=== PATIENT | male | born 1945 | race Caucasian/White ===

== ENCOUNTER 2020-04-24 09:37 | Day surgery (SDC) | payer MEDICARE, SELFPAY ==
[2020-04-23 12:40] VITALS: BMI 24.5
--- NOTE | 2020-04-23 13:04 | HO.ANESPROP2 ---
Documented by User: Daysi Muhammad 04/23/20 13:12 HPI - Anesthesia Eval Consult details Narrative: 75yo M for Colonoscopy [facility] Past Medical History Medical History Benign tumor of pituitary gland Blind left eye Colon adenomas GERD (gastroesophageal reflux disease) History of cataract Hypertension Surgical History Surgical History History of brain surgery History of colonoscopy History of hernia repair History of knee surgery History of laminectomy History of prostatectomy History of surgery on wrist Social History Social History Alcohol intake: never Smoking Status: Former smoker Tobacco Type: Cigarette Second Hand Smoke Exposure: No Use of substances other than those prescribed or required for medical reasons: No Advance Directives: No Advance Directives Information Provided: Yes Advance Directives on File: No Meds Allergies Allergy/AdvReac Type Severity Reaction Status Date / Time No Known Allergies Allergy Unverified 03/12/20 16:19 [No Known Allergies*] Home Medications Medication Instructions Recorded Confirmed Type fvqegeduav-uscgbvccipjjs-klvl tab PO 04/24/20 History finasteride mg PO 04/24/20 04/24/20 History oxymetazoline [Afrin spray INTRANASAL 04/24/20 History (oxymetazoline)] Exam Exam Date and Time: April 23, 2020 1304 Height,Weight and Vital Signs: Height 5 ft 11.5 in Weight 80.739 kg Assessment and Plan Assessment Anesthesia Assessment: Chart Reviewed Documented by User: Saida France 04/24/20 11:29 [facility] Past Medical History Medical History Benign tumor of pituitary gland Blind left eye Colon adenomas GERD (gastroesophageal reflux disease) History of cataract Hypertension Surgical History Surgical History History of brain surgery History of colonoscopy History of hernia repair History of knee surgery History of laminectomy History of prostatectomy History of surgery on wrist Social History Social History Alcohol intake: never Smoking Status: Former smoker Tobacco Type: Cigarette Second Hand Smoke Exposure: No Use of substances other than those prescribed or required for medical reasons: No Advance Directives: No Advance Directives Information Provided: Yes Advance Directives on File: No Meds Allergies Allergy/AdvReac Type Severity Reaction Status Date / Time No Known Allergies Allergy Unverified 03/12/20 16:19 [No Known Allergies*] Home Medications Medication Instructions Recorded Confirmed Type jyrykhmoov-pezuysfhljsuq-nhhc tab PO 04/24/20 History finasteride mg PO 04/24/20 04/24/20 History oxymetazoline [Afrin spray INTRANASAL 04/24/20 History (oxymetazoline)] Exam Airway Mallampati Class: II TM Dist: >3cm Neck ROM: Full Loose/Missing/Broken Teeth: No Heart: RRR Lungs: CTA Assessment and Plan Assessment Anesthesia Assessment: Anesthesia Plan Discussed and Chart Reviewed Final Anesthetic Review NPO: Yes ASA Class: II Final Preanesthetic Review: Meds/Allgs Chart Reviewed, Consent Obtained/Reviewed and Anes Risks/Benef Reviewed Patient Risk: Intermediate Procedure Risk: Low Anesthetic Plan Anesthetic Plan: MAC: Disposition: Standard PACU
[2020-04-24 10:17] VITALS: BP 130/90; PULSE 81; RESP 16; TEMP 36.3; O2SAT 97
[2020-04-24] MEDS: Lactated Ringers 1,000 ML 100 ML IVCONT (10:18)
--- NOTE | 2020-04-24 11:06 | MHC.SHP ---
Pre-Procedural Eval Section A The patient is an INPATIENT: No Changes since office visit: No Cold of Flu in the past 2 weeks, No New Medical Problems, No Changes in Medication and No Patient answered all questions The History & Physical has been completed within 30 days and I have reviewed it.: Yes Section B Chief Complaint: Screening Allergies: Allergies Allergy/AdvReac Type Severity Reaction Status Date / Time No Known Allergies Allergy Unverified 03/12/20 16:19 [No Known Allergies*] Plan Patient has been examined and remains a candidate for the planned procedure
[2020-04-24 11:38] VITALS: BP 102/69; PULSE 63; RESP 16; TEMP 36; O2SAT 97
--- NOTE | 2020-04-24 11:41 | PM.OP ---
Brief Operative Note Date of procedure: 04/24/20 Pre-op diagnosis: screening Post-op diagnosis: same Procedure: colonoscopy Surgeon: Facundo Bonilla Anesthesia: MAC Estimated blood loss (mL): 0 Pathology: none sent Condition: stable Disposition: PACU
[2020-04-24 11:53] VITALS: BP 102/69; PULSE 63; RESP 16; O2SAT 97
--- NOTE | 2020-04-24 12:13 | HO.POSTANES ---
Post Anesthesia Evaluation Post Anesthesia Evaluation Vital Signs: Vital Signs Temp Pulse Resp BP Pulse Ox 04/24/20 11:53 96.8 F 63 16 102/69 97 04/24/20 11:38 96.8 F 63 16 102/69 97 04/24/20 10:17 97.3 F 81 16 130/90 H 97 Anesthesia: Monitored Mental Status: Awake Pain Control: Satisfactory Nausea/Vomiting: None Hydration: Adequate Anesthesia-Related Issues: No Anes. Related Issues
--- NOTE | 2020-04-24 13:37 | OP_ITS ---
SURGEON: Facundo Bonilla MD INDICATIONS: Colon cancer screening and prior history of adenomatous colon polyps. PREOPERATIVE DIAGNOSIS: POSTOPERATIVE DIAGNOSIS: PROCEDURE PERFORMED: Colonoscopy to the terminal ileum. ESTIMATED BLOOD LOSS: COMPLICATIONS: ANESTHESIA: ASSISTANTS: SPECIMENS: MEDICATIONS: Monitored anesthesia care. DESCRIPTION OF PROCEDURE: History and physical performed. The risks and benefits of the procedure were explained to the patient. Informed consent was obtained. The patient was placed in left lateral decubitus position. A digital rectal exam was performed and was found to be normal. The Olympus pediatric video colonoscope was introduced into the rectum and advanced to the cecum without difficulty. The cecum was identified by transillumination, palpation, and identification of ileocecal valve. Examination was performed and the scope was removed. He tolerated the procedure well and was taken to recovery area in stable condition. FINDINGS: The terminal ileum was normal. The visualized colonic mucosa was normal. The quality of the prep was good. There was mild sigmoid diverticulosis noted. Retroflexed examination showed internal hemorrhoids. IMPRESSION: Normal colonoscopy. RECOMMENDATIONS: 1. Follow up as needed. 2. Repeat colonoscopy is recommended in 5 years because of prior history of colon polyps, this is optional based on the patient's age. MD NEL Syed/ESPERANZA / [id number]
== END 2020-04-24 12:15 | disposition home or self-care (01) ==
PROVIDERS: PCP Internal Medicine; Visit Provider Internal Medicine Gastroenterology
PROC: 0DJD8ZZ Inspection of Lower Intestinal Tract, Via Natural or Artificial Opening Endoscopic (ICD-10-PCS; CPT 45378; principal; 2020-04-24 10:50)
DX: Z12.11 Encounter for screening for malignant neoplasm of colon (principal); Z86.010 Personal history of colon polyps; K57.30 Diverticulosis of large intestine without perforation or abscess without bleeding; K64.8 Other hemorrhoids; K21.9 Gastro-esophageal reflux disease without esophagitis; I10 Essential (primary) hypertension; D35.2 Benign neoplasm of pituitary gland; H54.62 Unqualified visual loss, left eye, normal vision right eye; Z85.46 Personal history of malignant neoplasm of prostate; Z87.891 Personal history of nicotine dependence; Z79.899 Other long term (current) drug therapy
CPT/HCPCS: G0105

== ENCOUNTER 2020-06-09 06:50 | Outpatient (REF) | payer MEDICARE, SELFPAY ==
[2020-06-09 08:02] LABS: MANUAL DIFF FLAG NO
[2020-06-09 08:09] LABS: Basophils Percent Auto 0.4 % (0-2); Eosinophils Absolute Auto 0.1 X10*3/uL (0.0-0.4); Eosinophils Percent Auto 2.1 % (0-4); Hemoglobin 13.9 g/dl (14.0-18.0); Lymphocytes Absolute Auto 1.6 X10*3/uL (1.2-4.9); Lymphocytes Percent Auto 30.5 % (20-40); Mean Corpuscular HGB Conc 33.1 g/dl (31.0-36.0); Mean Corpuscular Hemoglobin 31.7 pg (27.0-33.0); Mean Corpuscular Volume 95.9 fL (80-98); Monocytes Absolute Auto 0.4 X10*3/uL (0.1-1.2); Monocytes Percent Auto 6.8 % (2-11); Neutrophils Absolute Auto 3.1 X10*3/uL (2.0-8.3); Neutrophils Percent Auto 60.2 % (45-73); Platelet Count 159 X10*3/uL (160-400); Red Blood Count 4.38 X10*6/uL (4.60-5.80); White Blood Count 5.1 X10*3/uL (4.8-10.8)
[2020-06-09 08:26] LABS: Alanine Aminotransferase 10 U/L (0-40); Alkaline Phosphatase 58 U/L (39-117); Anion Gap 10 (12-20); Aspartate Amino Transferase 19 U/L (5-37); Bilirubin Total 0.6 mg/dL (0.0-1.0); Blood Urea Nitrogen 21 mg/dL (9-16); Calcium 8.6 mg/dL (8.4-10.2); Carbon Dioxide 29 mmol/L (22-29); Chloride 106 mmol/L (96-108); Estimated Glomerular Filt Rate > 60; Glucose Fasting 116 mg/dL (60-99); Lactate Dehydrogenase 163 U/L (118-273); Potassium 4.4 mmol/l (3.3-5.1); Sodium 141 mmol/L (135-145); Total Protein 6.4 g/dL (6.5-8.0)
[2020-06-09 08:47] LABS: PSA,Total (Free>4and<10) 1.01 ng/mL (0.00-4.00)
[2020-06-09 09:44] LABS: Erythrocyte Sedimentation Rate 6 MM/HR (0-15)
[2020-06-14 13:47] LABS: Testosterone, Total 19 ng/dL (250-1100)
== END 2020-06-09 06:51 | disposition home or self-care (01) ==
LOC: HO.LAB 06:50
PROVIDERS: PCP Internal Medicine; Referring Provider Urology; Visit Provider Internal Medicine Medical Oncology
DX: C61 Malignant neoplasm of prostate (principal); D69.6 Thrombocytopenia, unspecified; J44.9 Chronic obstructive pulmonary disease, unspecified
CPT/HCPCS: 36415; 80053; 83615; 84153; 84403; 85025; 85652

== ENCOUNTER → 2020-06-25 12:05 | Outpatient (BNVA) | payer MEDICARE, SELFPAY | PROVIDERS: PCP Internal Medicine; Referring Provider Internal Medicine; Visit Provider Urology | DX: C61 Malignant neoplasm of prostate (principal); C79.51 Secondary malignant neoplasm of bone; M85.80 Other specified disorders of bone density and structure, unspecified site | CPT/HCPCS: Q3014 ==

== ENCOUNTER → 2020-08-24 10:30 | Outpatient (REF) | payer MEDICARE, SELFPAY ==
--- NOTE | ~2020-08-24 | NM_ITS ---
EXAMINATION: NM BONE SCAN OF THE WHOLE BODY CLINICAL INFORMATION: Prostate cancer. COMPARISON: Whole-body bone scan 10/05/2018. TECHNIQUE: Multiple gamma scintillation camera images of the whole body were performed 3 hours following the intravenous administration of 28 mCi Tc-99m MDP. FINDINGS: In the head, no abnormal activity seen in the calvarium. There is mild increased activity seen in the nasal cavity likely related to nonspecific inflammatory changes. In the thoracic cage and upper extremities, no abnormal activity seen. In the spine, there is nonspecific mild focal activity seen in mid cervical spine likely related to facet joint disease. Similarly there is mild focal activity seen in the right L5-S1 facet joint. In the pelvis, mild activity seen right supra-acetabular region of iliac bone medially and a small focus of mildly increased activity in the left iliac bone adjacent to left SI joint. These are stable. In the lower extremities, mild focal activity in right proximal metatarsal-tarsal joint likely degenerative changes. No other definite bony abnormalities are noted. The urinary bladder and faint visualization of both kidneys are noted. NM/NM bone scan whole body IMPRESSION: Degenerative arthritic changes cervical, lumbar spine and right midfoot region. Similar findings were seen on previous study. These are likely osteoarthritis changes. Mild activity seen along the right supra-acetabular region of the iliac bone and left iliac bone adjacent to the SI joint likely resolving metastatic disease similar to previous There are no new areas of metastatic disease.
== END ==
LOC: HO.NUCMED 10:30
PROVIDERS: PCP Internal Medicine; Visit Provider Urology
DX: C61 Malignant neoplasm of prostate (principal); C79.51 Secondary malignant neoplasm of bone
CPT/HCPCS: 78306; A9503

== ENCOUNTER 2020-09-09 13:19 | Outpatient (REF) | payer MEDICARE, SELFPAY ==
[2020-09-09 15:13] LABS: Prostate Specific Antigen 8.14 ng/mL (<0.05-4.0)
[2020-09-16 00:42] LABS: Testosterone, Total 474 ng/dL (250-1100)
== END 2020-09-09 13:20 | disposition home or self-care (01) ==
LOC: HO.LAB 13:19
PROVIDERS: PCP Internal Medicine; Visit Provider Urology
DX: E29.1 Testicular hypofunction (principal); C61 Malignant neoplasm of prostate; C79.51 Secondary malignant neoplasm of bone; Z12.5 Encounter for screening for malignant neoplasm of prostate
CPT/HCPCS: 36415; 84153; 84403

== ENCOUNTER 2020-09-22 06:51 | Outpatient (REF) | payer MEDICARE, SELFPAY ==
[2020-09-22 07:53] LABS: Cholesterol 200 mg/dL; HDL Cholesterol 65 mg/dL; LDL Cholesterol Calculated 120 mg/dl; Triglycerides 79 mg/dL
== END 2020-09-22 06:52 | disposition home or self-care (01) ==
LOC: HO.LAB 06:51
PROVIDERS: PCP Internal Medicine; Visit Provider Internal Medicine
DX: E78.00 Pure hypercholesterolemia, unspecified (principal)
CPT/HCPCS: 36415; 80061

== ENCOUNTER → 2020-09-23 10:09 | Outpatient (BNVA) | payer MEDICARE, SELFPAY | PROVIDERS: Visit Provider Urology | DX: Z13.89 Encounter for screening for other disorder (principal) | CPT/HCPCS: Q3014 ==

== ENCOUNTER 2020-10-08 12:59 | Outpatient (REF) | payer MEDICARE, SELFPAY ==
[2020-10-08 13:48] LABS: MANUAL DIFF FLAG NO
[2020-10-08 13:54] LABS: Basophils Percent Auto 0.3 % (0-2); Eosinophils Absolute Auto 0.2 X10*3/uL (0.0-0.4); Eosinophils Percent Auto 2.2 % (0-4); Hematocrit 40.4 % (42-52); Hemoglobin 13.2 g/dl (14.0-18.0); Imm Gran Abs Auto 0.01 X10*3/uL (0.00-0.03); Imm Gran Pct Auto 0.1 % (0.0-0.4); Lymphocytes Absolute Auto 1.3 X10*3/uL (1.2-4.9); Lymphocytes Percent Auto 18.8 % (20-40); Mean Corpuscular HGB Conc 32.7 g/dl (31.0-36.0); Mean Corpuscular Hemoglobin 31.5 pg (27.0-33.0); Mean Corpuscular Volume 96.4 fL (80-98); Mean Platelet Volume 10.7 fL (9.4-12.4); Monocytes Absolute Auto 0.5 X10*3/uL (0.1-1.2); Neutrophils Absolute Auto 4.8 X10*3/uL (2.0-8.3); Neutrophils Percent Auto 71.6 % (45-73); Platelet Count 160 X10*3/uL (160-400); Red Blood Count 4.19 X10*6/uL (4.60-5.80); Red Cell Distribution Width 13.3 % (11.0-16.0); White Blood Count 6.7 X10*3/uL (4.8-10.8)
[2020-10-08 14:14] LABS: Alanine Aminotransferase 15 U/L (0-40); Albumin Level 3.9 g/dL (3.5-5.0); Alkaline Phosphatase 81 U/L (39-117); Anion Gap 11 (12-20); Aspartate Amino Transferase 20 U/L (5-37); Bilirubin Total 0.4 mg/dL (0.0-1.0); Blood Urea Nitrogen 21 mg/dL (9-16); Calcium 9.1 mg/dL (8.4-10.2); Carbon Dioxide 30 mmol/L (22-29); Chloride 108 mmol/L (96-108); Estimated Glomerular Filt Rate > 60; Glucose Random 99 mg/dL (60-115); Sodium 144 mmol/L (135-145); Total Protein 6.1 g/dL (6.5-8.0)
[2020-10-08 14:53] LABS: Prostate Specific Antigen 9.28 ng/mL (<0.05-4.0)
== END 2020-10-08 13:00 | disposition home or self-care (01) ==
LOC: HO.LAB 12:59
PROVIDERS: Absent Provider Internal Medicine Medical Oncology; PCP Internal Medicine; Visit Provider Internal Medicine
DX: E78.00 Pure hypercholesterolemia, unspecified (principal); C61 Malignant neoplasm of prostate; Z12.5 Encounter for screening for malignant neoplasm of prostate; Z86.73 Personal history of transient ischemic attack (TIA), and cerebral infarction without residual deficits
CPT/HCPCS: 36415; 80053; 84153; 85025

== ENCOUNTER 2020-12-08 14:45 | Outpatient (REF) | payer MEDICARE, SELFPAY ==
[2020-12-08 18:00] LABS: PSA,Total (Free>4and<10) 15.12 ng/mL (0.00-4.00)
[2020-12-13 16:36] LABS: Testosterone, Free 31.6 pg/mL (30.0-135.0); Testosterone, Total 355 ng/dL (250-1100)
== END 2020-12-08 14:46 | disposition home or self-care (01) ==
LOC: HO.LAB 14:45
PROVIDERS: Absent Provider Internal Medicine Medical Oncology; PCP Internal Medicine; Referring Provider Internal Medicine; Visit Provider Urology
DX: Z12.5 Encounter for screening for malignant neoplasm of prostate (principal); C61 Malignant neoplasm of prostate; C79.51 Secondary malignant neoplasm of bone
CPT/HCPCS: 36415; 84153; 84402; 84403

== ENCOUNTER 2020-12-23 14:00 | Outpatient (REF) | payer MEDICARE, SELFPAY ==
[2020-12-24 08:41] LABS: Lyme Abs Screen <0.90 index
== END 2020-12-23 14:01 | disposition home or self-care (01) ==
LOC: HO.LAB 14:00
PROVIDERS: PCP Internal Medicine; Visit Provider Internal Medicine
DX: T14.8XXA Other injury of unspecified body region, initial encounter (principal); W57.XXXA Bitten or stung by nonvenomous insect and other nonvenomous arthropods, initial encounter
CPT/HCPCS: 36415; 86617; 86618

== ENCOUNTER → 2020-12-24 11:26 | Outpatient (BNVA) | payer MEDICARE, SELFPAY | PROVIDERS: PCP Internal Medicine; Visit Provider Urology | DX: C61 Malignant neoplasm of prostate (principal); C79.51 Secondary malignant neoplasm of bone; N40.1 Benign prostatic hyperplasia with lower urinary tract symptoms; N13.8 Other obstructive and reflux uropathy; M85.80 Other specified disorders of bone density and structure, unspecified site | CPT/HCPCS: 96402; 99212; J9217 ==

== ENCOUNTER 2021-01-09 10:22 | Outpatient (REF) | payer MEDICARE, SELFPAY ==
[2021-01-09 10:44] LABS: MANUAL DIFF FLAG NO
[2021-01-09 10:49] LABS: Basophils Percent Auto 0.3 % (0-2); Eosinophils Absolute Auto 0.2 X10*3/uL (0.0-0.4); Eosinophils Percent Auto 3.1 % (0-4); Hematocrit 43.7 % (42-52); Hemoglobin 14.6 g/dl (14.0-18.0); Imm Gran Abs Auto 0.01 X10*3/uL (0.00-0.03); Imm Gran Pct Auto 0.2 % (0.0-0.4); Lymphocytes Absolute Auto 1.4 X10*3/uL (1.2-4.9); Lymphocytes Percent Auto 22.1 % (20-40); Mean Corpuscular HGB Conc 33.4 g/dl (31.0-36.0); Mean Corpuscular Hemoglobin 31.7 pg (27.0-33.0); Mean Platelet Volume 10.2 fL (9.4-12.4); Monocytes Absolute Auto 0.4 X10*3/uL (0.1-1.2); Monocytes Percent Auto 6.7 % (2-11); Neutrophils Absolute Auto 4.1 X10*3/uL (2.0-8.3); Neutrophils Percent Auto 67.6 % (45-73); Platelet Count 156 X10*3/uL (160-400); Red Cell Distribution Width 13.2 % (11.0-16.0); White Blood Count 6.1 X10*3/uL (4.8-10.8)
[2021-01-09 11:53] LABS: Alanine Aminotransferase 21 U/L (0-40); Alkaline Phosphatase 80 U/L (39-117); Anion Gap 12 (12-20); Aspartate Amino Transferase 34 U/L (5-37); Bilirubin Total 0.5 mg/dL (0.0-1.0); Blood Urea Nitrogen 18 mg/dL (9-16); Calcium 9.8 mg/dL (8.4-10.2); Carbon Dioxide 28 mmol/L (22-29); Chloride 108 mmol/L (96-108); Estimated Glomerular Filt Rate > 60; Glucose Random 105 mg/dL (60-115); Potassium 5.1 mmol/L (3.3-5.1); Sodium 143 mmol/L (135-145); Total Protein 6.2 g/dL (6.5-8.0)
[2021-01-09 13:00] LABS: PSA,Total (Free>4and<10) 13.07 ng/mL (0.00-4.00)
== END 2021-01-09 10:23 | disposition home or self-care (01) ==
LOC: HO.LAB 10:22
PROVIDERS: Urology; PCP Internal Medicine; Visit Provider Internal Medicine Medical Oncology
DX: C61 Malignant neoplasm of prostate (principal); C79.51 Secondary malignant neoplasm of bone; N40.1 Benign prostatic hyperplasia with lower urinary tract symptoms; N13.8 Other obstructive and reflux uropathy
CPT/HCPCS: 36415; 80053; 84153; 85025

== ENCOUNTER 2021-01-27 12:48 | Outpatient (REF) | payer MEDICARE, SELFPAY ==
--- NOTE | ~2021-01-27 | MR_ITS ---
EXAMINATION: MR BRAIN WITHOUT AND WITH CONTRAST CLINICAL INFORMATION: Pituitary gland status post resection. COMPARISON: Brain MRI 09/12/2018. TECHNIQUE: Multiplanar, multisequence imaging of the brain was performed before and after the intravenous administration of 4.5 mL of Gadavist. FINDINGS: There are postoperative findings related to pituitary macroadenoma resection. The previously seen lobulated adenoma involving the sella and suprasellar region has decreased in size. A lobulated lesion is seen within the sella which measures up to 0.8 cm with heterogeneous enhancement and is seen on series 11 image 12/24. The presumed residual pituitary gland is seen on series 10 image 11/24. The infundibulum appears mildly thickened/buckled but is unchanged compared with prior. The cavernous sinuses demonstrate normal enhancement. There is no definite mass effect on the optic apparatus although the optic pathways difficult to define. There is lobular mucosal thickening in the posterior aspect of the sphenoid. No abnormal parenchymal enhancement is seen. There is no acute infarction, hemorrhage, or intracranial mass. Moderate T2/FLAIR hyperintensity seen in the cerebral white matter presumably reflecting sequela of chronic microangiopathy. The major arterial flow voids appear preserved at the skull base. The orbital contents appear normal. MR/MR head/brain wo/w con IMPRESSION: Postoperative findings related to reported pituitary adenoma resection. A lobulated lesion is seen within the sella measuring up to 0.8 cm and demonstrates heterogeneous enhancement. This finding could represent residual or recurrent adenoma no acute intracranial abnormality is seen.
== END 2021-01-27 12:49 | disposition home or self-care (01) ==
LOC: HO.MRI 12:48
PROVIDERS: Visit Provider Internal Medicine Medical Oncology
DX: D49.7 Neoplasm of unspecified behavior of endocrine glands and other parts of nervous system (principal)
CPT/HCPCS: 70553; A9585

== ENCOUNTER → 2021-02-16 10:51 | Outpatient (REF) | payer MEDICARE, SELFPAY ==
--- NOTE | ~2021-02-16 | NM_ITS ---
EXAMINATION: NM BONE SCAN OF THE WHOLE BODY CLINICAL INFORMATION: Malignant neoplasm of prostate COMPARISON: Whole body bone scan 08/24/2020 TECHNIQUE: Multiple gamma scintillation camera images of the whole body were performed 3 hours following the intravenous administration of 28 mCi Tc-99m MDP. FINDINGS: In the head, no abnormal activity seen in the calvarium. Mild nonspecific increased activity seen in the nasal cavity likely related to nonspecific inflammatory changes. In the thoracic cage and upper extremities, no abnormal activity seen. In the spine, nonspecific metabolic activity seen in paramidline mid cervical spine, left T12 facet joint, right L5-S1 facet joint. In the pelvis, mild activity seen in the right greater trochanter, right posterior iliac bone and left inferior SI joint similar to previous study. In the lower extremities, punctate activity seen in the right metatarsal region. No other definite bony abnormalities are noted. The urinary bladder and faint visualization of both kidneys are noted. NM/NM bone scan whole body IMPRESSION: Degenerative arthritic changes seen in the lumbar and lower thoracic spine. Mild increased activity seen overlying the left SI joint and right posterior iliac bone adjacent to the SI joint similar to previous study. Previously this was reported resolving metastatic disease. Mild focal activity seen in bilateral medial wrist joints and right mid foot likely tarsal joint from arthritis. There are no abnormal or new additional areas of activity seen to suspect new metastatic disease.
== END ==
LOC: HO.NUCMED 10:51
PROVIDERS: Visit Provider Urology
DX: C61 Malignant neoplasm of prostate (principal); C79.51 Secondary malignant neoplasm of bone
CPT/HCPCS: 78306; A9503

== ENCOUNTER 2021-03-22 15:58 | Outpatient (REF) | payer MEDICARE, SELFPAY ==
[2021-03-22 17:42] LABS: Prostate Specific Antigen 2.29 ng/mL (<0.05-4.0)
[2021-03-26 14:41] LABS: Testosterone, Total 5 ng/dL (250-1100)
== END 2021-03-22 15:59 | disposition home or self-care (01) ==
LOC: HO.LAB 15:58
PROVIDERS: PCP Internal Medicine; Referring Provider Internal Medicine Medical Oncology; Visit Provider Urology
DX: Z12.5 Encounter for screening for malignant neoplasm of prostate (principal); C61 Malignant neoplasm of prostate; C79.51 Secondary malignant neoplasm of bone
CPT/HCPCS: 36415; 84153; 84403

== ENCOUNTER 2021-03-31 08:32 | Outpatient (REF) | payer MEDICARE, SELFPAY ==
--- NOTE | ~2021-03-31 | MM_ITS ---
EXAMINATION: BONE DENSITOMETRY CLINICAL INDICATION: Other specified disorders of bone density and structure. COMPARISON: Previous BD dated 11/20/2018 and baseline BD dated 10/01/2015. TECHNIQUE: Using a [employer] DXA System (software version: 13.1) manufactured by [employer], dual-energy x-ray absorptiometry was performed of the lumbar spine and left hip. The images are of good technical quality. Summary results are attached. FINDINGS: AP SPINE L1-L3 (excluding L4): The data of L1-L4 has been changed to exclude the L4 vertebral body, because degenerative changes at this level may cause overestimation of lumbar spine density. Current: BMD 1.336 g/cm2, Z-score 1.6, T-score 1.0, normal, 4.6% decrease from previous, 6.3% increase from baseline (<5% change is not significant). Prior: BMD 1.400 g/cm2. Baseline: BMD 1.257 g/cm2. LEFT FEMUR, NECK: Current: BMD 0.851 g/cm2, Z-score -0.4, T-score -1.7, osteopenia. Prior: BMD 0.892 g/cm2. Baseline: BMD 0.902 g/cm2. LEFT FEMUR, TOTAL: Current: BMD 1.001 g/cm2, Z-score 0.1, T-score -0.7, normal, 3.8% decrease from previous, 0.1% decrease from baseline (<5% change is not significant). Prior: BMD 1.040 g/cm2. Baseline: BMD 1.002 g/cm2. IDENTIFIED RISK FACTORS: Secondary osteoporosis. HISTORY OF FRACTURE: None listed. MEDICATIONS: Calcium supplements or multivitamin, vitamin D. MM/XR DEXA axial skeleton IMPRESSION: 1. DIAGNOSIS: Osteopenia based on the lowest T-score value of -1.7 in the femoral neck applying World Health Organization criteria. 2. 10-YEAR FRACTURE RISK PREDICTION, FRAX: Major osteoporotic fracture (clinical spine, forearm, hip or shoulder) 7.3%. Hip fracture 2.1%. 3. Treatment Recommendations: NOF guidelines recommend consideration for treatment in postmenopausal women and men age 50 and older presenting with the following: -A hip or vertebral (clinical or morphometric) fracture. -T-score less than or equal to -2.5 at the femoral neck or spine after appropriate evaluation to exclude secondary causes. -Low bone mass at the hip or spine and a 10-year fracture probability by FRAX of greater than or equal to 3% for hip fracture or greater than or equal to 20% for major osteoporotic fracture based on the [place] adapted WHO algorithm. 4. Other Recommendations: All treatment decisions require clinical judgment and consideration of individual patient factors, including patient preferences, comorbidities, previous drug use, risk factors not captured in the FRAX model (e.g. frailty, falls, vitamin D deficiency, increased bone turnover, interval significant decline in bone density) and possible under or overestimation of fracture risk by FRAX. Additional medical evaluation for secondary cause of low bone mineral density may be appropriate. FUTURE SCAN RECOMMENDATION: People with diagnosed cases of osteoporosis or at high risk for fracture should have regular bone mineral density tests. For patients eligible for Medicare, routine testing is allowed once every 2 years. The testing frequency can be increased to one year for patients who have rapidly progressing disease, those who are receiving or discontinuing medical therapy to restore bone mass, or have additional risk factors.
== END 2021-03-31 08:33 | disposition home or self-care (01) ==
LOC: HO.MAMMO 08:32
PROVIDERS: Visit Provider Urology
DX: Z13.820 Encounter for screening for osteoporosis (principal); M85.88 Other specified disorders of bone density and structure, other site; C61 Malignant neoplasm of prostate; C79.51 Secondary malignant neoplasm of bone
CPT/HCPCS: 77080

== ENCOUNTER 2021-04-02 07:23 | Outpatient (REF) | payer MEDICARE, SELFPAY ==
[2021-04-02 07:43] LABS: MANUAL DIFF FLAG NO
[2021-04-02 07:57] LABS: Basophils Percent Auto 0.4 % (0-2); Eosinophils Absolute Auto 0.1 X10*3/uL (0.0-0.4); Eosinophils Percent Auto 2.6 % (0-4); Hematocrit 41.9 % (42-52); Hemoglobin 14.1 g/dl (14.0-18.0); Imm Gran Abs Auto 0.01 X10*3/uL (0.00-0.03); Imm Gran Pct Auto 0.2 % (0.0-0.4); Lymphocytes Absolute Auto 1.3 X10*3/uL (1.2-4.9); Lymphocytes Percent Auto 23.9 % (20-40); Mean Corpuscular HGB Conc 33.7 g/dl (31.0-36.0); Mean Corpuscular Hemoglobin 32.3 pg (27.0-33.0); Mean Corpuscular Volume 96.1 fL (80-98); Mean Platelet Volume 10.6 fL (9.4-12.4); Monocytes Absolute Auto 0.4 X10*3/uL (0.1-1.2); Monocytes Percent Auto 7.9 % (2-11); Neutrophils Absolute Auto 3.5 X10*3/uL (2.0-8.3); Platelet Count 163 X10*3/uL (160-400); Red Blood Count 4.36 X10*6/uL (4.60-5.80); Red Cell Distribution Width 13.1 % (11.0-16.0); White Blood Count 5.3 X10*3/uL (4.8-10.8)
[2021-04-02 08:20] LABS: Alanine Aminotransferase 16 U/L (0-40); Alkaline Phosphatase 69 U/L (39-117); Anion Gap 11 (12-20); Aspartate Amino Transferase 21 U/L (5-37); Bilirubin Total 0.5 mg/dL (0.0-1.0); Blood Urea Nitrogen 20 mg/dL (9-16); Calcium 9.5 mg/dL (8.4-10.2); Carbon Dioxide 30 mmol/L (22-29); Chloride 108 mmol/L (96-108); Estimated Glomerular Filt Rate > 60; Glucose Random 112 mg/dL (60-115); Sodium 144 mmol/L (135-145); Total Protein 6.2 g/dL (6.5-8.0)
[2021-04-02 08:41] LABS: PSA,Total (Free>4and<10) 2.31 ng/mL (0.00-4.00)
[2021-04-07 10:26] LABS: Testosterone, Total 8 ng/dL (250-1100)
== END 2021-04-02 07:24 | disposition home or self-care (01) ==
LOC: HO.LAB 07:23
PROVIDERS: PCP Internal Medicine; Visit Provider Internal Medicine Medical Oncology
DX: C61 Malignant neoplasm of prostate (principal); D49.7 Neoplasm of unspecified behavior of endocrine glands and other parts of nervous system; C91.10 Chronic lymphocytic leukemia of B-cell type not having achieved remission; Z87.891 Personal history of nicotine dependence
CPT/HCPCS: 36415; 80053; 84153; 84403; 85025

== ENCOUNTER → 2021-04-06 11:05 | Outpatient (BNVA) | payer MEDICARE, SELFPAY | PROVIDERS: PCP Internal Medicine; Visit Provider Urology | DX: M85.80 Other specified disorders of bone density and structure, unspecified site (principal); C61 Malignant neoplasm of prostate; C79.51 Secondary malignant neoplasm of bone | CPT/HCPCS: 99212 ==

== ENCOUNTER 2021-06-28 13:05 | Outpatient (REF) | payer MEDICARE, SELFPAY ==
[2021-06-28 14:06] LABS: Prostate Specific Antigen 1.92 ng/mL (<0.05-4.0)
[2021-07-02 12:41] LABS: Testosterone, Total 6 ng/dL (250-1100)
== END 2021-06-28 13:06 | disposition home or self-care (01) ==
LOC: HO.LAB 13:05
PROVIDERS: PCP Internal Medicine; Visit Provider Urology
DX: Z12.5 Encounter for screening for malignant neoplasm of prostate (principal); C61 Malignant neoplasm of prostate; C79.51 Secondary malignant neoplasm of bone
CPT/HCPCS: 36415; 84153; 84403

== ENCOUNTER → 2021-07-14 13:02 | Outpatient (BNVA) | payer MEDICARE, SELFPAY | PROVIDERS: PCP Internal Medicine; Visit Provider Urology | DX: C61 Malignant neoplasm of prostate (principal); C79.51 Secondary malignant neoplasm of bone; M85.80 Other specified disorders of bone density and structure, unspecified site | CPT/HCPCS: 96372; 96402; 99212; J0897; J9217 ==

== ENCOUNTER 2021-07-22 13:27 | Outpatient (REF) | payer MEDICARE, SELFPAY ==
--- NOTE | ~2021-07-22 | XR_ITS ---
EXAMINATION: XR HIP, LEFT CLINICAL INFORMATION: Pain. COMPARISON: Prior study 11/24/2017. TECHNIQUE: Frontal and lateral views of the hip acquired. FINDINGS: There is no evidence of acute fracture or dislocation. There are mild degenerative arthritic changes of the hip evident by sclerotic changes of the acetabular roof and narrowing of the joint space. Mild degenerative changes of the symphysis pubis. Mild degenerative changes of the SI joints. Adjacent pubic rami are intact. Surrounding soft tissues are unremarkable. There are surgical clips mid pelvis unchanged. XR/XR hip LT min 2V IMPRESSION: [id number] degenerative osteoarthritis involving symphysis pubis, SI joint and left hip. No radiographic evidence of bone destructive lesion.
== END 2021-07-22 13:28 | disposition home or self-care (01) ==
LOC: HO.XRAY 13:27
PROVIDERS: Absent Provider Internal Medicine Medical Oncology; PCP Internal Medicine; Visit Provider Internal Medicine
DX: M25.552 Pain in left hip (principal)
CPT/HCPCS: 73502

== ENCOUNTER 2021-07-28 07:13 | Outpatient (REF) | payer MEDICARE, SELFPAY ==
[2021-07-28 07:36] LABS: MANUAL DIFF FLAG NO
[2021-07-28 08:05] LABS: Basophils Percent Auto 0.3 % (0-2); Eosinophils Absolute Auto 0.2 X10*3/uL (0.0-0.4); Eosinophils Percent Auto 2.6 % (0-4); Hematocrit 39.6 % (42.0-52.0); Hemoglobin 13.2 g/dl (14.0-18.0); Imm Gran Abs Auto 0.01 X10*3/uL (0.00-0.03); Imm Gran Pct Auto 0.2 % (0.0-0.4); Lymphocytes Absolute Auto 1.4 X10*3/uL (1.2-4.9); Lymphocytes Percent Auto 22.6 % (20-40); Mean Corpuscular HGB Conc 33.3 g/dl (31.0-36.0); Mean Corpuscular Hemoglobin 31.8 pg (27.0-33.0); Mean Corpuscular Volume 95.4 fL (80.0-98.0); Mean Platelet Volume 10.5 fL (9.4-12.4); Monocytes Absolute Auto 0.4 X10*3/uL (0.1-1.2); Monocytes Percent Auto 6.4 % (2-11); Neutrophils Absolute Auto 4.1 x10*3/uL (2.0-8.3); Neutrophils Percent Auto 67.9 % (45-73); Platelet Count 157 X10*3/uL (160-400); Red Blood Count 4.15 X10*6/uL (4.60-5.80); Red Cell Distribution Width 13.2 % (11.0-16.0); White Blood Count 6.1 X10*3/uL (4.8-10.8)
[2021-07-28 08:26] LABS: Cholesterol 195 mg/dL; HDL Cholesterol 67 mg/dL; LDL Cholesterol Calculated 114 mg/dl; Triglycerides 73 mg/dL
[2021-07-29 11:26] LABS: Free Prostate Spec Ag 0.2 ng/mL; Percent Free Prostate Spec Ag 11 % (calc) (>25); Prostate Specific Ag Total 1.8 ng/mL (< OR = 4.0)
== END 2021-07-28 07:14 | disposition home or self-care (01) ==
LOC: HO.LAB 07:13
PROVIDERS: PCP Internal Medicine; Visit Provider Internal Medicine Medical Oncology
DX: Z12.5 Encounter for screening for malignant neoplasm of prostate (principal); C61 Malignant neoplasm of prostate
CPT/HCPCS: 36415; 80061; 84154; 85025

== ENCOUNTER → 2021-09-20 09:50 | Outpatient (REF) | payer MEDICARE, SELFPAY ==
--- NOTE | ~2021-09-20 | NM_ITS ---
EXAMINATION: NM BONE SCAN OF THE WHOLE BODY CLINICAL INFORMATION: Malignant neoplasm of prostate. COMPARISON: The previous bone scan dated 02/16/2021 is available for comparison. Radiographs of the left hip dated 07/22/2021 are available for comparison. TECHNIQUE: Multiple gamma scintillation camera images of the whole body were performed 3 hours following the intravenous administration of 28 mCi Tc-99m MDP. FINDINGS: In the head, no significant abnormalities are present. In the thoracic cage and upper extremities, there is minimally increased activity in the right acromioclavicular joint and there is mildly increased activity in the radial side of both hands, probably at the first carpal metacarpal joints bilaterally. Some residual radiopharmaceutical at the injection site in the right antecubital fossa is noted. In the spine, there is mildly increased activity in the posterior elements bilaterally in the mid cervical spine, likely due to facet arthropathy. In addition, there is mildly increased activity anteriorly in the lower cervical spine. There is mildly increased activity in the right posterior elements at L5/S1. There has not been a significant change. There is a faint focus of increased activity in the left side at T12. In the pelvis, there is mildly increased activity in the inferior aspect of the left sacroiliac joint and there is a small focus of mildly increased activity in the supra-acetabular region of the right iliac bone. In the lower extremities, there is a small focus of mildly increased activity in the proximal right foot. There is minimally increased activity medially and laterally in the left ankle. There is also small focus of minimally increased activity in the left greater femoral trochanter an very faintly in the right greater femoral trochanter. No other definite bony abnormalities are noted. The urinary bladder and faint visualization of both kidneys are noted. Compared to the previous bone scan dated 02/16/2021, there has not been a significant change. There is some sclerosis in the left sacroiliac joint in the region of abnormal activity described above. This was better visualized on the CT scan of the abdomen and pelvis dated 04/10/2018 when a densely sclerotic focus at this site was visualized. Dense sclerotic focus in the posterior right iliac bone corresponding to bone scan abnormalities on the current and prior bone scan or also visible on that CT scan. There is also severe facet arthropathy at L5/S1 on that CT scan and a small rounded sclerotic lesion in the left side of the T12 vertebral body that corresponds to the bone scan abnormalities present on the current and prior study. NM/NM bone scan whole body IMPRESSION: Stable metastatic disease in the pelvis is noted as described above, most prominently in the posterior left iliac bone adjacent to the sacroiliac joint. A few additional abnormalities in the spine, hands, and right foot are nonspecific but likely arthritic in etiology. There is no evidence of new metastatic disease.
== END ==
LOC: HO.NUCMED 09:50
PROVIDERS: Visit Provider Urology
DX: C61 Malignant neoplasm of prostate (principal); C79.51 Secondary malignant neoplasm of bone
CPT/HCPCS: 78306; A9503

== ENCOUNTER 2021-10-04 13:11 | Outpatient (REF) | payer MEDICARE, SELFPAY ==
[2021-10-04 15:17] LABS: Prostate Specific Antigen 1.59 ng/mL (<0.05-4.0)
[2021-10-09 11:40] LABS: Testosterone, Total 7 ng/dL (250-1100)
== END 2021-10-04 13:12 | disposition home or self-care (01) ==
LOC: HO.LAB 13:11
PROVIDERS: Absent Provider Internal Medicine Medical Oncology; PCP Internal Medicine; Visit Provider Urology
DX: Z12.5 Encounter for screening for malignant neoplasm of prostate (principal); C61 Malignant neoplasm of prostate; C79.51 Secondary malignant neoplasm of bone
CPT/HCPCS: 36415; 84153; 84403

== ENCOUNTER 2021-10-18 12:56 | Outpatient (REF) | payer MEDICARE, SELFPAY ==
[2021-10-18 13:10] LABS: MANUAL DIFF FLAG NO
[2021-10-18 13:23] LABS: Basophils Percent Auto 0.4 % (0-2); Eosinophils Percent Auto 0.3 % (0-4); Hematocrit 40.1 % (42.0-52.0); Hemoglobin 13.2 g/dl (14.0-18.0); Imm Gran Abs Auto 0.02 X10*3/uL (0.00-0.03); Imm Gran Pct Auto 0.3 % (0.0-0.4); Lymphocytes Absolute Auto 1.2 X10*3/uL (1.2-4.9); Lymphocytes Percent Auto 15.3 % (20-40); Mean Corpuscular HGB Conc 32.9 g/dl (31.0-36.0); Mean Corpuscular Hemoglobin 31.4 pg (27.0-33.0); Mean Corpuscular Volume 95.2 fL (80.0-98.0); Mean Platelet Volume 9.9 fL (9.4-12.4); Monocytes Absolute Auto 0.6 X10*3/uL (0.1-1.2); Monocytes Percent Auto 7.1 % (2-11); Neutrophils Absolute Auto 5.9 x10*3/uL (2.0-8.3); Neutrophils Percent Auto 76.6 % (45-73); Platelet Count 173 X10*3/uL (160-400); Red Blood Count 4.21 X10*6/uL (4.60-5.80); Red Cell Distribution Width 13.2 % (11.0-16.0); White Blood Count 7.7 X10*3/uL (4.8-10.8)
[2021-10-18 13:52] LABS: Alanine Aminotransferase 13 U/L (0-40); Alkaline Phosphatase 58 U/L (39-117); Anion Gap 9 (12-20); Aspartate Amino Transferase 20 U/L (5-37); Bilirubin Total 0.4 mg/dL (0.0-1.0); Blood Urea Nitrogen 31 mg/dL (9-16); Calcium 10.1 mg/dL (8.4-10.2); Carbon Dioxide 30 mmol/L (22-29); Chloride 107 mmol/L (96-108); Estimated Glomerular Filt Rate > 60; Glucose Random 120 mg/dL (60-115); Potassium 5.2 mmol/L (3.3-5.1); Sodium 141 mmol/L (135-145); Total Protein 6.3 g/dL (6.5-8.0)
[2021-10-18 14:09] LABS: Prostate Specific Antigen 1.67 ng/mL (<0.05-4.0)
== END 2021-10-18 12:57 | disposition home or self-care (01) ==
LOC: HO.LAB 12:56
PROVIDERS: PCP Internal Medicine; Visit Provider Internal Medicine Medical Oncology
DX: Z12.5 Encounter for screening for malignant neoplasm of prostate (principal); C61 Malignant neoplasm of prostate
CPT/HCPCS: 36415; 80053; 84153; 85025

== ENCOUNTER → 2021-10-20 13:02 | Outpatient (BNVA) | payer MEDICARE, SELFPAY | PROVIDERS: PCP Internal Medicine; Visit Provider Urology | DX: Z13.89 Encounter for screening for other disorder (principal) | CPT/HCPCS: Q3014 ==

== ENCOUNTER 2022-01-14 06:58 | Outpatient (REF) | payer MEDICARE, SELFPAY ==
[2022-01-14 08:41] LABS: Prostate Specific Antigen 1.13 ng/mL (<0.05-4.0)
[2022-01-21 12:02] LABS: Testosterone, Total 10 ng/dL (250-1100)
== END 2022-01-14 06:59 | disposition home or self-care (01) ==
LOC: HO.LAB 06:58
PROVIDERS: PCP Internal Medicine; Visit Provider Urology
DX: Z12.5 Encounter for screening for malignant neoplasm of prostate (principal); C61 Malignant neoplasm of prostate; N13.8 Other obstructive and reflux uropathy; N40.1 Benign prostatic hyperplasia with lower urinary tract symptoms
CPT/HCPCS: 36415; 84153; 84403

== ENCOUNTER → 2022-01-27 13:18 | Outpatient (BNVA) | payer MEDICARE, SELFPAY | PROVIDERS: PCP Internal Medicine; Visit Provider Urology | DX: C61 Malignant neoplasm of prostate (principal); C79.51 Secondary malignant neoplasm of bone; M85.80 Other specified disorders of bone density and structure, unspecified site; Z90.79 Acquired absence of other genital organ(s) | CPT/HCPCS: 96372; 96402; 99212; J0897; J9217 ==

== ENCOUNTER 2022-02-25 13:57 | Outpatient (REF) | payer MEDICARE, SELFPAY ==
[2022-02-25 14:11] LABS: MANUAL DIFF FLAG NO
[2022-02-25 14:38] LABS: Basophils Percent Auto 0.3 % (0-2); Eosinophils Percent Auto 0.6 % (0-4); Hematocrit 40.4 % (42.0-52.0); Hemoglobin 13.4 g/dl (14.0-18.0); Imm Gran Abs Auto 0.02 X10*3/uL (0.00-0.03); Imm Gran Pct Auto 0.3 % (0.0-0.4); Lymphocytes Absolute Auto 1.1 X10*3/uL (1.2-4.9); Lymphocytes Percent Auto 15.5 % (20-40); Mean Corpuscular HGB Conc 33.2 g/dl (31.0-36.0); Mean Corpuscular Hemoglobin 31.4 pg (27.0-33.0); Mean Corpuscular Volume 94.6 fL (80.0-98.0); Mean Platelet Volume 10.6 fL (9.4-12.4); Monocytes Absolute Auto 0.5 X10*3/uL (0.1-1.2); Monocytes Percent Auto 7.5 % (2-11); Neutrophils Absolute Auto 5.4 x10*3/uL (2.0-8.3); Neutrophils Percent Auto 75.8 % (45-73); Platelet Count 166 X10*3/uL (160-400); Red Blood Count 4.27 X10*6/uL (4.60-5.80); Red Cell Distribution Width 13.3 % (11.0-16.0); White Blood Count 7.2 X10*3/uL (4.8-10.8)
[2022-02-25 15:03] LABS: Alanine Aminotransferase 15 U/L (0-40); Alkaline Phosphatase 59 U/L (39-117); Anion Gap 15 (12-20); Aspartate Amino Transferase 24 U/L (5-37); Bilirubin Total 0.5 mg/dL (0.0-1.0); Blood Urea Nitrogen 19 mg/dL (9-16); Carbon Dioxide 26 mmol/L (22-29); Chloride 107 mmol/L (96-108); Estimated Glomerular Filt Rate > 60; Glucose Random 108 mg/dL (60-115); Potassium 5.4 mmol/L (3.3-5.1); Sodium 143 mmol/L (135-145); Total Protein 6.4 g/dL (6.5-8.0)
== END 2022-02-25 13:58 | disposition home or self-care (01) ==
LOC: HO.LAB 13:57
PROVIDERS: PCP Internal Medicine; Visit Provider Internal Medicine Medical Oncology
DX: D49.7 Neoplasm of unspecified behavior of endocrine glands and other parts of nervous system (principal); C61 Malignant neoplasm of prostate; C91.10 Chronic lymphocytic leukemia of B-cell type not having achieved remission; Z12.5 Encounter for screening for malignant neoplasm of prostate
CPT/HCPCS: 36415; 80053; 84153; 85025

== ENCOUNTER 2022-04-18 12:52 | Outpatient (REF) | payer MEDICARE, SELFPAY ==
[2022-04-18 14:26] LABS: Prostate Specific Antigen 1.07 ng/mL (<0.05-4.0)
[2022-04-22 13:26] LABS: Testosterone, Total 7 ng/dL (250-1100)
== END 2022-04-18 12:53 | disposition home or self-care (01) ==
LOC: HO.LAB 12:52
PROVIDERS: PCP Internal Medicine; Visit Provider Urology
DX: Z12.5 Encounter for screening for malignant neoplasm of prostate (principal); C61 Malignant neoplasm of prostate; C79.51 Secondary malignant neoplasm of bone
CPT/HCPCS: 36415; 84153; 84403

== ENCOUNTER → 2022-05-03 09:30 | Outpatient (BNVA) | payer MEDICARE, SELFPAY | PROVIDERS: PCP Internal Medicine; Visit Provider Urology | DX: C61 Malignant neoplasm of prostate (principal); C79.51 Secondary malignant neoplasm of bone | CPT/HCPCS: Q3014 ==

== ENCOUNTER 2022-06-30 12:54 | Outpatient (REF) | payer MEDICARE, SELFPAY ==
[2022-06-30 13:06] LABS: MANUAL DIFF FLAG NO
[2022-06-30 13:30] LABS: Basophils Percent Auto 0.4 % (0-2); Eosinophils Absolute Auto 0.1 X10*3/uL (0.0-0.4); Eosinophils Percent Auto 1.4 % (0-4); Hematocrit 40.8 % (42.0-52.0); Hemoglobin 13.5 g/dl (14.0-18.0); Imm Gran Abs Auto 0.03 X10*3/uL (0.00-0.03); Imm Gran Pct Auto 0.4 % (0.0-0.4); Lymphocytes Absolute Auto 1.3 X10*3/uL (1.2-4.9); Lymphocytes Percent Auto 17.4 % (20-40); Mean Corpuscular HGB Conc 33.1 g/dl (31.0-36.0); Mean Corpuscular Hemoglobin 31.5 pg (27.0-33.0); Mean Corpuscular Volume 95.1 fL (80.0-98.0); Mean Platelet Volume 10.5 fL (9.4-12.4); Monocytes Absolute Auto 0.6 X10*3/uL (0.1-1.2); Monocytes Percent Auto 8.4 % (2-11); Neutrophils Absolute Auto 5.5 x10*3/uL (2.0-8.3); Platelet Count 189 X10*3/uL (160-400); Red Blood Count 4.29 X10*6/uL (4.60-5.80); Red Cell Distribution Width 13.1 % (11.0-16.0); White Blood Count 7.6 X10*3/uL (4.8-10.8)
[2022-06-30 14:31] LABS: Alanine Aminotransferase 13 U/L (0-40); Albumin Level 3.9 g/dL (3.5-5.0); Alkaline Phosphatase 66 U/L (39-117); Anion Gap 13 (12-20); Aspartate Amino Transferase 20 U/L (5-37); Bilirubin Total 0.4 mg/dL (0.0-1.0); Blood Urea Nitrogen 39 mg/dL (9-16); Calcium 9.9 mg/dL (8.4-10.2); Carbon Dioxide 28 mmol/L (22-29); Chloride 108 mmol/L (96-108); Cholesterol 194 mg/dL; Estimated Glomerular Filt Rate 56; Glucose Random 109 mg/dL (60-115); HDL Cholesterol 65 mg/dL; LDL Cholesterol Calculated 106 mg/dl; Potassium 4.9 mmol/L (3.3-5.1); Sodium 144 mmol/L (135-145); Total Protein 6.2 g/dL (6.5-8.0); Triglycerides 116 mg/dL
[2022-06-30 14:52] LABS: Prostate Specific Antigen 0.94 ng/mL (<0.05-4.0)
== END 2022-06-30 12:55 | disposition home or self-care (01) ==
LOC: HO.LAB 12:54
PROVIDERS: PCP Internal Medicine; Visit Provider Internal Medicine Medical Oncology
DX: Z12.5 Encounter for screening for malignant neoplasm of prostate (principal); D49.7 Neoplasm of unspecified behavior of endocrine glands and other parts of nervous system; C61 Malignant neoplasm of prostate; C91.10 Chronic lymphocytic leukemia of B-cell type not having achieved remission; R73.9 Hyperglycemia, unspecified
CPT/HCPCS: 36415; 80053; 80061; 84153; 85025

== ENCOUNTER 2022-08-22 12:58 | Outpatient (REF) | payer MEDICARE, SELFPAY ==
[2022-08-22 15:08] LABS: Prostate Specific Antigen 0.61 ng/mL (<0.05-4.0)
[2022-08-30 10:23] LABS: Testosterone, Total 4 ng/dL (250-1100)
== END 2022-08-22 12:59 | disposition home or self-care (01) ==
LOC: HO.LAB 12:58
PROVIDERS: PCP Internal Medicine; Visit Provider Urology
DX: Z12.5 Encounter for screening for malignant neoplasm of prostate (principal); C61 Malignant neoplasm of prostate; C79.51 Secondary malignant neoplasm of bone; N13.8 Other obstructive and reflux uropathy; N40.1 Benign prostatic hyperplasia with lower urinary tract symptoms
CPT/HCPCS: 36415; 84153; 84403

== ENCOUNTER → 2022-08-30 09:44 | Outpatient (BNVA) | payer MEDICARE, SELFPAY | PROVIDERS: PCP Internal Medicine; Visit Provider Urology | DX: C61 Malignant neoplasm of prostate (principal); C79.51 Secondary malignant neoplasm of bone | CPT/HCPCS: Q3014 ==

== ENCOUNTER 2022-10-25 13:00 | Outpatient (REF) | payer MEDICARE, SELFPAY ==
[2022-10-25 13:18] LABS: MANUAL DIFF FLAG NO
[2022-10-25 14:23] LABS: Basophils Percent Auto 0.3 % (0-2); Eosinophils Absolute Auto 0.1 X10*3/uL (0.0-0.4); Hematocrit 41.3 % (42.0-52.0); Hemoglobin 13.8 g/dl (14.0-18.0); Imm Gran Abs Auto 0.02 X10*3/uL (0.00-0.03); Imm Gran Pct Auto 0.2 % (0.0-0.4); Lymphocytes Absolute Auto 1.1 X10*3/uL (1.2-4.9); Lymphocytes Percent Auto 11.8 % (20-40); Mean Corpuscular HGB Conc 33.4 g/dl (31.0-36.0); Mean Corpuscular Hemoglobin 31.2 pg (27.0-33.0); Mean Corpuscular Volume 93.2 fL (80.0-98.0); Mean Platelet Volume 10.5 fL (9.4-12.4); Monocytes Absolute Auto 0.7 X10*3/uL (0.1-1.2); Monocytes Percent Auto 7.9 % (2-11); Neutrophils Absolute Auto 7.1 x10*3/uL (2.0-8.3); Neutrophils Percent Auto 78.8 % (45-73); Platelet Count 207 X10*3/uL (160-400); Red Blood Count 4.43 X10*6/uL (4.60-5.80); Red Cell Distribution Width 13.4 % (11.0-16.0)
[2022-10-25 14:57] LABS: Alanine Aminotransferase 14 U/L (0-40); Albumin Level 3.9 g/dL (3.5-5.0); Alkaline Phosphatase 65 U/L (39-117); Anion Gap 11 (12-20); Aspartate Amino Transferase 21 U/L (5-37); Bilirubin Total 0.4 mg/dL (0.0-1.0); Blood Urea Nitrogen 26 mg/dL (9-16); Carbon Dioxide 29 mmol/L (22-29); Chloride 106 mmol/L (96-108); Estimated Glomerular Filt Rate > 60; Glucose Random 96 mg/dL (60-115); Sodium 141 mmol/L (135-145); Total Protein 6.1 g/dL (6.5-8.0)
[2022-10-25 15:14] LABS: Prostate Specific Antigen 0.69 ng/mL (<0.05-4.0)
== END 2022-10-25 13:01 | disposition home or self-care (01) ==
LOC: HO.LAB 13:00
PROVIDERS: PCP Internal Medicine Medical Oncology; Visit Provider Internal Medicine Medical Oncology
DX: Z12.5 Encounter for screening for malignant neoplasm of prostate (principal); C61 Malignant neoplasm of prostate; C91.10 Chronic lymphocytic leukemia of B-cell type not having achieved remission
CPT/HCPCS: 36415; 80053; 84153; 85025

== ENCOUNTER 2022-11-30 13:23 | Outpatient (REF) | payer MEDICARE, SELFPAY ==
--- NOTE | ~2022-11-30 | MR_ITS ---
MRI OF THE BRAIN WITH AND WITHOUT IV CONTRAST INDICATION: Pituitary tumor. Surgery in 2017. Question recurrence. COMPARISON: Brain MRI 01/27/2021. TECHNIQUE: Multiplanar multisequence MR imaging of the brain was obtained without and following the administration of 4 mL of Gadavist without complication. FINDINGS: Redemonstrated postoperative changes following transsphenoidal resection of a pituitary adenoma. An enhancing septal flap covers the sellar surgical defect. There has been a mild increase in size of a lobulated focus of heterogeneously enhancing tissue within the central and right sella measuring up to 1.3 cm TV by 0.8 cm CC by 0.8 cm AP compared to 1.1 cm TV by 0.8 cm CC by 0.7 cm AP on 01/27/2021 MRI. The infundibulum remains obstructed towards the right and likely inserts a normal residual pituitary tissue. The cavernous sinuses are symmetric and normal. Left prechiasmatic optic nerve and optic chiasm contact the upper margin of this lesion. There is no hydrocephalus, extra-axial surface collection, or herniation. There is global cerebral volume loss and there is moderate chronic microangiopathy. The major flow voids at the skull base are preserved. There is no acute infarct on diffusion-weighted imaging. The cerebellar tonsils are normally positioned. The cerebellum and brainstem are normal. The craniocervical junction is normal. Osseous marrow signal intensity is homogenous. The visualized soft tissues are unremarkable. MR/MR head/brain wo/w con IMPRESSION: - Interval increase in size of the lobulated lesion within the right and central sella currently measuring up to 1.1 cm compared to 0.8 cm previously, most likely residual/recurrent tumor. Left prechiasmatic optic nerve and optic chiasm contact the upper margin of this lesion. - There is global cerebral volume loss and there is moderate chronic microangiopathy.
== END 2022-11-30 13:24 | disposition home or self-care (01) ==
LOC: HO.MRI 13:23
PROVIDERS: PCP Internal Medicine; Visit Provider Internal Medicine Medical Oncology
DX: D35.2 Benign neoplasm of pituitary gland (principal); D47.9 Neoplasm of uncertain behavior of lymphoid, hematopoietic and related tissue, unspecified
CPT/HCPCS: 70553; A9585

== ENCOUNTER → 2022-12-16 10:55 | Outpatient (REF) | payer MEDICARE, SELFPAY ==
--- NOTE | ~2022-12-16 | NM_ITS ---
EXAMINATION: [place] BONE SCAN OF THE WHOLE BODY CLINICAL INFORMATION: Secondary malignant neoplasm of bone. COMPARISON: The previous bone scan dated 09/20/2021 is available for comparison. No recent radiographs are available for comparison. TECHNIQUE: Multiple gamma scintillation camera images of the whole body were performed 2.25 hours following the intravenous administration of 28 mCi Tc-99m MDP. FINDINGS: In the head, no significant abnormalities are present. In the thoracic cage and upper extremities, there is mildly increased activity in the left acromioclavicular joint. There is mildly to moderately increased activity bilaterally in the first carpal metacarpal joint regions, probably arthritic in etiology. In the spine, foci of mildly increased activity are present bilaterally in the posterior elements of the mid cervical spine, nonspecific but probably due to facet arthropathy. There is also mildly increased activity in the right posterior elements at L5/S1, probably also due to facet arthropathy. In the pelvis, there is a mild focus of increased activity present in the posterior left iliac bone adjacent to the sacroiliac joint. Additional mild small focus of increased activity is present in the supra-acetabular region of the right iliac bone. In the lower extremities, there is minimally increased activity faintly visualized diffusely in both patellae. No other definite bony abnormalities are noted. The urinary bladder and faint visualization of both kidneys are noted. Compared to the previous bone scan dated 09/20/2021, there has not been a significant change. [place] bone scan whole body IMPRESSION: 1. Stable nonspecific abnormalities in the pelvis are consistent with metastatic disease. There is no evidence of progression. 2. A few additional mild nonspecific abnormalities are noted as described above and these are all likely arthritic or traumatic in etiology. None of these abnormalities is strongly suspicious for metastatic disease.
== END ==
LOC: HO.NUCMED 10:55
PROVIDERS: PCP Internal Medicine; Visit Provider Urology
DX: C61 Malignant neoplasm of prostate (principal); C79.51 Secondary malignant neoplasm of bone
CPT/HCPCS: 78306; A9503

== ENCOUNTER 2022-12-26 14:03 | Outpatient (REF) | payer MEDICARE, SELFPAY | END 2022-12-26 14:04 | disposition home or self-care (01) | LOC: HO.LAB 14:03 | PROVIDERS: PCP Internal Medicine; Visit Provider Urology | DX: C61 Malignant neoplasm of prostate (principal); C79.51 Secondary malignant neoplasm of bone; Z12.5 Encounter for screening for malignant neoplasm of prostate | CPT/HCPCS: 36415; 84153; 84403 ==

== ENCOUNTER 2023-01-05 11:25 | Outpatient (AMB) | payer MEDICARE, SELFPAY ==
--- NOTE | 2023-01-05 11:26 | MHC.OFFVIS ---
Intake Intake Visit Reasons: 4M LABS/Bone scan(pending) Intake Note: Patient is present for Follow Up Labs/Bone scan Urology Med: Finasteride Antibiotic Allergy: None Blood Thinner: None Allergies No Known Allergies [No Known Allergies*] Allergy (Verified 01/05/23 11:29) HPI HPI Comments History of Present Illness Details Naveen is a pleasant male. He is a patient of Dr. Barkley. He is seen for the following urologic conditions - prostate cancer metastatic PSA remains control Bone scan show stable metastatic disease 4 month follow-up Prostate cancer: high risk, last GnRH 04/16 6 months Initial diagnosis 2009. Radical prostatectomy External beam radiation 2010 Initiation intermittent hormone therapy starting 2013 - 18 months hormones 01/13 - 04/16 Prostate cancer was diagnosed 02/2010. Diagnosis was reached by needle biopsy, for elevated PSA, PSA at diagnosis 11.9. The [place] grade is 4+5. TNM Classification of Malignant Tumours (TNM) T2. The D'Abiodun (NCCN) risk category is High Risk (PSA > 20, Gl 8+, T3) Initial therapy included Primary treatment, March 2010 radical prostatectomy, Additional treatment, November 2010 external beam radiation, observation Additional treatment, March 2014 GnRH therapy and antiandrogen. Has used Trelstar, Lupron and bicalutamide. October 2015 , Hormonal Blockade - Intermittent Prolia (denosamab) osteopenia - December 201507/13 GnRH and Prolia, 01/02/18 GnRH and Prolia, 07/19/18 GnRH 3m, prolia, finasteride, 10/12 GnRH 6m, finasteride, 12/13 3m GnRH + finasteride Recent labs included a PSA (prostate-specific antigen) at diagnosis 11.9. From a high of 52 to May 2015 0.06, 11/08 < 0.5 a testosterone 11/08 , < 20 ng/dL Jan 2016 a PSA (prostate-specific antigen) , < 0.26 May 2016 , a PSA (prostate-specific antigen) 0.17 - slow increase - T 200 10/10 - 0.9, 01/09 - 2.1, 04/11 - 4.2 rpt 6.0 07/13 - 10, 10/11 - 2.0 T5 01/10 PSA 2.3, T < 8, 04/12 , a PSA (prostate-specific antigen) 0.9, T < 7 07/14 PSA 1.0 T 15, 10/12 PSA 0.48 T 10, 01/11 PSA .32 T 8, 04/13 PSA 0.4 T 8 07/15 PSA 0.45 T 57, 5 PSA 3 T 349, 03/15 PSA 0.3, T 10, 06/14 PSA 1.0 T 19 - 09/13 PSA 8.1, T 474, 6 PSA 15, T 355, 04/15 PSA 2.3, T 5, 10/15 PSA 1.7 T 7, 01/15 PSA 1.1 T 71 Recent imaging included December 2014 - Bone scan nonspecific abnormalities likely arthritic or traumatic in etiology February 2015 left femoral head and femoral neck increased uptake. Probably degenerative change however bony lesion should be considered. a CT (computed tomography) scan December 2014 sclerotic lesion on L1 vertebrae. Matches area on bone scan. 11/08 DEXA scan - Osteopenia 12/10 , a bone scan - ? small lesion on iliac 03/13 Bone Scan stable lytic lesion pelvis 04/[address] (computed tomography) scan, new sclerotic area on right pelvis 10/12 Bone Scan - mild increase activity spine and pelvis 10/12 , a DEXA scan, showing osteopenia/osteoporosis 04/13 Bone Scan - decreased rib activity 12/13 Persistent small iliac abnormality, 09/13 persistent iliac activity no new increase - 03/16 DEXA confirming osteoporosis 09/14 bone scan - stable metastatic disease 12/16 Stable nonspecific abnormalities in the pelvis are consistent with metastatic disease. 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 Chronic lymphocytic leukemia Colon adenomas GERD (gastroesophageal reflux disease) History of cataract Hypertension Hypogonadism in male Prostate cancer Surgical History History of brain surgery History of colonoscopy History of hernia repair History of knee surgery History of laminectomy History of prostatectomy History of surgery on wrist Family History Father Heart disease Mother Emphysema lung Social History Alcohol intake: never Second Hand Smoke Exposure: No Review of Systems Const Denies chills and Denies fever(s) Card Reports no additional complaints and Denies syncope Resp Denies cough GI Denies abdominal pain and Denies heartburn Reports as per HPI and Denies change in libido Neuro Denies syncope Psych Denies change in libido Endo Denies change in libido Physical Exam Const General: cooperative, healthy appearing, comfortable and no acute distress Orientation/consciousness: patient oriented x3 HEENT Face and sinus: Yes normal facial exam Mouth: moist mucous membranes Neck Neck: Yes normal visual inspection, Yes full ROM and Yes trachea midline Chest Chest palpation & inspection: normal inspection of the chest Resp Effort & Inspection: normal respiratory effort, able to speak in complete sentences and no respiratory distress GI Inspection: Yes normal to inspection Back/Spine/Pelvis Cervical Spine: normal cervical lordosis Thoracic/Lumbar Spine: thoracic and lumbar spine normal to inspection Skin General skin exam: no rashes or lesions noted Neuro General: patient oriented x3, gait normal, tone normal and moves all extremities Extrem General: Yes normal to inspection and Yes capillary refill normal Assessment & Plan Assessment & Plan (1) Prostate cancer metastatic to bone: Code(s): C61 - Malignant neoplasm of prostate; C79.51 - Secondary malignant neoplasm of bone (2) BPH w urinary obs/LUTS: Code(s): N40.1 - Benign prostatic hyperplasia with lower urinary tract symptoms; N13.8 - Other obstructive and reflux uropathy (3) Osteopenia: Code(s): M85.80 - Other specified disorders of bone density and structure, unspecified site Plan Four month follow-up Orders: Orders Prostate Specific Antigen 4 Months C61 - Malignant neoplasm of prostate, C79.51 - Secondary malignant neoplasm of bone Testosterone, Total 4 Months C61 - Malignant neoplasm of prostate, C79.51 - Secondary malignant neoplasm of bone Patient Instructions: Imaging studies, laboratory and physical exam results were discussed and reviewed in detail. No major barriers to patient understanding were identified. An opportunity to ask questions regarding the treatment plan was provided. All questions were answered. The patient expressed understanding and agreement with the above treatment plan. The patient is aware they should contact our office by phone for worsening of their current condition or the appearance of new urologic symptoms. Compliance is encouraged with any medications and followup testing that is ordered. It is a privilege to participate in the urologic care of your patient. If you have any questions or concerns regarding treatment for the above conditions, or other urologic issues, please do not hesitate to contact me. The office telephone contact is [phone]. This note is constructed using voice recognition software. While every effort has been made to ensure accuracy threshing department supervisor errors may have been included. Yours sincerely, Dr Bashir Sepulveda MD, [facility] - Urology Providers of Expert, Compassionate Care for the Genitourinary System Coding Level of Care Code Est Pt Level 3 (12392) Diagnoses Prostate cancer metastatic to bone C61; C79.51 BPH w urinary obs/LUTS N40.1; N13.8 Osteopenia M85.80
== END 2023-01-05 12:04 | disposition home or self-care (01) ==
PROVIDERS: Visit Provider Urology
DX: C61 Malignant neoplasm of prostate (principal); C79.51 Secondary malignant neoplasm of bone; N40.1 Benign prostatic hyperplasia with lower urinary tract symptoms; N13.8 Other obstructive and reflux uropathy; M85.80 Other specified disorders of bone density and structure, unspecified site
CPT/HCPCS: 99213

== ENCOUNTER → 2023-01-05 11:25 | Outpatient (BNVA) | payer MEDICARE, SELFPAY | PROVIDERS: Visit Provider Urology | DX: C61 Malignant neoplasm of prostate (principal); C79.51 Secondary malignant neoplasm of bone; N40.1 Benign prostatic hyperplasia with lower urinary tract symptoms; N13.8 Other obstructive and reflux uropathy; M85.80 Other specified disorders of bone density and structure, unspecified site | CPT/HCPCS: 99212 ==

== ENCOUNTER 2023-04-10 07:16 | Outpatient (REF) | payer MEDICARE, SELFPAY ==
[2023-04-10 07:33] LABS: MANUAL DIFF FLAG NO
[2023-04-10 08:32] LABS: Basophils Percent Auto 0.4 % (0-2); Eosinophils Absolute Auto 0.1 X10*3/uL (0.0-0.4); Eosinophils Percent Auto 1.7 % (0-4); Hematocrit 42.7 % (42.0-52.0); Hemoglobin 14.2 g/dl (14.0-18.0); Imm Gran Abs Auto 0.03 X10*3/uL (0.00-0.03); Imm Gran Pct Auto 0.4 % (0.0-0.4); Lymphocytes Absolute Auto 1.4 X10*3/uL (1.2-4.9); Lymphocytes Percent Auto 17.7 % (20-40); Mean Corpuscular HGB Conc 33.3 g/dl (31.0-36.0); Mean Corpuscular Hemoglobin 31.9 pg (27.0-33.0); Mean Platelet Volume 10.4 fL (9.4-12.4); Monocytes Absolute Auto 0.6 X10*3/uL (0.1-1.2); Monocytes Percent Auto 7.6 % (2-11); Neutrophils Absolute Auto 5.6 x10*3/uL (2.0-8.3); Neutrophils Percent Auto 72.2 % (45-73); Platelet Count 204 X10*3/uL (160-400); Red Blood Count 4.45 X10*6/uL (4.60-5.80); Red Cell Distribution Width 13.5 % (11.0-16.0); White Blood Count 7.8 X10*3/uL (4.8-10.8)
[2023-04-10 09:14] LABS: Alanine Aminotransferase 15 U/L (0-40); Albumin Level 4.2 g/dL (3.5-5.0); Alkaline Phosphatase 71 U/L (39-117); Anion Gap 16 (12-20); Aspartate Amino Transferase 21 U/L (5-37); Bilirubin Total 0.6 mg/dL (0.0-1.0); Blood Urea Nitrogen 24 mg/dL (9-16); Calcium 9.6 mg/dL (8.4-10.2); Carbon Dioxide 26 mmol/L (22-29); Chloride 107 mmol/L (96-108); Cholesterol 201 mg/dL (<200); Estimated Glomerular Filt Rate > 60; Glucose Random 115 mg/dL (60-115); HDL Cholesterol 73 mg/dL (>40); LDL Cholesterol Calculated 120 mg/dL (<100); Potassium 4.2 mmol/L (3.3-5.1); Sodium 145 mmol/L (135-145); Total Protein 6.8 g/dL (6.5-8.0); Triglycerides 40 mg/dL (<150)
[2023-04-10 09:20] LABS: Prostate Specific Antigen 6.06 ng/mL (<0.05-4.0)
[2023-04-14 01:53] LABS: Testosterone, Total 305 ng/dL (250-1100)
== END 2023-04-10 07:17 | disposition home or self-care (01) ==
LOC: HO.LAB 07:16
PROVIDERS: Absent Provider Internal Medicine Medical Oncology; PCP Internal Medicine; Visit Provider Urology
DX: Z12.5 Encounter for screening for malignant neoplasm of prostate (principal); D49.7 Neoplasm of unspecified behavior of endocrine glands and other parts of nervous system; E66.3 Overweight; C61 Malignant neoplasm of prostate; C91.10 Chronic lymphocytic leukemia of B-cell type not having achieved remission
CPT/HCPCS: 36415; 80053; 80061; 84153; 84403; 85025

== ENCOUNTER 2023-04-26 14:18 | Outpatient (AMB) | payer MEDICARE, SELFPAY ==
--- NOTE | 2023-04-26 14:19 | MHC.OFFVIS ---
Intake Intake Visit Reasons: 4M PSA/Testosterone(set) Intake Note: Patient is Present for Telephone Follow Up Urology Med: Finasteride Antibiotic Allergy: None Blood Thinner: None Pharamcy: [employer] Allergies No Known Allergies [No Known Allergies*] Allergy (Verified 04/26/23 14:20) Medication List - Last Reconciled 04/26/23 by Bashir Sepulveda MD amlodipine mg PO [id number] 50-325-40 mg tabs PO finasteride 5 mg PO DAILY 90 days oxymetazoline 0.05% (Afrin (oxymetazoline)) sprays intranasal HPI HPI Comments History of Present Illness Details Naveen is a pleasant male. He is a patient of Dr. Barkley. He is seen for the following urologic conditions - prostate cancer metastatic - current therapy intermittent hormone blockade Telemedicine Evaluation 15 min Consultation Gamerius Berkley Video attempted 04/17 PSA 6 Significant jump in 3 months Restart GnRH injection Prolia since known osteopenia 4 month follow-up PSA, T, DEXA, bone scan Prostate cancer: high risk, last GnRH 04/16 6 months Initial diagnosis 2009. Radical prostatectomy External beam radiation 2010 Initiation intermittent hormone therapy starting 2013 - months hormones 01/13 - 04/16 Prostate cancer was diagnosed 02/2010. Diagnosis was reached by needle biopsy, for elevated PSA, PSA at diagnosis 11.9. The [place] grade is 4+5. TNM Classification of Malignant Tumours (TNM) T2. The D'Abiodun (NCCN) risk category is High Risk (PSA > 20, Gl 8+, T3) Initial therapy included Primary treatment, March 2010 radical prostatectomy, Additional treatment, November 2010 external beam radiation, observation Additional treatment, March 2014 GnRH therapy and antiandrogen. Has used Trelstar, Lupron and bicalutamide. October 2015 , Hormonal Blockade - Intermittent Prolia (denosamab) osteopenia - December 201507/13 GnRH and Prolia, 01/02/18 GnRH and Prolia, 07/19/18 GnRH 3m, prolia, finasteride, 10/12 GnRH 6m, finasteride, 12/13 3m GnRH + finasteride Recent labs included a PSA (prostate-specific antigen) at diagnosis 11.9. From a high of 52 to May 2015 0.06, 11/08 < 0.5, a testosterone 11/08 , < 20 ng/dL Jan 2016 a PSA (prostate-specific antigen) , < 0.26 May 2016 , a PSA (prostate-specific antigen) 0.17 - slow increase - T 200 10/10 - 0.9, 01/09 - 2.1, 04/11 - 4.2 rpt 6.0 07/13 - 10, 10/11 - 2.0 T5 01/10 PSA 2.3, T < 8, 04/12 , a PSA (prostate-specific antigen) 0.9, T < 7 07/14 PSA 1.0 T 15, 10/12 PSA 0.48 T 10, 01/11 PSA .32 T 8, 04/13 PSA 0.4 T 8 07/15 PSA 0.45 T 57, 11/12 PSA 3 T 349, 03/15 PSA 0.3, T 10, 06/14 PSA 1.0 T 19 - 09/13 PSA 8.1, T 474, 12/14 PSA 15, T 355, 04/15 PSA 2.3, T 5, 10/15 PSA 1.7 T 7, 01/15 PSA 1.1 T 71, 04/17 6 T 300 Recent imaging included December 2014 - Bone scan nonspecific abnormalities likely arthritic or traumatic in etiology February 2015 left femoral head and femoral neck increased uptake. Probably degenerative change however bony lesion should be considered. a CT (computed tomography) scan December 2014 sclerotic lesion on L1 vertebrae. Matches area on bone scan. 11/08 DEXA scan - Osteopenia 12/10 , a bone scan - ? small lesion on iliac 03/13 Bone Scan stable lytic lesion pelvis 04/[address] (computed tomography) scan, new sclerotic area on right pelvis 10/12 Bone Scan - mild increase activity spine and pelvis 10/12 , a DEXA scan, showing osteopenia/osteoporosis 04/13 Bone Scan - decreased rib activity 12/13 Persistent small iliac abnormality, 09/13 persistent iliac activity no new increase 03/16 DEXA confirming osteoporosis 09/14 bone scan - stable metastatic disease 12/16 Stable nonspecific abnormalities in the pelvis are consistent with metastatic disease. There is no evidence of progression. 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 Hypertension GERD (gastroesophageal reflux disease) Colon adenomas Surgical History History of laminectomy History of prostatectomy History of hernia repair History of knee surgery History of surgery on wrist History of colonoscopy History of brain surgery Family History Father Heart disease Mother Emphysema lung Social History Alcohol intake: never Second Hand Smoke Exposure: No Review of Systems Const All systems reviewed & are unremarkable except as noted in HPI and below Reports no additional complaints Resp Reports no additional complaints GI Reports no additional complaints Reports as per HPI Musc Reports no additional complaints Physical Exam Telemedicine evaluation Appropriate responses Regular breathing rate and rhythm HEENT Head: Yes normal to inspection Ears: hearing grossly normal bilaterally Eyes General: appearance normal, both eyes and all related structures Neck Neck: Yes normal visual inspection Chest Chest palpation & inspection: normal inspection of the chest Resp Effort & Inspection: normal respiratory effort and able to speak in complete sentences Assessment & Plan Assessment & Plan (1) Prostate cancer metastatic to bone: Code(s): C61 - Malignant neoplasm of prostate; C79.51 - Secondary malignant neoplasm of bone (2) Osteopenia: Code(s): M85.80 - Other specified disorders of bone density and structure, unspecified site Qualifiers: Osteopenia location: spine Qualified Code(s): M85.88 - Other specified disorders of bone density and structure, other site Plan GnRH + Prolia 4 month follow-up imaging Orders: Orders Prostate Specific Antigen 4 Months C61 - Malignant neoplasm of prostate, C79.51 - Secondary malignant neoplasm of bone Testosterone, Total 4 Months C61 - Malignant neoplasm of prostate, C79.51 - Secondary malignant neoplasm of bone NM bone scan whole body 4 Months C61 - Malignant neoplasm of prostate, C79.51 - Secondary malignant neoplasm of bone XR DEXA axial skeleton 4 Months M85.80 - Other specified disorders of bone density and structure, unspecified site Patient Instructions: Imaging studies, laboratory and physical exam results were discussed and reviewed in detail. No major barriers to patient understanding were identified. An opportunity to ask questions regarding the treatment plan was provided. All questions were answered. The patient expressed understanding and agreement with the above treatment plan. The patient is aware they should contact our office by phone for worsening of their current condition or the appearance of new urologic symptoms. Compliance is encouraged with any medications and followup testing that is ordered. It is a privilege to participate in the urologic care of your patient. If you have any questions or concerns regarding treatment for the above conditions, or other urologic issues, please do not hesitate to contact me. The office telephone contact is [phone]. This note is constructed using voice recognition software. While every effort has been made to ensure accuracy electrical linesworker errors may have been included. Yours sincerely, Dr Bashir Sepulveda MD, [facility] - Urology Providers of Expert, Compassionate Care for the Genitourinary System Telehealth Telehealth Location of provider rendering services: practice address Location of patient: address on file Patient Identification confirmed using: Name, : Yes Telehealth method: video Patient verbally consented to treatment: Yes Patient verbally consented to billing insurance company: Yes Patient informed of any privacy concerns related to visit: Yes Coding Level of Care Code Tele Est Pt Level 4 (84112) Diagnoses Prostate cancer metastatic to bone C61; C79.51 Osteopenia of spine M85.88 Osteopenia location: spine
== END 2023-04-26 15:13 | disposition home or self-care (01) ==
LOC: HO.HUSH 14:19
PROVIDERS: PCP Internal Medicine; Visit Provider Urology
DX: C61 Malignant neoplasm of prostate (principal); C79.51 Secondary malignant neoplasm of bone; M85.88 Other specified disorders of bone density and structure, other site
CPT/HCPCS: 99214

== ENCOUNTER → 2023-04-26 14:18 | Outpatient (BNVA) | payer MEDICARE, SELFPAY | PROVIDERS: PCP Internal Medicine; Visit Provider Urology ==

== ENCOUNTER 2023-05-09 13:19 | Outpatient (AMB) | payer MEDICARE, SELFPAY ==
--- NOTE | 2023-05-09 13:49 | AM.OFFVISNUR ---
Intake Intake Visit Reasons: GnRH/Prolia Allergies No Known Allergies [No Known Allergies*] Allergy (Verified 04/26/23 14:20) Office Meds Prolia 60 mg/mL subcutaneous syringe Performing Provider: Bashir Sepulveda MD Performing Location: [facility] Administered by: Bárbara Estevez RN on 05/09/23 13:49 Dose Route Admin Location Dispensed Lot Number Expiration Date [facility] [employer] 60 mg subcut left arm 1 mL [id number] 08/23/25 10473-257-16 [employer] Eligard (6 month) 45 mg (6 month) subcutaneous syringe Performing Provider: Bashir Sepulveda MD Performing Location: [facility] Administered by: Bárbara Estevez RN on 05/09/23 13:49 Dose Route Admin Location Dispensed Lot Number Expiration Date [facility] [employer] 45 mg subcut right arm 45 mg [id number] 06/26/24 74288-294-16 [employer] Coding Assessment & Plan Assessment & Plan Orders: Orders AMB Denosumab Injection Practice Supplied Today M85.80 - Other specified disorders of bone density and structure, unspecified site AMB Leuprolide Injection - Practice Supplied Today C61 - Malignant neoplasm of prostate
== END 2023-05-09 16:20 | disposition home or self-care (01) ==
PROVIDERS: PCP Internal Medicine; Visit Provider Urology
DX: M85.80 Other specified disorders of bone density and structure, unspecified site (principal); C61 Malignant neoplasm of prostate

== ENCOUNTER → 2023-05-09 13:19 | Outpatient (BNVA) | payer MEDICARE, SELFPAY | PROVIDERS: PCP Internal Medicine; Visit Provider Urology | DX: M85.80 Other specified disorders of bone density and structure, unspecified site (principal); C61 Malignant neoplasm of prostate | CPT/HCPCS: 96372; 96402; J0897; J9217 ==

== ENCOUNTER 2023-08-11 12:44 | Outpatient (REF) | payer MEDICARE, SELFPAY ==
--- NOTE | ~2023-08-11 | MM_ITS ---
EXAMINATION: BONE DENSITOMETRY CLINICAL INDICATION: Other specified disorders of bone density and structure, unspecified site. COMPARISON: Previous BD dated 03/31/2021 and baseline BD dated 10/01/2015. TECHNIQUE: Using a [employer] DXA System (software version: 13.1) manufactured by [employer], dual-energy x-ray absorptiometry was performed of the lumbar spine and left hip. The images are of good technical quality. Summary results are attached. FINDINGS: AP SPINE L1-L2 (excluding L3 and L4): The data of L1-L4 has been changed to exclude the L3 and L4 vertebral bodies, because degenerative sclerosis at these levels may cause overestimation of lumbar spine density. Current: BMD 1.332 g/cm2, Z-score 1.7, T-score 1.1, normal, 4.5% increase from previous, 7.9% increase from baseline (<5% change is not significant). Prior: BMD 1.275 g/cm2. Baseline: BMD 1.235 g/cm2. LEFT FEMUR, NECK: Current: BMD 0.838 g/cm2, Z-score -0.4, T-score -1.8, osteopenia. Prior: BMD 0.851 g/cm2. Baseline: BMD 0.902 g/cm2. LEFT FEMUR, TOTAL: Current: BMD 0.955 g/cm2, Z-score -0.1, T-score -1.0, normal, 4.6% decrease from previous, 4.7% decrease from baseline (<5% change is not significant). Prior: BMD 1.001 g/cm2. Baseline: BMD 1.002 g/cm2. IDENTIFIED RISK FACTORS: Height loss. Secondary osteoporosis (hypogonadism). HISTORY OF FRACTURE: None listed. MEDICATIONS: Calcium supplement and/or multivitamin. Vitamin D. Prolia. ERT/SERMS. MM/XR DEXA axial skeleton IMPRESSION: 1. DIAGNOSIS: Osteopenia based on the lowest T-score value of -1.8 in the femoral neck applying World Health Organization criteria. 2. 10-YEAR FRACTURE RISK PREDICTION, FRAX: Not performed in this patient on estrogen or bone building treatments. 3. Treatment Recommendations: NOF guidelines recommend consideration for treatment in postmenopausal women and men age 50 and older presenting with the following: -A hip or vertebral (clinical or morphometric) fracture. -T-score less than or equal to -2.5 at the femoral neck or spine after appropriate evaluation to exclude secondary causes. -Low bone mass at the hip or spine and a 10-year fracture probability by FRAX of greater than or equal to 3% for hip fracture or greater than or equal to 20% for major osteoporotic fracture based on the [place] adapted WHO algorithm. 4. Other Recommendations: All treatment decisions require clinical judgment and consideration of individual patient factors, including patient preferences, comorbidities, previous drug use, risk factors not captured in the FRAX model (e.g. frailty, falls, vitamin D deficiency, increased bone turnover, interval significant decline in bone density) and possible under or overestimation of fracture risk by FRAX. Additional medical evaluation for secondary cause of low bone mineral density may be appropriate. FUTURE SCAN RECOMMENDATION: People with diagnosed cases of osteoporosis or at high risk for fracture should have regular bone mineral density tests. For patients eligible for Medicare, routine testing is allowed once every 2 years. The testing frequency can be increased to one year for patients who have rapidly progressing disease, those who are receiving or discontinuing medical therapy to restore bone mass, or have additional risk factors.
== END 2023-08-11 12:45 | disposition home or self-care (01) ==
LOC: HO.MAMMO 12:44
PROVIDERS: PCP Internal Medicine; Visit Provider Urology
DX: Z13.820 Encounter for screening for osteoporosis (principal); M85.89 Other specified disorders of bone density and structure, multiple sites
CPT/HCPCS: 77080

== ENCOUNTER → 2023-08-15 09:58 | Outpatient (REF) | payer MEDICARE, SELFPAY ==
--- NOTE | ~2023-08-15 | NM_ITS ---
EXAMINATION: NM BONE SCAN OF THE WHOLE BODY CLINICAL INFORMATION: Secondary malignant neoplasm of bone. COMPARISON: Bone scan done on 12/16/2022. TECHNIQUE: Multiple gamma scintillation camera images of the whole body were performed 3.25 hours following the intravenous administration of 28 mCi Tc-99m MDP. The radiotracer was injected through right antecubital superficial vein without complications. FINDINGS: In the head, no suspicious focal abnormality. In the thoracic cage and upper extremities, no suspicious focal abnormality. In the spine, no suspicious focal abnormality. In the pelvis, focal asymmetric increased tracer avidity within the left posterior iliac bone adjacent to the site joint, appear slightly more pronounced on the current study since the prior study dated 12/16/2022. In the lower extremities, no suspicious focal abnormality. No other definite bony abnormalities are noted. The urinary bladder and faint visualization of both kidneys are noted. NM/NM bone scan whole body IMPRESSION: Interval increase in tracer avidity involving the previously documented index osseous disease at left posterior superior iliac bone adjacent to the SI joint since the most recent prior study dated 12/16/2022. No other significant change.
== END ==
LOC: HO.NUCMED 09:58
PROVIDERS: Visit Provider Urology
DX: C61 Malignant neoplasm of prostate (principal); C79.51 Secondary malignant neoplasm of bone
CPT/HCPCS: 78306; A9503

== ENCOUNTER 2023-08-28 07:14 | Outpatient (REF) | payer MEDICARE, SELFPAY ==
[2023-08-28 07:37] LABS: MANUAL DIFF FLAG NO
[2023-08-28 08:09] LABS: Basophils Percent Auto 0.2 % (0-2); Eosinophils Absolute Auto 0.1 X10*3/uL (0.0-0.4); Eosinophils Percent Auto 2.2 % (0-4); Hematocrit 42.7 % (42.0-52.0); Hemoglobin 14.3 g/dl (14.0-18.0); Imm Gran Abs Auto 0.02 X10*3/uL (0.00-0.03); Imm Gran Pct Auto 0.3 % (0.0-0.4); Lymphocytes Absolute Auto 1.3 X10*3/uL (1.2-4.9); Mean Corpuscular HGB Conc 33.5 g/dl (31.0-36.0); Mean Corpuscular Hemoglobin 31.3 pg (27.0-33.0); Mean Corpuscular Volume 93.4 fL (80.0-98.0); Monocytes Absolute Auto 0.5 X10*3/uL (0.1-1.2); Monocytes Percent Auto 8.7 % (2-11); Neutrophils Absolute Auto 3.9 x10*3/uL (2.0-8.3); Neutrophils Percent Auto 66.6 % (45-73); Platelet Count 197 X10*3/uL (160-400); Red Blood Count 4.57 X10*6/uL (4.60-5.80); Red Cell Distribution Width 13.4 % (11.0-16.0); White Blood Count 5.9 X10*3/uL (4.8-10.8)
[2023-08-28 08:42] LABS: Alanine Aminotransferase 14 U/L (0-40); Albumin Level 3.9 g/dL (3.5-5.0); Alkaline Phosphatase 58 U/L (39-117); Anion Gap 11 (12-20); Aspartate Amino Transferase 18 U/L (5-37); Bilirubin Total 0.5 mg/dL (0.0-1.0); Blood Urea Nitrogen 14 mg/dL (9-16); Calcium 9.9 mg/dL (8.4-10.2); Carbon Dioxide 29 mmol/L (22-29); Chloride 107 mmol/L (96-108); Cholesterol 216 mg/dL (<200); Estimated Glomerular Filt Rate > 60; Glucose Fasting 125 mg/dL (60-99); HDL Cholesterol 69 mg/dL (>40); LDL Cholesterol Calculated 135 mg/dL (<100); Potassium 4.8 mmol/L (3.3-5.1); Sodium 142 mmol/L (135-145); Total Protein 6.5 g/dL (6.5-8.0); Triglycerides 62 mg/dL (<150)
[2023-08-28 09:04] LABS: Prostate Specific Antigen 0.69 ng/mL (<0.05-4.0)
[2023-09-02 11:19] LABS: Testosterone, Total 11 ng/dL (250-1100)
== END 2023-08-28 07:15 | disposition home or self-care (01) ==
LOC: HO.LAB 07:14
PROVIDERS: Absent Provider Internal Medicine Medical Oncology; PCP Internal Medicine; Visit Provider Urology
DX: Z12.5 Encounter for screening for malignant neoplasm of prostate (principal); D49.7 Neoplasm of unspecified behavior of endocrine glands and other parts of nervous system; E66.3 Overweight; C61 Malignant neoplasm of prostate; C79.51 Secondary malignant neoplasm of bone
CPT/HCPCS: 36415; 80053; 80061; 84153; 84403; 85025

== ENCOUNTER 2023-09-06 13:59 | Outpatient (AMB) | payer MEDICARE, SELFPAY ==
--- NOTE | 2023-09-06 14:12 | A.OFFVIS_ITS ---
Intake Intake Visit Reasons: 4 mth. 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 He is a patient of Dr. Barkley. He is seen for the following urologic conditions - prostate cancer metastatic - current therapy intermittent hormone b lockade 09/16 PSA 0.7, testosterone 11 DEXA scan osteopenia Bone Scan sclerotic lesion pelvis stable 04/17 PSA 6 Significant jump in 3 months Restart GnRH injection Prolia since known osteopenia 4 month follow-up PSA, T, DEXA, bone sca n Prostate cancer: high risk, last GnRH 04/16 6 months Initial diagnosis 2009. Radical prostatectomy External beam radiation 2010 Initiation intermittent hormone therapy starting 2013 - 18 months hormones 01/13 - 04/16 Prostate cancer was diagnosed 02/2010. Diagnosis was reached by needle biopsy, for elevated PSA, PSA at diagnosis 11.9. The Madyson grade is 4+5. TNM Classification of Malignant Tumours (TNM) T2. The D'Abiodun (NCCN) risk category is High Risk (PSA > 20, Gl 8+, T3) Initial therapy included Primary treatment, March 2010 radical prostatectomy, Additional treatment, November 2010 external beam radiation, observation Additional treatment, March 2014 GnRH therapy and antiandrogen. Has used Trelstar, Lupron and bicalutamide. October 2015 , Hormonal Blockade - Intermittent Prolia (denosamab) osteopenia - December 201507/13 GnRH and Prolia, 01/02/18 GnRH and Prolia, 07/19/18 GnRH 3m, prolia, finasteride, 10/12 GnRH 6m, finasteride, 12/13 3m GnRH + finasteride Recent labs included a PSA (prostate-specific antigen) at diagnosis 11.9. From a high of 52 to May 2015 0.06, 11/08 < 0.5, a testosterone 11/08 , < 20 ng/dL Jan 2016 a PSA (prostate-specific antigen) , < 0.26 May 2016 , a PSA (prostate-specific antigen) 0.17 - slow increase - T 200 10/10 - 0.9, 01/09 - 2.1, 04/11 - 4.2 rpt 6.0 07/13 - 10, 10/11 - 2.0 T5 01/10 PSA 2.3, T < 8, 04/12 , a PSA (prostate-specific antigen) 0.9, T < 7 07/14 PSA 1.0 T 15, 10/12 PSA 0.48 T 10, 01/11 PSA .32 T 8, 04/13 PSA 0.4 T 8 07/15 PSA 0.45 T 57, 11/12 PSA 3 T 349, 03/15 PSA 0.3, T 10, 06/14 PSA 1.0 T 19 - 09/13 PSA 8.1, T 474, 12/14 PSA 15, T 355, 04/15 PSA 2.3, T 5, 10/15 PSA 1.7 T 7, 01/15 PSA 1.1 T 71, 04/17 6 T 300 Recent imaging included December 2014 - Bone scan nonspecific abnormalities likely arthritic or traumatic in etiology February 2015 left femoral head and femoral neck increased uptake. Probably degenerative change however bony lesion should be considered. a CT (computed tomography) scan December 2014 sclerotic lesion on L1 vertebrae. Matches area on bone scan. 11/08 DEXA scan - Osteopenia 12/10 , a bone scan - ? small lesion on iliac 03/13 Bone Scan stable lytic lesion pelvis 04/[address] (computed tomography) scan, new sclerotic area on right pelvis 10/12 Bone Scan - mild increase activity spine and pelvis 10/12 , a DEXA scan, showing osteopenia/osteoporosis 04/13 Bone Scan - decreased rib activity 12/13 Persistent small iliac abnormality, 09/13 persistent iliac activity no new increase 03/16 DEXA confirming osteoporosis 09/14 bone scan - stable metastatic disease 12/16 Stable nonspecific abnormalities in the pelvis are consistent with metastatic disease. There is no evidence of progression. Therapeutic plan: 4 month lab work with bone scan [facility] Medical History Chronic lymphocytic leukemia Hypogonadism in male Prostate cancer History of cataract 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 Hypertension GERD (gastroesophageal reflux disease) Colon adenomas Surgical History History of laminectomy History of prostatectomy History of hernia repair History of knee surgery History of surgery on wrist History of colonoscopy History of brain surgery Family History Father Heart disease Mother Emphysema lung Social History Alcohol intake: never Second Hand Smoke Exposure: No Review of Systems Const Denies chills and Denies fever(s) Card Reports no additional complaints and Denies syncope Resp Denies cough GI Denies abdominal pain and Denies heartburn Reports as per HPI and Denies change in libido Neuro Denies syncope Psych Denies change in libido Endo Denies change in libido Physical Exam Const General: cooperative, healthy appearing, comfortable and no acute distress Orientation/consciousness: patient oriented x3 HEENT Face and sinus: Yes normal facial exam Mouth: moist mucous membranes Neck Neck: Yes normal visual inspection, Yes full ROM and Yes trachea midline Chest Chest palpation & inspection: normal inspection of the chest Resp Effort & Inspection: normal respiratory effort, able to speak in complete sentences and no respiratory distress GI Inspection: Yes normal to inspection Back/Spine/Pelvis Cervical Spine: normal cervical lordosis Thoracic/Lumbar Spine: thoracic and lumbar spine normal to inspection Skin General skin exam: no rashes or lesions noted Neuro General: patient oriented x3, gait normal, tone normal and moves all extremities Extrem General: Yes normal to inspection and Yes capillary refill normal Office Procedures Post Void Residual Post Residual Void Post Void Residual (PVR): 0 [id number] Void Residual by ultrasound Assessment & Plan Assessment & Plan (1) Prostate cancer metastatic to bone: Code(s): C61 - Malignant neoplasm of prostate; C79.51 - Secondary malignant neoplasm of bone (2) Osteopenia: Code(s): M85.80 - Other specified disorders of bone density and structure, unspecified site Qualifiers: Osteopenia location: spine Qualified Code(s): M85.88 - Other specified disorders of bone density and structure, other site (3) BPH w urinary obs/LUTS: Code(s): N40.1 - Benign prostatic hyperplasia with lower urinary tract symptoms; N13.8 - Other obstructive and reflux uropathy Plan Three-month follow-up lab work with imaging Orders: Orders AMB Post Void Residual by ultrasound 09/06/23 R33.9 - Retention of urine, unspecified Prostate Specific Antigen 3 Months C61 - Malignant neoplasm of prostate, C79.51 - Secondary malignant neoplasm of bone Creatinine 3 Months C61 - Malignant neoplasm of prostate, C79.51 - Secondary malignant neoplasm of bone Blood Urea Nitrogen 3 Months C61 - Malignant neoplasm of prostate, C79.51 - Secondary malignant neoplasm of bone Testosterone, Total 3 Months C61 - Malignant neoplasm of prostate, C79.51 - Secondary malignant neoplasm of bone PET CT fusion skull to thigh 3 Months C61 - Malignant neoplasm of prostate, C79.51 - Secondary malignant neoplasm of bone Patient Instructions: Imaging studies, laboratory and physical exam results were discussed and reviewed in detail. No major barriers to patient understanding were identified. An opportunity to ask questions regarding the treatment plan was provided. All questions were answered. The patient expressed understanding and agreement with the above treatment plan. The patient is aware they should contact our office by phone for worsening of their current condition or the appearance of new urologic symptoms. Compliance is encouraged with any medications and followup testing that is ordered. It is a privilege to participate in the urologic care of your patient. If you have any questions or concerns regarding treatment for the above conditions, or other urologic issues, please do not hesitate to contact me. The office telephone contact is [phone]. This note is constructed using voice recognition software. While every effort has been made to ensure accuracy sr. payroll processor errors may have been included. Yours sincerely, Dr Bashir Sepulveda MD, ДМИТРИЙ [facility]rology Providers of Expert, Compassionate Care for the Genitourinary System Coding Level of Care Code Est Pt Level 3 (78576) Diagnoses Prostate cancer metastatic to bone C61; C79.51 Osteopenia of spine M85.88 Osteopenia location: spine BPH w urinary obs/LUTS N40.1; N13.8 CPT Codes Post Residual Void - PVR CPT Code: 60633-Owpb Void Residual by ultrasound ([id number])
== END 2023-09-06 14:52 | disposition home or self-care (01) ==
PROVIDERS: PCP Internal Medicine; Visit Provider Urology
DX: C61 Malignant neoplasm of prostate (principal); C79.51 Secondary malignant neoplasm of bone; M85.88 Other specified disorders of bone density and structure, other site; N40.1 Benign prostatic hyperplasia with lower urinary tract symptoms; N13.8 Other obstructive and reflux uropathy
CPT/HCPCS: 99213

== ENCOUNTER → 2023-09-06 13:59 | Outpatient (BNVA) | payer MEDICARE, SELFPAY | PROVIDERS: PCP Internal Medicine; Visit Provider Urology | DX: C61 Malignant neoplasm of prostate (principal); C79.51 Secondary malignant neoplasm of bone; M85.88 Other specified disorders of bone density and structure, other site; N40.1 Benign prostatic hyperplasia with lower urinary tract symptoms; N13.8 Other obstructive and reflux uropathy; R33.8 Other retention of urine | CPT/HCPCS: 51798; 99212 ==

== ENCOUNTER 2023-10-31 13:02 | Outpatient (AMB) | payer MEDICARE, SELFPAY ==
--- NOTE | 2023-10-31 13:08 | MHC.OFFVIS ---
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 No symptoms or pain. 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 This was originally Airam discovered on a PET-CT. Has a history of metastatic prostate cancer diagnosed back in 2009 and he is status post radical prostatectomy. He has had external beam radiation therapy in 2010. He has been doing well since that time. When looking back at his imaging he actually had a CT scan back in 2018 which demonstrated a 4.3 cm aneurysm. Incidentally had a finding of now a 6.7 cm infrarenal aneurysm. Of note he quit drinking 25 years ago and he quit smoking 15 years ago. Remains quite active. He is an avid hiker and has mandible difficulty climbing a flight of stairs. He reports it is more of his hips that has an issue than anything else. He now presents to us for vascular evaluation. [facility] Medical History Chronic lymphocytic leukemia Hypogonadism in male Prostate cancer History of cataract 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 Hypertension GERD (gastroesophageal reflux disease) Colon adenomas Surgical History History of laminectomy History of prostatectomy History of hernia repair History of knee surgery History of surgery on wrist History of colonoscopy History of brain surgery Family History Father Heart disease Mother Emphysema lung Social History Alcohol intake: never Second Hand Smoke Exposure: No Review of Systems Const All systems reviewed & are unremarkable except as noted in HPI and below Reports no additional complaints ENT Reports Normal hearing present Card Denies chest pain, Denies chest pain at rest, Denies chest pain with activity and Denies pedal edema Resp Denies cough GI Denies abdominal pain Musc Denies abnormal gait, Denies muscle cramps and Denies radiating pain into limb Skin/Breast Denies skin ulcer and Denies wounds Neuro Reports Normal hearing present and Denies abnormal gait Psych Reports no additional complaints Physical Exam Const General: cooperative, healthy appearing and comfortable Orientation/consciousness: oriented to person, oriented to place and oriented to time HEENT Head: Yes normal to inspection Neck Neck: Yes normal visual inspection Carotids: no bruits Chest Chest palpation & inspection: normal inspection of the chest Resp Effort & Inspection: normal respiratory effort and able to speak in complete sentences Auscultation: clear to auscultation bilaterally, no crackles, no rales, no rhonchi and no wheezes Cardio Other: Obvious pulsatile abdominal mass Palpable femoral pulses bilaterally Rate: regular rate Rhythm: regular rhythm Heart sounds: S1 normal heart sound present and S2 normal heart sound present Bruits: no carotid bruits GI Inspection: Yes normal to inspection Skin Wounds: no wounds Hair: normal Neuro General: oriented to person, oriented to place and oriented to time Cranial nerves: Yes CN's II-XII intact bilaterally and Yes Normal hearing present Cognition (Neuro): normal cognition Motor exam (neuro): 5/5 motor strength present throughout Extrem Other: venous exam: No significant superficial varicosities or spider telangiectasias, minimal edema General: No clubbing, No cyanosis and No edema Psych Appearance: grossly normal Mental Status: mental status grossly normal Speech and movement: Normal speech and movement present Results Reviewed Results Reviewed: PET-CT dated 10/26/2023 demonstrates a 6.7 x 6.5 cm abdominal aortic aneurysm Assessment & Plan Assessment & Plan (1) AAA (abdominal aortic aneurysm) without rupture: Code(s): I71.40 - Abdominal aortic aneurysm, without rupture, unspecified Category: Medical Qualifiers: Abdominal aorta location: infrarenal aorta Qualified Code(s): I71.43 - Infrarenal abdominal aortic aneurysm, without rupture Plan: In short patient has an abdominal aortic aneurysm. Due to its large size he will require urgent endovascular possible open abdominal aortic aneurysm repair. Risks benefits complications including but not limited to bleeding infection rupture and were discussed with the patient. Agreed and would like to move forward. I did provide literature regarding this to him. He will require cardiac risk stratification. He has seen a technical developer in the past who had only done an EKG. He would prefer to move his cardiac services to [place]. In addition we will get a dedicated CT angiogram of the aorta to get exact sizing measurements for his aortic endograft. Thank you for allowing us to assist in his care. If there are any questions or concerns please do not hesitate to contact us. Coding Level of Care Code New Pt Level 4 (24112) Diagnoses Infrarenal abdominal aortic aneurysm (AAA) without rupture I71.43 Abdominal aorta location: infrarenal aorta
== END 2023-10-31 13:40 | disposition home or self-care (01) ==
PROVIDERS: PCP Internal Medicine; Visit Provider Surgery Vascular Surgery
DX: I71.43 Infrarenal abdominal aortic aneurysm, without rupture (principal)
CPT/HCPCS: 99204

== ENCOUNTER → 2023-10-31 13:02 | Outpatient (BNVA) | payer MEDICARE, SELFPAY | PROVIDERS: PCP Internal Medicine; Visit Provider Surgery Vascular Surgery | DX: I71.43 Infrarenal abdominal aortic aneurysm, without rupture (principal) | CPT/HCPCS: 99202 ==

== ENCOUNTER 2023-11-01 11:49 | Outpatient (REF) | payer MEDICARE, SELFPAY ==
--- NOTE | ~2023-11-01 | CT_ITS ---
EXAMINATION: CT ANGIOGRAPHY ABDOMEN AND PELVIS WITHOUT AND WITH CONTRAST CLINICAL INFORMATION: Abdominal aortic aneurysm COMPARISON: CT abdomen/pelvis 04/10/2018 TECHNIQUE: Initial noncontrast localizing plateman images were obtained. A timing bolus at the level of the celiac artery was calculated. Subsequently, arterial phase multidetector volumetric imaging was performed through the abdomen and pelvis following the administration of 80 mL Omnipaque 350 intravenous contrast. No contrast reaction reported. Sagittal and coronal reformatted images were obtained on the technologist workstation. After extensive post-processing on a dedicated 3-D workstation, 3-D reformatted images were uploaded to PACS and reviewed as well. This CT examination was performed using dose optimization techniques as appropriate, variously including the following: *Automated exposure control *Adjustment of mA and/or kV according to patient size (this includes techniques or standardized protocols for targeted exams where dose is matched to indication/reason for exam; i.e. extremities or head) *Use of iterative reconstruction technique DLP: 385 mGy-cm FINDINGS: VASCULAR FINDINGS: Aorta: Interval increase in size of infrarenal fusiform abdominal aortic aneurysm with concentric intraluminal thrombus containing punctate calcifications. No aortic dissection. No penetrating atheromatous ulcer. Distal Thoracic Aorta: 3.0 cm Supraceliac Abdominal Aorta: 2.8 cm Infrarenal Abdominal Aorta: 6.9 x 6.6 x 8.6 cm (AP x TV x CC) Mesenteric Arteries: Celiac artery is patent. Superior mesenteric artery patent. 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 Renal arteries: Single renal arteries bilaterally. Renal arteries are patent and without stenosis or other vascular anomaly. Iliac arteries: The common, external and internal iliac arteries are patent. Proximal femoral vessels are patent. NONVASCULAR: Lung Bases: The visualized lung bases are clear. Liver: Homogeneous in attenuation. Normal in size. Gallbladder: Noninflamed. Biliary System: No intrahepatic or extrahepatic biliary dilation. Pancreas: Homogeneous in attenuation. Spleen: Normal in size. Genitourinary: Bilateral kidneys demonstrate symmetric enhancement. Right lower pole exophytic simple renal cyst measuring 8.7 cm; no follow-up needed. No perinephric fluid collection. No renal calculi. No hydroureteronephrosis. Adrenal Glands: Unremarkable. Reproductive: Prostate present. Gastrointestinal: Moderate sized hiatal hernia. Upper dense material noted within the lumen of the ileum, likely from oral ingestion as opposed to extravasated contrast. No bowel obstruction. Severe descending and sigmoid diverticular disease without diverticulitis. Appendix: The appendix is seen in its entirety and is unremarkable. Peritoneum: No pneumoperitoneum. No intra-abdominal fluid collection. Lymph Nodes: No pathologically enlarged abdominal or pelvic lymph nodes. Soft Tissues/Musculoskeletal: Stable well marginated sclerotic lesion within the iliac side of the left sacroiliac joint and right iliac bone, likely a bone island. Multilevel degenerative changes of the lumbar spine, worst at L5-S1 where there is severe right facet arthropathy resulting in moderate neural foraminal stenosis. CT/CT angio abdomen pelvis IMPRESSION: VASCULAR FINDINGS: 1. Interval increase in size of infrarenal abdominal aortic aneurysm, now measuring 6.9 x 6.6 x 8.6 cm (AP x TV x CC), (previously 4.4 x 4.7 cm AP x TV), with circumferential mural thrombus. Iliofemoral vessels are widely patent without stenosis or thromboembolic disease. 2. Severe descending and sigmoid diverticular disease without diverticulitis. NONVASCULAR FINDINGS: No acute pathology of the abdomen or pelvis. Fleischner guidelines were followed.
[2023-11-01] MEDS: iohexoL 350 MG/ML 100 ML INFUS..BTL IV (12:21)
[2023-11-01 16:26] LABS: Creatinine POC 0.7 mg/dL (0.5-1.4); GFR POC > 60
== END 2023-11-01 11:50 | disposition home or self-care (01) ==
LOC: HO.CT 11:49
PROVIDERS: PCP Internal Medicine; Visit Provider Surgery Vascular Surgery
DX: Z01.810 Encounter for preprocedural cardiovascular examination (principal); I71.40 Abdominal aortic aneurysm, without rupture, unspecified
CPT/HCPCS: 74174; 82565; 93005; 99202; Q9967

== ENCOUNTER 2023-11-01 14:17 | Outpatient (AMB) | payer MEDICARE, SELFPAY ==
[2023-11-01 14:30] VITALS: BP 120/78; PULSE 73; BMI 24.6
--- NOTE | 2023-11-01 14:30 | MHC.OFFVIS ---
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 Patient 78-year-old male with prior history of hypertension which is not well controlled on amlodipine therapy. He also has mild hyperlipidemia as well as prostate cancer metastatic to the spine. During the workup for possible radiation therapy was noted to have abdominal aortic aneurysm. He was referred here for further evaluation as he is planning to undergo the surgery in near future. He said he was quite shocked to find out about the report. He denies any significant symptoms related to it. Denies any symptoms exertional shortness of breath or chest pain. No family history of abdominal aortic aneurysm. He does have prior history of smoking. No prior history of cardiac issues. [facility] Medical History Chronic lymphocytic leukemia Hypogonadism in male Prostate cancer History of cataract 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 Hypertension GERD (gastroesophageal reflux disease) Colon adenomas Surgical History History of laminectomy History of prostatectomy History of hernia repair History of knee surgery History of surgery on wrist History of colonoscopy History of brain surgery Family History Father Heart disease Mother Emphysema lung Social History Alcohol intake: never Second Hand Smoke Exposure: No Physical Exam Vital Signs: Last Vital Signs Pulse 73 11/01/23 14:30 BP 120/78 11/01/23 14:30 BMI result Body Mass Index 24.6 Const General: cooperative, comfortable, no acute distress, alert, awake and Physically active Nutritional Appearance: average body habitus Orientation/consciousness: patient oriented x3 Limitations: no limitations HEENT Head: Yes normocephalic and Yes atraumatic Neck Neck: Yes trachea midline, Yes supple and Yes no JVD Resp Effort & Inspection: normal respiratory effort Auscultation: clear to auscultation bilaterally Cardio Jugular venous distension: no JVD Palpation: normal PMI Rate: regular rate Rhythm: regular rhythm Heart sounds: S1 normal heart sound present, S2 normal heart sound present, no click, no gallops, no murmurs and no rubs GI Auscultation: normal bowel sounds Skin General skin exam: no rashes or lesions noted Neuro General: patient oriented x3 and no focal motor deficits Extrem General: Yes no clubbing, cyanosis or edema Office Procedures EKG Details: EKG shows normal sinus rhythm nonspecific ST T wave changes [id number], Complete Assessment & Plan Assessment & Plan (1) Preoperative cardiovascular examination: Code(s): Z01.810 - Encounter for preprocedural cardiovascular examination Category: Medical Plan: Preoperative cardiovascular risk stratification prior to intermediate risk surgery with significant vascular findings of severe abdominal aortic aneurysm. Patient risk factors of advanced age, hypertension as well as hyperlipidemia. Would suggest him to undergo vasodilating myocardial perfusion imaging to evaluate for myocardial ischemia as well as an echocardiogram to evaluate LV systolic and diastolic function. If these tests are within acceptable limits, he is low risk for perioperative cardiovascular morbidity mortality. These tests will be scheduled in very near future. Continue amlodipine therapy for aggressive blood pressure control. I did suggest him to be started on statin therapy although he wants to hold on that therapy till after the surgery. Risks and benefits discussed. Also suggest aspirin therapy although he wanted to hold off on that as well. Will follow up if need be in the clinic. Thank you for allowing me to partake in his care Orders: Orders CA lexiscan stress w anish Today Z01.810 - Encounter for preprocedural cardiovascular examination CA echo transthoracic complete Today Z01.810 - Encounter for preprocedural cardiovascular examination Coding Level of Care Code New Pt Level 4 (33511) Diagnoses Preoperative cardiovascular examination Z01.810 CPT Codes EKG - CPT: 79026-[id number], Complete ([id number])
== END 2023-11-01 15:20 | disposition home or self-care (01) ==
PROVIDERS: PCP Internal Medicine; Visit Provider Internal Medicine Cardiovascular Disease
DX: I71.40 Abdominal aortic aneurysm, without rupture, unspecified (principal); Z01.810 Encounter for preprocedural cardiovascular examination
CPT/HCPCS: 93010; 99204

== ENCOUNTER → 2023-11-02 08:39 | Outpatient (REF) | payer MEDICARE, SELFPAY ==
--- NOTE | ~2023-11-02 | NM_ITS ---
Myocardial perfusion study Indication: Preoperative cardiovascular risk stratification Technique: The patient was brought in for a Lexiscan perfusion study on 11/02/2023. Patient performed low-level exercise and was injected 0.4 mg of Lexiscan intravenously. Within a minute of injection, 25 mCi of sestamibi was given intravenously. Images were obtained using the SPECT gamma camera interlaced with the gating device. Images were obtained in supine position. Resting perfusion study was performed on 11/03/2023. Patient was administered 25 mCi of sestamibi intravenously at rest. Images were then obtained in supine position. Images obtained with and without CT attenuation. Total DLP 151 mGy-cm. Images were processed with the software and compared side to side in short axis, horizontal long axis and vertical long axis views. Findings: The stress perfusion study showed non attenuated images show mildly reduced uptake in the distal septum and inferoapical wall of the LV myocardium. Remainder of the LV myocardium is normally perfused. Attenuation corrected images show mildly reduced uptake in the apex of the LV myocardium. The gated study shows mildly reduced LV systolic function with calculated LVEF of 47%. LV cavity is normal in size. The gated study shows normal systolic wall thickening and contraction of segments. Resting study shows no change in perfusion pattern compared to stress perfusion study. Gating at rest reveals normal systolic wall motion with ejection fraction at 46%. The findings are consistent with no clear reversible defect suggestive of ischemia. Likely normal myocardial perfusion. NM/NM anish perf SPECT rest & str Impression: 1. Myocardial perfusion imaging study shows likely normal myocardial perfusion 2. Gated LVEF is 47% 3. Transient ischemic dilatation not present EKG is nondiagnostic for ischemia
--- NOTE | 2023-11-02 08:42 | CA_ITS ---
Acquisition Time: 2023-11-02 10:26:18 Total Exercise Time: 00:02:00 Test Indications: PREOP Medications: Protocol: LEXISCAN Max HR: 101 BPM 70% of Pred: 144 BPM Max BP: 124/084 mmHG Max Work Load: 1.0 METS Pharmacological stress test with Lexiscan injection while sitting and kicking his legs, without anginal symptoms, with isolated PACs, PVCs, one ventricular cuplet, with normotenisve response to injection, with nondiagnosiitic EKGs. Nuclear images pending. Test reviewed with Dr. Cabrera. Referred By: Rahat Morales Overread By: Nikki Wharton
--- NOTE | 2023-11-02 08:42 | CA_ITS ---
Transthoracic Echocardiogram Patient (Last, First, Middle): Naveen Farias J Gender: Male Date of : 1945 Age: 78 Procedure Date: 11/02/2023 Procedure Type: Transthoracic Echocardiogram Location: OP Height: 180.34 cm Weight: 79.83 kg BSA: 2.00 m2 Heart Rate: bpm BP: 120 / 78 mmHg Strategy Analyst: ANA Referring MD: Rahat Morales MD Salesperson Driver: Rahat Morales MD Symptoms: Z01.810 - Encounter for preprocedural cardiovascular examination Study Quality: Fair ECG Rhythm: Sinus Conclusions: - 1. Low normal LV ejection fraction 50-55% with impaired relaxation filling pattern 2. Normal cardiac valvular Doppler 3. Mildly dilated ascending aorta at 3.9 cm 4. No gross pericardial effusion 5. Normal RV systolic pressure Findings Left Ventricle Normal left ventricular cavity size. There is normal left ventricular wall thickness. The left ventricular systolic function is low normal. The visually estimated ejection fraction is between 50-55%. Spectral Doppler is indicative of an impaired relaxation filling pattern. E/E prime ratio is between 8 and 15 consistent with indeterminate filling pressures. Right Ventricle The right ventricle was not well visualized. Atria The left atrium is normal in size. There is lipomatous hypertrophy of the interatrial septum. There is no evidence of interatrial shunt. The right atrium was not well visualized. Aortic Valve The aortic valve was not well visualized. There is mild calcification of the aortic valve. There is no aortic valve stenosis. The mean gradient is 5 mmHg. There is no aortic valve regurgitation. Mitral Valve Likely normal mitral valve structure and function. There is trace mitral valve regurgitation. There is no mitral valve stenosis. Pulmonic Valve The pulmonic valve was not well visualized. Tricuspid Valve Likely normal tricuspid valve structure and function. There is mild tricuspid valve regurgitation. The right ventricular systolic pressure is normal. The right ventricular systolic pressure is 23 mmHg. Normal right atrial pressure. There is no evidence of pulmonary hypertension. Great Vessels The pulmonary artery was not well visualized. There is mild dilatation of the ascending aorta measuring 3.90 cm. Venous The inferior vena cava is normal in size and collapses greater than 50% with inspiration. Pericardium/Pleural There is no evidence of pericardial effusion. Prior Study Comparison No prior study available for comparison. Measurements 2D Linear Measurements IVSd: 0.99 0.6-0.9/0.6-1.0 cm LVIDd: 4.28 3.9-5.3/4.2-5.9 cm LVIDd Index: 2.14 2.4-3.2/2.2-3.1 cm/m2 LVIDs: 3.25 2.0-3.6 cm LVPWd: 0.98 0.7-1.1 cm Ao Root: 3.90 2.1-3.5 cm LA Diam: 3.20 2.7-3.8/3.0-4.0 cm LAIDs Index: 1.60 1.5-2.3 cm/m2 LV Mass: 172.00 67-162/88-224 g LV Mass Index: 86.00 43-95/49-115 g/m2 LVOT Diam: 2.10 3.0+(-)1.3 cm 2D Systolic Function EF 4C: 48.50 >55% EF 2C: 52.70 >55% EF BiP: 50.00 >55% Mitral Valve MV Pk E: 0.53 MV PK A: 0.71 MV Decel Time: 374.00 E/A: 0.70 E'Lateral: 8.05 E'Medial: 6.42 E/E' Med: 8.20 E/E' Lat: 6.50 PHT: 110.00 MVA PHT: 2.00 Decel Porter: 1.41 Aortic Valve AoV Pk Jorge: 1.59 AoV Mn Jorge: 1.07 AoV VTI: 0.29 AoV Pk Grad: 10.00 Aov Mn Grad: 5.00 KAVON Cont.VTI: 2.06 LVOT LVOT Pk Jorge: 0.95 LVOT Mn Jorge: 0.63 LVOT VTI: 0.17 LVOT Pk Grad: 4.00 LVOT Mn Grad: 2.00 LVOT Diam: 2.10 LVOT Area: 3.46 Diastolic Function MV Pk E: 0.53 MV Pk A: 0.71 E/A: 0.70 E'Medial: 6.42 E/E' Med: 8.20 E' Laterial: 8.05 E/E' Lat: 6.50 Right Ventricle TAPSE (mm): 24.00 TVS' Jorge: 15.70 Tricuspid Valve TR Pk Jorge: 2.23 TR Pk Grad: 20.00 RA Press: 3.00 RVSP: 23.00 Great Vessels Aorta Ao Root-2D: 3.90 2.0-3.7 cm Ao Asc: 3.90 2.1-3.4 cm Updated in Other Vendor System with Status of Final Rahat Morales MD electronically signed on 11/03/2023 1:42:07 PM with status of Final
== END ==
LOC: HO.CARD 08:39
PROVIDERS: PCP Internal Medicine; Visit Provider Internal Medicine Cardiovascular Disease
DX: Z01.810 Encounter for preprocedural cardiovascular examination (principal)
CPT/HCPCS: 78452; 93017; 93306; A9500; J0280; J2785

== ENCOUNTER → 2023-11-02 08:42 | Outpatient (BNV) | payer MEDICARE, SELFPAY | PROVIDERS: PCP Internal Medicine; Visit Provider Nurse Practitioner | DX: Z01.810 Encounter for preprocedural cardiovascular examination (principal); I35.8 Other nonrheumatic aortic valve disorders; I36.1 Nonrheumatic tricuspid (valve) insufficiency | CPT/HCPCS: 78452; 93016; 93018; 93320; 93325; 93350 ==

== ENCOUNTER 2023-11-13 05:56 | Inpatient (IN) | payer MEDICARE, SELFPAY ==
[2023-11-06 13:22] VITALS: BP 131/86; PULSE 78; RESP 16; O2SAT 95; BMI 24.6
--- NOTE | 2023-11-06 13:39 | HO.ANESPROP2 ---
Documented by User: Daysi Muhammad NP 11/09/23 15:44 HPI - Anesthesia Eval Consult details Narrative: 78yo M for Aortic Endovascular Repair, 11/13/23 Cardiac cleared No recent illness No CP/SOB with walking on treadmill GERD: rare, tums prn CLL: ~2009, observation only CXR ordered at PAT. Adventitious sounds throughout. Greatest RUL. PMFSH Active Problems Active Problems: All Active Problems Preoperative cardiovascular examination (Acute) AAA (abdominal aortic aneurysm) without rupture (Acute) Osteopenia (Acute) Prostate cancer metastatic to bone (Acute) Prostate cancer (Acute) BPH w urinary obs/LUTS (Acute) Past Medical History Medical History Urinary incontinence Arthritis AAA (abdominal aortic aneurysm) without rupture Headache Blind left eye Hx of radiation therapy CLL (chronic lymphocytic leukemia) Bone cancer History of skin cancer Chronic lymphocytic leukemia Hypogonadism in male Prostate cancer History of cataract 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 Hypertension GERD (gastroesophageal reflux disease) Colon adenomas Family History Family History Father Heart disease Mother Emphysema lung Family history of problems with anesthesia: No Surgical History Surgical History Hx of eye surgery Hx of umbilical hernia repair Hx of inguinal hernia repair Hx of melanoma excision (~2016) History of prostatectomy (~2009) History of hernia repair History of knee surgery History of surgery on wrist History of colonoscopy History of brain surgery History of Problems with Anesthesia: No Social History Social History Household Members: None Housing: Apartment Are you a primary patient care associate to a significant other at home: No Do you presently have visiting nurse or other home services: No Alcohol intake: never Patient Tobacco Use Status: Former Tobacco user Quit Date: 2009 Tobacco use type: Cigarette Years Smoked: 50 Second Hand Smoke Exposure: No Use of substances other than those prescribed or required for medical reasons: No Have you been hit, kicked, punched, or otherwise hurt by someone within the past year? If so, by whom?: No Are you DNR?: No Advance Directives: No Advance Directives Information Provided: Yes Advance Directives on File: No Recently lost weight without trying: Yes How much weight loss: 2-13 pounds Eating poorly because of decreased appetite: No Nutrition screen score: 3 Nutrition Risks: Surgical patient >75years Poor oral hygiene: No Meds Allergies Allergy/AdvReac Type Severity Reaction Status Date / Time No Known Allergies Allergy Verified 11/06/23 13:12 [No Known Allergies*] Home Medications ?Medication ?Instructions ?Recorded ?Confirmed ?Last Taken ?Type amlodipine 5 mg tablet 5 mg PO BID 11/01/23 11/06/23 11/13/23 History Tums PRN Gastric Reflux 11/06/23 11/06/23 History ascorbic acid (vitamin C) 500 mg 500 mg PO DAILY 11/06/23 11/06/23 11/06/23 History tablet (Vitamin C) calcium carbonate 600 mg-vitamin 1 tab PO DAILY 11/06/23 11/06/23 Unknown History D3 5 mcg (200 unit) tablet finasteride 5 mg tablet 5 mg PO .DAILY @ 199911/06/23 11/06/23 11/06/23 History magnesium 250 mg tablet 250 mg PO DAILY 11/06/23 11/06/23 11/06/23 History multivitamin 1 tab PO DAILY 11/06/23 11/06/23 11/06/23 History vitamin B complex 1 tab PO DAILY 11/06/23 11/06/23 11/06/23 History Exam Height,Weight and Vital Signs: Height 5 ft 11 in Weight 80 kg Last Vital Signs Pulse 78 11/06/23 13:22 Resp 16 11/06/23 13:22 BP 131/86 11/06/23 13:22 Pulse Ox 95 11/06/23 13:22 O2 Del Method Room Air 11/06/23 13:22 Pertinent Lab Results Pertinent Lab Results: Lab Results 11/06/23 11/06/23 Range/Units 14:36 14:39 PT 12.0 (11.1-13.3) SEC INR 1.0 (0.9-1.1) APTT 31.3 (26.0-36.8) SEC Sodium 141 (135-145) mmol/L Potassium 4.1 (3.3-5.1) mmol/L Chloride 107 (96-108) mmol/L Carbon Dioxide 25 (22-29) mmol/L Anion Gap 13 (12-20) BUN 20 H (9-16) mg/dL Creatinine 0.79 (0.5-1.4) mg/dL Estim Creat Clear Calc 84.7 Estimated GFR > 60 Random Glucose 101 (60-115) mg/dL Calcium 9.5 (8.4-10.2) mg/dL Blood Type AB Positive Antibody Screen NEGATIVE Laboratory Tests 08/28/23 07:35 WBC 5.9 Hgb 14.3 Hct 42.7 Plt Count 197 Narrative Narrative: EKG 10/2023 normal sinus rhythm nonspecific ST T wave changes ECHO 10/2023 Conclusions: - 1. Low normal LV ejection fraction 50-55% with impaired relaxation filling pattern 2. Normal cardiac valvular Doppler 3. Mildly dilated ascending aorta at 3.9 cm 4. No gross pericardial effusion 5. Normal RV systolic pressure NM anish perf SPECT rest & str 10/2023 Impression: 1. Myocardial perfusion imaging study shows likely normal myocardial perfusion 2. Gated LVEF is 47% 3. Transient ischemic dilatation not present EKG is nondiagnostic for ischemia XR chest 2V 10/2023 IMPRESSION: No acute abnormality Airway Mallampati Class: II TM Dist: >3cm Neck ROM: Full Loose/Missing/Broken Teeth: Yes (#8&9 capped, Right upper molar and right lower molar broken) Heart: RRR Lungs: Wheeze throughout, RUL greatest Assessment and Plan Assessment Anesthesia Assessment: Anesthesia Plan Discussed and PAT Visit Final Anesthetic Review Family History of Problems with Anesthesia: No History of Problems with Anesthesia: No Documented by User: Flaquita Thompson MD 11/13/23 07:21 [facility] Past Medical History Medical History Urinary incontinence Arthritis AAA (abdominal aortic aneurysm) without rupture Headache Blind left eye Hx of radiation therapy CLL (chronic lymphocytic leukemia) Bone cancer History of skin cancer Chronic lymphocytic leukemia Hypogonadism in male Prostate cancer History of cataract 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 Hypertension GERD (gastroesophageal reflux disease) Colon adenomas Family History Family History Father Heart disease Mother Emphysema lung Family history of problems with anesthesia: No Surgical History Surgical History Hx of eye surgery Hx of umbilical hernia repair Hx of inguinal hernia repair Hx of melanoma excision (~2016) History of prostatectomy (~2009) History of hernia repair History of knee surgery History of surgery on wrist History of colonoscopy History of brain surgery History of Problems with Anesthesia: No Social History Social History Household Members: None Housing: Apartment Are you a primary patient care associate to a significant other at home: No Do you presently have visiting nurse or other home services: No Alcohol intake: never Patient Tobacco Use Status: Former Tobacco user Quit Date: 2009 Tobacco use type: Cigarette Years Smoked: 50 Second Hand Smoke Exposure: No Use of substances other than those prescribed or required for medical reasons: No Have you been hit, kicked, punched, or otherwise hurt by someone within the past year? If so, by whom?: No Are you DNR?: No Advance Directives: No Advance Directives Information Provided: Yes Advance Directives on File: No Recently lost weight without trying: Yes How much weight loss: 2-13 pounds Eating poorly because of decreased appetite: No Nutrition screen score: 3 Nutrition Risks: Surgical patient >75years Poor oral hygiene: No Meds Allergies Allergy/AdvReac Type Severity Reaction Status Date / Time No Known Allergies Allergy Verified 11/06/23 13:12 [No Known Allergies*] Home Medications ?Medication ?Instructions ?Recorded ?Confirmed ?Last Taken ?Type amlodipine 5 mg tablet 5 mg PO BID 11/01/23 11/06/23 11/13/23 History Tums PRN Gastric Reflux 11/06/23 11/06/23 History ascorbic acid (vitamin C) 500 mg 500 mg PO DAILY 11/06/23 11/06/23 11/06/23 History tablet (Vitamin C) calcium carbonate 600 mg-vitamin 1 tab PO DAILY 11/06/23 11/06/23 Unknown History D3 5 mcg (200 unit) tablet finasteride 5 mg tablet 5 mg PO .DAILY @ 199911/06/23 11/06/23 11/06/23 History magnesium 250 mg tablet 250 mg PO DAILY 11/06/23 11/06/23 11/06/23 History multivitamin 1 tab PO DAILY 11/06/23 11/06/23 11/06/23 History vitamin B complex 1 tab PO DAILY 11/06/23 11/06/23 11/06/23 History Exam Height,Weight and Vital Signs: Height 5 ft 11 in Weight 80 kg Last Vital Signs Pulse 78 11/06/23 13:22 Resp 16 11/06/23 13:22 BP 131/86 11/06/23 13:22 Pulse Ox 95 11/06/23 13:22 O2 Del Method Room Air 11/06/23 13:22 Vital Signs Temp Pulse Resp BP Pulse Ox O2 Del Method 11/13/23 07:16 96.9 F 97 18 131/77 97 Room Air Pertinent Lab Results Pertinent Lab Results: Lab Results 11/06/23 11/06/23 Range/Units 14:36 14:39 PT 12.0 (11.1-13.3) SEC INR 1.0 (0.9-1.1) APTT 31.3 (26.0-36.8) SEC Sodium 141 (135-145) mmol/L Potassium 4.1 (3.3-5.1) mmol/L Chloride 107 (96-108) mmol/L Carbon Dioxide 25 (22-29) mmol/L Anion Gap 13 (12-20) BUN 20 H (9-16) mg/dL Creatinine 0.79 (0.5-1.4) mg/dL Estim Creat Clear Calc 84.7 Estimated GFR > 60 Random Glucose 101 (60-115) mg/dL Calcium 9.5 (8.4-10.2) mg/dL Blood Type AB Positive Antibody Screen NEGATIVE Laboratory Tests 08/28/23 07:35 WBC 5.9 Hgb 14.3 Hct 42.7 Plt Count 197 Lab Results 11/06/23 11/06/23 11/13/23 Range/Units 14:36 14:39 06:28 WBC 6.9 (4.8-10.8) X10*3/uL RBC 4.51 L (4.60-5.80) X10*6/uL Hgb 14.2 (14.0-18.0) g/dl Hct 41.0 L (42.0-52.0) % MCV 90.9 (80.0-98.0) fL MCH 31.5 (27.0-33.0) pg MCHC 34.6 (31.0-36.0) g/dl RDW 12.8 (11.0-16.0) % Plt Count 162 (160-400) X10*3/uL MPV 9.8 (9.4-12.4) fL Absolute Nucleated RBC 0.000 (0.0-0.012) X10*3/uL Nucleated RBC % (auto) 0.0 (0.0-0.2) /100WBC PT 12.0 (11.1-13.3) SEC INR 1.0 (0.9-1.1) APTT 31.3 (26.0-36.8) SEC Sodium 141 (135-145) mmol/L Potassium 4.1 (3.3-5.1) mmol/L Chloride 107 (96-108) mmol/L Carbon Dioxide 25 (22-29) mmol/L Anion Gap 13 (12-20) BUN 20 H (9-16) mg/dL Creatinine 0.79 (0.5-1.4) mg/dL Estim Creat Clear Calc 84.7 Estimated GFR > 60 Random Glucose 101 (60-115) mg/dL Calcium 9.5 (8.4-10.2) mg/dL Blood Type AB Positive Antibody Screen NEGATIVE Narrative Narrative: EKG 10/2023 normal sinus rhythm [address] T wave changes. Marked sinus arrhythmia ECHO 10/2023 Conclusions: - 1. Low normal LV ejection fraction 50-55% with impaired relaxation filling pattern 2. Normal cardiac valvular Doppler 3. Mildly dilated ascending aorta at 3.9 cm 4. No gross pericardial effusion 5. Normal RV systolic pressure NM anish perf SPECT rest & str 10/2023 Impression: 1. Myocardial perfusion imaging study shows likely normal myocardial perfusion 2. Gated LVEF is 47% 3. Transient ischemic dilatation not present EKG is nondiagnostic for ischemia XR chest 2V 10/2023 IMPRESSION: No acute abnormality Airway Mallampati Class: II TM Dist: >3cm Neck ROM: Full Lungs: Lungs CTAB. Diminished Assessment and Plan Assessment Anesthesia Assessment: Anesthesia Plan Discussed, PAT Visit and Chart Reviewed Final Anesthetic Review Family History of Problems with Anesthesia: No History of Problems with Anesthesia: No NPO: Yes ASA Class: III Final Preanesthetic Review: No Changes in Pt Med Stat, Meds/Allgs Chart Reviewed, Consent Obtained/Reviewed and Anes Risks/Benef Reviewed Patient Risk: Intermediate Procedure Risk: High Assessment/Block/Sedation in SS: Assess/Block/Sedation-SS Anesthetic Plan Anesthetic Plan: GA and Other (Arterial line.+/- central line) Disposition: Standard PACU and Inp. Admit - ICU
[2023-11-06 16:01] LABS: Partial Thromboplastin Time 31.3 SEC (26.0-36.8)
[2023-11-06 16:12] LABS: Anion Gap 13 (12-20); Blood Urea Nitrogen 20 mg/dL (9-16); Calcium 9.5 mg/dL (8.4-10.2); Carbon Dioxide 25 mmol/L (22-29); Chloride 107 mmol/L (96-108); Creatinine Clr Calc Pharmacy 84.7; Estimated Glomerular Filt Rate > 60; Glucose Random 101 mg/dL (60-115); Potassium 4.1 mmol/L (3.3-5.1); Sodium 141 mmol/L (135-145)
[2023-11-13] VITALS (24 sets, daily range): BP systolic 122–162; BP diastolic 64–85; PULSE 64–97; RESP 12–21; TEMP 36.1–37.1; O2SAT 95–100; BMI 24.3; BMI 25.5
--- NOTE | ~2023-11-13 | FL_ITS ---
EXAMINATION: XR FLUOROSCOPY WITH IMAGES CLINICAL INFORMATION: Fluoroscopic guidance provided for procedure Endo AAA. COMPARISON: None available. TECHNIQUE: Fluoroscopy Supervised By: Dr. Wills. Fluoroscopy Time: 26 minutes, 50.9 seconds. Cumulative Dose: 404.10 mGy. DAP: 118.24 Gycm2. Images: 14. FINDINGS: Fluoroscopic imaging provided for procedure. Images demonstrate multiple wires and lines and devices employed for aortoiliac stent placement. Please refer to operative report for more detailed evaluation. FL/FL guidance in OR IMPRESSION: Fluoroscopic imaging provided for procedure. Please refer to operative report for more detailed evaluation.
--- NOTE | ~2023-11-13 | XR_ITS ---
EXAMINATION: XR CHEST CLINICAL INFORMATION: Wheezes, preop COMPARISON: Chest 12/28/2017 TECHNIQUE: 2 views of the chest were obtained. FINDINGS: The lungs are hyperinflated. No focal consolidation, interstitial pulmonary edema or pneumothorax. Left pericardial fat pad is again noted. Heart size is normal. No pleural effusion. No acute bony abnormality. XR/XR chest 2V IMPRESSION: No acute abnormality.
--- OUTSIDE RECORDS SUMMARY | 2023-11-13 06:01 | XMS_ITS | Continuity of Care Document ---
Author Organization [facility] Address [address] [place] [address]- Care Team Providers Care Dry Wall Plasterer Name Role Phone Christian Barkley MD Primary Care Physician [place] [facility] [place]): 11/29/22 - 12/29/22 [facility] [address] [place] [id number]- Attending Physician: Dread Jama Admitting Physician: Dread Jama Referring Physician: Dread Jama Allergies, Adverse Reactions, Alerts No Known Medication Allergies Medications amLODIPine 5 mg oral tablet 1 tablet = 5 mg, By Mouth, 2 times a day, 0 Refills, Maintenance, 11/29/22 13:06:00 EDT, Partial fill upon patient request if the prescription is for a schedule II opioid drug. Start Date: 11/29/22 Status: Ordered Social History Social History Type Response Smoking Status Former smoker, quit more than 30 days ago entered on: 11/29/22 Sex Cardiology * Event Display: EKG Non BH Authored Date: Patient Care team information Care Team Personnel Name: Christian Barkley MD Position: [facility] Outreach Member Role: PCP Address: Address: [address] [place] [address]- Care Team Related Persons Name: YULI WEISS Address: [place] [address]
--- OUTSIDE RECORDS SUMMARY | 2023-11-13 06:02 | XMS_ITS | Continuity of Care Document ---
Author Organization [facility] Address [address] [place] [id number]- Care Team Providers Care Plant Custodian Name Role Phone Not on Staff, PCP Primary Care Physician Unavail able Encounter [facility] [place] Date(s): 09/29/22 - 10/29/22 [facility] [address] [place] [address]- Note * Event Display: Phone Msg Authored Date: [id number] From: Kim Gutierrez To: Cardiology - Admin; Sent: 09/29/2022 15:16:24 EDT Subject: NPV/SHENA/Appointment Caller Name: SWANSON KAMERON; Caller Number: H Caller Name: Dr.Croke Lola's office Call Back Number:_ Call Back Requested:_ Is it OK to leave a detailed message:_ Pharmacy:_ 1.) Referring, Dr.Francis Barkley 2.) Contact, Lola, 3.) 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, No past body bumper 4.) Testing, EKG 09/29/22 at 's office 5.) Date and Time, 11/29/22 at 12:45 6.) Reason, Abnormal EKG 7.) Labs, None recent 8.) Hospitalization, None recent 9.) Records, Notes/Records to be fax'd * Elen Johnston: PERFORM Event Display: Phone Msg Authored Date: [id number] From: Elen Johnston (Cardiology - Admin) To: Shena CARROLL, Kee Guzman; Sent: 09/29/2022 15:17:56 EDT Subject: FW: NPV/SHENA/Appointment Caller Name: KAMERON SWANSON; Caller Number: H Cardiology Outpatient Note * Karon Le [place]: PERFORM Event Display: Cardiology Note Office Authored Date: Records from Christian Barkley M.D. received Patient Care team information Care Team Personnel Name: Not on Staff, PCP Position: S Physician (General Medicine) Member Role: PCP Care Team Related Persons Name: YULI WEISS Address: [place] [address]
--- OUTSIDE RECORDS SUMMARY | 2023-11-13 06:02 | XMS_ITS | Continuity of Care Document ---
Author Organization [facility] Address [address] [place] [address], [address] [place] [address]- Care Team Providers Care Perfumer Name Role Phone Not on Staff, PCP Primary Care Physician Unavail able [place] [facility] [place](s): 12/05/19 - 01/04/20 [facility] [address] [place] [address] Drive, [address] [place] [address]- [facility] Attending Physician: Dread Jama Admitting Physician: Dread Jama Referring Physician: Dread Jama
--- OUTSIDE RECORDS SUMMARY | 2023-11-13 06:02 | XMS_ITS | Patient Health Record ---
Author Organization [facility] Address [address] [place] [address] Care Team Providers Care Real Estate Attorney Name Role Phone Christian Barkley MD Primary Care Provider Unavaila Facundo Peralta Jr Unavailable REASON FOR REFERRAL No Information MEDICATIONS Medication SIG (Take, Route, Frequency, Duration) Notes Start Date End Date Status Tylenol PRN Active Calcium Active Vitamin D Active B Complex Active Multivitamin Active Prolia 60 MG/ML Subcutaneous A ctive MiraLax (colon prep) 8.3 ounce ((238) grams mixed with Gatorade or Crystal Light orally begin at 5:00 p.m. the day before the procedure for 1 day 04/13/2020 Active Finasteride 5 MG Orally Act sheri IMMUNIZATIONS Vaccine Route Administration Date Status Comme nts Influenza Unknown 03/18/2020 Administered SOCIAL HISTORY Sex Assigned At : Social History Observation Description Sex Assigned At Unknown PROBLEMS Problem Type ICD Code Onset Dates Problem Status W/U Status Risk SNOMED Code Notes Problem Colon cancer screening (Z12.11) Active confirmed [id number] PLAN OF TREATMENT Future Test Test Name Order Date COLONOSCOPY 11/20/2013 COLONOSCOPY 04/13/2020 Insurance Providers Payer Name Payer Address Payer Phone Subscriber Number Group Number Insured Name Patient Relationship to Insured Coverage Start Date Coverage End Date MEDICARE OF [place] [address] [place] [address] [id number] KAMERON SWANSON Self - patient is the insured [employer] ATT[employer] CLAIMS [address] [place] [address] [id number] KAMERON SWANSON Self - patient is the insured MEDICAL (GENERAL) HISTORY Medical History History ICD Code Colonoscopy, 03/09 negative f or polyps, five-year followup recommended, history of previous adenomas Gastroesophageal reflux disease Hypertension Pituitary Gland tumor Left eye blindness Denies [place],DM,CVA,Lung disease,renal dise ase prostate cancer brain tumor CLL Surgical History Surgery Date(Month/Year) brain surgery wrist surgery eye surgery cataract removal knee surgery hernia repair prostatectomy laminectomy
--- OUTSIDE RECORDS SUMMARY | 2023-11-13 06:02 | XMS_ITS | Patient Health Record ---
Author Organization Frankie Keyes III, MD Address [address] [place] [address] Care Team Providers Care Sharepoint Trainer Name Role Phone Christian Barkley MD Primary Care Provider Frankie Bender Unavailable [phone] ALLERGIES Allergen (clinical drug ingredient) Drug/Non Drug Allergy documented on EMR Reaction Allergy Type Onset Date Status No Known Drug Allergy Unknown Drug Allergy Active RESULTS Component Value Reference Range Notes MR head/brain wo/w con Reviewed date:12/10/2022 08:27:35 AM Interpretation: Performing Lab: Notes/Report: [facility] [address] [place] [address] Magnetic Resonance Report Signed Patient: Naveen Farias MR#: [id number] : 1945 Acct:[id number] Age/Sex: 77 / M ADM Date: 11/30/22 Loc: HO.MRI Attending Dr: Frankie Keyes MD Ordering Physician: Frankie Keyes MD Date of Service: 11/30/22 Procedure(s): MR head/brain wo/w con Accession Number(s): [id number] cc: Frankie Keyes MD MRI OF THE BRAIN WITH AND WITHOUT IV CONTRAST INDICATION: Pituitary tumor. Surgery in 2017. Question recurrence. COMPARISON: Brain MRI 01/27/2021. TECHNIQUE: Multiplanar multisequence MR imaging of the brain was obtained without and following the administration of 4 mL of Gadavist without complication. FINDINGS: Redemonstrated postoperative changes following transsphenoidal resection of a pituitary adenoma. An enhancing septal flap covers the sellar surgical defect. There has been a mild increase in size of a lobulated focus of heterogeneously enhancing tissue within the central and right sella measuring up to 1.3 cm TV by 0.8 cm CC by 0.8 cm AP compared to 1.1 cm TV by 0.8 cm CC by 0.7 cm AP on 01/27/2021 MRI. The infundibulum remains obstructed towards the right and likely inserts a normal residual pituitary tissue. The cavernous sinuses are symmetric and normal. Left prechiasmatic optic nerve and optic chiasm contact the upper margin of this lesion. There is no hydrocephalus, extra-axial surface collection, or herniation. There is global cerebral volume loss and there is moderate chronic microangiopathy. The major flow voids at the skull base are preserved. There is no acute infarct on diffusion-weighted imaging. The cerebellar tonsils are normally positioned. The cerebellum and brainstem are normal. The craniocervical junction is normal. Osseous marrow signal intensity is homogenous. The visualized soft tissues are unremarkable. MR/MR head/brain wo/w con IMPRESSION: - Interval increase in size of the lobulated lesion within the right and central sella currently measuring up to 1.1 cm compared to 0.8 cm previously, most likely residual/recurrent tumor. Left prechiasmatic optic nerve and optic chiasm contact the upper margin of this lesion. - There is global cerebral volume loss and there is moderate chronic microangiopathy. Dictated By: Edward Sampson MD Signed By: <Electronically signed by Edward Sampson MD in OV> 11/30/22 1527 DD/ 1414 TD/TT: Weld Lay Out Worker: RAMYA Lipid Panel Reviewed date:05/20/2023 09:19:44 AM Interpretation: Performing Lab:[facility], [address] [place] [phone] Notes/Report: Triglycerides 40 <150 mg/dL Desirable Triglyceride: less than 150 mg/dL Borderline High Triglyceride 150-199 mg/dL High Triglyceride: 200-499 mg/dL Very High Triglyceride: greater than or equal to 5OO mg/dL Cholesterol 201 <200 mg/dL Desirable Cholesterol: less than 200 mg/dL Borderline High Cholesterol: 200-239 mg/dL High Cholesterol: greater than 239 mg/dL LDL Cholesterol Calculated 120 <100 mg/dL Desirable LDL: less than 100 mg/dL Near Optimal/Above Optimal LDL: 110-129 mg/dL Borderline High LDL: 130-159 mg/dL High LDL: 160-189 mg/dL Very High LDL: greater than or equal to 190 mg/dL HDL Cholesterol 73 >40 mg/dL Desirable HDL: greater than 40 mg/dL Note: This HDL assay may give artificially low results in patients with liver disease. Testosterone, Total Reviewed date:05/20/2023 09:19:44 AM Interpretation: Performing Lab:[facility], [address] [place] [phone] Notes/Report: Testosterone, Total 414 283-8371 ng/dL Men with clinically significant hypogonadal symptoms and testosterone values repeatedly in the range of the 200-300 ng/dL or less, may benefit from testosterone treatment after adequate risk and benefits counseling. For additional information, please refer to http://education.[employer].com/faq/ [email or web address] 5 (This link is being provided for informational/ educational purposes only.) This test was developed and its analytical performance characteristics have been determined by [employer] [place], [place]. It has not been cleared or approved by the U.S. Food and Drug Administration. This assay has been validated pursuant to the CLIA regulations and is used for clinical purposes. THIS TEST WAS PERFORMED AT: [email or web address]/[address] OSCAR LAZAR MD,PHD Complete Blood Count Auto Di ff Reviewed date:05/20/2023 09:19:44 AM Interpretation: Performing Lab:[facility], [address] [place] [phone] Notes/Report: White Blood Count 7.8 4.8-10.8 X10*3/uL Red Blood Count 4.45 4.60-5.80 X10*6/uL Hemoglobin 14.2 14.0-18.0 g/dl Hematocrit 42.7 42.0-52.0 % Mean Corpuscular Volume 96.0 80.0-98.0 fL Mean Corpuscular Hemoglobin 31.9 27.0-33.0 pg Mean Corpuscular HGB Conc 33.3 31.0-36.0 g/dl Red Cell Distribution Width 13.5 11.0-16.0 % Platelet Count 204 160-400 X10*3/uL Mean Platelet Volume 10.4 9.4-12.4 fL Neutrophils Percent Auto 72.2 45-73 % Imm Gran Pct Auto 0.4 0.0-0.4 % Lymphocytes Percent Auto 17.7 20-40 % Monocytes Percent Auto 7.6 2-11 % Eosinophils Percent Auto 1.7 0-4 % Basophils Percent Auto 0.4 0-2 % NRBC Pct Auto 0.0 0.0-0.2 /100WBC Neutrophils Absolute Auto 5.6 2.0-8.3 x10*3/u L Imm Gran Abs Auto 0.03 0.00-0.03 X10*3/uL Lymphocytes Absolute Auto 1.4 1.2-4.9 X10*3/u L Monocytes Absolute Auto 0.6 0.1-1.2 X10*3/uL Eosinophils Absolute Auto 0.1 0.0-0.4 X10*3/u L Basophils Absolute Auto 0.0 0.0-0.2 X10*3/uL NRBC Abs Auto 0.000 0.0-0.012 X10*3/uL Comprehensive Met. Panel Reviewed date:05/20/2023 09:19:44 AM Interpretation: Performing Lab:[facility], [address] [place] [phone] Notes/Report: Sodium 145 135-145 mmol/L Potassium 4.2 3.3-5.1 mmol/L Chloride 107 96-108 mmol/L Carbon Dioxide 26 22-29 mmol/L Anion Gap 16 12-20 Blood Urea Nitrogen 24 9-16 mg/dL Creatinine 0.85 0.5-1.4 mg/dL Estimated Glomerular Filt Rate > 60 NOTE: For -Malian individuals, multiply the result by 1.210. Chronic Kidney Disease: Estimated GFR < 60 mL/min/1.73m2 Severe Kidney Disease: Estimated GFR < 15 mL/min/1.73m2 Glucose Random 115 60-115 mg/dL Calcium 9.6 8.4-10.2 mg/dL Bilirubin Total 0.6 0.0-1.0 mg/dL Aspartate Amino Transferase 21 5-37 U/L Alanine Aminotransferase 15 0-40 U/L Total Protein 6.8 6.5-8.0 g/dL Albumin Level 4.2 3.5-5.0 g/dL Alkaline Phosphatase 71 39-117 U/L Prostate Specific Antigen Reviewed date:05/20/2023 09:19:44 AM Interpretation: Performing Lab:[facility], [address] [place] [phone] Notes/Report: Prostate Specific Antigen 6.06 <0.05-4.0 ng/mL PSA methodology: Sitrion Alinity i Chemiluminescent Microparticle Immunoassay (CMIA) Complete Blood Count Auto Di ff Reviewed date:08/31/2023 10:58:29 AM Interpretation: Performing Lab:[facility], [address] [place] [phone] Notes/Report: White Blood Count 5.9 4.8-10.8 X10*3/uL Red Blood Count 4.57 4.60-5.80 X10*6/uL Hemoglobin 14.3 14.0-18.0 g/dl Hematocrit 42.7 42.0-52.0 % Mean Corpuscular Volume 93.4 80.0-98.0 fL Mean Corpuscular Hemoglobin 31.3 27.0-33.0 pg Mean Corpuscular HGB Conc 33.5 31.0-36.0 g/dl Red Cell Distribution Width 13.4 11.0-16.0 % Platelet Count 197 160-400 X10*3/uL Mean Platelet Volume 10.0 9.4-12.4 fL Neutrophils Percent Auto 66.6 45-73 % Imm Gran Pct Auto 0.3 0.0-0.4 % Lymphocytes Percent Auto 22.0 20-40 % Monocytes Percent Auto 8.7 2-11 % Eosinophils Percent Auto 2.2 0-4 % Basophils Percent Auto 0.2 0-2 % NRBC Pct Auto 0.0 0.0-0.2 /100WBC Neutrophils Absolute Auto 3.9 2.0-8.3 x10*3/u L Imm Gran Abs Auto 0.02 0.00-0.03 X10*3/uL Lymphocytes Absolute Auto 1.3 1.2-4.9 X10*3/u L Monocytes Absolute Auto 0.5 0.1-1.2 X10*3/uL Eosinophils Absolute Auto 0.1 0.0-0.4 X10*3/u L Basophils Absolute Auto 0.0 0.0-0.2 X10*3/uL NRBC Abs Auto 0.000 0.0-0.012 X10*3/uL Comprehensive [place]. Panel Fa Reviewed date:08/31/2023 10:58:29 AM Interpretation: Performing Lab:[facility], [address] [place] [phone] Notes/Report: Sodium 142 135-145 mmol/L Potassium 4.8 3.3-5.1 mmol/L Chloride 107 96-108 mmol/L Carbon Dioxide 29 22-29 mmol/L Anion Gap 11 12-20 Blood Urea Nitrogen 14 9-16 mg/dL Creatinine 0.79 0.5-1.4 mg/dL Estimated Glomerular Filt Rate > 60 NOTE: For -Malian individuals, multiply the result by 1.210. Chronic Kidney Disease: Estimated GFR < 60 mL/min/1.73m2 Severe Kidney Disease: Estimated GFR < 15 mL/min/1.73m2 Glucose Fasting 125 60-99 mg/dL A fasting glucose from 100-125 mg/dl is considered impaired (pre-diabetes). Calcium 9.9 8.4-10.2 mg/dL Bilirubin Total 0.5 0.0-1.0 mg/dL Aspartate Amino Transferase 18 5-37 U/L Alanine Aminotransferase 14 0-40 U/L Total Protein 6.5 6.5-8.0 g/dL Albumin Level 3.9 3.5-5.0 g/dL Alkaline Phosphatase 58 39-117 U/L Lipid Panel Reviewed date:08/31/2023 10:58:29 AM Interpretation: Performing Lab:[facility], [address] [place] [phone] Notes/Report: Triglycerides 62 <150 mg/dL Desirable Triglyceride: less than 150 mg/dL Borderline High Triglyceride 150-199 mg/dL High Triglyceride: 200-499 mg/dL Very High Triglyceride: greater than or equal to 5OO mg/dL Cholesterol 216 <200 mg/dL Desirable Cholesterol: less than 200 mg/dL Borderline High Cholesterol: 200-239 mg/dL High Cholesterol: greater than 239 mg/dL LDL Cholesterol Calculated 135 <100 mg/dL Desirable LDL: less than 100 mg/dL Near Optimal/Above Optimal LDL: 110-129 mg/dL Borderline High LDL: 130-159 mg/dL High LDL: 160-189 mg/dL Very High LDL: greater than or equal to 190 mg/dL HDL Cholesterol 69 >40 mg/dL Desirable HDL: greater than 40 mg/dL Note: This HDL assay may give artificially low results in patients with liver disease. REASON FOR REFERRAL Reason Consult and Treat Le cullen on Left Side of Face Diagnosis 1 History of melanoma (Z85.820) Diagnosis 2 Lesion of face (L98. 9) Referral Organization Frankie Keyes III, MD Referring Provider First Name Frankie Referring Provider Last Name Stephy Referring Provider Speciality Internal M edicine Referred Provider PASCUAL DELCID Referred Provider Specialty Dermatology General Notes YosvanyLetty 2022 04:16:11 PM EST > faxed referral Referral Priority Routine Referral Appointment Date 06/15/2023 MEDICATIONS Medication SIG (Take, Route, Frequency, Duration) Notes Start Date End Date Status amLODIPine Besylate 5 MG TAKE 1 TABLET B Y MOUTH TWICE DAILY Oral Active IMMUNIZATIONS Vaccine Route Administration Date Status Comme nts Influenza Unknown 03/01/2014 Administered COVID- 19 Vaccine Unknown 10/25/2021 Administered COVID- 19 Vaccine Unknown 04/30/2021 Administered SOCIAL HISTORY Tobacco Use: Social History Observation Description Date Details (start date - stop date) Former Smoker NA - NA Sex Assigned At : Social History Observation Description Sex Assigned At Unknown Tobacco Use/Smoking Question Answer Notes Patient is a former smoker How long has it been since you last smoked? > 10 years Additional Findings: Tobacco Non-User Ex-cigaret te smoker Alcohol Screen Question Answer Notes Did you have a drink containing alcohol in the p ast year? No Points 0 Interpretation Negative PROBLEMS Problem Type ICD Code Onset Dates Problem Status W/U Status Risk SNOMED Code Notes Problem Former smoker (Z87.891) Active confirmed 6799705 He is highly motivated not to smoke. He has a plan to prevent relapse in times of stress and illness. Problem Hyperglycemia (R73.9) Active confirmed 50248572 The last sever al blood glucose determinations have been normal. This problem has resolved. Problem Malignant neoplasm of prostate (C61) Active confirmed [id number] He remains under the care of urology. His recent blood work has been requested. 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 He will have periodic MRIs of the brain. The next study has been scheduled at [facility]. He recently went to [facility] to see neurosurgery, Dr. Garcia, we'll told him that the tumor was not growing back. Problem History of melanoma (Z85.820) Active confirmed History of malignant melanoma of the skin (2443852721 08) Problem Osteopenia (M85.80) Active confirmed [id number] There was continued on current therapy today without change. Problem CLL (chronic lymphocytic leukemia) (C91.10) Active confirmed 45082684 There was no adenopathy or splenomegaly. His white blood cell count and differential are unremarkable. Problem Obstructive uropathy (N13.9) Active confirmed 9258276 He will remain under the care of urologist in this problem will be addressed. 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 He is able to conduct all of the activities of daily life. The left eye has normal vision. This is a result of treatment of the pituitary tumor in the past. VITAL SIGNS Heart Rate 78 /min 09/11/2023 Temperature 97.2 degrees Fahrenheit 06/13/2023 Blood pressure diastolic 88 mm Hg 09/11/2023 Height 71 in 09/11/2023 Blood pressure systolic 133 mm Hg 09/11/2023 Weight 179 lbs 09/11/2023 BMI 24.96 kg/m2 09/11/2023 Encounters Encounter Location Date Provider Diagnosis Frankie Keyes III, MD [address] [place] [address] [place] [phone] 11/15/2022 Frankie Keyes Pituitary tumor D49. 7 ; Malignant neoplasm of prostate C61 ; CLL (chronic lymphocytic leukemia) C91.10 ; Overweight E66.3 ; Former smoker Z87.891 ; Osteopenia M85.80 ; Obstructive uropathy N13.9 ; Hyperglycemia R73.9 and Vision loss of left eye H54.62 Frankie Keyes III, MD [address] [place] [address] [place] [address] 03/14/2023 Frankie Keyes III, MD [address] [place] [phone] 04/05/2023 Frankie Keyes Pituitary tumor D49. 7 ; Overweight E66.3 ; Malignant neoplasm of prostate C61 and CLL (chronic lymphocytic leukemia) C91.10 Frankie Keyes III, MD [address] [place] [address] [place] [phone] 06/13/2023 Frankie Keyes Pituitary tumor D49. 7 ; Malignant neoplasm of prostate C61 ; CLL (chronic lymphocytic leukemia) C91.10 and Former smoker Z87.891 Frankie Keyes III, MD [address] [place] [address] [place] [address] 09/11/2023 Frankie Keyes Pituitary tumor D49. 7 ; Overweight E66.3 ; Malignant neoplasm of prostate C61 ; CLL (chronic lymphocytic leukemia) C91.10 ; Osteopenia M85.80 and Hyperglycemia R73.9 Frankie Keyes III, MD [address] [place] [address] [place] [address] 01/16/2023 Frankie Keyes III, MD [address] [place] [address] [place] [phone] 09/11/2023 Frankie Keyes III, MD [address] [place] [address] [place] [address] 12/07/2022 Frankie Keyes Pituitary tumor D49. 7 ; Malignant neoplasm of prostate C61 ; CLL (chronic lymphocytic leukemia) C91.10 ; Former smoker Z87.891 ; Osteopenia M85.80 ; Obstructive uropathy N13.9 ; Overweight E66.3 and Vision loss of left eye H54.62 ASSESSMENTS Encounter Date Diagnosis Assessment Notes Treatment Notes Treatment Clinical Notes 11/15/2022 Malignant neoplasm of prostate (ICD-10 - C61) His PSA is dropping. It is now 0.69 and was 94.. There was no sign of progressive disease on his examination. He seems to be doing well. No change in his regimen as needed. 11/15/2022 Pituitary tumor (ICD-10 - D49.7) He has had no symptoms of the pituitary recurrence. He denies any headaches. Is feeling generally well. 04/05/2023 Overweight (ICD-10 - E66.3) He has gained 6 pounds. His body mass index is slightly over 25. We discussed a plan to stabilize his weight and then returned to the normal range. 04/05/2023 Pituitary tumor (ICD-10 - D49.7) He will continue to be observed at the [facility] neurosurgery department. He will have periodic MRIs of the brain. 06/13/2023 Malignant neoplasm of prostate (ICD-10 - C61) He has resumed his leuprolide injections and I expect the testosterone level to fall in the PSA to return to 0. 06/13/2023 Pituitary tumor (ICD-10 - D49.7) He will continue to be observed at the [facility] neurosurgery department. He will have periodic MRIs of the brain. The next study has been scheduled at [facility]. He recently went to [facility] to see neurosurgery, Dr. Garcia, we'll told him that the tumor was not growing back. 09/11/2023 Overweight (ICD-10 - E66.3) His body mass index is 24. This problem has resolved and was removed from his problem list. 09/11/2023 Pituitary tumor (ICD-10 - D49.7) He will continue to be observed at the [facility] neurosurgery department. He will have periodic MRIs of the brain. The next study has been scheduled at [facility]. He recently went to [facility] to see neurosurgery, Dr. Garcia, we'll told him that the tumor was not growing back. Patient is due for his 1 year MRI of brain on 11/[address] Garcia's office has already sent the order via the computer to [facility] where they want follow up MRI done. pt was told by Dr garcia office for patient to call [facility] to set up this appt . Pt stated he would do this within the next month . 12/07/2022 Malignant neoplasm of prostate (ICD-10 - C61) His PSA is dropping. It is now 0.69 and was 94.. There was no sign of progressive disease on his examination. He seems to be doing well. No change in his regimen as needed. 12/07/2022 Pituitary tumor (ICD-10 - D49.7) He is free of symptoms. He will need a visual field and a neurosurgical consultation. 11/15/2022 CLL (chronic lymphocytic leukemia) (ICD-10 - C91.10) The white blood cell count is normal and there is no adenopathy or splenomegaly. His platelets and hematocrit are unremarkable. 04/05/2023 Malignant neoplasm of prostate (ICD-10 - C61) Comprehensive blood work with a PSA has been ordered. He is asymptomatic at this time. 06/13/2023 CLL (chronic lymphocytic leukemia) (ICD-10 - C91.10) Comprehensive blood work with a CBC has been ordered. There was no splenomegaly or adenopathy today. He is asymptomatic. 09/11/2023 Malignant neoplasm of prostate (ICD-10 - C61) He remains under the care of urology. His recent blood work has been requested. 12/07/2022 CLL (chronic lymphocytic leukemia) (ICD-10 - C91.10) The white blood cell count is normal and there is no adenopathy or splenomegaly. His platelets and hematocrit are unremarkable. 11/15/2022 Overweight (ICD-10 - E66.3) His weight is currently normal and this problem has resolved. 04/05/2023 CLL (chronic lymphocytic leukemia) (ICD-10 - C91.10) Comprehensive blood work with a CBC has been ordered. There was no splenomegaly or adenopathy today. He is asymptomatic. 06/13/2023 Former smoker (ICD-10 - Z87.891) He is highly motivated not to smoke. He has a plan to prevent relapse in times of stress and illness. 09/11/2023 CLL (chronic lymphocytic leukemia) (ICD-10 - C91.10) There was no adenopathy or splenomegaly. His white blood cell count and differential are unremarkable. 12/07/2022 Former smoker (ICD-10 - Z87.891) He is highly motivated not to smoke. He has a plan to prevent relapse in times of stress and illness. 11/15/2022 Former smoker (ICD-10 - Z87.891) He is highly motivated not to smoke. He has a plan to prevent relapse in times of stress and illness. 09/11/2023 Osteopenia (ICD-10 - M85.80) There was continued on current therapy today without change. 12/07/2022 Osteopenia (ICD-10 - M85.80) This will be followed. I have recommended vitamin D and 500 mg of calcium twice a day. 11/15/2022 Osteopenia (ICD-10 - M85.80) This will be followed. I have recommended vitamin D and 500 mg of calcium twice a day. 09/11/2023 Hyperglycemia (ICD-10 - R73.9) 12/07/2022 Obstructive uropathy (ICD-10 - N13.9) He will remain under the care of urologist in this problem will be addressed. 11/15/2022 Obstructive uropathy (ICD-10 - N13.9) He will remain under the care of urologist in this problem will be addressed. 12/07/2022 Overweight (ICD-10 - E66.3) His weight is currently normal and this problem has resolved. 11/15/2022 Hyperglycemia (ICD-10 - R73.9) The last several blood glucose determinations have been normal. This problem has resolved. 12/07/2022 Vision loss of left eye (ICD-10 - H54.62) Vision loss is unchanged. He is able to conduct all of the activities of daily life. The left eye has normal vision. This is a result of treatment of the pituitary tumor in the past. 11/15/2022 Vision loss of left eye (ICD-10 - H54.62) Vision loss is unchanged. He is able to conduct all of the activities of daily life. The left eye has normal vision. This is a result of treatment of the pituitary tumor in the past. PLAN OF TREATMENT Pending Test Test Name Order Date PROFILE, FASTING (COMPREHENSIVE METABOLI C) 06/13/2023 PROFILE, FASTING (COMPREHENSIVE METABOLI C) 04/16/2021 PROFILE, RANDOM (COMPREHENSIVE METABOLIC ) 07/03/2020 PROFILE, RANDOM (COMPREHENSIVE METABOLIC ) 04/05/2023 PROFILE, RANDOM (COMPREHENSIVE METABOLIC ) 01/15/2021 PROFILE, RANDOM (COMPREHENSIVE METABOLIC ) 07/10/2017 PROFILE, RANDOM (COMPREHENSIVE METABOLIC ) 11/01/2021 PROFILE, RANDOM (COMPREHENSIVE METABOLIC ) 11/06/2017 PROFILE, RANDOM (COMPREHENSIVE METABOLIC ) 09/18/2018 PROFILE, RANDOM (COMPREHENSIVE METABOLIC ) 09/11/2023 PROFILE, RANDOM (COMPREHENSIVE METABOLIC ) 07/11/2022 PROFILE, RANDOM (COMPREHENSIVE METABOLIC ) 10/16/2020 PROFILE, RANDOM (COMPREHENSIVE METABOLIC ) 08/04/2021 PROFILE, RANDOM (COMPREHENSIVE METABOLIC ) 08/30/2017 PROFILE, RANDOM (COMPREHENSIVE METABOLIC ) 03/07/2022 PROFILE, RANDOM (COMPREHENSIVE METABOLIC ) 05/30/2018 PROFILE, RANDOM (COMPREHENSIVE METABOLIC ) 12/29/2017 PROFILE, RANDOM (COMPREHENSIVE METABOLIC ) 04/01/2020 BUN 03/05/2018 CREATININE 03/05/2018 LIPID PANEL 04/16/2021 LIPID PANEL 03/07/2022 LDH 04/01/2020 TSH (THYROID STIMULATING HORMONE) 2023 PSA, TOTAL 12/29/2017 PSA, TOTAL 03/07/2022 PSA, TOTAL 04/05/2023 PSA, TOTAL 04/01/2020 PSA, TOTAL 01/15/2021 PSA, TOTAL 07/10/2017 PSA, TOTAL 11/01/2021 PSA, TOTAL 11/06/2017 PSA, TOTAL 09/18/2018 PSA, TOTAL 07/11/2022 PSA, TOTAL 09/11/2023 PSA, TOTAL 10/16/2020 PSA, TOTAL 08/04/2021 PSA, TOTAL 06/13/2023 PSA, TOTAL 08/30/2017 PSA, TOTAL 05/30/2018 PSA, TOTAL+FREE 04/16/2021 PSA, TOTAL SCREEN 07/03/2020 CBC w DIFF 08/04/2021 CBC w DIFF 08/30/2017 CBC w DIFF 05/30/2018 CBC w DIFF 12/29/2017 CBC w DIFF 03/07/2022 CBC w DIFF 07/03/2020 CBC w DIFF 04/16/2021 CBC w DIFF 04/05/2023 CBC w DIFF 04/01/2020 CBC w DIFF 01/15/2021 CBC w DIFF 07/10/2017 CBC w DIFF 11/01/2021 CBC w DIFF 11/06/2017 CBC w DIFF 09/18/2018 CBC w DIFF 07/11/2022 CBC w DIFF 09/11/2023 CBC w DIFF 10/16/2020 SED RATE (ESR) 04/01/2020 TESTOSTERONE, TOTAL 01/15/2021 TESTOSTERONE, TOTAL 04/01/2020 CBC WITH AUTO DIFF 06/13/2023 Lipid Panel 06/13/2023 Hemoglobin A1c 09/11/2023 Next Appt Details Provider Name:Frankie Keyes, 01/15/2024 02:30:00 PM, [address] [place] [address] , SUSIE Carrie, [place], [address], Insurance Providers Payer Name Payer Address Payer Phone Subscriber Number Group Number Insured Name Patient Relationship to Insured Coverage Start Date Coverage End Date MEDICARE NGS [address] [place] [id number] [phone] [id number] Naveen Farias Self - patient is the insured [facility] [address] [place], [place] [id number] Naveen Farias Self - patient is the insured MEDICAL (GENERAL) HISTORY Medical History History ICD Code degenerative arthitis knees childhod eye surgery pituitary tumor, [facility], surge ry, blind OS 2000, 2019 lymphoma prostate cancer cellulitis of toe Surgical History Surgery Date(Month/Year) Brain Surgery tumor removal 11/2019 pituitary tumor removal in Distant 0 melanoma removal on back 04/2018 Basal cell cancer removed on right cheek 2013 Right knee surgery 52yrs old Right hand surgery 1975 Brain tumor removed 2000 Radical Prostatectomy Eye Surgery 1954 Hernia repair 2011,2015
[2023-11-13 06:38] LABS: Hemoglobin 14.2 g/dl (14.0-18.0); Mean Corpuscular HGB Conc 34.6 g/dl (31.0-36.0); Mean Corpuscular Hemoglobin 31.5 pg (27.0-33.0); Mean Corpuscular Volume 90.9 fL (80.0-98.0); Mean Platelet Volume 9.8 fL (9.4-12.4); Platelet Count 162 X10*3/uL (160-400); Red Blood Count 4.51 X10*6/uL (4.60-5.80); Red Cell Distribution Width 12.8 % (11.0-16.0); White Blood Count 6.9 X10*3/uL (4.8-10.8)
[2023-11-13] MEDS: Lactated Ringers 1,000 ML 100 ML IVCONT (06:41)
--- NOTE | 2023-11-13 07:39 | MHC.SHP ---
Pre-Procedural Eval Section A - 24 Hr Update-Section A only Date of Service: 11/13/23 The patient is an INPATIENT: No Changes since office visit: Yes Patient answered all questions The patient has been examined within 24 hours of the surgical procedure. The History & Physical has been completed within 30 days and I have reviewed it.: Yes Section B - Complete if H&P > 30 days Chief Complaint: post op Allergies: Allergies Allergy/AdvReac Type Severity Reaction Status Date / Time No Known Allergies Allergy Verified 11/06/23 13:12 [No Known Allergies*] Plan I have reviewed the history and physical and performed a pertinent physical examination on my patient. No changes have occurred unless specified. Time Spent With Patient Time: Total time managing care of this patient today ____ minutes.
--- NOTE | 2023-11-13 10:24 | W.PM.OPN ---
Operative Note Operative Note Date of Service: 11/13/23 Narrative: Operative note by [facility] Preoperative diagnosis: Abdominal aortic aneurysm Postoperative diagnosis: Same Procedure: 1. Right femoral artery cutdown 2. Percutaneous left common femoral artery access 3. Endovascular aortic aneurysm repair (Endologix AFX 2 device) 4. Radiologic supervision and interpretation Surgeon:Gautam Wills M.D. Food Service Order Clerk: Dr. Fernandez Anesthesia: General endotracheal Specimens: None Drains: None Estimated blood loss: 100 mL Indications: Very pleasant 78-year-old gentleman who had an initial finding on a PET-CT for prostate cancer of this aortic aneurysm. The patient had he is aortic aneurysm confirmed on CT angiogram. Based on the anatomy and topography he is now for endovascular aneurysm repair possible open repair. The patient has signed the informed consent after reviewing risks, complications, benefits, and alternatives previously discussed with the patient. The patient was given the opportunity to ask any additional questions or voice any concerns. All questions were answered to the patient's satisfaction. Procedure in detail: Patient was brought to the operating room prior to which a time-out was called for patient identification and site verification abdomen and bilateral groins were prepped and draped in a standard surgical fashion. Cutdown was performed on the right common femoral artery using standard technique. This was a transverse incision. We then dissected down to the common femoral artery. This was encircled with silastic loops. Left common femoral was accessed under ultrasound guidance with a percutaneous 5 Trinidadian sheath. The ipsilateral side which was the right side a 5 Trinidadian sheath was then placed as well. Angiogram was performed to measure the vessel length and characterize the anatomy and its topography. We then exchanged for a 7 Trinid[place] sheath, and then placed a marker pigtail catheter up the left side into the level of the aorta at the level of the renals. On the right side which was the HC side we exchanged out the Bentson wire for a Lunderquist wire. This was done through a angled glide cath. We parked the tip the Lunderquist at the aortic arch. At this time 5000 units of heparin was administered. After 5 minutes of circulation time we loaded the 25-70/L 16-30 AFX2 bifurcated device onto the Lunderquist wire and advanced the contralateral wire up through the 19 Trinid[place] OD FX introducer sheath using the wire guide. Contralateral wire was snared and pulled out the contra side. FX 2 bifurcated device was then transferred into the a FX introducer sheath and advanced under fluoroscopic guidance until the distal limbs were above the aortic bifurcation releasing the limbs of the graft. We pulled the entire system down on to the aortic bifurcation. We deployed the main body of the graft by pulling on the control cord handle. We then deployed the contra limb by pulling the yellow limb cover, then we advanced a pigtail catheter over the contra wire until the tip was in contact with the wire lock. We held the pigtail catheter in place and pulled the contra wire to release it from the wire lock. We deployed the ipsi limb by pinning the inner core and retracting the a FX introducer sheath. We then deployed a 02/13/2028/C 95-0 20 suprarenal endograft and performed angiogram to visualize the renal arteries. We placed a bridging stent graft in order to reinforce the bend which was a 02/13/2028/C 95. We removed the extension delivery device from the a FX introducer sheath and advanced a Merit Q50X balloon to the proximal end of the endograft main body. We ballooned the endograft system through the main body and ipsilateral limb. We then inserted the balloon through the contralateral side and ballooned the contralateral limb as well. We performed a final angiogram, removed catheters and sheaths. The left groin was closed with a StarClose closure device. The right groin was closed with a 6 0 Prolene in a running fashion. We then reapproximated the deep layer with 2-0 Polysorb. The superficial layer was then reapproximated with a 3-0 Polysorb. Finally skin was closed with a running subcuticular 4 O Monocryl. Steri-Strips and a sterile dressing were applied. At the end the case sponge needle instrument counts were correct. Patient tolerated the procedure well, and returned to recovery with stable vitals Interpretation of films: 1. Ultrasound guidance demonstrated appropriate puncture 2. Initial aortogram confirmed anatomy and topography the infrarenal aortic aneurysm. 3. Completion angiogram demonstrated appropriate deployment of graft with no evidence of endoleak. Conclusion: Successful deployment Endologix AFX2 aortic endograft. This note is constructed using voice recognition software. While every effort has been made to ensure accuracy, senior c software engineer errors may have been included. Thank you for allowing me to participate in the care of your patient. Yours sincerely, Gautam Wills MD, FACS, R.P.V.I.
--- NOTE | 2023-11-13 13:01 | P.HPCC_ITS ---
History of Present Illness Date of Service: 11/13/23 Chief Complaint: Status post elective endovascular AAA repair 78-year-old gentleman with underlying AAA, CLL, prior pituitary tumor resection, prostate cancer, BPH status post prostatectomy, hypertension now postoperative day 0 after an elective endovascular AAA repair being monitored in the intensive care unit. Review of Systems 2 Constitutional: Constitutional: Denies daytime sleepiness, Denies excessive sweating, Denies fatigue, Denies fever(s), Denies lethargy, Denies malaise, Denies night sweats, Denies snoring and Denies weight loss Eyes: Eyes: Denies blurry vision and Denies itchy eyes ENT: Denies nasal congestion, Denies post nasal drip, Denies sinus pain, Denies sinus pressure and Denies other ( Thrush) Cardiovascular: Cardiovascular: Denies chest pain, Denies pedal edema, Denies dyspnea, Denies orthopnea and Denies paroxysmal nocturnal dyspnea Respiratory: Respiratory: Denies cough, Denies hemoptysis, Denies excessive phlegm production, Denies dyspnea, Denies snoring and Denies wheezing Gastrointestinal: Gastrointestinal: Denies abdominal pain and Denies heartburn Musculoskeletal: Musculoskeletal: Denies myalgias, Denies arthralgias and Denies joint swelling Integumentary/Breasts: Skin/Breast: Denies rash Neurologic: Denies memory loss and Denies seizure-like activity Psychiatric: Psychiatric: Denies abnormal sleep pattern, Denies anxiety and Denies memory loss Endocrine: Endocrine: Denies excessive sweating, Denies fatigue and Denies heat intolerance Hematologic/Lymphatic: Hematologic/Lymphatic: Denies easy bruising Allergic/Immunologic: Allergic/Immunologic: Denies itchy eyes, Denies seasonal rhinorrhea and Denies wheezing PMFSH Past Medical History Medical History (Updated 11/13/23 @ 13:03 by Rios Campbell MD) Urinary incontinence Arthritis AAA (abdominal aortic aneurysm) without rupture Headache Blind left eye Hx of radiation therapy CLL (chronic lymphocytic leukemia) Bone cancer History of skin cancer Chronic lymphocytic leukemia Hypogonadism in male Prostate cancer History of cataract 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 Hypertension GERD (gastroesophageal reflux disease) Colon adenomas Family History Family History Father Heart disease Mother Emphysema lung Surgical History Surgical History (Updated 11/13/23 @ 13:03 by Rios Campbell MD) Hx of eye surgery Hx of umbilical hernia repair Hx of inguinal hernia repair Hx of melanoma excision (~2016) History of prostatectomy (~2009) History of hernia repair History of knee surgery History of surgery on wrist History of colonoscopy History of brain surgery Social History Social History Household Members: None Housing: Apartment Are you a primary life care planner to a significant other at home: No Do you presently have visiting nurse or other home services: No Alcohol intake: never Patient Tobacco Use Status: Former Tobacco user Quit Date: 2009 Tobacco use type: Cigarette Years Smoked: 50 Second Hand Smoke Exposure: No Use of substances other than those prescribed or required for medical reasons: No Have you been hit, kicked, punched, or otherwise hurt by someone within the past year? If so, by whom?: No Are you DNR?: No Advance Directives: No Advance Directives Information Provided: Yes Advance Directives on File: No Recently lost weight without trying: Yes How much weight loss: 2-13 pounds Eating poorly because of decreased appetite: No Nutrition screen score: 3 Nutrition Risks: Surgical patient >75years Poor oral hygiene: No Meds Allergies Allergy/AdvReac Type Severity Reaction Status Date / Time No Known Allergies Allergy Verified 11/06/23 13:12 [No Known Allergies*] Active Medications: Current Medications Acetaminophen (Acetaminophen 325 Mg Tablet) 650 mg PO Q6H PRN PRN Reason: Pain, Mild (Pain Scale 1-3) Amlodipine Besylate (Amlodipine Besylate 5 Mg Tablet) 5 mg PO BID DARA; Protocol Ascorbic Acid (Ascorbic Acid 500 Mg Tablet) 500 mg PO DAILY DARA Finasteride (Finasteride 5 Mg Tablet) 5 mg PO DAILY@2000 [facility] Hydromorphone HCl (Hydromorphone Hcl 0.5 Mg/0.5 Ml Syringe) 0.25 mg IVPUSH Q5M PRN; Protocol PRN Reason: Pain, Severe (Pain Scale 7-10) Stop: 11/13/23 15:02 Lactated Ringer's (Lr) 1,000 mls @ 100 mls/hr IVCONT .Q10H DARA Last Admin: 11/13/23 06:41 Dose: 100 mls/hr Cefazolin Sodium/Dextrose (Ancef) 2 gm in 50 mls @ 100 mls/hr IV POSTOP ONE Stop: 11/13/23 14:29 Morphine Sulfate (Morphine Sulfate 2 Mg/Ml Cartridge) 2 mg IVPUSH Q4H PRN; Protocol PRN Reason: Pain, Severe (Pain Scale 7-10) Multivitamins/Vitamin C (Multivitamin Tablet) 1 tab PO DAILY [facility] Ondansetron HCl (Ondansetron Hcl 4 Mg/2 Ml Vial) 4 mg IVPUSH ONCE PRN PRN Reason: Nausea and Vomiting Stop: 11/13/23 15:02 Oxycodone HCl (Oxycodone Hcl Immed Release 5 Mg Tablet) 5 mg PO ONCE PRN PRN Reason: Pain, Severe (Pain Scale 7-10) Stop: 11/13/23 15:02 Oxycodone HCl (Oxycodone Hcl Immed Release 5 Mg Tablet) 5 mg PO Q4H PRN PRN Reason: Pain, Moderate(Pain Scale 4-6) Sodium Chloride (0.9 % Sodium Chloride Flush 3 Ml Syringe) 3 ml IVFLUSH QSHIFT [facility] Home Medications ?Medication ?Instructions ?Recorded ?Confirmed ?Last Taken ?Type amlodipine 5 mg tablet 5 mg PO BID 11/01/23 11/06/23 11/13/23 History Tums PRN Gastric Reflux 11/06/23 11/06/23 History ascorbic acid (vitamin C) 500 mg 500 mg PO DAILY 11/06/23 11/06/23 11/06/23 History tablet (Vitamin C) calcium carbonate 600 mg-vitamin 1 tab PO DAILY 11/06/23 11/06/23 Unknown History D3 5 mcg (200 unit) tablet finasteride 5 mg tablet 5 mg PO .DAILY @ 199911/06/23 11/06/23 11/06/23 History magnesium 250 mg tablet 250 mg PO DAILY 11/06/23 11/06/23 11/06/23 History multivitamin 1 tab PO DAILY 11/06/23 11/06/23 11/06/23 History vitamin B complex 1 tab PO DAILY 11/06/23 11/06/23 11/06/23 History Physical Exam 2 Vital Signs: Vital Signs: Last Vital Signs Temp 97.6 F 11/13/23 11:13 Pulse 73 11/13/23 11:13 Resp 18 11/13/23 11:13 BP 145/68 H 11/13/23 11:13 Pulse Ox 99 11/13/23 11:13 O2 Del Method Nasal Cannula wit h Capnography 11/13/23 11:13 O2 Flow Rate 2 11/13/23 11:13 BMI result Body Mass Index 24.3 Const: General: no acute distress and alert Nutritional Appearance: not obese Orientation/consciousness: Other orientation findings ( oriented) HEENT: Head: Yes atraumatic Eyes: General: appearance normal, both eyes and all related structures S clerae: sclerae normal EOM: EOMs intact bilaterally Neck: Neck: Yes supple Lymphatic: no lymphadenopathy noted Resp: Effort & Inspection: normal respiratory effort and no use of accessory muscles Auscultation: clear to auscultation bilaterally Cardio: Rate: regular rate Rhythm: regular rhythm Heart sounds: no gallops, no murmurs and no rubs Skin: General skin exam: other ( warm) Extrem: General: No clubbing, No cyanosis, No edema and Yes other (Bilateral femoral access sites without hematoma) Results Labs 11/13/23 06:28 11/06/23 14:39 Labs: Laboratory Results - last 24 hr 11/13/23 06:28 MCV 90.9 MCH 31.5 MCHC 34.6 RDW 12.8 Plt Count 162 MPV 9.8 Absolute Nucleated RBC 0.000 Nucleated RBC % (auto) 0.0 Assessment and Plan (1) Status post AAA (abdominal aortic aneurysm) repair: Status: Acute (2) CLL (chronic lymphocytic leukemia): Status: Acute (3) Blind left eye: Status: Acute Plan Assessment: 78-year-old gentleman postoperative day 0 status post an elective endovascular AAA repair, no monitored in the intensive care unit Plan: Neuro: No acute issues. Cardiac: Postoperative day 0 status post endovascular AAA repair. Vascular surgery service care appreciated. Maintain systolic blood pressure under 160. Pulmonary: No acute issues. Renal: No acute issues. Endo: No acute issues. GI: No acute issues. ID: No acute issues Heme/Onc: No acute issues. Psych: No acute issues. Miscellaneous: No acute issues. Prophylaxis: Per vascular surgery Diet: Per vascular surgery
[2023-11-13] MEDS: 0.9 % Sodium Chloride Flush 3 ML SYRINGE IVFLUSH ×2 (13:20→17:39)
[2023-11-13] MEDS: ceFAZolin Sodium/Dextrose,Iso 2 GM/50 ML PIGGYBACK IV (14:49)
--- NOTE | 2023-11-13 14:57 | PC.NURSE ---
Addendum entered by Tye Lepe RN 11/13/23 15:19: Triple A stent information card given to patient - put in patient belongings bag. Original Note: Received patient from PACU at approx 1130 to ICU, room 260 - post op Endovacular abdominal repair with Dr Wills. Oriented to unit & high fall risk precautions. Order to lay flat for 1 hour post op - related to incision in bilat groin. Out of OR @ 1028 - at time of admission able to elevate HOB to 30 degrees. Patient reports pain tolerable at a level of 4/10. No staining or bleeding noted on bilat incisions. Left groin has steri-strips & right groin is dressed with a foam dressing (no staining). CMS assessed of bilat feet with doppler per Dr Wills order - See assessment in EMAR. A-line right wrist - zeroed & positioned upon admission- appropriate waveform - correlating with manual BPs. Weaned off oxygen per O2 protocol. Patient alert and oriented, very pleasant. Sister at bedside at this time.
[2023-11-13] MEDS: Magnesium Hydrox/Alum Hydrox 30 ML ORAL.SUSP PO ×2 (16:56→20:07)
--- NOTE | 2023-11-13 18:14 | PC.NURSE ---
Assumed care of pt at 1500. Pt A&O X3. Denies pain. CMS to bilat lower extremities done q4hr. Pulses palpable and audible with doppler. Left pedal pulse faint with doppler compared to right which is loud. No numbness or tingling. Feet warm to touch. right groin foam dsg is D&I. Left rroin steri strips intact. slight swelling to left groin. Ice josé antonio intact and changes X2. VS stable. [place] intact right radial artery with good waveform and correlated to manual. U/O >50ml/hr. Monitor: NSR, 70's, no ectopy. Pt ate 100% of supper. Taking fluids well. C/O heartburn relieved by maalox.
[2023-11-13] MEDS: Finasteride 5 MG TABLET PO (20:04)
[2023-11-13] MEDS: amLODIPine Besylate 5 MG TABLET PO (20:04)
[2023-11-14] VITALS (14 sets, daily range): BP systolic 102–151; BP diastolic 69–93; PULSE 78–90; RESP 17–21; TEMP 36.8–37.1; O2SAT 91–96; BMI 25.4
[2023-11-14] MEDS: Magnesium Hydrox/Alum Hydrox 30 ML ORAL.SUSP PO ×2 (00:36→04:27)
[2023-11-14 05:46] LABS: MANUAL DIFF FLAG NO
[2023-11-14 05:47] LABS: Basophils Percent Auto 0.2 % (0-2); Hematocrit 38.2 % (42.0-52.0); Hemoglobin 13.5 g/dl (14.0-18.0); Imm Gran Abs Auto 0.04 X10*3/uL (0.00-0.03); Imm Gran Pct Auto 0.3 % (0.0-0.4); Lymphocytes Percent Auto 7.9 % (20-40); Mean Corpuscular HGB Conc 35.3 g/dl (31.0-36.0); Mean Corpuscular Hemoglobin 31.3 pg (27.0-33.0); Mean Corpuscular Volume 88.4 fL (80.0-98.0); Monocytes Absolute Auto 0.9 X10*3/uL (0.1-1.2); Monocytes Percent Auto 6.4 % (2-11); Neutrophils Absolute Auto 11.3 x10*3/uL (2.0-8.3); Neutrophils Percent Auto 85.2 % (45-73); Platelet Count 155 X10*3/uL (160-400); Red Blood Count 4.32 X10*6/uL (4.60-5.80); Red Cell Distribution Width 12.3 % (11.0-16.0); White Blood Count 13.2 X10*3/uL (4.8-10.8)
[2023-11-14 06:07] LABS: Albumin Level 3.6 g/dL (3.5-5.0); Anion Gap 15 (12-20); Blood Urea Nitrogen 11 mg/dL (9-16); Calcium 8.8 mg/dL (8.4-10.2); Carbon Dioxide 25 mmol/L (22-29); Chloride 106 mmol/L (96-108); Creatinine Clr Calc Pharmacy 95.6; Estimated Glomerular Filt Rate > 60; Glucose Random 138 mg/dL (60-115); Magnesium 2.4 mg/dL (1.6-2.6); Phosphorus 2.4 mg/dL (2.7-4.5); Potassium 3.7 mmol/L (3.3-5.1); Sodium 142 mmol/L (135-145)
--- NOTE | 2023-11-14 07:25 | PHA.MEDREC ---
Pharmacy Consult ? Medication Reconciliation Pharmacy has completed the medication reconciliation. Reviewed med rec done by nursing (Gaby).
[2023-11-14] MEDS: amLODIPine Besylate 5 MG TABLET PO (07:34)
[2023-11-14] MEDS: Ascorbic Acid 500 MG TABLET PO (07:35)
[2023-11-14] MEDS: Multivitamin TABLET 1 TAB PO (07:35)
[2023-11-14] MEDS: 0.9 % Sodium Chloride Flush 3 ML SYRINGE IVFLUSH (07:38)
[2023-11-14] MEDS: Sodium,Potassium Phosphates POWD.PACK 1 PACKET PO (08:30)
--- NOTE | 2023-11-14 10:01 | MHC.CM.PN ---
Met w/pt to discuss d/c planning needs: pt is independent with all care needs, drives and has no DME or services. He will stay with his son for a few days following d/c before returning to home. Son will transport. HCP at home: copy requested: IMM in chart. CM to follow.
--- NOTE | 2023-11-14 13:20 | PM.DS ---
DS: Providers Provider Date of Service: 11/14/23 Date of admission: 11/13/23 05:56 Primary care physician: Christian Barkley MD Consults: 11/13/23 15:44 Consult to Wound Care Routine Reason for consultation: Just arm bruises and small skin tear & surg dressings. D/c next day. DS: Diagnosis Discharge Diagnosis (1) Status post AAA (abdominal aortic aneurysm) repair: Status: Acute (2) CLL (chronic lymphocytic leukemia): Status: Acute (3) Blind left eye: Status: Acute DS: Summary Hospital Course Hospital Course: Patient underwent endovascular aortic aneurysm repair on 11/14/2023. Postoperatively was observed in the ICU. He had no postoperative issues. Postop day 1 A-line and [place] were removed. He was tolerating regular diet. He was subsequently discharged. Time Attestation Discharge Coordination Time (in mins): 35 Quality: Safe Use of Opioids Does Pt have an Active Cancer Diagnosis on the Problem List?: No Quality: Stroke Does the patient have a stroke diagnosis?: No Physical Exam Vital Signs: Vital Signs: Last Vital Signs Temp 98.8 F 11/14/23 08:00 Pulse 88 11/14/23 11:00 Resp 20 11/14/23 11:00 BP 102/69 11/14/23 11:00 Pulse Ox 91 L 11/14/23 13:00 O2 Del Method Room Air 11/14/23 13:00 O2 Flow Rate 2 11/13/23 11:55 BMI result Body Mass Index 25.4 Const: General: cooperative, healthy appearing and no acute distress Orientation/consciousness: oriented to person, oriented to place and oriented to time HEENT: Head: Yes normal to inspection Neck: Carotids: no bruits Chest: Chest palpation & inspection: normal inspection of the chest Resp: Effort & Inspection: normal respiratory effort and able to speak in complete sentences Auscultation: clear to auscultation bilaterally Cardio: Rate: regular rate Heart sounds: S1 normal heart sound present and S2 normal heart sound present GI: Inspection: Yes normal to inspection Skin: Other: Bilateral groins well-healed minimal hematoma General skin exam: no rashes or lesions noted Wounds: no wounds Neuro: General: oriented to person, oriented to place, oriented to time and CN's II-XI intact bilaterally Extrem: General: Yes normal to inspection, Yes full ROM and Yes no clubbing, cyanosis or edema Psych: Appearance: grossly normal and well kempt Speech and movement: Normal speech and movement present Affect: normal affect DS: Data Data Completed and Pending Labs on day of discharge: Laboratory Results - last 24 hr 11/14/23 11/14/23 11/14/23 05:30 05:30 05:30 WBC 13.2 H RBC 4.32 L Hgb 13.5 L Hct 38.2 L MCV 88.4 MCH 31.3 MCHC 35.3 RDW 12.3 Plt Count 155 L MPV 10.0 Immature Gran % (Auto) 0.3 Neut % (Auto) 85.2 H Lymph % (Auto) 7.9 L [place] % (Auto) 6.4 Eos % (Auto) 0.0 Baso % (Auto) 0.2 Lymph # (Auto) 1.0 L [place] # (Auto) 0.9 Eos # (Auto) 0.0 Baso # (Auto) 0.0 Abs Immat Gran (auto) 0.04 H Absolute Neuts (auto) 11.3 H Absolute Nucleated RBC 0.000 Nucleated RBC % (auto) 0.0 Sodium 142 Potassium 3.7 Chloride 106 Carbon Dioxide 25 Anion Gap 15 BUN 11 Creatinine 0.70 Estim Creat Clear Calc 95.6 Estimated GFR > 60 Random Glucose 138 H Calcium 8.8 D Phosphorus Cancelled 2.4 L Magnesium Cancelled 2.4 Albumin Cancelled 11/14/23 05:30 WBC RBC Hgb Hct MCV MCH MCHC RDW Plt Count MPV Immature Gran % (Auto) Neut % (Auto) Lymph % (Auto) [place] % (Auto) Eos % (Auto) Baso % (Auto) Lymph # (Auto) [place] # (Auto) Eos # (Auto) Baso # (Auto) Abs Immat Gran (auto) Absolute Neuts (auto) Absolute Nucleated RBC Nucleated RBC % (auto) Sodium Potassium Chloride Carbon Dioxide Anion Gap BUN Creatinine Estim Creat Clear Calc Estimated GFR Random Glucose Calcium Phosphorus Magnesium Albumin 3.6 Discharge Plan Discharge Anticipated Discharge Date/Time: 11/14/23 13:15 Patient Disposition: Home, Self-Care Discharge Diagnosis: Status post endovascular aortic aneurysm repair Referrals: Christian Barkley MD [Primary Care Provider] - 1 Week Discharge Medications: New oxycodone-acetaminophen [Endocet] 5-325 mg tablet 1 tab PO Q8H PRN (Reason: pain) Qty: 7 0RF Rx Instructions: Partial Fill upon patient request. Continued finasteride 5 mg tablet 5 mg PO DAILY@2000 multivitamin Tablet 1 tab PO DAILY calcium carbonate-vitamin D3 600 mg-5 mcg (200 unit) Tablet 1 tab PO DAILY ascorbic acid (vitamin C) [Vitamin C] 500 mg Tablet 500 mg PO DAILY vitamin B complex Tablet 1 tab PO DAILY magnesium 250 mg Tablet 250 mg PO DAILY calcium carbonate 500 mg calcium (1,250 mg) Tablet,Chewable 500 mg PO TID PRN (Reason: Acid Reflux) amlodipine 5 mg tablet 5 mg PO BID Discharge Orders: Discharge Order (Routine); Ordered 11/14/23 Ordered By: Gautam Wills Diet: Advance to usual diet Activity on Discharge: As tolerated Stand Alone Forms: Patient Portal Discharge page Print Language: Swedish Care Plan Goals: Status post endovascular aortic aneurysm repair Health Concerns: Aortic aneurysm Plan of Treatment: Surveillance follow-up of aortic aneurysm Assessment: Status post endovascular aortic aneurysm repair
--- NOTE | 2023-11-14 14:48 | HO.POSTANES ---
Post Anesthesia Evaluation Post Anesthesia Evaluation Date of Service: 11/13/23 Vital Signs: Vital Signs Temp Pulse Resp BP Pulse Ox O2 Del Method 11/14/23 13:00 91 L Room Air 11/14/23 12:00 Room Air 11/14/23 11:00 88 20 102/69 95 11/14/23 10:00 85 20 96 Room Air 11/14/23 09:00 82 18 144/83 H 95 Room Air 11/14/23 08:00 98.8 F 78 21 H 136/84 93 Room Air 11/14/23 07:34 151/77 H 11/14/23 07:00 88 20 137/74 94 Room Air 11/14/23 06:00 90 19 150/93 H 96 Room Air 11/14/23 05:00 86 19 141/83 H 95 Room Air 11/14/23 04:00 98.2 F 86 20 148/89 H 95 Room Air 11/14/23 03:00 81 19 140/85 H 96 Room Air Anesthesia: General Mental Status: Awake Pain Control: Satisfactory Nausea/Vomiting: None Hydration: Adequate Anesthesia-Related Issues: No Anes. Related Issues
== END 2023-11-14 13:54 | disposition home or self-care (01) | DRG 269 ==
LOC: HO.SSSA 06:00 → HO.ICU 10:40
PROVIDERS: Nurse Practitioner; Admitting Provider Surgery Vascular Surgery; PCP Internal Medicine; Visit Provider Internal Medicine Pulmonary Disease
PROC: 04V03ZZ Restriction of Abdominal Aorta, Percutaneous Approach (ICD-10-PCS; principal; 2023-11-13 07:30)
DX: I71.40 Abdominal aortic aneurysm, without rupture, unspecified (principal); C91.10 Chronic lymphocytic leukemia of B-cell type not having achieved remission; H54.62 Unqualified visual loss, left eye, normal vision right eye; Z79.899 Other long term (current) drug therapy
CPT/HCPCS: 36415; 71046; 80048; 82040; 83735; 84100; 85025; 85027; 85610; 85730; 86850; 86900; 86901; A4649; C1758; C1760; C1769; C1773; C1887; C1889; C1894; C2628; J0131; J0690; J1100; J1644; J2250; J2305; J2371; J2405; J2598; J2704; J2795; J3010; Q9967

== ENCOUNTER → 2023-11-13 05:56 | Outpatient (BNV) | payer MEDICARE, SELFPAY | PROVIDERS: Admitting Provider Surgery Vascular Surgery; PCP Internal Medicine; Visit Provider Internal Medicine Pulmonary Disease | DX: C91.10 Chronic lymphocytic leukemia of B-cell type not having achieved remission (principal); Z86.79 Personal history of other diseases of the circulatory system; H54.40 Blindness, one eye, unspecified eye | CPT/HCPCS: 99223 ==

== ENCOUNTER → 2023-11-13 05:56 | Outpatient (BNV) | payer MEDICARE, SELFPAY | PROVIDERS: Admitting Provider Surgery Vascular Surgery; PCP Internal Medicine; Visit Provider Surgery Vascular Surgery | DX: Z98.890 Other specified postprocedural states (principal); Z86.79 Personal history of other diseases of the circulatory system; C91.10 Chronic lymphocytic leukemia of B-cell type not having achieved remission; H54.40 Blindness, one eye, unspecified eye | CPT/HCPCS: 34705; 34812; 99024 ==

== ENCOUNTER 2023-11-29 09:26 | Outpatient (AMB) | payer MEDICARE, SELFPAY ==
--- NOTE | 2023-11-29 09:30 | A.OFFVIS_ITS ---
Vital Signs 11/29/23 09:31 Height 5 ft 11.5 in Weight 171 lb BMI 23.5 Intake Visit Reasons: 2 week post op EVAR Intake Note: 2 week follow up EVAR 11/13/23. Pt states he has a large lump under right LE incision. Accompanied by: Self / Same As Patient Allergies No Known Allergies [No Known Allergies*] Allergy (Verified 11/29/23 09:32) HPI HPI 2 week post op EVAR: Details: Very pleasant 79-year-old gentleman status post EVAR. Reports he is doing extremely well. He only notes some right groin swelling. No other postprocedure issues. He is relatively comfortable. 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 Hypertension GERD (gastroesophageal reflux disease) Colon adenomas Surgical History Hx of eye surgery Hx of umbilical hernia repair Hx of inguinal hernia repair Hx of melanoma excision (~2017) History of prostatectomy (~2009) History of hernia repair History of knee surgery History of surgery on wrist History of colonoscopy History of brain surgery Family History Father Heart disease Mother Emphysema lung Social History Household Members: None Housing: Apartment Are you a primary anesthesiologist and critical care to a significant other at home: No Do you presently have visiting nurse or other home services: No Alcohol intake: never Comment: left DP/PT, audible-monophasic with doppler, Right is biphasic DP/PT Patient Tobacco Use Status: Former Tobacco user Tobacco use type: Cigarette Years Smoked: 50 Second Hand Smoke Exposure: No service: No Review of Systems Const All systems reviewed & are unremarkable except as noted in HPI and below Reports no additional complaints ENT Reports Normal hearing present Card Denies chest pain, Denies chest pain at rest, Denies chest pain with activity and Denies pedal edema Resp Denies cough GI Denies abdominal pain Musc Denies abnormal gait, Denies muscle cramps and Denies radiating pain into limb Skin/Breast Denies skin ulcer and Denies wounds Neuro Reports Normal hearing present and Denies abnormal gait Psych Reports no additional complaints Physical Exam Vital Signs: BMI result Body Mass Index 23.5 Const General: cooperative, healthy appearing and comfortable Orientation/consciousness: oriented to person, oriented to place and oriented to time HEENT Head: Yes normal to inspection Neck Neck: Yes normal visual inspection Carotids: no bruits Chest Chest palpation & inspection: normal inspection of the chest Resp Effort & Inspection: normal respiratory effort and able to speak in complete sentences Auscultation: clear to auscultation bilaterally, no crackles, no rales, no rhonchi and no wheezes Cardio Rate: regular rate Rhythm: regular rhythm Heart sounds: S1 normal heart sound present and S2 normal heart sound present Bruits: no carotid bruits Peripheral pulses: Peripheral pulses 2+ throughout GI Inspection: Yes normal to inspection Skin Other: Right groin healed well but underlying seroma. Visualized under ultrasound and 60 cc of seroma removed under sterile conditions Wounds: no wounds Hair: normal Neuro General: oriented to person, oriented to place and oriented to time Cranial nerves: Yes CN's II-XII intact bilaterally and Yes Normal hearing present Cognition (Neuro): normal cognition Motor exam (neuro): 5/5 motor strength present throughout Extrem Other: venous exam: No significant superficial varicosities or spider telangiectasi as, minimal edema General: No clubbing, No cyanosis and No edema Psych Appearance: grossly normal Mental Status: mental status grossly normal Speech and movement: Normal speech and movement present Assessment & Plan Assessment & Plan (1) AAA (abdominal aortic aneurysm) without rupture: Comment: 11/13/2023 - endovascular aortic aneurysm (Endologix AFX 2 device) Code(s): I71.40 - Abdominal aortic aneurysm, without rupture, unspecified Category: Medical Qualifiers: Abdominal aorta location: infrarenal aorta Qualified Code(s): I71.43 - Infrarenal abdominal aortic aneurysm, without rupture Plan: In short patient did well status post endovascular repair. He did develop a right groin seroma. We will bring him back in approximately 2 weeks time to ensure that improves. He will follow up with us in 2 weeks and will require [address] scan. Thank you for allowing us to assist in his care. Coding Level of Care Code Est Pt Level 4 (75002) Diagnoses Infrarenal abdominal aortic aneurysm (AAA) without rupture I71.43 Abdominal aorta location: infrarenal aorta
[2023-11-29 09:31] VITALS: BMI 23.5
== END 2023-11-29 09:51 | disposition home or self-care (01) ==
PROVIDERS: PCP Internal Medicine; Visit Provider Surgery Vascular Surgery
DX: I71.43 Infrarenal abdominal aortic aneurysm, without rupture (principal)
CPT/HCPCS: 99024

== ENCOUNTER → 2023-11-29 09:26 | Outpatient (BNVA) | payer MEDICARE, SELFPAY | PROVIDERS: PCP Internal Medicine; Visit Provider Surgery Vascular Surgery | DX: I71.43 Infrarenal abdominal aortic aneurysm, without rupture (principal) | CPT/HCPCS: 99212 ==

== ENCOUNTER 2023-12-04 07:22 | Outpatient (REF) | payer MEDICARE, SELFPAY ==
[2023-12-04 07:43] LABS: MANUAL DIFF FLAG NO
[2023-12-04 08:44] LABS: Basophils Percent Auto 0.2 % (0-2); Eosinophils Absolute Auto 0.2 X10*3/uL (0.0-0.4); Eosinophils Percent Auto 3.2 % (0-4); Hematocrit 37.2 % (42.0-52.0); Hemoglobin 12.4 g/dl (14.0-18.0); Imm Gran Abs Auto 0.01 X10*3/uL (0.00-0.03); Imm Gran Pct Auto 0.2 % (0.0-0.4); Lymphocytes Percent Auto 16.8 % (20-40); Mean Corpuscular HGB Conc 33.3 g/dl (31.0-36.0); Mean Platelet Volume 9.7 fL (9.4-12.4); Monocytes Absolute Auto 0.6 X10*3/uL (0.1-1.2); Monocytes Percent Auto 9.3 % (2-11); Neutrophils Absolute Auto 4.2 x10*3/uL (2.0-8.3); Neutrophils Percent Auto 70.3 % (45-73); Platelet Count 210 X10*3/uL (160-400); Red Cell Distribution Width 13.2 % (11.0-16.0); White Blood Count 5.9 X10*3/uL (4.8-10.8)
[2023-12-04 08:51] LABS: Estimated Average Glucose 111 mg/dL; Hemoglobin A1c % 5.5 % (<6.0)
[2023-12-04 09:25] LABS: Blood Urea Nitrogen 16 mg/dL (9-16)
[2023-12-04 09:26] LABS: Alanine Aminotransferase 10 U/L (0-40); Albumin Level 3.8 g/dL (3.5-5.0); Alkaline Phosphatase 88 U/L (39-117); Anion Gap 17 (12-20); Aspartate Amino Transferase 15 U/L (5-37); Bilirubin Total 0.4 mg/dL (0.0-1.0); Blood Urea Nitrogen 16 mg/dL (9-16); Calcium 10.3 mg/dL (8.4-10.2); Carbon Dioxide 28 mmol/L (22-29); Chloride 105 mmol/L (96-108); Estimated Glomerular Filt Rate > 60; Glucose Random 135 mg/dL (60-115); Potassium 4.5 mmol/L (3.3-5.1); Sodium 145 mmol/L (135-145); Total Protein 6.4 g/dL (6.5-8.0)
[2023-12-04 09:36] LABS: Prostate Specific Antigen 1.01 ng/mL (<0.05-4.0)
[2023-12-04 09:40] LABS: Thyroid Stimulating Hormone 1.45 uIU/mL (0.32-4.0)
[2023-12-04 09:41] LABS: Prostate Specific Antigen 1.03 ng/mL (<0.05-4.0)
[2023-12-07 15:29] LABS: Testosterone, Total 6 ng/dL (250-1100)
== END 2023-12-04 07:23 | disposition home or self-care (01) ==
LOC: HO.LAB 07:22
PROVIDERS: Absent Provider Internal Medicine Medical Oncology; PCP Internal Medicine; Visit Provider Urology
DX: C61 Malignant neoplasm of prostate (principal); C79.51 Secondary malignant neoplasm of bone; D47.9 Neoplasm of uncertain behavior of lymphoid, hematopoietic and related tissue, unspecified; E66.9 Obesity, unspecified; C91.10 Chronic lymphocytic leukemia of B-cell type not having achieved remission; M85.80 Other specified disorders of bone density and structure, unspecified site; R73.9 Hyperglycemia, unspecified; Z12.5 Encounter for screening for malignant neoplasm of prostate
CPT/HCPCS: 36415; 80053; 83036; 84153; 84403; 84443; 84520; 85025

== ENCOUNTER 2023-12-12 12:54 | Outpatient (AMB) | payer MEDICARE, SELFPAY ==
--- NOTE | 2023-12-12 13:09 | A.OFFVIS_ITS ---
Intake Visit Reasons: GnRH/Prolia/labs/PSMA(Pending) Intake Note: Patient is Present for Follow Up Labs/PET CT/Eligard&Prolia Injection Urology Medication: Finasteride Antibiotic Allergies:None Blood Thinners: None Allergies No Known Allergies [No Known Allergies*] Allergy (Verified 12/12/23 13:16) HPI Comments Details: Naveen is a pleasant male. He is a patient of Dr. Barkley. He is seen for the following urologic conditions - prostate cancer metastatic - current therapy intermittent hormone blockade Discussed findings Referral to Radiation Oncology [facility] for lutetium assessment Does report pain in T12 area 12/17 PSA 1.0 T 6 GnRH and prolia PET/CT multiple 9 mm to 2.7 cm sclerotic lesions through T9, T12 and left iliac bone Will consider for lutetium 177 09/16 PSA 0.7, testosterone 11 DEXA scan osteopenia Bone Scan sclerotic lesion pelvis stable - focal asymmetric increased tracer avidity within the left posterior iliac bone adjacent to the site joint, appear slightly more pronounced on the current study since the prior study dated 12/16/2022. 04/17 PSA 6 Significant jump in 3 months - PSA 6.0 Restart GnRH injection Prolia since known osteopenia 4 month follow-up PSA, T, DEXA, bone scan Prostate cancer: high risk Initial diagnosis 2009. Radical prostatectomy External beam radiation 2010 Initiation intermittent hormone therapy starting 2013 - 18 months hormones 01/13 - 04/16 Prostate cancer was diagnosed 02/2010. Diagnosis was reached by needle biopsy, for elevated PSA, PSA at diagnosis 11.9. The [place] grade is 4+5. TNM Classification of Malignant Tumours (TNM) T2. The D'Abiodun (NCCN) risk category is High Risk (PSA > 20, Gl 8+, T3) Initial therapy included Primary treatment, March 2010 radical prostatectomy, Additional treatment, November 2010 external beam radiation, observation Additional treatment, March 2014 GnRH therapy and antiandrogen. Has used Trelstar, Lupron and bicalutamide. October 2015 , Hormonal Blockade - Intermittent Prolia (denosamab) osteopenia - December 201507/13 GnRH and Prolia, 01/02/18 GnRH and Prolia, 07/19/18 GnRH 3m, prolia, finasteride, 10/12 GnRH 6m, finasteride, 12/13 3m GnRH + finasteride Recent labs included a PSA (prostate-specific antigen) at diagnosis 11.9. From a high of 52 to May 2015 0.06, 11/08 < 0.5, a testosterone 11/08 , < 20 ng/dL Jan 2016 a PSA (prostate-specific antigen) , < 0.26 May 2016 , a PSA (prostate-specific antigen) 0.17 - slow increase - T 200 10/10 - 0.9, 01/09 - 2.1, 04/11 - 4.2 rpt 6.0 07/13 - 10, 10/11 - 2.0 T5 01/10 PSA 2.3, T < 8, 04/12 , a PSA (prostate-specific antigen) 0.9, T < 7 07/14 PSA 1.0 T 15, 10/12 PSA 0.48 T 10, 01/11 PSA .32 T 8, 04/13 PSA 0.4 T 8 07/15 PSA 0.45 T 57, 11/12 PSA 3 T 349, 03/15 PSA 0.3, T 10, 06/14 PSA 1.0 T 19 - 09/13 PSA 8.1, T 474, 12/14 PSA 15, T 355, 04/15 PSA 2.3, T 5, 10/15 PSA 1.7 T 7, 01/15 PSA 1.1 T 71, 04/17 6 T 300 Recent imaging included December 2014 - Bone scan nonspecific abnormalities likely arthritic or traumatic in etiology February 2015 left femoral head and femoral neck increased uptake. Probably degenerative change however bony lesion should be considered. a CT (computed tomography) scan December 2014 sclerotic lesion on L1 vertebrae. Matches area on bone scan. 11/08 DEXA scan - Osteopenia 12/10 , a bone scan - ? small lesion on iliac 03/13 Bone Scan stable lytic lesion pelvis 04/[address] (computed tomography) scan, new sclerotic area on right pelvis 10/12 Bone Scan - mild increase activity spine and pelvis 10/12 , a DEXA scan, showing osteopenia/osteoporosis 04/13 Bone Scan - decreased rib activity 12/13 Persistent small iliac abnormality, 09/13 persistent iliac activity no new increase 03/16 DEXA confirming osteoporosis 09/14 bone scan - stable metastatic disease 12/16 Stable nonspecific abnormalities in the pelvis are consistent with metastatic disease. There is no evidence of progression. Therapeutic plan: 4 month lab work with bone scan [facility] Medical History Urinary incontinence Arthritis AAA (abdominal aortic aneurysm) without rupture Headache Blind left eye Hx of radiation therapy CLL (chronic lymphocytic leukemia) Bone cancer History of skin cancer Chronic lymphocytic leukemia Hypogonadism in male Prostate cancer History of cataract 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 Hypertension GERD (gastroesophageal reflux disease) Colon adenomas Surgical History Hx of eye surgery Hx of umbilical hernia repair Hx of inguinal hernia repair Hx of melanoma excision (~2017) History of prostatectomy (~2009) History of hernia repair History of knee surgery History of surgery on wrist History of colonoscopy History of brain surgery Family History Father Heart disease Mother Emphysema lung Social History Household Members: None Housing: Apartment Are you a primary manager managed care to a significant other at home: No Do you presently have visiting nurse or other home services: No Alcohol intake: never Comment: left DP/PT, audible-monophasic with doppler, Right is biphasic DP/PT Patient Tobacco Use Status: Former Tobacco user Tobacco use type: Cigarette Years Smoked: 50 Second Hand Smoke Exposure: No service: No Office Meds Prolia 60 mg/mL subcutaneous syringe Performing Provider: Bashir Sepulveda MD Performing Location: [facility] [place] [facility] Administered by: Hayden Kingsley RN on 12/12/23 13:35 Dose Route Admin Location Dispensed Lot Number Expiration Date [facility] [employer] 60 mg subcut left arm 1 mL [id number] 02/23/26 58820-674-14 [employer] Eligard (6 month) 45 mg (6 month) subcutaneous syringe Performing Provider: Bashir Sepulveda MD Performing Location: [facility] [place] [facility] Administered by: Hayden Kingsley RN on 12/12/23 13:35 Dose Route Admin Location Dispensed Lot Number Expiration Date [facility] [employer] 45 mg subcut right arm 45 mg [id number] 02/24/25 26575-452-14 [employer] Assessment & Plan Assessment & Plan (1) Prostate cancer metastatic to bone: Code(s): C61 - Malignant neoplasm of prostate; C79.51 - Secondary malignant neoplasm of bone Category: Medical (2) Thoracic spine pain: Code(s): M54.6 - Pain in thoracic spine Category: Medical (3) Osteopenia: Code(s): M85.80 - Other specified disorders of bone density and structure, unspecified site Category: Medical Qualifiers: Osteopenia location: spine Qualified Code(s): M85.88 - Other specified disorders of bone density and structure, other site Plan [facility] Prolia today Three-month follow-up lab work Referral radiation oncology Orders: Orders Prostate Specific Antigen 3 Months C61 - Malignant neoplasm of prostate, C79.51 - Secondary malignant neoplasm of bone Testosterone, Total 3 Months C61 - Malignant neoplasm of prostate, C79.51 - Secondary malignant neoplasm of bone Referrals Radiation Oncology Referral C61 - Malignant neoplasm of prostate, C79.51 - Secondary malignant neoplasm of bone Patient Instructions: Imaging studies, laboratory and physical exam results were discussed and reviewed in detail. No major barriers to patient understanding were identified. An opportunity to ask questions regarding the treatment plan was provided. All questions were answered. The patient expressed understanding and agreement with the above treatment plan. The patient is aware they should contact our office by phone for worsening of their current condition or the appearance of new urologic symptoms. Compliance is encouraged with any medications and followup testing that is ordered. It is a privilege to participate in the urologic care of your patient. If you have any questions or concerns regarding treatment for the above conditions, or other urologic issues, please do not hesitate to contact me. The office telephone contact is [phone]. This note is constructed using voice recognition software. While every effort has been made to ensure accuracy professor of radiology errors may have been included. Yours sincerely, Dr Bashir Sepulveda MD, [facility] - Urology Providers of Expert, Compassionate Care for the Genitourinary System Coding Level of Care Code Est Pt Level 4 (23914) Diagnoses Prostate cancer metastatic to bone C61; C79.51 Thoracic spine pain M54.6 Osteopenia of spine M85.88 Osteopenia location: spine
== END 2023-12-12 14:20 | disposition home or self-care (01) ==
PROVIDERS: PCP Internal Medicine; Visit Provider Urology
DX: C61 Malignant neoplasm of prostate (principal); C79.51 Secondary malignant neoplasm of bone; M54.6 Pain in thoracic spine; M85.88 Other specified disorders of bone density and structure, other site
CPT/HCPCS: 99214

== ENCOUNTER → 2023-12-12 12:54 | Outpatient (BNVA) | payer MEDICARE, SELFPAY | PROVIDERS: PCP Internal Medicine; Visit Provider Urology | DX: C61 Malignant neoplasm of prostate (principal); M54.6 Pain in thoracic spine; M85.88 Other specified disorders of bone density and structure, other site; C79.51 Secondary malignant neoplasm of bone | CPT/HCPCS: 96372; 96402; 99212; J0897; J9217 ==

== ENCOUNTER 2023-12-19 11:08 | Outpatient (AMB) | payer MEDICARE, SELFPAY ==
[2023-12-19 11:09] VITALS: BMI 23.5
--- NOTE | 2023-12-19 11:09 | A.OFFVIS_ITS ---
Vital Signs 12/19/23 11:09 Height 5 ft 11.5 in Weight 171 lb BMI 23.5 Intake Visit Reasons: 2w groin check Intake Note: 2 week follow up Right groin seroma s/p EVAR 11/13/23, pt states there is still a small lump but is much smaller than 2 weeks ago. Pt states he is a bit concerned with doing some exercises and will consult with about abdominal exercises. Accompanied by: Self / Same As Patient Allergies No Known Allergies [No Known Allergies*] Allergy (Verified 12/19/23 11:14) HPI HPI 2w groin check: Details: Very pleasant 78-year-old gentleman presents for follow-up regarding abdominal aortic aneurysm. He was status post EVAR and developed a right groin seroma. He reports that the seroma has significantly decreased. He feels significantly better since his last visit. Now presents for routine follow-up. [facility]MERLY [facility], [facility] Medical History Urinary incontinence Arthritis AAA (abdominal aortic aneurysm) without rupture Headache Blind left eye Hx of radiation therapy CLL (chronic lymphocytic leukemia) Bone cancer History of skin cancer Chronic lymphocytic leukemia Hypogonadism in male Prostate cancer History of cataract 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 Hypertension GERD (gastroesophageal reflux disease) Colon adenomas Surgical History Hx of eye surgery Hx of umbilical hernia repair Hx of inguinal hernia repair Hx of melanoma excision (~2017) History of prostatectomy (~2010) History of hernia repair History of knee surgery History of surgery on wrist History of colonoscopy History of brain surgery Family History Father Heart disease Mother Emphysema lung Social History Household Members: None Housing: Apartment Are you a primary workforce investment act career manager to a significant other at home: No Do you presently have visiting nurse or other home services: No Alcohol intake: never Comment: left DP/PT, audible-monophasic with doppler, Right is biphasic DP/PT Patient Tobacco Use Status: Former Tobacco user Tobacco use type: Cigarette Years Smoked: 50 Second Hand Smoke Exposure: No service: No Review of Systems Const All systems reviewed & are unremarkable except as noted in HPI and below Reports no additional complaints ENT Reports Normal hearing present Card Denies chest pain, Denies chest pain at rest, Denies chest pain with activity and Denies pedal edema Resp Denies cough GI Denies abdominal pain Musc Denies abnormal gait, Denies muscle cramps and Denies radiating pain into limb Skin/Breast Denies skin ulcer and Denies wounds Neuro Reports Normal hearing present and Denies abnormal gait Psych Reports no additional complaints Physical Exam Vital Signs: BMI result Body Mass Index 23.5 Const General: cooperative, healthy appearing and comfortable Orientation/consciousness: oriented to person, oriented to place and oriented to time HEENT Head: Yes normal to inspection Neck Neck: Yes normal visual inspection Carotids: no bruits Chest Chest palpation & inspection: normal inspection of the chest Resp Effort & Inspection: normal respiratory effort and able to speak in complete sentences Auscultation: clear to auscultation bilaterally, no crackles, no rales, no rhonchi and no wheezes Cardio Rate: regular rate Rhythm: regular rhythm Heart sounds: S1 normal heart sound present and S2 normal heart sound present Bruits: no carotid bruits Peripheral pulses: Peripheral pulses 2+ throughout GI Inspection: Yes normal to inspection Skin Other: Right groin incision healing well minimal swelling Wounds: no wounds Hair: normal Neuro General: oriented to person, oriented to place and oriented to time Cranial nerves: Yes CN's II-XII intact bilaterally and Yes Normal hearing present Cognition (Neuro): normal cognition Motor exam (neuro): 5/5 motor strength present throughout Extrem Other: venous exam: No significant superficial varicosities or spider telangiectasias, minimal edema General: No clubbing, No cyanosis and No edema Psych Appearance: grossly normal Mental Status: mental status grossly normal Speech and movement: Normal speech and movement present Assessment & Plan Assessment & Plan (1) AAA (abdominal aortic aneurysm) without rupture: Comment: 11/13/2023 - endovascular aortic aneurysm (Endologix AFX 2 device) Code(s): I71.40 - Abdominal aortic aneurysm, without rupture, unspecified Category: Medical Qualifiers: Abdominal aorta location: infrarenal aorta Qualified Code(s): I71.43 - Infrarenal abdominal aortic aneurysm, without rupture Plan: In short patient is doing extremely well status post endovascular repair. Seroma appears to have resolved. We did discuss the pathophysiology of aortic disease and more about his stent. He will follow up with us in approximately 3 months time with routine surveillance CT scan. Thank you for allowing us to assist in his care. If there are any questions or concerns please do not hesitate to contact us Orders: Orders Blood Urea Nitrogen 3 Months I71.43 - Infrarenal abdominal aortic aneurysm, without rupture Creatinine 3 Months I71.43 - Infrarenal abdominal aortic aneurysm, without rupture CT angio abdomen pelvis 3 Months I71.43 - Infrarenal abdominal aortic aneurysm, without rupture Coding Level of Care Code Est Pt Level 4 (04382) Diagnoses Infrarenal abdominal aortic aneurysm (AAA) without rupture I71.43 Abdominal aorta location: infrarenal aorta
== END 2023-12-19 11:33 | disposition home or self-care (01) ==
PROVIDERS: PCP Internal Medicine; Visit Provider Surgery Vascular Surgery
DX: I71.43 Infrarenal abdominal aortic aneurysm, without rupture (principal)
CPT/HCPCS: 99024

== ENCOUNTER → 2023-12-19 11:08 | Outpatient (BNVA) | payer MEDICARE, SELFPAY | PROVIDERS: PCP Internal Medicine; Visit Provider Surgery Vascular Surgery | DX: I71.43 Infrarenal abdominal aortic aneurysm, without rupture (principal) | CPT/HCPCS: 99212 ==

== ENCOUNTER 2024-02-28 09:09 | Outpatient (REF) | payer MEDICARE, SELFPAY ==
[2024-02-28 10:33] LABS: Blood Urea Nitrogen 17 mg/dL (9-16); Estimated Glomerular Filt Rate > 60
[2024-02-28 10:34] LABS: Estimated Glomerular Filt Rate > 60
[2024-03-03 14:28] LABS: Testosterone, Total 4 ng/dL (250-1100)
== END 2024-02-28 09:10 | disposition home or self-care (01) ==
LOC: HO.LAB 09:09
PROVIDERS: Absent Provider Surgery Vascular Surgery; PCP Internal Medicine; Visit Provider Urology
DX: I71.43 Infrarenal abdominal aortic aneurysm, without rupture (principal); C61 Malignant neoplasm of prostate; C79.51 Secondary malignant neoplasm of bone; Z12.5 Encounter for screening for malignant neoplasm of prostate
CPT/HCPCS: 36415; 82565; 84153; 84403; 84520

== ENCOUNTER 2024-03-04 09:54 | Outpatient (REF) | payer MEDICARE, SELFPAY ==
--- NOTE | ~2024-03-04 | CT_ITS ---
EXAMINATION: CTA ABDOMEN AND PELVIS CLINICAL INFORMATION: Infrarenal abdominal aortic aneurysm without rupture TECHNIQUE: Multiple axial images were obtained through the abdomen and pelvis before and after administration of 85 mL of Omnipaque 350 intravenously. Images were evaluated on independent dedicated 3-D workstation and 3-D images were reconstructed with concurrent radiologist supervision and subsequently interpreted. Specific vascular measurements are placed directly on the 3-D rendered images and are documented and stored in PACS. This CT examination was performed using dose optimization techniques as appropriate, variously including the following: *Automated exposure control. *Adjustment of mA and/or kV according to patient size (this includes techniques or standardized protocols for targeted exams where dose is matched to indication/reason for exam, i.e., extremities or head). *Use of iterative reconstruction technique. COMPARISON: CT abdomen and pelvis November 01, 2023 DLP: 383 mGy-cm. FINDINGS: VASCULAR: Abdominal aorta: Status post endograft placement for infrarenal abdominal aortic aneurysm. Aneurysm sac measures 6.5 x 6.9 cm, previously 7.2 x 6.6 cm. Unchanged calcifications within the thrombus in the excluded aneurysm sac. No evidence of endoleak. Iliac arteries: Patent and normal in caliber Mesenteric arteries: The celiac artery and SMA are patent and normal in caliber. The FLAQUITO is occluded at its origin but patent distally. Renal arteries: Patent bilaterally NONVASCULAR: Lung Bases: The lungs are clear with no evidence of inflammation or nodules. Liver, Gallbladder, Biliary Tree: The liver is normal in size, shape, and attenuation. No focal hepatic lesion or biliary ductal dilatation is present. The gallbladder is unremarkable with no evidence of radiopaque gallstones, gallbladder wall thickening, or pericholecystic inflammatory changes. Pancreas: Unremarkable. Spleen: Unremarkable. Adrenal Glands: Unremarkable. Kidneys and Ureters: The kidneys are normal in size, shape, and attenuation. No hydronephrosis or hydroureter or calculi seen. No perinephric stranding. Bladder: Unremarkable. Gastrointestinal Tract: Severe sigmoid diverticulosis. The large and small bowel are normal in caliber. Abdominal Wall: Status post ventral hernia repair. Lymph Nodes: Normal. Pelvic Viscera: Unremarkable. Osseous Structures: Multilevel degenerative changes of the lumbar spine. CT/CT angio abdomen pelvis IMPRESSION: Status post endograft placement for infrarenal abdominal aortic aneurysm. Aneurysm sac measures 6.5 x 6.9 cm, previously 7.2 x 6.6 cm. No evidence of endoleak. Electronically signed by: Nas Lebron MD 03/05/2024 09:12 AM EDT
[2024-03-04] MEDS: iohexoL 350 MG/ML 100 ML INFUS..BTL 80 ML IV (10:49)
== END 2024-03-04 09:55 | disposition home or self-care (01) ==
LOC: HO.CT 09:54
PROVIDERS: PCP Internal Medicine; Visit Provider Surgery Vascular Surgery
DX: I71.43 Infrarenal abdominal aortic aneurysm, without rupture (principal)
CPT/HCPCS: 74174; Q9967

== ENCOUNTER 2024-03-07 10:52 | Outpatient (AMB) | payer MEDICARE, SELFPAY ==
--- NOTE | 2024-03-07 10:55 | MHC.OFFVIS ---
Intake Visit Reasons: 3 mo follow up CTA Abd/pelvis 03/04/24 Intake Note: Patient presents for follow up CTA Abd/pelvis 03/04/24. No complaints. Accompanied by: Self / Same As Patient Allergies No Known Allergies [No Known Allergies*] Allergy (Verified 03/07/24 10:56) HPI HPI 3 mo follow up CTA Abd/pelvis 03/04/24: Details: Very pleasant 78-year-old gentleman who is actually turning 79 in about 5 days presents for follow-up regarding endovascular aneurysm repair. Reports he is doing extremely well. His groin has healed up. He reports no other difficulties. He has undergone CT angiogram and now is for routine follow-up. Of note he remains quite active. He enjoys extreme sports. He is actually scheduled for a skydiving trip within the next few days. 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 Hypertension GERD (gastroesophageal reflux disease) Colon adenomas Surgical History Hx of eye surgery Hx of umbilical hernia repair Hx of inguinal hernia repair Hx of melanoma excision (~2017) History of prostatectomy (~2009) History of hernia repair History of knee surgery History of surgery on wrist History of colonoscopy History of brain surgery Family History Father Heart disease Mother Emphysema lung Social History Household Members: None Housing: Apartment Are you a primary mall plant caretaker to a significant other at home: No Do you presently have visiting nurse or other home services: No Alcohol intake: never Comment: left DP/PT, audible-monophasic with doppler, Right is biphasic DP/PT Patient Tobacco Use Status: Former Tobacco user Tobacco use type: Cigarette Years Smoked: 50 Second Hand Smoke Exposure: No service: No Review of Systems Const All systems reviewed & are unremarkable except as noted in HPI and below Reports no additional complaints ENT Reports Normal hearing present Card Denies chest pain, Denies chest pain at rest, Denies chest pain with activity and Denies pedal edema Resp Denies cough GI Denies abdominal pain Musc Denies abnormal gait, Denies muscle cramps and Denies radiating pain into limb Skin/Breast Denies skin ulcer and Denies wounds Neuro Reports Normal hearing present and Denies abnormal gait Psych Reports no additional complaints Physical Exam Const General: cooperative, healthy appearing and comfortable Orientation/consciousness: oriented to person, oriented to place and oriented to time HEENT Head: Yes normal to inspection Neck Neck: Yes normal visual inspection Carotids: no bruits Chest Chest palpation & inspection: normal inspection of the chest Resp Effort & Inspection: normal respiratory effort and able to speak in complete sentences Auscultation: clear to auscultation bilaterally, no crackles, no rales, no rhonchi and no wheezes Cardio Rate: regular rate Rhythm: regular rhythm Heart sounds: S1 normal heart sound present and S2 normal heart sound present Bruits: no carotid bruits Peripheral pulses: Peripheral pulses 2+ throughout GI Inspection: Yes normal to inspection Skin Wounds: no wounds Hair: normal Neuro General: oriented to person, oriented to place and oriented to time Cranial nerves: Yes CN's II-XII intact bilaterally and Yes Normal hearing present Cognition (Neuro): normal cognition Motor exam (neuro): 5/5 motor strength present throughout Extrem Other: venous exam: No significant superficial varicosities or spider telangiectasias, minimal edema General: No clubbing, No cyanosis and No edema Psych Appearance: grossly normal Mental Status: mental status grossly normal Speech and movement: Normal speech and movement present Results Reviewed Results Reviewed: CT scan dated 03/04/2024 demonstrates appropriately placed endograft. Appropriate sac shrinkage down to 6.5 x 6.9. Written report and images were reviewed. Assessment & Plan Assessment & Plan (1) AAA (abdominal aortic aneurysm) without rupture: Comment: 11/13/2023 - endovascular aortic aneurysm (Endologix AFX 2 device) Code(s): I71.40 - Abdominal aortic aneurysm, without rupture, unspecified Category: Medical Qualifiers: Abdominal aorta location: infrarenal aorta Qualified Code(s): I71.43 - Infrarenal abdominal aortic aneurysm, without rupture Plan: In short patient has stable aortic endograft. We have discussed the pathophysiology of aortic aneurysms and the risk of ruptures. We have discussed details regarding his aortic endograft. In addition we have discussed conservative measures and risk factor modification for prevention of increase in size of the aneurysm. the patient is scheduled for surveillance follow-up in approximately 6 months. Thank you for allowing us to participate in the care of this patient Please note a longitudinal relationship has been created with the patient and we have been following and surveillance this chronic condition. Orders: Orders Creatinine 6 Months I71.43 - Infrarenal abdominal aortic aneurysm, without rupture CT angio abdomen pelvis 6 Months I71.43 - Infrarenal abdominal aortic aneurysm, without rupture Blood Urea Nitrogen 6 Months I71.43 - Infrarenal abdominal aortic aneurysm, without rupture Coding Level of Care Code Est Pt Level 4 (30822) Complex EM visit Add On G2211 Diagnoses Infrarenal abdominal aortic aneurysm (AAA) without rupture I71.43 Abdominal aorta location: infrarenal aorta
== END 2024-03-07 11:27 | disposition home or self-care (01) ==
PROVIDERS: PCP Internal Medicine; Visit Provider Surgery Vascular Surgery
DX: I71.43 Infrarenal abdominal aortic aneurysm, without rupture (principal)
CPT/HCPCS: 99214; G2211

== ENCOUNTER → 2024-03-07 10:52 | Outpatient (BNVA) | payer MEDICARE, SELFPAY | PROVIDERS: PCP Internal Medicine; Visit Provider Surgery Vascular Surgery | DX: I71.43 Infrarenal abdominal aortic aneurysm, without rupture (principal) | CPT/HCPCS: 99212 ==

== ENCOUNTER 2024-03-12 14:02 | Outpatient (AMB) | payer MEDICARE, SELFPAY ==
--- NOTE | 2024-03-12 13:51 | A.OFFVIS_ITS ---
Intake Visit Reasons: 3M Follow Up- PSA/Testo(set) Intake Note: Patient is present for PSA/Testo follow up Urology Med:Finasteride Broadband Technician Required: No Accompanied by: Self / Same As Patient Allergies No Known Allergies [No Known Allergies*] Allergy (Verified 03/07/24 10:56) Medication List - Last Reconciled 03/12/24 by Bashir Sepulveda MD amlodipine 5 mg PO BID ascorbic acid (vitamin C) (Vitamin C) 500 mg PO DAILY calcium carbonate 500 mg PO TID PRN calcium carbonate-vitamin D3 600 mg-5 mcg (200 unit) 1 tab PO DAILY finasteride 5 mg PO DAILY@2000 magnesium 250 mg PO DAILY multivitamin 1 tab PO DAILY oxycodone-acetaminophen 5-325 mg (Endocet) 1 tab PO Q8H PRN vitamin B complex 1 tab PO DAILY HPI Comments Details: Naveen is a pleasant male. He is a patient of Dr. Barkley. He is seen for the following urologic conditions - prostate cancer metastatic hormone sensitive - current therapy intermittent hormone blockade Telemedicine Evaluation 15 min Consultation [facility] work stable Plan on repeat labs in 3 months with GnRH Prolia and PET-CT 03/19 PSA 0.6 T 4 12/17 PSA 1.0 T 6 GnRH and prolia PET/CT multiple 9 mm to 2.7 cm sclerotic lesions through T9, T12 and left iliac bone 09/16 PSA 0.7, testosterone 11 DEXA scan osteopenia Bone Scan sclerotic lesion pelvis stable - focal asymmetric increased tracer avidity within the left posterior iliac bone adjacent to the site joint, appear slightly more pronounced on the current study since the prior study dated 12/16/2022. 04/17 PSA 6 Significant jump in 3 months - PSA 6.0 Restart GnRH injection - Prolia since known osteopenia Prostate cancer: high risk Initial diagnosis 2009. Radical prostatectomy External beam radiation 2010 Initiation intermittent hormone therapy starting 2013 - 18 months hormones 01/13 - 04/16 Prostate cancer was diagnosed 02/2010. Diagnosis was reached by needle biopsy, for elevated PSA, PSA at diagnosis 11.9. The Madyson grade is 4+5. TNM Classification of Malignant Tumours (TNM) T2. The D'Abiodun (NCCN) risk category is High Risk (PSA > 20, Gl 8+, T3) Initial therapy included Primary treatment, March 2010 radical prostatectomy, Additional treatment, November 2010 external beam radiation, observation Additional treatment, March 2014 GnRH therapy and antiandrogen. Has used Trelstar, Lupron and bicalutamide. October 2015 , Hormonal Blockade - Intermittent Prolia (denosamab) osteopenia - December 201507/13 GnRH and Prolia, 01/02/18 GnRH and Prolia, 07/19/18 GnRH 3m, prolia, finasteride, 10/12 GnRH 6m, finasteride, 12/13 3m GnRH + finasteride Recent labs included a PSA (prostate-specific antigen) at diagnosis 11.9. From a high of 52 to May 2015 0.06, 11/08 < 0.5, a testosterone 11/08 , < 20 ng/dL Jan 2016 a PSA (prostate-specific antigen) , < 0.26 May 2016 , a PSA (prostate-specific antigen) 0.17 - slow increase - T 200 10/10 - 0.9, 01/09 - 2.1, 04/11 - 4.2 rpt 6.0 07/13 - 10, 10/11 - 2.0 T5 01/10 PSA 2.3, T < 8, 04/12 , a PSA (prostate-specific antigen) 0.9, T < 7 07/14 PSA 1.0 T 15, 10/12 PSA 0.48 T 10, 01/11 PSA .32 T 8, 04/13 PSA 0.4 T 8 07/15 PSA 0.45 T 57, 11/12 PSA 3 T 349, 03/15 PSA 0.3, T 10, 06/14 PSA 1.0 T 19 - 09/13 PSA 8.1, T 474, 12/14 PSA 15, T 355, 04/15 PSA 2.3, T 5, 10/15 PSA 1.7 T 7, 01/15 PSA 1.1 T 71, 04/17 6 T 300 Recent imaging included December 2014 - Bone scan nonspecific abnormalities likely arthritic or traumatic in etiology February 2015 left femoral head and femoral neck increased uptake. Probably degenerative change however bony lesion should be considered. a CT (computed tomography) scan December 2014 sclerotic lesion on L1 vertebrae. Matches area on bone scan. 11/08 DEXA scan - Osteopenia 12/10 , a bone scan - ? small lesion on iliac 03/13 Bone Scan stable lytic lesion pelvis 04/[address] (computed tomography) scan, new sclerotic area on right pelvis 10/12 Bone Scan - mild increase activity spine and pelvis 10/12 , a DEXA scan, showing osteopenia/osteoporosis 04/13 Bone Scan - decreased rib activity 12/13 Persistent small iliac abnormality, 09/13 persistent iliac activity no new increase 03/16 DEXA confirming osteoporosis 09/14 bone scan - stable metastatic disease 12/16 Stable nonspecific abnormalities in the pelvis are consistent with metastatic disease. There is no evidence of progression. 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 Hypertension GERD (gastroesophageal reflux disease) Colon adenomas Surgical History Hx of eye surgery Hx of umbilical hernia repair Hx of inguinal hernia repair Hx of melanoma excision (~2016) History of prostatectomy (~2009) History of hernia repair History of knee surgery History of surgery on wrist History of colonoscopy History of brain surgery Family History Father Heart disease Mother Emphysema lung Social History Household Members: None Housing: Apartment Are you a primary child care nurse to a significant other at home: No Do you presently have visiting nurse or other home services: No Alcohol intake: never Comment: left DP/PT, audible-monophasic with doppler, Right is biphasic DP/PT Patient Tobacco Use Status: Former Tobacco user Tobacco use type: Cigarette Years Smoked: 50 Second Hand Smoke Exposure: No service: No Review of Systems Const All systems reviewed & are unremarkable except as noted in HPI and below Reports no additional complaints Resp Reports no additional complaints GI Reports no additional complaints Reports as per HPI Musc Reports no additional complaints Physical Exam Telemedicine evaluation Appropriate responses Regular breathing rate and rhythm HEENT Head: Yes normal to inspection Ears: hearing grossly normal bilaterally Eyes General: appearance normal, both eyes and all related structures Neck Neck: Yes normal visual inspection Chest Chest palpation & inspection: normal inspection of the chest Resp Effort & Inspection: normal respiratory effort and able to speak in complete sentences Telehealth Telehealth Telehealth Platform: [email or web address] Location of provider rendering services: practice address Location of patient: address on file Patient Identification confirmed using: Name, : Yes Telehealth method: video Patient verbally consented to treatment: Yes Patient verbally consented to billing insurance company: Yes Patient informed of any privacy concerns related to visit: Yes Minutes spent on Phone/Video with Pt.: 15 Assessment & Plan Assessment & Plan (1) Prostate cancer metastatic to bone: Code(s): C61 - Malignant neoplasm of prostate; C79.51 - Secondary malignant neoplasm of bone Category: Medical Plan Three-month follow-up labs and imaging Orders: Orders PET CT fusion skull to thigh 3 Months C61 - Malignant neoplasm of prostate, C79.51 - Secondary malignant neoplasm of bone Testosterone, Total 3 Months C61 - Malignant neoplasm of prostate, C79.51 - Secondary malignant neoplasm of bone Prostate Specific Antigen 3 Months C61 - Malignant neoplasm of prostate, C79.51 - Secondary malignant neoplasm of bone Patient Instructions: Imaging studies, laboratory and physical exam results were discussed and reviewed in detail. No major barriers to patient understanding were identified. An opportunity to ask questions regarding the treatment plan was provided. All questions were answered. The patient expressed understanding and agreement with the above treatment plan. The patient is aware they should contact our office by phone for worsening of their current condition or the appearance of new urologic symptoms. Compliance i s encouraged with any medications and followup testing that is ordered. It is a privilege to participate in the urologic care of your patient. If you have any questions or concerns regarding treatment for the above conditions, or other urologic issues, please do not hesitate to contact me. The office telephone contact is [phone]. This note is constructed using voice recognition software. While every effort has been made to ensure accuracy pony ride operator errors may have been included. Yours sincerely, Dr Bashir Sepulveda MD, ДМИТРИЙ [facility] - Urology Providers of Expert, Compassionate Care for the Genitourinary System Coding Level of Care Code Tele Est Pt Level 3 (04779) Diagnoses Prostate cancer metastatic to bone C61; C79.51
--- OUTSIDE RECORDS SUMMARY | 2024-03-12 14:03 | XMS_ITS ---
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
--- OUTSIDE RECORDS SUMMARY | 2024-03-12 14:03 | XMS_ITS ---
Author Organization Frankie Keyes III, MD Address [address] [place] [address] Care Team Providers Care Dicer Machine Operator Name Role Phone Christian Barkley MD Primary Care Provider Frankie Bender Unavailable [phone] ALLERGIES Allergen (clinical drug ingredient) Drug/Non Drug Allergy documented on EMR Reaction Allergy Type Onset Date Status No Known Drug Allergy Unknown Drug Allergy Active REASON FOR VISIT Pituitary tumor in remission, Prostate cancer, Chronic lymphocytic leukemia, History of melanoma, Osteopenia MEDICATIONS Medication SIG (Take, Route, Frequency, Duration) Notes Start Date End Date Status amLODIPine Besylate 5 MG TAKE 1 TABLET B Y MOUTH TWICE DAILY Oral Active SOCIAL HISTORY Tobacco Use: Social History Observation Description Date Details (start date - stop date) Former Smoker NA - NA Sex Assigned At : Social History Observation Description Sex Assigned At Unknown Tobacco Use/Smoking Question Answer Notes Patient is a former smoker How long has it been since you last smoked? > 10 years Additional Findings: Tobacco Non-User Ex-cigaret te smoker PROBLEMS Problem Type ICD Code Onset Dates Problem Status W/U Status Risk SNOMED Code Notes Problem Prostate cancer (C61) Active confirmed Malignant tumor of prostate (722972438) His PSA is under 2 symptoms. No change in his therapy was needed. VITAL SIGNS BMI 24.27 kg/m2 01/15/2024 Blood pressure systolic 130 mm Hg 01/15/20 24 Blood pressure diastolic 80 mm Hg 024 Heart Rate 78 /min 01/15/2024 Height 71 in 01/15/2024 Temperature 97.3 degrees Fahrenheit 01/15/20 24 Weight 174 lbs 01/15/2024 Encounters Encounter Location Date Provider Diagnosis Frankie Keyes III, MD [address] [place] [address] [place] [address] 01/15/2024 Frankie Keyes Pituitary tumor D49. 7 ; Prostate cancer C61 ; CLL (chronic lymphocytic leukemia) C91.10 ; Former smoker Z87.891 ; Osteopenia M85.80 and History of melanoma Z85.820 ASSESSMENTS Encounter Date Diagnosis Assessment Notes Treatment Notes Treatment Clinical Notes 01/15/2024 Pituitary tumor (ICD-10 - D49.7) He will continue to be observed at the [facility] neurosurgery department. He will have periodic MRIs of the brain. The next study has been scheduled at [facility]. He recently went to [place] to see neurosurgery, Dr. Garcia, we'll told [...] 01/15/2024 History of melanoma (ICD-10 - Z85.820) PLAN OF TREATMENT Medication Medication Name Sig Start Date Stop Date Notes amLODIPine Besylate 5 MG TAKE 1 TABLET B Y MOUTH TWICE DAILY Oral Pending Test Test Name Order Date PROFILE, FASTING (COMPREHENSIVE METABOLI C) 01/15/2024 PSA, TOTAL 01/15/2024 CBC WITH AUTO DIFF 01/15/2024 Lipid Panel 01/15/2024 Hemoglobin A1c 01/15/2024 Next Appt Details Follow Up: 3 Months, Reason: OV Provider Name:Frankie Keyes, 04/22/2024 02:00:00 PM, [address] [place] [address] [address], [place], [address], Progress Notes * Examination Category Sub-Category Detail Notes General Examination [...] PSYCH: alert, oriented ORAL CAVITY: normal, unremarkable History and Physical Notes * HPI (History of Present Illness) Category Sub-Category Detail Notes COVID-19 Screening Questions Have you expe rienced fever, chills, cough, sore throat, shortness of breath, difficulty breathing, muscle aches, loss of taste or smell?: No Have you been exposed to the virus with n the last 10 days?: No Have you travelled internationally in [facility] last 10 days?: No Have you been exposed to COVID-19 in the past?: Yes
--- OUTSIDE RECORDS SUMMARY | 2024-03-12 14:04 | XMS_ITS | Patient Health Record ---
Author Organization Frankie Keyes III, MD Address [address] [place] [address] Care Team Providers Care Metal Drawer Name Role Phone Christian Barkley MD Primary Care Provider Frankie Bender Unavailable [phone] ALLERGIES Allergen (clinical drug ingredient) Drug/Non Drug Allergy documented on EMR Reaction Allergy Type Onset Date Status No Known Drug Allergy Unknown Drug Allergy Active RESULTS Component Value Reference Range Notes Lipid Panel Reviewed date:05/20/2023 09:19:44 AM Interpretation: Performing Lab:[facility], [address] [place] [address] Notes/Report: Triglycerides 40 <150 mg/dL Desirable Triglyceride: [...] Total Reviewed date:05/20/2023 09:19:44 AM Interpretation: Performing Lab:[facility], [address] [place] [phone] Notes/Report: Testosterone, Total 787 873-6335 ng/dL Men with clinically significant hypogonadal symptoms and testosterone values repeatedly in the range of the 200-300 ng/dL or less, may benefit from testosterone treatment after adequate risk and benefits counseling. For additional information, please refer to http://education.[employer].com/faq/ [email or web address] 5 (This link is being provided for informational/ educational purposes only.) This test was developed and its analytical performance characteristics have been determined by [facility] [place], [place]. It has not been cleared or approved by the U.S. Food and Drug Administration. This assay has been validated pursuant to the CLIA regulations and is used for clinical purposes. THIS TEST WAS PERFORMED AT: [employer]/[address] [address] OSCAR LAZAR MD,PHD Complete Blood Count Auto Di ff Reviewed date:05/20/2023 09:19:44 AM Interpretation: Performing Lab:[facility], [address] [place] [phone] Notes/Report: White Blood Count 7.8 4.8-10.8 X10*3/uL [...] Panel Reviewed date:05/20/2023 09:19:44 AM Interpretation: Performing Lab:[address] [address] Notes/Report: Sodium 145 135-145 mmol/L Potassium 4.2 3.3-5.1 mmol/L Chloride 107 96-108 mmol/L Carbon Dioxide 26 22-29 mmol/L Anion Gap 16 12-20 Blood Urea Nitrogen 24 9-16 mg/dL Creatinine 0.85 0.5-1.4 mg/dL Estimated Glomerular Filt Rate > 60 NOTE: For -[place] Citizen individuals, multiply the result by 1.210. Chronic [...] Antigen Reviewed date:05/20/2023 09:19:44 AM Interpretation: Performing Lab:[address] [address] Notes/Report: Prostate Specific Antigen 6.06 <0.05-4.0 ng/mL PSA methodology: Turner Al[employer] i Chemiluminescent Microparticle Immunoassay (CMIA) Complete Blood Count Auto Di ff Reviewed date:08/31/2023 10:58:29 AM Interpretation: Performing Lab:[facility], [address] [place] [phone] Notes/Report: White Blood Count 5.9 4.8-10.8 X10*3/uL [...] NRBC Abs Auto 0.000 0.0-0.012 X10*3/uL Comprehensive Hurley. Panel Fa st Reviewed date:08/31/2023 10:58:29 AM Interpretation: Performing Lab:[facility], [address] [place] [phone] Notes/Report: Sodium 142 135-145 mmol/L Potassium 4.8 3.3-5.1 mmol/L Chloride 107 96-108 mmol/L Carbon Dioxide 29 22-29 mmol/L Anion Gap 11 12-20 Blood Urea Nitrogen 14 9-16 mg/dL Creatinine 0.79 0.5-1.4 mg/dL Estimated Glomerular Filt Rate > 60 NOTE: For -[place] Citizen individuals, multiply the result by 1.210. Chronic [...] Panel Reviewed date:08/31/2023 10:58:29 AM Interpretation: Performing Lab:[facility], [address] [place] [phone] Notes/Report: Triglycerides 62 <150 mg/dL Desirable Triglyceride: [...] low results in patients with liver disease. Complete Blood Count Auto Di ff (Not yet reviewed by provider) Interpretation: Performing Lab:[facility], [address] [place] [phone] Notes/Report: White Blood Count 5.9 4.8-10.8 X10*3/uL Red Blood Count 4.00 4.60-5.80 X10*6/uL Hemoglobin 12.4 14.0-18.0 g/dl Hematocrit 37.2 42.0-52.0 % Mean Corpuscular Volume 93.0 80.0-98.0 fL Mean Corpuscular Hemoglobin 31.0 27.0-33.0 pg Mean Corpuscular HGB Conc 33.3 31.0-36.0 g/dl Red Cell Distribution Width 13.2 11.0-16.0 % Platelet Count 210 160-400 X10*3/uL Mean Platelet Volume 9.7 9.4-12.4 fL Neutrophils Percent Auto 70.3 45-73 % Imm Gran Pct Auto 0.2 0.0-0.4 % Lymphocytes Percent Auto 16.8 20-40 % Monocytes Percent Auto 9.3 2-11 % Eosinophils Percent Auto 3.2 0-4 % Basophils Percent Auto 0.2 0-2 % NRBC Pct Auto 0.0 0.0-0.2 /100WBC Neutrophils Absolute Auto 4.2 2.0-8.3 x10*3/u L Imm Gran Abs Auto 0.01 0.00-0.03 X10*3/uL Lymphocytes Absolute Auto 1.0 1.2-4.9 X10*3/u L Monocytes Absolute Auto 0.6 0.1-1.2 X10*3/uL Eosinophils Absolute Auto 0.2 0.0-0.4 X10*3/u L Basophils Absolute Auto 0.0 0.0-0.2 X10*3/uL NRBC Abs Auto 0.000 0.0-0.012 X10*3/uL Comprehensive Met. Panel (No t yet reviewed by provider) Interpretation: Performing Lab:[facility], [address] [place] [phone] Notes/Report: Sodium 145 135-145 mmol/L Potassium 4.5 3.3-5.1 mmol/L Chloride 105 96-108 mmol/L Carbon Dioxide 28 22-29 mmol/L Anion Gap 17 12-20 Blood Urea Nitrogen 16 9-16 mg/dL Creatinine 0.79 0.5-1.4 mg/dL Estimated Glomerular Filt Rate > 60 NOTE: For -[place] Citizen individuals, multiply the result by 1.210. Chronic Kidney Disease: Estimated GFR < 60 mL/min/1.73m2 Severe Kidney Disease: Estimated GFR < 15 mL/min/1.73m2 Glucose Random 135 60-115 mg/dL Calcium 10.3 8.4-10.2 mg/dL Bilirubin Total 0.4 0.0-1.0 mg/dL Aspartate Amino Transferase 15 5-37 U/L Alanine Aminotransferase 10 0-40 U/L Total Protein 6.4 6.5-8.0 g/dL Albumin Level 3.8 3.5-5.0 g/dL Alkaline Phosphatase 88 39-117 U/L Prostate Specific Antigen (N ot yet reviewed by provider) Interpretation: Performing Lab:[address] [address] Notes/Report: Prostate Specific Antigen 1.03 <0.05-4.0 ng/mL PSA methodology: Turner Alinity i Chemiluminescent Microparticle Immunoassay (CMIA) Thyroid Stimulating Hormone (Not yet reviewed by provider) Interpretation: Performing Lab:[facility], [address] [place] [phone] Notes/Report: Thyroid Stimulating Hormone 1.45 0.32-4.0 uIU/ mL TSH 3rd Generation ([employer]) Hemoglobin A1c (Not yet revi ewed by provider) Interpretation: Performing Lab:[facility], [address] [place] [phone] Notes/Report: Hemoglobin A1c % 5.5 <6.0 % Hemoglobin A1C Reference Range Adults: 4.8 - 6.0 % Non diabetic: < 6.0 % Goal: < 7.0 % Additional Action Suggested: > 8.0 % Note: Hemoglobin A1c results are invalid for patients with abnormal amounts of HbF. Blood transfusions may impact the HbA1c concentration in the patient sample. Estimated Average Glucose 111 eAG = Estimated average glucose which is %A1C expressed as average glucose, using the formula of the U7D-Rorfhdy Average Glucose study (ADAG), Diabetes Care, Vol.31,#8, Jan. 2007 REASON FOR REFERRAL Reason Consult and Treat Le cullen on Left Side of Face Diagnosis 1 History of melanoma (Z85.820) Diagnosis 2 Lesion of face (L98. 9) Referral Organization Frankie Keyes III, MD Referring Provider First Name Frankie Referring Provider Last Name Stephy Referring Provider Speciality Internal M edicine Referred Provider PASCUAL DELCID Referred Provider Specialty Dermatology General Notes Letty Bar 2022 04:16:11 PM EST > faxed referral [...] Notes Problem Former smoker (Z87.891) Active confirmed 0189833 He is highly motivated not to smoke. He has a plan to prevent relapse in times of stress and illness. Problem Hyperglycemia (R73.9) Active confirmed 83481004 The last [facility] blood glucose determinations have been normal. This problem has resolved. Problem Prostate cancer (C61) Active confirmed Malignant tumor of prostate (397325051) His PSA is under 2 symptoms. No change in his therapy was needed. Problem Malignant neoplasm of prostate (C61) Active confirmed 552785913 He remains under the care of urology. His recent blood work has been requested. 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 He will have periodic MRIs of the brain. The next study has been scheduled at [facility]. He recently went to [place] to see neurosurgery, Dr. Garcia, we'll told him that the tumor was not growing back. Problem History of melanoma (Z85.820) Active confirmed History of malignant melanoma of the skin (0666270482 08) Problem Osteopenia (M85.80) Active confirmed 922210242 There was continued on current therapy today without change. Problem CLL (chronic lymphocytic leukemia) (C91.10) Active confirmed 64357603 There was no adenopathy or splenomegaly. His white blood cell count and differential are unremarkable. Problem Obstructive uropathy (N13.9) Active confirmed 8501798 He will remain under the care of urologist in this problem will be addressed. 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 He is able to conduct all of the activities of daily life. The left eye has normal vision. This is a result of treatment of the pituitary tumor in the past. VITAL SIGNS Heart Rate 78 /min 01/15/2024 Temperature 97.3 degrees Fahrenheit 01/15/2024 Blood pressure diastolic 80 mm Hg 01/15/2024 Height 71 in 01/15/2024 Blood pressure systolic 130 mm Hg 01/15/2024 Weight 174 lbs 01/15/2024 BMI 24.27 kg/m2 01/15/2024 Encounters Encounter Location Date Provider Diagnosis Frankie Keyes III, MD [address] [place] [address] [place] [address] 03/14/2023 Frankie Keyes III, MD [address] [place] [address] [place] [address] 04/05/2023 Frankie Keyes Pituitary tumor D49. 7 ; Overweight E66.3 ; Malignant neoplasm of prostate C61 and CLL (chronic lymphocytic leukemia) C91.10 Frankie Keyes III, MD [address] [place] [address] [place] [address] 06/13/2023 Frankie Keyes Pituitary tumor D49. 7 ; Malignant neoplasm of prostate C61 ; CLL (chronic lymphocytic leukemia) C91.10 and Former smoker Z87.891 Frankie Keyes III, MD [address] [place] [address] [place] [address] 09/11/2023 Frankie Keyes Pituitary tumor D49. 7 ; Overweight E66.3 ; Malignant neoplasm of prostate C61 ; CLL (chronic lymphocytic leukemia) C91.10 ; Osteopenia M85.80 and Hyperglycemia R73.9 Frankie Keyes III, MD [address] [place] [address] [place] [address] 01/15/2024 Frankie Arteagane Pituitary tumor D49. 7 ; Prostate cancer C61 ; CLL (chronic lymphocytic leukemia) C91.10 ; Former smoker Z87.891 ; Osteopenia M85.80 and History of melanoma Z85.820 Frankie Keyes III, MD [address] [place] [address] [place] [address] 09/11/2023 Frankie Ohrne ASSESSMENTS Encounter Date Diagnosis Assessment Notes Treatment Notes Treatment Clinical Notes 04/05/2023 Overweight (ICD-10 - E66.3) He has gained 6 pounds. His body mass index is slightly over 25. We discussed a plan to stabilize his weight and then returned to the normal range. 04/05/2023 Pituitary tumor (ICD-10 - D49.7) He will continue to be observed at the [facility] neurosurgery department. He will have periodic MRIs of the brain. 06/13/2023 Malignant neoplasm of prostate (ICD-10 - C61) He has resumed his leuprolide injections and I expect the testosterone level to fall in the PSA to return to 0. 06/13/2023 Pituitary tumor (ICD-10 - D49.7) He will continue to be observed at the [facility] neurosurgery department. He will have periodic MRIs of the brain. The next study has been scheduled at [facility]. He recently went to [place] to see neurosurgery, Dr. Garcia, we'll told him that the tumor was not growing back. 09/11/2023 Overweight (ICD-10 - E66.3) His body mass index is 24. This problem has resolved and was removed from his problem list. 09/11/2023 Pituitary tumor (ICD-10 - D49.7) He will continue to be observed at the [facility] neurosurgery department. He will have periodic MRIs of the brain. The next study has been scheduled at [facility]. He recently went to [place] to see neurosurgeryDr. Garcia, we'll told him that the tumor was not growing back. Patient is due for his 1 year MRI of brain on 11/[address] Garcia's office has already sent the order via the computer to [facility] where they want follow up MRI done. pt was told by Dr garcia office for patient to call [facility] to set up this appt . Pt stated he would do this within the next month . 01/15/2024 Prostate cancer (ICD-10 - C61) His PSA is under 2 symptoms. No change in his therapy was needed. 01/15/2024 Pituitary tumor (ICD-10 - D49.7) He will continue to be observed at the [facility] neurosurgery department. He will have periodic MRIs of the brain. The next study has been scheduled at [facility]. He recently went to [place] to see neurosurgery, Dr. Garcia, we'll told him that the tumor was not growing back. 04/05/2023 Malignant neoplasm of prostate (ICD-10 - [...] His recent blood work has been requested. 01/15/2024 CLL (chronic lymphocytic leukemia) (ICD-10 - C91.10) There was no adenopathy or splenomegaly. His white blood cell count and differential are unremarkable. 04/05/2023 CLL (chronic lymphocytic leukemia) (ICD-10 - [...] on current therapy today without change. 01/15/2024 Osteopenia (ICD-10 - M85.80) There was continued on current therapy today without change. 09/11/2023 Hyperglycemia (ICD-10 - R73.9) 01/15/2024 History of melanoma (ICD-10 - Z85.820) PLAN OF TREATMENT Pending Test Test Name Order Date PROFILE, FASTING (COMPREHENSIVE METABOLI C) 04/16/2021 PROFILE, FASTING (COMPREHENSIVE METABOLI C) 01/15/2024 PROFILE, RANDOM (COMPREHENSIVE METABOLIC ) 12/29/2017 PROFILE, RANDOM (COMPREHENSIVE METABOLIC ) 04/01/2020 PROFILE, RANDOM (COMPREHENSIVE METABOLIC ) 07/03/2020 PROFILE, RANDOM (COMPREHENSIVE METABOLIC ) 07/10/2017 PROFILE, RANDOM (COMPREHENSIVE METABOLIC ) 01/15/2021 PROFILE, RANDOM (COMPREHENSIVE METABOLIC ) 11/06/2017 PROFILE, RANDOM (COMPREHENSIVE METABOLIC ) 09/18/2018 PROFILE, RANDOM (COMPREHENSIVE METABOLIC ) 10/16/2020 PROFILE, RANDOM (COMPREHENSIVE METABOLIC ) 08/04/2021 PROFILE, RANDOM (COMPREHENSIVE METABOLIC ) 08/30/2017 PROFILE, RANDOM (COMPREHENSIVE METABOLIC ) 05/30/2018 BUN 03/05/2018 CREATININE 03/05/2018 LIPID PANEL 04/16/2021 LDH 04/01/2020 PSA, TOTAL 08/04/2021 PSA, TOTAL 08/30/2017 PSA, TOTAL 05/30/2018 PSA, TOTAL 12/29/2017 PSA, TOTAL 04/01/2020 PSA, TOTAL 07/10/2017 PSA, TOTAL 01/15/2021 PSA, TOTAL 01/15/2024 PSA, TOTAL 11/06/2017 PSA, TOTAL 09/18/2018 PSA, TOTAL 10/16/2020 PSA, TOTAL+FREE 04/16/2021 PSA, TOTAL SCREEN 07/03/2020 CBC w DIFF 10/16/2020 CBC w DIFF 08/04/2021 CBC w DIFF 08/30/2017 CBC w DIFF 05/30/2018 CBC w DIFF 12/29/2017 CBC w DIFF 07/03/2020 CBC w DIFF 04/01/2020 CBC w DIFF 04/16/2021 CBC w DIFF 07/10/2017 CBC w DIFF 01/15/2021 CBC w DIFF 11/06/2017 CBC w DIFF 09/18/2018 SED RATE (ESR) 04/01/2020 TESTOSTERONE, TOTAL 04/01/2020 TESTOSTERONE, TOTAL 01/15/2021 CBC WITH AUTO DIFF 01/15/2024 Complete Blood Count Auto Diff 4 Comprehensive Met. Panel 12/04/2023 Lipid Panel 01/15/2024 Prostate Specific Antigen 12/04/2023 Thyroid Stimulating Hormone 12/04/2023 Hemoglobin A1c 01/15/2024 Hemoglobin A1c 12/04/2023 Next Appt Details Provider Name:Frankie Keyes, 04/22/2024 02:00:00 PM, [address] [place] [address] , [address], [place], [address], Insurance Providers Payer Name Payer Address Payer Phone Subscriber Number Group Number Insured Name Patient Relationship to Insured Coverage Start Date Coverage End Date MEDICARE NGS [address] [place] [address] [id number] Naveen Farias Self - patient is the insured [facility] [address] [place], [place] [id number] Naveen Farias Self - patient is the insured MEDICAL (GENERAL) HISTORY Medical History History ICD Code degenerative arthitis knees childhod eye surgery pituitary tumor, [facility], surge ry, blind OS 2000, 2019 lymphoma prostate cancer cellulitis of toe Surgical History Surgery Date(Month/Year) Abdomen Aortic Aneurism 10/2023 Brain Surgery tumor removal 11/2019 pituitary tumor removal in [place] 0 melanoma removal on back 04/2018 Basal cell cancer removed on right cheek 2014 Right knee surgery 52yrs old Right hand surgery 1975 Brain tumor removed 2000 Radical Prostatectomy Eye Surgery 1954 Hernia repair 2011,2015
--- OUTSIDE RECORDS SUMMARY | 2024-03-12 14:04 | XMS_ITS ---
Author Organization Frankie Keyes III, MD Address [address] [place] [address] Care Team Providers Care Senior Controls Technician Name Role Phone Christian Barkley MD Primary Care Provider Frankie Bender Unavailable [phone] ALLERGIES Allergen (clinical drug ingredient) Drug/Non Drug Allergy documented on EMR Reaction Allergy Type Onset Date Status No Known Drug Allergy Unknown Drug Allergy Active REASON FOR VISIT Pituitary tumor, Prostate cancer, Obstructive uropathy, History of melanoma MEDICATIONS Medication SIG (Take, Route, Frequency, Duration) [...] Additional Findings: Tobacco Non-User Ex-cigaret te smoker VITAL SIGNS BMI 24.96 kg/m2 09/11/2023 Blood pressure systolic 133 mm Hg 09/11/19 24 Blood pressure diastolic 88 mm Hg 024 Heart Rate 78 /min 09/11/2023 Height 71 in 09/11/2023 Weight 179 lbs 09/11/2023 Encounters Encounter Location Date Provider Diagnosis Frankie Keyes III, MD [address] [place] [address] [place] [address] 09/11/2023 Frankie Keyes Pituitary tumor D49. 7 ; Overweight E66.3 ; Malignant neoplasm of prostate C61 ; CLL (chronic lymphocytic leukemia) C91.10 ; Osteopenia M85.80 and Hyperglycemia R73.9 ASSESSMENTS Encounter Date Diagnosis Assessment Notes Treatment Notes Treatment Clinical Notes 09/11/2023 Pituitary tumor (ICD-10 - D49.7) He will continue to be observed at the [facility] neurosurgery department. He will have periodic MRIs of the brain. The next study has been scheduled at [facility]. He recently went to [place] to see neurosurgery, Dr. Garcia, we'll told him that the tumor was not growing back. Patient is due for his 1 year MRI of brain on 11/[address] Garcia's office has already sent the order via the computer to [facility] where they want follow up MRI done. pt was told by Dr garcia office for patient to call [facility] to set up this appt . Pt stated he would do this within the next month . 09/11/2023 Overweight (ICD-10 - E66.3) His body mass index is 24. This problem has resolved and was removed from his problem list. 09/11/2023 Malignant neoplasm of prostate (ICD-10 - C61) He remains under the care of urology. His recent blood work has been requested. 09/11/2023 CLL (chronic lymphocytic leukemia) (ICD-10 - C91.10) There was no adenopathy or splenomegaly. His white blood cell count and differential are unremarkable. 09/11/2023 Osteopenia (ICD-10 - M85.80) There was continued on current therapy today without change. 09/11/2023 Hyperglycemia (ICD-10 - R73.9) PLAN OF TREATMENT Medication Medication Name Sig Start Date Stop Date Notes amLODIPine Besylate 5 MG TAKE 1 TABLET B Y MOUTH TWICE DAILY Oral Treatment Notes Assessment Notes Pituitary tumor Patient is due for h is 1 year MRI of brain on 11/[address] Garcia's office has already sent the order via the computer to [facility] where they want follow up MRI done. pt was told by Dr garcia office for patient to call [facility] to set up this appt . Pt stated he would do this within the next month . Next Appt Details Follow Up: 4 Months, Reason: ov review labs Provider Name:Frankie Keyes, 04/22/2024 02:00:00 PM, [address] [place] [address] [address], [place], [address], Progress Notes * Examination Category Sub-Category Detail Notes General Examination GENERAL APPEARANCE: pleasant , well nourished, well developed, in no acute distress, calm and relaxed , man HEAD: atraumatic, normocep halic EYES: eomi, perrla, anicte pedro, conjugate EARS: normal NOSE: septum intact NECK/THYROID: no jugular venous di stention, no carotid bruit, thyroid normal HEART: no clicks, gallops, murmurs, or rubs, regular rhythm, S1, S2 normal, no s3, or vascular bruits LUNGS: clear to auscultatio n ABDOMEN: bowel sounds normal, no ascites, no organomegaly, no mass NEUROLOGIC: alert and oriented, cranial nerves [...] days?: No Have you travelled internationally in e last 10 days?: No Have you been exposed to COVID-19 in the past?: Yes
--- OUTSIDE RECORDS SUMMARY | 2024-03-12 14:04 | XMS_ITS | Patient Health Record ---
Author Organization [facility] Address [address] [place] [address] Care Team Providers Care Iron Installer Name Role Phone Christian Barkley MD Primary [...] Problem Colon cancer screening (Z12.11) Active confirmed [id number] PLAN OF TREATMENT Future Test Test Name Order Date COLONOSCOPY 11/20/2013 COLONOSCOPY 04/13/2020 Insurance Providers Payer Name Payer Address Payer Phone Subscriber Number Group Number Insured Name Patient Relationship to Insured Coverage Start Date Coverage End Date MEDICARE OF [place] [address] [place] [address] [phone] [id number] KAMERON SWANSON Self - patient is the insured [employer] [address] [place] [address] [id number] KAMERON SWANSON Self - patient is the insured MEDICAL (GENERAL) HISTORY Medical History History ICD Code Colonoscopy, 03/09 negative f or polyps, five-year followup recommended, history of previous adenomas Gastroesophageal reflux disease Hypertension Pituitary Gland tumor Left eye blindness Denies SD,DM,CVA,Lung disease,renal dise ase prostate cancer brain tumor CLL Surgical History Surgery Date(Month/Year) brain surgery wrist surgery eye surgery cataract removal knee surgery hernia repair prostatectomy laminectomy
== END 2024-03-12 14:42 | disposition home or self-care (01) ==
LOC: HO.HUSH 14:02
PROVIDERS: PCP Internal Medicine; Visit Provider Urology
DX: C61 Malignant neoplasm of prostate (principal); C79.51 Secondary malignant neoplasm of bone
CPT/HCPCS: 99213

== ENCOUNTER → 2024-03-12 14:02 | Outpatient (BNVA) | payer MEDICARE, SELFPAY | PROVIDERS: PCP Internal Medicine; Visit Provider Urology ==

== ENCOUNTER 2024-04-12 08:10 | Outpatient (REF) | payer MEDICARE, SELFPAY ==
[2024-04-12 08:37] LABS: MANUAL DIFF FLAG NO
[2024-04-12 09:07] LABS: Basophils Percent Auto 0.2 % (0-2); Eosinophils Absolute Auto 0.1 X10*3/uL (0.0-0.4); Eosinophils Percent Auto 1.7 % (0-4); Hematocrit 40.7 % (42.0-52.0); Imm Gran Abs Auto 0.01 X10*3/uL (0.00-0.03); Imm Gran Pct Auto 0.2 % (0.0-0.4); Lymphocytes Percent Auto 16.9 % (20-40); Mean Corpuscular HGB Conc 31.9 g/dl (31.0-36.0); Mean Corpuscular Hemoglobin 29.7 pg (27.0-33.0); Mean Corpuscular Volume 93.1 fL (80.0-98.0); Mean Platelet Volume 9.5 fL (9.4-12.4); Monocytes Absolute Auto 0.5 X10*3/uL (0.1-1.2); Monocytes Percent Auto 8.5 % (2-11); Neutrophils Absolute Auto 4.2 x10*3/uL (2.0-8.3); Neutrophils Percent Auto 72.5 % (45-73); Platelet Count 169 X10*3/uL (160-400); Red Blood Count 4.37 X10*6/uL (4.60-5.80); Red Cell Distribution Width 13.9 % (11.0-16.0); White Blood Count 5.7 X10*3/uL (4.8-10.8)
[2024-04-12 09:12] LABS: Estimated Average Glucose 114 mg/dL; Hemoglobin A1C 127.0915 umol/L; Hemoglobin A1c % 5.6 % (<6.0); Total Hemoglobin (HGBA1C) 3341.9105 umol/L
[2024-04-12 09:59] LABS: Alanine Aminotransferase 15 U/L (0-40); Albumin Level 4.1 g/dL (3.5-5.0); Alkaline Phosphatase 79 U/L (39-117); Anion Gap 15 (12-20); Aspartate Amino Transferase 19 U/L (5-37); Bilirubin Total 0.5 mg/dL (0.0-1.0); Blood Urea Nitrogen 16 mg/dL (9-16); Calcium 8.9 mg/dL (8.4-10.2); Carbon Dioxide 28 mmol/L (22-29); Chloride 108 mmol/L (96-108); Cholesterol 194 mg/dL (<200); Estimated Glomerular Filt Rate > 60; Glucose Fasting 131 mg/dL (60-99); HDL Cholesterol 65 mg/dL (>40); LDL Cholesterol Calculated 117 mg/dL (<100); Potassium 4.3 mmol/L (3.3-5.1); Sodium 147 mmol/L (135-145); Total Protein 6.7 g/dL (6.5-8.0); Triglycerides 64 mg/dL (<150)
[2024-04-12 10:15] LABS: Prostate Specific Antigen 0.82 ng/mL (<0.05-4.0)
== END 2024-04-12 08:11 | disposition home or self-care (01) ==
LOC: HO.LAB 08:10
PROVIDERS: PCP Internal Medicine Medical Oncology; Visit Provider Internal Medicine Medical Oncology
DX: D49.7 Neoplasm of unspecified behavior of endocrine glands and other parts of nervous system (principal); E66.3 Overweight; C61 Malignant neoplasm of prostate; Z12.5 Encounter for screening for malignant neoplasm of prostate; Z13.1 Encounter for screening for diabetes mellitus
CPT/HCPCS: 36415; 80053; 80061; 83036; 84153; 85025

== ENCOUNTER 2024-04-22 14:57 | Outpatient (REF) | payer MEDICARE, SELFPAY ==
--- NOTE | ~2024-04-22 | XR_ITS ---
EXAMINATION: XR CHEST CLINICAL INFORMATION: Malignant neoplasm of prostate. COMPARISON: 11/06/2023, CT angiogram abdomen and pelvis. TECHNIQUE: 3 views of the chest. FINDINGS: There is no gross pneumothorax. Dextroscoliosis of the thoracic spine with multilevel degenerative changes. No significant pleural effusion. Moderate hiatal hernia better characterized on CT angiogram of October 2023. No new focal consolidation to suggest pneumonia. XR/XR chest 2V IMPRESSION: 1. Moderate hiatal hernia better characterized on CT angiogram of October 2023. 2. No new focal consolidation to suggest pneumonia. Electronically signed by: Simran Roldan MD 04/23/2024 05:41 AM EDT
== END 2024-04-22 14:58 | disposition home or self-care (01) ==
LOC: HO.XRAY 14:57
PROVIDERS: PCP Internal Medicine; Visit Provider Internal Medicine Medical Oncology
DX: K44.9 Diaphragmatic hernia without obstruction or gangrene (principal); M51.34 Other intervertebral disc degeneration, thoracic region; C61 Malignant neoplasm of prostate
CPT/HCPCS: 71046

== ENCOUNTER 2024-06-03 07:29 | Outpatient (REF) | payer MEDICARE, SELFPAY ==
[2024-06-03 08:28] LABS: Prostate Specific Antigen 0.61 ng/mL (<0.05-4.0)
[2024-06-07 17:38] LABS: Testosterone, Total 7 ng/dL (250-1100)
== END 2024-06-03 07:30 | disposition home or self-care (01) ==
LOC: HO.LAB 07:29
PROVIDERS: PCP Internal Medicine; Visit Provider Urology
DX: C61 Malignant neoplasm of prostate (principal); C79.51 Secondary malignant neoplasm of bone; Z12.5 Encounter for screening for malignant neoplasm of prostate
CPT/HCPCS: 36415; 84153; 84403

== ENCOUNTER 2024-06-11 13:51 | Outpatient (AMB) | payer MEDICARE, SELFPAY ==
--- NOTE | 2024-06-11 13:55 | MHC.OFFVIS ---
Intake Visit Reasons: GnRH/Prolia/labs(Needs PetCT)PA SET Intake Note: Patient is present for GNRH/PROLIA/LABS Urology Medication:FINASTERIDE,VITAMIN B1 Antibiotic Allergy:NONE Blood Thinner:NONE Digital Strategist Required: No Allergies No Known Allergies [No Known Allergies*] Allergy (Verified 06/11/24 13:56) HPI Comments Details: Naveen is a pleasant male. He is a patient of Dr. Barkley. He is seen for the following urologic conditions - prostate cancer metastatic hormone sensitive - current therapy intermittent hormone blockade Telemedicine Evaluation 15 min Consultation [facility] work stable Plan on repeat labs in 3 months with GnRH Prolia and PET-CT 06/18 PSA 0.6, testosterone 7 Injections today Needs PET-CT prior to next follow-up appointment 03/19 PSA 0.6 T 4 12/17 PSA 1.0 T 6 GnRH and prolia PET/CT multiple 9 mm to 2.7 cm sclerotic lesions through T9, T12 and left iliac bone 09/16 PSA 0.7, testosterone 11 DEXA scan osteopenia Bone Scan sclerotic lesion pelvis stable - focal asymmetric increased tracer avidity within the left posterior iliac bone adjacent to the site joint, appear slightly more pronounced on the current study since the prior study dated 12/16/2022. 04/17 PSA 6 Significant jump in 3 months - PSA 6.0 Restart GnRH injection - Prolia since known osteopenia Prostate cancer: high risk Initial diagnosis 2009. Radical prostatectomy External beam radiation 2010 Initiation intermittent hormone therapy starting 2013 - 18 months hormones 01/13 - 04/16 Prostate cancer was diagnosed 02/2010. Diagnosis was reached by needle biopsy, for elevated PSA, PSA at diagnosis 11.9. The Eastlake Weir grade is 4+5. TNM Classification of Malignant Tumours (TNM) T2. The D'Abiodun (NCCN) risk category is High Risk (PSA > 20, Gl 8+, T3) Initial therapy included Primary treatment, March 2010 radical prostatectomy, Additional treatment, November 2010 external beam radiation, observation Additional treatment, March 2014 GnRH therapy and antiandrogen. Has used Trelstar, Lupron and bicalutamide. October 2015 , Hormonal Blockade - Intermittent Prolia (denosamab) osteopenia - December 201507/13 GnRH and Prolia, 01/02/18 GnRH and Prolia, 07/19/18 GnRH 3m, prolia, finasteride, 10/12 GnRH 6m, finasteride, 12/13 3m GnRH + finasteride Recent labs included a PSA (prostate-specific antigen) at diagnosis 11.9. From a high of 52 to May 2015 0.06, 11/08 < 0.5, a testosterone 11/08 , < 20 ng/dL Jan 2016 a PSA (prostate-specific antigen) , < 0.26 May 2016 , a PSA (prostate-specific antigen) 0.17 - slow increase - T 200 10/10 - 0.9, 01/09 - 2.1, 04/11 - 4.2 rpt 6.0 07/13 - 10, 10/11 - 2.0 T5 01/10 PSA 2.3, T < 8, 04/12 , a PSA (prostate-specific antigen) 0.9, T < 7 07/14 PSA 1.0 T 15, 10/12 PSA 0.48 T 10, 01/11 PSA .32 T 8, 04/13 PSA 0.4 T 8 07/15 PSA 0.45 T 57, 11/12 PSA 3 T 349, 03/15 PSA 0.3, T 10, 06/14 PSA 1.0 T 19 - 09/13 PSA 8.1, T 474, 12/14 PSA 15, T 355, 04/15 PSA 2.3, T 5, 10/15 PSA 1.7 T 7, 01/15 PSA 1.1 T 71, 04/17 6 T 300 Recent imaging included December 2014 - Bone scan nonspecific abnormalities likely arthritic or traumatic in etiology February 2015 left femoral head and femoral neck increased uptake. Probably degenerative change however bony lesion should be considered. a CT (computed tomography) scan December 2014 sclerotic lesion on L1 vertebrae. Matches area on bone scan. 11/08 DEXA scan - Osteopenia 12/10 , a bone scan - ? small lesion on iliac 03/13 Bone Scan stable lytic lesion pelvis 04/[address] (computed tomography) scan, new sclerotic area on right pelvis 10/12 Bone Scan - mild increase activity spine and pelvis 10/12 , a DEXA scan, showing osteopenia/osteoporosis 04/13 Bone Scan - decreased rib activity 12/13 Persistent small iliac abnormality, 09/13 persistent iliac activity no new increase 03/16 DEXA confirming osteoporosis 09/14 bone scan - stable metastatic disease 12/16 Stable nonspecific abnormalities in the pelvis are consistent with metastatic disease. There is no evidence of progression. 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 Hypertension GERD (gastroesophageal reflux disease) Colon adenomas Surgical History Hx of eye surgery Hx of umbilical hernia repair Hx of inguinal hernia repair Hx of melanoma excision (~2017) History of prostatectomy (~2009) History of hernia repair History of knee surgery History of surgery on wrist History of colonoscopy History of brain surgery Family History Father Heart disease Mother Emphysema lung Social History Household Members: None Housing: Apartment Are you a primary intensive care unit registered nurse to a significant other at home: No Do you presently have visiting nurse or other home services: No Alcohol intake: never Comment: left DP/PT, audible-monophasic with doppler, Right is biphasic DP/PT Patient Tobacco Use Status: Former Tobacco user Tobacco use type: Cigarette Years Smoked: 50 Second Hand Smoke Exposure: No service: No Office Meds Prolia 60 mg/mL subcutaneous syringe Performing Provider: Bashir Sepulveda MD Performing Location: [facility] Administered by: Aydin Arriola LPN on 06/11/24 14:47 Dose Route Admin Location Dispensed Lot Number Expiration Date [facility] Call Center Dispatcher 60 mg subcut right arm 1 mL [id number] 05/25/26 80009-432-09 [employer] Eligard (6 month) 45 mg (6 month) subcutaneous syringe Performing Provider: Bashir Sepulveda MD Performing Location: [facility] Administered by: Aydin Arriola LPN on 06/11/24 14:47 Dose Route Admin Location Dispensed Lot Number Expiration Date [facility] Call Center Dispatcher 45 mg subcut right arm 45 mg [id number] 05/26/25 57784-524-39 [employer] 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
== END 2024-06-11 14:49 | disposition home or self-care (01) ==
PROVIDERS: PCP Internal Medicine; Visit Provider Urology
DX: C61 Malignant neoplasm of prostate (principal); C79.51 Secondary malignant neoplasm of bone

== ENCOUNTER → 2024-06-11 13:51 | Outpatient (BNVA) | payer MEDICARE, SELFPAY | PROVIDERS: PCP Internal Medicine; Visit Provider Urology | DX: C61 Malignant neoplasm of prostate (principal); C79.51 Secondary malignant neoplasm of bone | CPT/HCPCS: 96372; 96402; 99212; J0897; J9217 ==

== ENCOUNTER 2024-07-23 07:16 | Outpatient (REF) | payer MEDICARE, SELFPAY ==
--- OUTSIDE RECORDS SUMMARY | 2024-07-23 07:19 | XMS_ITS ---
Author Organization Frankie Keyes III, MD Address [address] [place] [address] Care Team Providers Care Digital Marketing Executive Name Role Phone Christian Barkley MD Primary Care Provider Frankie Bender Unavailable [phone] Allergies Allergen (clinical drug ingredient) Drug/Non Drug [...] Additional Findings: Tobacco Non-User Ex-cigaret te smoker Problems Problem Type SNOMED Code ICD Code Onset Dates Problem Status W/U Status Risk Notes Problem Malignant tumor of prostate (704289720) Prostate cancer (C61) Active confirmed His PSA is under 2 symptoms. No change in his therapy was needed. Vital Signs Temperature 97.3 degrees Fahrenheit 01/15/20 24 Blood pressure systolic 130 mm Hg 01/15/20 24 Blood pressure diastolic 80 mm Hg 024 Heart Rate 78 /min 01/15/2024 Height 71 in 01/15/2024 Weight 174 lbs 01/15/2024 BMI 24.27 kg/m2 01/15/2024 Encounters Encounter Location Date Provider Diagnosis Frankie Keyes III, MD [address] [place] [address] [address] [place], [place] [phone] 01/15/2024 Frankie Keyes Pituitary tumor D49. 7 ; Prostate cancer C61 ; CLL (chronic lymphocytic leukemia) C91.10 ; Former smoker Z87.891 ; Osteopenia M85.80 and History of melanoma Z85.820 Assessments Encounter Date Diagnosis (ICD Code) Assessment Notes Treatment Notes Treatment Clinical Notes 01/15/2024 Pituitary tumor (ICD-10 - D49.7) He will continue to be observed at the [facility] neurosurgery department. He will have periodic MRIs of the brain. The next study has been scheduled at [facility]. He recently went to [place] to see neurosurgery, Dr. Garcia, we'll told [...] 3 Months, Reason: OV Provider Name:Frankie Keyes, 08/26/2024 02:00:00 PM, [address] [place] [address] [address], [place], [address], Progress Notes * Naveen FARIASDOB:1944 (78 yo M)Acc No.[id number]:01/15/2024 Progress Notes Patient:?Naveen Farias Provider:?Frankie Keyes MD :1945???Age:78 Y???Sex:Male Ankur e:01/15/2024 Address:[address] [place] [address], [place] [address] , [place], [id number] Pcp:Christian Barkley MD Subjective: * Chief Complaints: * ???Pituitary tumor in remiss ionProstate cancerChronic lymphocytic leukemiaHistory of melanomaOsteopenia * HPI: ???COVID-19 Screening:? He was seen November 01, 2023 by his vascular surgeon, Dr. Wills. A recent PET CT scan showed the aortic aneurysm had increased from 4-6 cm. An urgent endovascular repair was done at [facility] with success. He was discharged November 14, 2023. He comes in today for follow-up of his various malignancies. His PSA remains low. His physical examination today showed no sign of progressive disease. No change in his regimen was needed. ?Questions?Have you experienced fever, chills, cough, sore throat, shortness of breath, difficulty breathing, muscle aches, loss of taste or smell??No ?Have you been exposed to the virus within the last 10 days??No ?Have you travelled internationally in the last 10 days??No ?Have you been exposed to COVID-19 in the past??Yes * ROS:?General/Constitutional:?pain?only normal aches and pains.?Chills?denies.?Fatigue?admits.?Fever?denies.?ENT:?Decreased hearing?mild.?Respiratory:?Cough?denies.?Cardiovascular:?Chest pain with exertion?denies.?Dyspnea on exertion?denies.?Shortness of breath?denies.?Gastrointestinal:?Constipation?occasional.?Decreased appetite?denies.?Diarrhea?denies.?Heartburn?denies.?Nausea?denies.?Rectal bleeding?denies.?Vomiting?denies.?Hematology:?bruising?denies.?petechiae?denies.?Swollen glands?none have been noted.?Genitourinary:?Frequent urination?twice a night.?Musculoskeletal:?Muscle aches?denies.?Painful joints?denies.?Sciatica?denies.?Weakness?denies.?Skin:?Itching?denies.?Rash?denies.?Skin lesion(s)?denies.?Neurologic:?Difficulty speaking?denies.?Dizziness?denies.?Headache?denies.?Low back pain?denies.?Psychiatric:?Depressed mood?denies.? * Medical History:? * Surgical History:?Hernia rep air 2011,2016Eye Surgery 1954Radical Prostatectomy Brain tumor removed 2000Right hand surgery 1975Right knee surgery 52yrs oldBasal cell cancer removed on right cheek 2014melanoma removal on back 04/2018pituitary tumor removal in [place] 10/2019Brain Surgery tumor removal 11/2019Abdomen Aortic Aneurism 10/2023 * Hospitalization/Major Diagno stic Procedure:?Denies Past Hospitalization * Family History:?Father: dece ased 64 yrs, stroke, paratenitis.?Mother: 77 yrs, emphysema.?1 brother(s) , 2 sister(s) . 1 son(s) - healthy. .? A brother has prostate cancer at 65. His siblings have hypertension. One sister has fibromyalgia. * Social History:?Tobacco Use:?Tobacco Use/Smoking?Patient is a?former smoker ?How long has it been since you last smoked??> 10 years ?Additional Findings: Tobacco Non-User?Ex-cigarette smoker ???He was born in [place] and is not working at present. 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 He is and has one son. * Medications:?TakingamLODIPin e Besylate 5 MG Tablet TAKE 1 TABLET BY MOUTH TWICE DAILY Oral Medication List reviewed and reconciled with the patientTaking amLODIPine Besylate 5 MG Tablet TAKE 1 TABLET BY MOUTH TWICE DAILY Oral Medication List reviewed and reconciled with the patient * Allergies:?No Known Drug All ergyno[Allergies Verified] Objective: * Vitals:?Ht: 71, Wt:174, BMI: 24.27, BP:130/80, HR:78, Temp:97.3, Wt-k.93. * Examination: ???General Examination: ?GENERAL APPEARANCE:?pleasant, well nourished, well developed, in no acute distress, calm and relaxed , elderly man.?HEAD:?atraumatic, normocephalic.?EYES:?eomi, perrla, anicteric, conjugate, Vision loss Left eye.?EARS:?normal.?NOSE:?septum intact.?ORAL CAVITY:?normal, unremarkable.?NECK/THYROID:?no jugular venous distention, no carotid bruit, thyroid normal.?LYMPH NODES:?no enlarged lymph nodes,spleen normal.?SKIN:?no suspicious lesions, anicteric.?HEART:?no clicks, gallops, murmurs, or rubs, regular rhythm, S1, S2 normal, no s3, or vascular bruits.?LUNGS:?clear to auscultation .?BREASTS:??no masses palpable bilaterally.?ABDOMEN:?bowel sounds normal, no ascites, no organomegaly, no mass, No palpable mass.?RECTAL EXAM:?not examined.?MUSCULOSKELETAL:?extremities unremarkable, no clubbing, cyanosis or edema.?PERIPHERAL PULSES:?normal.?NEUROLOGIC:?alert and oriented, cranial nerves 2-12 grossly intact, deep tendon reflexes 2+ symmetrical, motor strength normal upper and lower extremities, sensory exam intact.?PSYCH:?alert, oriented.? Assessment: * Assessment: 1.?Pituitary tumor - D49.7 ( Primary), He will continue to be observed at the [facility] neurosurgery department. He will have periodic MRIs of the brain. The next study has been scheduled at [facility]. He recently went to [place] to see neurosurgery, Dr. Garcia, we'll told him that the tumor was not growing back.?2.?Prostate cancer - C61, His PSA is under 2 symptoms. No change in his therapy was needed.?3.?CLL (chronic lymphocytic leukemia) - C91.10, There was no adenopathy or splenomegaly. His white blood cell count and differential are unremarkable.?4.?Former smoker - Z87.891, He is highly motivated not to smoke. He has a plan to prevent relapse in times of stress and illness.?5.?Osteopenia - M85.80, There was continued on current therapy today without change.?6.?History of melanoma - Z85.820? Plan: * Treatment: 2.?Prostate cancer?LAB: PROFILE, FASTING (COMPREHENSIVE METABOLIC) ?LAB: PSA, TOTAL ?LAB: CBC WITH AUTO DIFF ?LAB: Lipid Panel ?LAB: Hemoglobin A1c * Procedure Codes:? * Preventive Medicine:? ??Counseling:?Smoking/Tobacco Use?Patient counseled on the dangers of tobacco use and urged to quit.?01/15/2024 * Follow Up:?3 Months (Reason: OV) * Images: * Sign off status: Completed true * Provider:?Frankie Keyes MD Date:?12/25 Generated for Ayei flor/Wan/eTransmitting on:?07/23/2024 07:19 AM EST History and Physical Notes * HPI (History of Present Illness) Category Sub-Category Detail Notes COVID-19 Screening Questions Have you had any new onset fever, chills, cough, congestion, sore throat, shortness of breath, muscle aches?: No Have you been exposed to the virus withi n the last 10 days?: No Have you travelled internationally in [facility] last 10 days?: No Have [...]
--- OUTSIDE RECORDS SUMMARY | 2024-07-23 07:19 | XMS_ITS | Continuity of Care Document ---
Author Organization [facility], [facility] 2nd floor Address [address] [place] [address] Care Team Providers Care Grant Specialist Name Role Phone ALLISON ARTEAGA Primary Care Provider Assessment No assessment recorded. Plan of Treatment Reminders Order Date Submit Date Provider Last Modified By Organization Details Last Modified Time Details Appointments INTRA HIP INJECTION 2024 09:45A Megan Horta PA-C Not available Not available Not available RECHECK 15 2024 01:00P Megan Paz PA-C Not available Not available Not available Lab None recorded. Referral None recorded. Procedures None recorded. Surgeries None recorded. Imaging None recorded. Medication Orders None recorded. Patient TargetsNo targets recorded. Patient InstructionsNo instructions recorded. Reason for Referral None Reported. Problems Name Problem SNOMED Code Status Onset Date Resolution Date Notes Provider Name and Address Organization Details Recorded Time Bilateral hip joint pain 6718879113096 9100 Active 2023 rito cottoFormerly [facility] 4 12:59:53 Pain of left hip joint 0973860458623 00 Active 2021 Status : 'A'; Not Available [facility] 4 10:58:27 Problem Notes None recorded. Procedures Surgical History Date Name Laterality Status Provider Name and Address Organization Details Recorded Time 5 Hip Kenalog 1cc Injection, L/R completed Gracia Paz PA-C [address], [place], [address], [facility] 07/11/2024 12:25:36 4 Hip Kenalog 1cc Injection, L/R completed Gracia Paz PA-C [address], [place], [address], [facility] 04/09/2024 22:03:05 4 Hip Kenalog 1cc Injection, Bilateral completed Gracia Paz PA-C [address], [place], [address], [facility] 01/08/2024 12:50:43 4 Hip Kenalog 1cc Injection, Bilateral completed Gracia Paz PA-C [address], [place], [address], [facility] 10/03/2023 14:19:23 repair of aneurysm of abdominal aorta with graft completed AIDEN TEIXEIRA [facility] 01/08/2024 13:04:21 Imaging Results None recorded. Procedure Notes None recorded. Medical Equipment None Reported. Allergies No known drug allergies Medications Name Sig Start Date Stop Date Status Note LastModified by Organization Details LastModified Time amlodipine 5 mg tablet TAKE 1 TABLET BY MOUTH TWICE DAILY active Not Available Not Available No t Available oxycodone-a cetaminophe n 5 mg-325 mg tablet TAKE 1 TABLET BY MOUTH EVERY 8 HOURS NEEDED FOR PAIN 04/09 completed Not Available Not Available Not Available mupirocin 2 % topical ointment APPLY OINTMENT TOPICALLY TWICE DAILY TO AFFECTED BIOPSY SITE FOR 10 DAYS 04/09 completed Not Available Not Available Not Available finasteride 5 mg tablet TAKE 1 TABLET BY MOUTH ONCE DAILY, AT 8:00 PM active Not Available Not Available No t Available Vitals Date Recorded Body height Body mass index (BMI) Body weight Provider Name and Address Organization Details Last Updated DateTime 07/11/2024 180.34 cm 24.4 kg/m2 09303.66 g rito torrezFormerly [facility] 07/11/2024 12:11:16 Social History None recorded. Functional Status None recorded. Mental Status None recorded. Family History Nothing Reported. Medical History No medical history recorded. Past Encounters Encounter ID Performer Location Encounter Start Date Encounter Closed Date Diagnosis/Indication Diagnosis SNOMED-CT Code Diagnosis ICD10 Code Diagnosis Note [id number] NICK [facility] [address]nd floor [address] [place] [address] 07/11/2024 12:05:37 07/11/2024 15:03:22 Trochanteric bursitis of right hip [id number] 35493 M70.61 Trochanter ic bursitis of left hip 6189876560 22849 M70.62 Osteoarthr itis of bilateral hip joints 8958286357 37193 M16.0 Health Concerns Section Related Observation LastModified by Organization Detai ls LastModified Time None Recorded Concern Status LastModified by Organization Details LastModified Time None Recorded Payers Encounter Date Sequence Insurance Name Policy Number Policy Wilson Covered Member ID Wilson Member ID Guarantor Name 07/11/2024 1 [place] [employer] Naveen Farias [id number] Naveen Farias 07/11/2024 2 [place] [id number] Naveen Farias [id number] Naveen Farias Notes Date Note Type Note Provider Name and Address Organization Details Recorded Time 07/11/2024 text/html *I am seeing the patient today under the supervision of Dr. Montgomery who was available but who did not see the patient.HPI: Naveen presents to the office today for a recheck of his hips. He received a left hip bursa cortisone injection October which only provided him with slight relief. At that visit he elected to hold off on the right hip bursa injection since he was doing well. He indicates that his right lateral hip pain has returned, but is mild. He is hoping to receive a right hip bursa cortisone injection today. He would also like to schedule a left hip intra-articular cortisone injection since he has been experiencing more pain in the groin. He denies new systemic complaints.PMH/PSH/ME DS/ALL/FMH/SOC HX/ROS are reviewed in detail per my medical intake sheet.General Exam: Vital signs are as noted belowMental status: Alert and lucid. Normal insight, affect and grooming.APPLIANCE SERVICE REPRESENTATIVE: Gross motor coordination is intact. No spasticity or clonus noted.EXAMINATION: The patient is well appearing and in no apparent distress. Alert and oriented x3. Gait is antalgic.Bilateral hips reveal no obvious deformity upon inspection. No edema, erythema, ecchymosis, or lesions. Neurovascularly intact. Tenderness present over the right greater than left greater trochanter. ROM is slightly restricted with internal and external rotation. Impingement, Hayden's, and Stinchfield tests are mildly positive. Straight leg raise negative. No instability. 5/5 strength. Calf/leg compartments soft and compressible.Lumbar spine reveals no obvious deformities upon inspection. No edema, erythema, ecchymosis, or lesions. Mild tenderness is present over the right SI joint. ROM is full and pain free. Straight leg raise is negative in the sitting and supine position. No focal neurologic deficits in the lower extremities.X-rays performed previously at [facility] include an AP pelvis and lateral view of the right hip. Images reveal mild osteoarthritis of the right hip. There is moderate to severe narrowing of the left superolateral joint with cystic changes noted in the acetabulum. No evidence for an acute fracture or lesion.The MRI he had performed at [place] on 02/10/2022 is revealing mild right hip osteoarthritis with extensive labral degeneration/tearing. There is moderate right gluteus medius and minimus tendinopathy with low-grade partial thickness tearing at the greater trochanter. Degenerative changes are present in bilateral SI joints, left greater than right, there also was small volume left greater trochanteric bursitis. There is a focal increased signal in the anterior right femoral neck measuring up to 9 mm, likely a small enchondroma although this is not definitive. Less likely a stress reaction or neoplastic. A follow-up bone scan is recommended to exclude metabolic activity.IMPRESSION: Bilateral hip greater trochanteric bursitis and osteoarthritis PLAN: The patient was thoroughly counseled today regarding their hip condition, its natural history, and the treatment options including physical therapy, medication, and a corticosteroid injection. The patient is interested in receiving an injection with corticosteroid.The right trochanteric regions was prepped sterilely, and injection was administered at the point of maximum tenderness utilizing 40mg of Kenalog and 4cc of 0.25% Marcaine. The patient tolerated the procedure well. Post-injection precautions were discussed. He has a home exercise program from physical therapy. The prognosis of his left hip osteoarthritis has also been discussed. We will schedule him for an intra-articular left hip cortisone injection. All of his questions have been answered. Gracia Paz PA-C [address], [place], [address], [facility] 07/11/2024 15:03:20
--- OUTSIDE RECORDS SUMMARY | 2024-07-23 07:19 | XMS_ITS ---
Author Organization Frankie Keyes III, MD Address [address] [place] [address] Care Team Providers Care Sound Effects Technician Name Role Phone Christian Barkley MD Primary Care Provider Frankie Bender Unavailable [phone] Allergies Allergen (clinical drug ingredient) Drug/Non Drug [...] Active Prolia 60 MG/ML as directed Subcutaneous Active amLODIPine Besylate 5 MG TAKE 1 [...] Date Provider Diagnosis Frankie Keyes III, MD [address] [place] [address] [place] [id number] 04/22/2024 Frankie Keyes Pituitary tumor D49. 7 [...] will continue to be observed at the [facility] neurosurgery department. He will have periodic MRIs of the brain. The next study has been scheduled at [facility]. He recently went to [place] to see neurosurgery, Dr. Garcia, we'll told [...] PSA, TOTAL 04/22/2024 CBC w DIFF 04/22/2024 XR CHEST 2 VIEW PA & LAT 04/22/2024 Lipid Panel 04/22/2024 Hemoglobin A1c 04/22/2024 Next Appt Details Follow Up: 4 Months, Reason: ov review labs Provider Name:Frankie Keyes, 08/26/2024 02:00:00 PM, [address] [place] [address], [place] [address], [place], [id number], Progress Notes * Naveen FARIASDOB:1944 (79 yo M)Acc No.[id number]:04/22/2024 Progress Notes Patient:?Naveen FARIAS Provider:?Frankie Keyes MD :1945???Age:79 Y???Sex:Male Ankur e:04/22/2024 Address:[address] [place] [address] , [id number] Pcp:Christian Barkley MD Subjective: * Chief Complaints: * ???Prostate cancerPituitary tumorChronic lymphocytic leukemiaHistory of melanoma * HPI: ???COVID-19 Screening:?Questions?Have you experienced fever, chills, cough, sore throat, shortness of breath, difficulty breathing, muscle aches, loss of taste or smell??Yes Cough stated longer than 48 hours ?Have you been exposed to the virus within the last 10 days??No ?Have you travelled internationally in the last 10 days??No ?Have you been exposed to COVID-19 in the past??Yes ???:? The patient, a 79-year-old male, has been [...] wheeze. Blood Sugar Level is 131. * ROS:?General/Constitutional:?Admits?pain,?only normal aches and pains.?Chills?denies.?Admits?Fatigue,?admits.?Fever?denies.?ENT:?Decreased hearing?mild.?Respiratory:?Cough?denies.?Cardiovascular:?Chest pain with exertion?denies.?Dyspnea on exertion?denies.?Shortness of breath?denies.?Gastrointestinal:?Constipation?occasional.?Decreased appetite?denies.?Diarrhea?denies.?Heartburn?denies.?Nausea?denies.?Rectal bleeding?denies.?Vomiting?denies.?Hematology:?Admits?bruising,?denies.?petechiae?denies.?Swollen glands?none have been noted.?Genitourinary:?Frequent urination?once a night.?Musculoskeletal:?Muscle aches?denies.?Painful joints?denies.?Sciatica?denies.?Weakness?denies.?Skin:?Itching?denies.?Rash?denies.?Skin lesion(s)?denies.?Neurologic:?Difficulty speaking?denies.?Dizziness?denies.?Headache?denies.?Low back pain?denies.?Psychiatric:?Depressed mood?denies.? * Medical History:? * Surgical History:?Hernia rep air 2011,2016Eye Surgery 5Radical Prostatectomy Brain tumor removed 2000Right hand surgery 1975Right knee surgery 50yrs oldBasal cell cancer removed on right cheek 2014melanoma removal on back 04/2018pituitary tumor removal in [place] 10/2019Brain Surgery tumor removal 11/2019Abdomen Aortic Aneurism 10/2023No history * Hospitalization/Major Diagno stic Procedure:?No history * Family History:?Father: dece ased 64 yrs, [...] Tobacco Non-User?Ex-cigarette smoker ???He was born in [place] and is not working at present. 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 He is and has one son. * Medications:?TakingFinasteri de 5 MG Tablet 1 tablet Orally Once [...] All ergyno[Allergies Verified] Objective: * Vitals:?Ht: 71, Wt:177, BMI: 24.68, BP:131/78, HR:63, Temp:97.3, Wt-k.29. * ???Past Orders: Lab:Complete Blood Count Aut o Diff * Collection Date 04/12/2024 12/04/2023 08/28/2023 Collection Time 08:28 AM 07:42 AM 07:35 AM Order Date 04/12/2024 12/04/2023 08/28/2023 White Blood Count 5.7 (Ref Range: 4.8-10.8 X10*3/uL) 5.9 (Ref Range: 4.8-10.8 X10*3/uL) 5.9 (Ref Range: 4.8-10.8 X10*3/uL) Red Blood Count 4.37?L (Ref Range: 4.60-5.80 X10*6/uL) 4.00?L (Ref Range: 4.60-5.80 X10*6/uL) 4.57?L (Ref Range: 4.60-5.80 X10*6/uL) Hemoglobin 13.0?L (Ref Range: 14.0-18.0 g/dl) 12.4?L (Ref Range: 14.0-18.0 g/dl) 14.3 (Ref Range: 14.0-18.0 g/dl) Hematocrit 40.7?L (Ref Range: 42.0-52.0 %) 37.2?L (Ref Range: 42.0-52.0 %) 42.7 (Ref Range: [...] (Ref Range: 0.0-0.4 %) Lymphocytes Percent Auto 16.9?L (Ref Range: 20-40 %) 16.8?L (Ref Range: 20-40 %) 22.0 (Ref Range: [...] (Ref Range: 0.00-0.03 X10*3/uL) Lymphocytes Absolute Auto 1.0?L (Ref Range: 1.2-4.9 X10*3/uL) 1.0?L (Ref Range: 1.2-4.9 X10*3/uL) 1.3 (Ref Range: [...] <0.05-4.0 ng/mL) 1.03 (Ref Range: <0.05-4.0 ng/mL) 6.06?H (Ref Range: <0.05-4.0 ng/mL) * Lab:Lipid Panel * Collection Date 04/12/2024 08/28/2023 04/10/2023 Collection Time 08:28 AM 07:35 AM 07:31 AM Order Date 04/12/2024 08/28/2023 04/05/2023 Triglycerides 64 (Ref Range: <150 mg/dL) 62 (Ref Range: <150 mg/dL) 40 (Ref Range: <150 mg/dL) Cholesterol 194 (Ref Range: <200 mg/dL) 216?H (Ref Range: <200 mg/dL) 201?H (Ref Range: <200 mg/dL) LDL Cholesterol Calculated 117?H (Ref Range: <100 mg/dL) 135?H (Ref Range: <100 mg/dL) 120?H (Ref Range: <100 mg/dL) HDL Cholesterol 65 (Ref Range: >40 mg/dL) 69 (Ref Range: >40 mg/dL) 73 (Ref Range: >40 mg/dL) * Lab:Comprehensive [place]. Pane l Fast * Collection Date 04/12/2024 08/28/2023 06/09/2020 Collection Time 08:28 AM 07:35 AM 07:00 AM Order Date 04/12/2024 08/28/2023 06/09/2020 Sodium 147?H (Ref Range: 135-145 mmol/L) 142 (Ref Range: [...] Range: 22-29 mmol/L) Anion Gap NR NR 10?L (Ref Range: 12-20) Blood Urea Nitrogen NR NR 21?H (Ref Range: 9-16 mg/dL) Creatinine NR NR 0.81 (Ref Range: 0.5-1.4 mg/dL) Estimated Glomerular Filt Rate NR NR > 60 Glucose Fasting NR NR 116?H (Ref Range: 60-99 mg/dL) Calcium NR NR 8.6 (Ref Range: 8.4-10.2 mg/dL) Bilirubin Total NR NR 0.6 (Ref Range: 0.0-1.0 mg/dL) Aspartate Amino Transferase NR NR 19 (Ref Range: 5-37 U/L) Alanine Aminotransferase NR NR 10 (Ref Range: 0-40 U/L) Total Protein NR NR 6.4?L (Ref Range: 6.5-8.0 g/dL) Albumin Level NR [...] NR Anion Gap 15 (Ref Range: 12-20) 11?L (Ref Range: 12-20) NR Blood Urea Nitrogen 16 (Ref Range: 9-16 mg/dL) 14 (Ref Range: 9-16 mg/dL) NR Creatinine 0.78 (Ref Range: 0.5-1.4 mg/dL) 0.79 (Ref Range: 0.5-1.4 mg/dL) NR Estimated Glomerular Filt Rate > 60 > 60 NR Glucose Fasting 131?H (Ref Range: 60-99 mg/dL) 125?H (Ref Range: 60-99 mg/dL) NR Calcium 8.9 (Ref Range: 8.4-10.2 mg/dL) 9.9 (Ref Range: 8.4-10.2 mg/dL) NR * Examination: ???General Examination: ?GENERAL APPEARANCE:?pleasant, well nourished, well developed, in no acute distress, calm and relaxed, elderly man.?HEAD:?atraumatic, normocephalic.?EYES:?eomi, perrla, anicteric, conjugate, Diminished vision left eye.?EARS:?normal.?NOSE:?septum intact.?ORAL CAVITY:?normal, unremarkable.?NECK/THYROID:?no jugular venous distention, no carotid bruit, thyroid normal.?LYMPH NODES:?no enlarged lymph nodes,spleen normal.?SKIN:?no suspicious lesions, anicteric.?HEART:?no clicks, gallops, murmurs, or rubs, regular rhythm, S1, S2 normal, no s3, or vascular bruits.?LUNGS:?clear to auscultation .?BREASTS:??no masses palpable bilaterally.?ABDOMEN:?bowel sounds normal, no ascites, no organomegaly, no mass.?RECTAL EXAM:?not examined.?MUSCULOSKELETAL:?extremities unremarkable, no clubbing, cyanosis or edema.?PERIPHERAL PULSES:?normal.?NEUROLOGIC:?alert and oriented, cranial nerves 2-12 grossly intact, deep tendon reflexes 2+ symmetrical, motor strength normal upper and lower extremities, sensory exam intact.?PSYCH:?alert, oriented.? 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 He is asymptomatic.? 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 neurosurgery department. He will have periodic MRIs of the brain. The next study has been scheduled at [facility]. He recently went to [place] to see neurosurgery, Dr. Garcia, we'll told him that the tumor was not growing back.???3.?CLL (chronic lymphocytic leukemia) - C91.10???Notes :His lymmphocyte count is actually lower than normal.? There is no sign of disease progression and observation will be continued.???4.?Former smoker - Z87.891???Notes :He has a plan to prevent relapse in times of stress or illness.???5.?Hyperglycemia - R73.9???Notes :This value is being treated by primary care.? 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 He is able to conduct all of the activities of daily life. The left eye has normal vision. This is a result of treatment of the pituitary tumor in the past.??? Plan: * Treatment: 2.?Pituitary tumor? Continue amLODIPine Besylate Tablet, 5 MG, TAKE 1 TABLET BY MOUTH TWICE DAILY, Oral;?Continue Finasteride Tablet, 5 MG, 1 tablet, Orally, Once a day;?Continue Prolia Solution Prefilled Syringe, 60 MG/ML, as directed, Subcutaneous;?Continue Lupron Depot (6-Month) Kit, 45 MG, as directed, Intramuscular.?LAB: PROFILE, FASTING (COMPREHENSIVE METABOLIC) ?LAB: PSA, TOTAL ?LAB: CBC w DIFF ?LAB: Lipid Panel ?LAB: Hemoglobin A1c 3.?CLL (chronic lymphocytic leukemia)?LAB: PROFILE, FASTING (COMPREHENSIVE METABOLIC) ?LAB: PSA, TOTAL ?LAB: CBC w DIFF ?LAB: Lipid Panel ?LAB: Hemoglobin A1c 4.?Former smoker?LAB: PROFILE, FASTING (COMPREHENSIVE METABOLIC) ?LAB: PSA, TOTAL ?LAB: CBC w DIFF ?LAB: Lipid Panel ?LAB: Hemoglobin A1c 5.?Hyperglycemia?LAB: PROFILE, FASTING (COMPREHENSIVE METABOLIC) ?LAB: PSA, TOTAL ?LAB: CBC w DIFF ?LAB: Lipid Panel ?LAB: Hemoglobin A1c * Procedure Codes:? * Preventive Medicine:? ??Counseling:?Smoking/Tobacco Use?Patient counseled on the dangers of tobacco use and urged to quit.?04/22/2024 * Follow Up:?4 Months (Reason: ov review labs) * Images: * Sign off status: Completed true * Provider:?Frankie Keyes MD Date:?03/27 Generated for Printi ng/Faaayushg/eTransmitting on:?07/23/2024 07:19 AM EST History and Physical [...] days?: No Have you travelled internationally in [facility] last 10 days?: No Have you [...]
--- OUTSIDE RECORDS SUMMARY | 2024-07-23 07:20 | XMS_ITS | Clinical Summary ---
Author Organization [facility] Address [address] [place] [address] Care Team Providers Care Lead Manufacturing Technician Name Role Phone Christian Barkley MD Primary Care Provider [phone] Allergies No known active allergies Medications Medication Sig Dispensed Refills Start Date End Date Status calcium citrate-vitamin D (CITRACAL+D) 315-200 MG-UNIT per tablet Take 1 tablet by mouth 2 (two) times a day. 0 Active Multiple Vitamins-Minerals (MULTIVITAMIN ADULT PO) Take 1 tablet by mouth daily. 0 Active B Complex Vitamins (VITAMIN B COMPLEX PO) Take 1 tablet by mouth daily. 0 Active finasteride (PROSCAR) 5 MG tablet Take 5 mg by mouth daily. 0 Active leuprolide acetate, 6 Month, (LUPRON DEPOT, 6-MONTH,) 45 MG injection Inject 45 mg into the muscle every 6 (six) months. 1 kit 0 04/27/2018 Active denosumab (PROLIA) injection 60 mg/mL Inject 60 mg under the skin once. 0 Active amLODIPine (NORVASC) tablet 5 mg Take 1 tablet (5 mg total) by mouth daily. 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 Social History Tobacco Use Types Packs/Day Years Used Date Smoking Tobacco: Never Assessed Sex and Gender Information Value Date Recorded Sex Assigned at Not on file Gender Identity Not on file Sexual Orientation Not on file Job Start Date Occupation Industry Not on file Not on file Not on file Last Filed Vital Signs Vital Sign Reading Time Taken Comments Blood Pressure 144/86 01/09/2023 2:19 PM EDT Pulse 85 01/09/2023 2:19 PM EDT Temperature 36.8 ??C (98.2 ??F) 01/09/2023 2:19 PM ED T Respiratory Rate - - Oxygen Saturation 98% 01/09/2023 2:19 PM EDT Inhaled Oxygen Concentration - - Weight 79.4 kg (175 lb) 01/09/2023 2:19 PM EDT Height 179.1 cm (5' 10.5 ) 12/20/2021 1:34 PM ED T Body Mass Index 24.75 12/20/2021 1:34 PM EDT Plan of Treatment Health Maintenance Due Date Last Done Comments Hepatitis C Screening 1945 COVID-19 Vaccine (#1) 1952 Pneumococcal Vaccine (1 of 2 - PCV) 1953 Depression Screening 1959 Preventative Health Evaluation 1965 DTap / Tdap / Td (1 - Tdap) 1966 Shingrix-Zoster Vaccine (1 of 2) 1966 Fall Risk Assessment 2012 RSV Adult > 60+ Yrs or Pregn ant (1 - 1-dose 75+ series) 2022 Influenza Vaccine (#1) 2024 03/01/2014 Hepatitis B Vaccines Aged Out No long er eligible based on patient's age to complete this topic RSV Ped < 20 months Aged Out No longe r eligible based on patient's age to complete this topic Care Teams Lead Manufacturing Technician Relationship Specialty Start Date End Date Christian Barkley MD [address] [place] [address] Dr [address] [place], [place] [id number] PCP - General Aquatic Biologist 08/10/16
--- OUTSIDE RECORDS SUMMARY | 2024-07-23 07:20 | XMS_ITS | Data Portability ---
Author Organization [place] - [facility], [facility] Address [address] [place] [address] Care Team Providers Care Blind Aide Name Role Phone ALLISON ARTEAGA Primary Care [...] Procedures None recorded. Surgeries None recorded. Imaging XR, hip + pelvis, bilateral , 2 view - room 205 bilateral hip 2v cw 2023 024 [email or web address] [facility] Office, [address] [facility], [facility] [address], [place], [address], 05/01/2024 09:08:43 Medication Orders None recorded. Patient TargetsNo targets recorded. Patient InstructionsNo instructions recorded. Reason for Referral None Reported. Results Created Date Observation Date Name Description Value Unit Range Abnormal Flag Note LastModifiedBy Organization Detail LastModifiedTime 02/23/20 24 07/22/2021 imagi ng/di agnos tic resul t No observ ation record ed. [email or web address] Not Available 01/26 20:37:54 02/23/20 24 02/10/2022 imagi ng/di agnos tic resul t No observ ation record ed. [email or web address] Not Available 01/26 20:37:56 04/09/20 24 04/09/2024 XR, hip + pelvi slizeth, 2 view [email or web address]:/ [email or web address] ?Encry pted=s hAaTro YD8dLq bEUv6g %2BXZw aYqtaq 0bqfl% 2Fg9IQ a4ajBk vP9nXo QUaueC m3YtLR FvZlgJ JJ8mAn HZtai3 3a2408 AC0Kqa 3uCUqK gKiQtr MwF INTERFACE [facility] [address], [place], [address], 04/09/2024 13:11:42 04/09/20 24 04/09/2024 XR, hip + pelvi s, lizeth luther, 2 view [email or web address]:/ [email or web address] ?Encry pted=s hAaTro YD8dLq bEUv6g %2BXZw aYqtaq 0bqfl% 2Fg9IQ a4ajBk vP9nXo QUaueC m3YtLR FvZlgJ JJ8mAn HZtai3 0s7150 AC0Kqa 3uCUqK gKiQtr MwF INTERFACE [facility] [address], [place], [address], 04/09/2024 13:11:44 Result Notes None recorded. Problems Name Problem SNOMED Code Status Onset Date Resolution Date Notes Provider Name and Address Organization Details Recorded Time Bilateral hip joint pain 7320637749872 9100 Active 2023 egypt lore quintanilla [facility] 4 12:59:53 Pain of left hip joint 6809491346274 00 Active 2021 Status : 'A'; Not Available [facility] 4 10:58:27 Problem Notes None recorded. Procedures Surgical History Date Name Laterality Status Provider Name and Address Organization Details Recorded Time 5 Hip Kenalog 1cc Injection, L/R completed Gracia Paz PA-C [address], [place], [address], [facility] 07/11/2024 12:25:36 4 Hip Kenalog 1cc Injection, L/R completed Gracia Paz PA-C [address], [place], [address], [facility] 04/09/2024 22:03:05 4 Hip Kenalog 1cc Injection, Bilateral completed Gracia Paz PA-C [address], [place], [address], [facility] 01/08/2024 12:50:43 4 Hip Kenalog 1cc Injection, Bilateral completed Gracia Paz PA-C [address], [place], [address], [facility] 10/03/2023 14:19:23 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 01/08/2024 13:04:21 Imaging Results Imaging Date Name Status LastModified by Organiz ation Details LastModified Time 07/22/2021 imaging/diag nostic result completed Information not available 02/23/2024 20:37:54 02/10/2022 imaging/diag nostic result completed Information not available 02/23/2024 20:37:56 04/09/2024 XR, hip + pelvis, bilateral, 2 view completed INTERFACE [facility] [address], [place], [address], 04/09/2024 13:11:42 04/09/2024 XR, hip + pelvis, bilateral, 2 view completed [facility]FACE [facility] [address], [place], [address], 04/09/2024 13:11:44 Procedure Notes None recorded. Medical Equipment None [...] and Address Organization Details Last Updated DateTime 10/03/2023 180.34 cm 25.1 kg/m2 86247.63 g kwan issa [facility] 10/03/2023 13:37:43 Date Recorded Body height Body mass index (BMI) Body weight Provider Name and Address Organization Details Last Updated DateTime 01/08/2024 180.34 cm 24.4 kg/m2 54783.66 g AIDEN LLUVIA [facility] 01/08/2024 13:03:52 Date Recorded Body height Body mass index (BMI) Body weight Provider Name and Address Organization Details Last Updated DateTime 04/09/2024 180.34 cm 24.4 kg/m2 82658.66 g [facility] 04/09/2024 12:58:54 Date Recorded Body height Body mass index (BMI) Body weight Provider Name and Address Organization Details Last Updated DateTime 07/11/2024 180.34 cm 24.4 kg/m2 62074.66 g [facility] 07/11/2024 12:11:16 Social History None recorded. Functional Status None recorded. Mental Status None recorded. Family History Nothing Reported. Medical History No medical history recorded. Past Encounters Encounter ID Performer Location Encounter Start Date Encounter Closed Date Diagnosis/Indication Diagnosis SNOMED-CT Code Diagnosis ICD10 Code Diagnosis Note [id number] NICK [facility] [address] [place] [address] 10/03/2023 13:24:00 10/28/2023 06:41:48 Trochanteric bursitis of left hip [id number] 37228 M70.62 Trochanter ic bursitis of right hip 0376194432 03834 M70.61 [id number] Gracia Paz PA-C [place] [address] [place] [address] 01/08/2024 12:46:05 01/26/2024 08:10:18 Trochanteric bursitis of left hip [id number] 77107 M70.62 Trochanter ic bursitis of right hip 7968749200 77416 M70.61 [id number] Gracia Paz PA-C [facility] [address] [place] [address] 04/09/2024 12:53:57 05/01/2024 09:08:42 Bilateral hip joint pain 1175636440 9612333 M25.551 Trochanter ic bursitis of left hip 1372756566 36329 M70.62 Trochanter ic bursitis of right hip 9460572496 01355 M70.61 Osteoarthr itis of bilateral hip joints 1506896437 30094 M16.0 [id number] Gracia Paz PA-C [facility] [address] [place] [address] 07/11/2024 12:05:37 07/11/2024 15:03:22 Trochanteric bursitis of right hip 5547317965 38683 M70.61 Trochanter ic bursitis of left hip 9925519261 79188 M70.62 Osteoarthr itis of bilateral hip joints 3382255260 91828 M16.0 Health Concerns Section Related Observation LastModified by Organization Detai ls LastModified Time None Recorded Concern Status LastModified by Organization Details LastModified Time None Recorded Advance Directives Directive None Recorded Payers Encounter Date Sequence Insurance Name Policy Number Policy Wilson Covered Member ID Wilson Member ID Guarantor Name 10/03/2023 1 [place] [employer] Naveen Farias [id number] Naveen Farias 10/03/2023 2 [place] [id number] Naveen Farias [id number] Naveen Farias 01/08/2024 1 [place] [employer] Naveen Farias [id number] 67 Naveen Farias 01/08/2024 2 [place] [id number] Naveen Farias [id number] Naveen Farias 04/09/2024 1 [place] [facility] Naveen Farias [id number] 67 Naveen Farias 04/09/2024 2 [place] [id number] Naveen Farias [id number] Naveen Farias 07/11/2024 1 [place] [facility] Naveen Farias [id number] 67 Naveen Farias 07/11/2024 2 [place] [id number] Naveen Farias [id number] Naveen Farias Notes Date Note Type Note Provider Name and Address Organization Details Recorded Time 10/03/2023 text/html *I am seeing the patient today under the supervision of Dr. Lobo who was available but who did not see the patient. HPI: Naveen presents to the office today for a recheck of his hips. He received bilateral hip bursa injections previously which provided him with relief up until 3 days ago. He indicates he had no pain over the past few months. He now has some minor lateral hip discomfort which is most prominent with sleeping on his sides. He is here today for repeat injections. PMH/PSH/MEDS/ALL/FMH/ SOC HX/ROS are reviewed in detail per my medical intake sheet. General Exam: Vital signs are as noted belowMental status: Alert and lucid. 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 No spasticity or clonus noted. EXAMINATION: The patient is well appearing and in no apparent distress. Alert and oriented x3. Gait is antalgic. Bilateral hips reveal no obvious deformity upon inspection. No edema, erythema, ecchymosis, or lesions. Neurovascularly intact. Tenderness present over the greater trochanter. ROM is slightly restricted with internal and external rotation. Impingement, Hayden's, and Stinchfield tests are mildly positive. Straight leg raise negative. No instability. 5/5 strength. Calf/leg compartments soft and compressible. Lumbar spine reveals no obvious deformities upon inspection. No edema, erythema, ecchymosis, or lesions. Mild tenderness is present over the right SI joint. ROM is full and pain free. Straight leg raise is negative in the sitting and supine position. No focal neurologic deficits in the lower extremities. X-rays performed at an outside facility of the left hip on 07/22/2021 have been independentlyreviewed . Images reveal mild to moderate left hip osteoarthritis. No evidence for an acute fracture or bone lesion. X-rays performed previously at [facility] include an AP pelvis and lateral view of the right hip. Images reveal mild osteoarthritis of bilateral hips. No evidence for an acute fracture or lesion. The MRI he had performed at [facility] on 02/10/2022 is revealing mild right hip [...] bone scan is recommended to exclude metabolic activity. IMPRESSION: Bilateral hip greater trochanteric bursitis PLAN: The patient was thoroughly counseled today regarding their hip condition, its natural history, and the treatment options including physical therapy, medication, and a corticosteroid injection. The patient is interested in receiving an injection with corticosteroid.Bilate ral trochanteric regions were prepped sterilely, and injections were administered at the point of maximum tenderness utilizing 40mg of Kenalog and 4cc of 0.25% Marcaine. The patient tolerated the procedure well. Post-injection precautions were discussed. He has a home exercise program from physical therapy. I will see him back in 3 months for a repeat injection if needed. All of his questions have been answered. [facility] speech recognition meter record clerk software was used to create portions of this document. An attempt at proofreading has been made to minimize errors. Please call for corrections. Gracia Paz PA-C [address] [place] [address] [address], [place], [address], [facility] 10/03/2023 14:19:49 01/08/2024 text/html *I am seeing the patient today under the supervision of Dr. Riley who was available but who did not see the patient.HPI: Naveen presents to the office today for a recheck of his hips. He received bilateral hip bursa injections in September which provided him with pain relief up until recently. He now has some minor lateral hip discomfort which is most prominent with sleeping on his sides. Over the couple of months he has also noticed intermittent snapping over the anterior. He is here today for repeat injections.PMH/PSH/ME DS/ALL/FMH/SOC HX/ROS are reviewed in detail per my medical intake sheet.General Exam: Vital signs are as noted belowMental status: Alert and lucid. 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 No spasticity or clonus noted.EXAMINATION: The patient is well appearing and in no apparent distress. Alert and oriented x3. Gait is antalgic.Bilateral hips reveal no obvious deformity upon inspection. No edema, erythema, ecchymosis, or lesions. Neurovascularly intact. Tenderness present over the greater trochanter. ROM is slightly restricted with [...] in the lower extremities.X-rays performed previously at [facility] include an AP pelvis and lateral view of the right hip. Images reveal mild osteoarthritis of bilateral hips. No evidence for an acute fracture or lesion.The MRI he had performed at [facility] on 02/10/2022 is revealing mild right hip [...] exclude metabolic activity.IMPRESSION: Bilateral hip greater trochanteric bursitisPLAN: The patient was thoroughly counseled today regarding their hip condition, its natural history, and the treatment options including physical therapy, medication, and a corticosteroid injection. The patient is interested in receiving an injection with corticosteroid.Bilate ral trochanteric regions were prepped sterilely, and injections were administered at the point of maximum tenderness utilizing 40mg of Kenalog and 4cc of 0.25% Marcaine. The patient tolerated the procedure well. Post-injection precautions were discussed. He has a home exercise program from physical therapy. I will see him back in 3 months for an updated hip x-ray and repeat injection if needed. I have asked him to closely monitor the intermittent snapping he occasionally notices over the anterior hip. All of his questions have been answered. Gracia Paz PA-C [address] [place] [address] [address], [place], [address], [facility] 01/08/2024 14:08:59 04/09/2024 text/html *I am seeing the patient today under the supervision of Dr. Mccall who was available but who did not see the patient.HPI: Naveen presents to the office today for a recheck of his hips. He received bilateral hip bursa injections in December which provided him with pain relief up until recently. He now has some minor left lateral hip discomfort which is most prominent with sleeping on his side. He also indicates he feels intermittent snapping and grinding of the left hip. He is here today to discuss treatment options.PMH/PSH/MEDS/ ALL/FMH/SOC HX/ROS are reviewed in detail per my medical intake sheet.General Exam: Vital signs are as noted belowMental status: Alert and lucid. 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 No spasticity or clonus noted.EXAMINATION: The patient is well appearing and in no apparent distress. Alert and oriented x3. Gait is antalgic.Bilateral hips reveal no obvious deformity upon inspection. No edema, erythema, ecchymosis, or lesions. Neurovascularly intact. Tenderness present over the left greater trochanter. ROM is slightly restricted [...] neurologic deficits in the lower extremities.X-rays performed today at [facility] include an AP pelvis and lateral view of the right hip. Images reveal mild osteoarthritis of the right hip. There is moderate to severe narrowing of the left superolateral joint with cystic changes noted in the acetabulum. No evidence for an acute fracture or lesion.The MRI he had performed at [facility] on 02/10/2022 is revealing mild right hip [...] interested in receiving an injection with corticosteroid.The left trochanteric regions was prepped sterilely, and injection was administered at the point of maximum tenderness utilizing 40mg of Kenalog and 4cc of 0.25% Marcaine. The patient tolerated the procedure well. Post-injection precautions were discussed. He has a home exercise program from physical therapy. The prognosis of his left hip osteoarthritis has also been discussed. He has been responding favorably to bursa cortisone injections. He did not feel as if he needed an injection for his right hip today. If he finds today's left hip bursa injection does not provide him with much relief he will call the office and we may schedule him an appointment for intra-articular left hip cortisone injection. All of his questions have been answered. Gracia Paz PA-C [address] [place] [address] [address], [place], [address], [facility] 04/09/2024 22:08:32 07/11/2024 text/html *I am seeing the patient today under the supervision of Dr. Montgomery who was available but who did not see the patient.HPI: Naveen presents to the office today for a recheck of his hips. He received a left hip bursa cortisone injection March which only provided him with slight relief. [...] Alert and lucid. 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 No spasticity [...] in the lower extremities.X-rays performed previously at [facility] include an AP pelvis and lateral view of the right hip. Images reveal mild osteoarthritis of the right hip. There is moderate to severe narrowing of the left superolateral joint with cystic changes noted in the acetabulum. No evidence for an acute fracture or lesion.The MRI he had performed at [facility] on 02/10/2022 is revealing mild right hip [...] have been answered. Gracia Paz PA-C [address] [facility] [address], [place], [address], [facility] 07/11/2024 15:03:20
--- OUTSIDE RECORDS SUMMARY | 2024-07-23 07:20 | XMS_ITS | Patient Health Record ---
Author Organization [facility] Address [address] [place] [address] Care Team Providers Care Judicial Assistant Name Role Phone Christian Barkley MD Primary [...] Problem Colon cancer screening (Z12.11) Active confirmed [id number] PLAN OF TREATMENT Future Test Test Name Order Date COLONOSCOPY 11/20/2013 COLONOSCOPY 04/13/2020 Insurance Providers Payer Name Payer Address Payer Phone Subscriber Number Group Number Insured Name Patient Relationship to Insured Coverage Start Date Coverage End Date MEDICARE OF [place] [address] [place] [address] [phone] [id number] KAMERON SWANSON Self - patient is the insured MEDEX ATTN CLAIMS [address] [place] [address] [id number] KAMERON SWANSON Self - patient is the insured MEDICAL (GENERAL) HISTORY Medical History History ICD Code Colonoscopy, 03/09 negative f or polyps, five-year followup recommended, history of previous adenomas Gastroesophageal reflux disease Hypertension Pituitary Gland tumor Left eye blindness Denies ND,DM,CVA,Lung disease,renal dise ase prostate cancer brain tumor CLL Surgical History Surgery Date(Month/Year) brain surgery wrist surgery eye surgery cataract removal knee surgery hernia repair prostatectomy laminectomy
--- OUTSIDE RECORDS SUMMARY | 2024-07-23 07:20 | XMS_ITS ---
Author Organization Frankie Keyes III, MD Address [address] [place] [address] [place] [address] Care Team Providers Care Application Helper Name Role Phone Christian Barkley MD Primary Care Provider Frankie Bender Unavailable [phone] REASON FOR VISIT pt needs 1 year follow up MRI done at [facility] Encounters Encounter Location Date Provider Diagnosis Frankie Keyes III, MD [address] [place] [address] [place] [address] 09/11/2023 Frankie Keyes Plan Of Treatment Next Appt Details Provider Name:Frankie Keyes, 08/26/2024 02:00:00 PM, [address] [place] [address] [facility]ONCOSO [facility] [place], [address], Progress Notes * Naveen FARIASDOB:1944 (78 yo M)Acc No.[id number]:09/11/2023 Patient:?Naveen Farias :1945???Age:78 Y???Sex:Male Address:[address] [place] [address] , [place] [address] * true * Date:? Generated for Printi ng/Faxing/eTransmitting on:?07/23/2024 07:19 AM EST
[2024-07-23 07:30] LABS: MANUAL DIFF FLAG NO
[2024-07-23 07:51] LABS: Basophils Percent Auto 0.3 % (0-2); Eosinophils Absolute Auto 0.1 X10*3/uL (0.0-0.4); Eosinophils Percent Auto 1.3 % (0-4); Hematocrit 39.6 % (42.0-52.0); Hemoglobin 13.2 g/dl (14.0-18.0); Imm Gran Abs Auto 0.03 X10*3/uL (0.00-0.03); Imm Gran Pct Auto 0.3 % (0.0-0.4); Lymphocytes Absolute Auto 1.5 X10*3/uL (1.2-4.9); Lymphocytes Percent Auto 16.9 % (20-40); Mean Corpuscular HGB Conc 33.3 g/dl (31.0-36.0); Mean Corpuscular Hemoglobin 30.2 pg (27.0-33.0); Mean Corpuscular Volume 90.6 fL (80.0-98.0); Mean Platelet Volume 9.8 fL (9.4-12.4); Monocytes Absolute Auto 0.6 X10*3/uL (0.1-1.2); Neutrophils Absolute Auto 6.5 x10*3/uL (2.0-8.3); Neutrophils Percent Auto 74.2 % (45-73); Platelet Count 164 X10*3/uL (160-400); Red Blood Count 4.37 X10*6/uL (4.60-5.80); Red Cell Distribution Width 13.3 % (11.0-16.0); White Blood Count 8.7 X10*3/uL (4.8-10.8)
[2024-07-23 08:25] LABS: Alanine Aminotransferase 17 U/L (0-40); Albumin Level 3.9 g/dL (3.5-5.0); Alkaline Phosphatase 83 U/L (39-117); Anion Gap 11 (12-20); Aspartate Amino Transferase 20 U/L (5-37); Bilirubin Total 0.6 mg/dL (0.0-1.0); Blood Urea Nitrogen 18 mg/dL (9-16); Calcium 8.7 mg/dL (8.4-10.2); Carbon Dioxide 26 mmol/L (22-29); Chloride 108 mmol/L (96-108); Cholesterol 190 mg/dL (<200); Estimated Glomerular Filt Rate > 60; Glucose Fasting 105 mg/dL (60-99); HDL Cholesterol 68 mg/dL (>40); LDL Cholesterol Calculated 110 mg/dL (<100); Potassium 3.9 mmol/L (3.3-5.1); Sodium 141 mmol/L (135-145); Total Protein 6.8 g/dL (6.5-8.0); Triglycerides 61 mg/dL (<150)
[2024-07-23 08:44] LABS: Vitamin D 25-OH Total 61.4 ng/mL (>30)
[2024-07-27 15:09] LABS: Testosterone, Total 12 ng/dL (250-1100)
== END 2024-07-23 07:17 | disposition home or self-care (01) ==
LOC: HO.LAB 07:16
PROVIDERS: Absent Provider Internal Medicine; PCP Internal Medicine; Visit Provider Urology
DX: J44.9 Chronic obstructive pulmonary disease, unspecified (principal); N40.1 Benign prostatic hyperplasia with lower urinary tract symptoms; N13.8 Other obstructive and reflux uropathy; C61 Malignant neoplasm of prostate; C79.51 Secondary malignant neoplasm of bone; D64.9 Anemia, unspecified; K21.9 Gastro-esophageal reflux disease without esophagitis
CPT/HCPCS: 36415; 80053; 80061; 82306; 84403; 85025

== ENCOUNTER 2024-09-10 07:20 | Outpatient (REF) | payer MEDICARE, SELFPAY ==
[2024-09-10 08:38] LABS: Blood Urea Nitrogen 19 mg/dL (9-16); Estimated Glomerular Filt Rate > 60
[2024-09-10 08:57] LABS: Prostate Specific Antigen 0.62 ng/mL (<0.05-4.0)
== END 2024-09-10 07:21 | disposition home or self-care (01) ==
LOC: HO.LAB 07:20
PROVIDERS: Surgery Vascular Surgery; Visit Provider Urology
DX: C79.51 Secondary malignant neoplasm of bone (principal); I71.43 Infrarenal abdominal aortic aneurysm, without rupture; C61 Malignant neoplasm of prostate; Z12.5 Encounter for screening for malignant neoplasm of prostate
CPT/HCPCS: 36415; 82565; 84153; 84520

== ENCOUNTER 2024-09-18 11:03 | Outpatient (AMB) | payer MEDICARE, SELFPAY ==
--- NOTE | 2024-09-18 11:06 | MHC.OFFVIS ---
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 He is a patient of Dr. Barkley. He is seen for the following urologic conditions - prostate cancer metastatic hormone sensitive - current therapy intermittent hormone blockade Lab work stable Imaging shows slight improvement Plan on repeat labs in 3 months with imaging Will need GnRH in Prolia in three-month 09/17 P 0.6 T 12 PET/CT with slight decrease in activity of known lesions 06/18 PSA 0.6, testosterone 7 Injections today - GnRH and Prolia 03/19 PSA 0.6 T 4 12/17 PSA 1.0 T 6 GnRH and prolia PET/CT multiple 9 mm to 2.7 cm sclerotic lesions through T9, T12 and left iliac bone 09/16 PSA 0.7, testosterone 11 DEXA scan osteopenia Bone Scan sclerotic lesion pelvis stable - focal asymmetric increased tracer avidity within the left posterior iliac bone adjacent to the site joint, appear slightly more pronounced on the current study since the prior study dated 12/16/2022. 04/17 PSA 6 Significant jump in 3 months - PSA 6.0 Restart GnRH injection - Prolia since known osteopenia Prostate cancer: high risk Initial diagnosis 2009. Radical prostatectomy External beam radiation 2010 Initiation intermittent hormone therapy starting 2013 - 18 months hormones 01/13 - 04/16 Prostate cancer was diagnosed 02/2010. Diagnosis was reached by needle biopsy, for elevated PSA, PSA at diagnosis 11.9. The Madyson grade is 4+5. TNM Classification of Malignant Tumours (TNM) T2. The D'Abiodun (NCCN) risk category is High Risk (PSA > 20, Gl 8+, T3) Initial therapy included Primary treatment, March 2010 radical prostatectomy, Additional treatment, November 2010 external beam radiation, observation Additional treatment, March 2014 GnRH therapy and antiandrogen. Has used Trelstar, Lupron and bicalutamide. October 2015 , Hormonal Blockade - Intermittent Prolia (denosamab) osteopenia - December 201507/13 GnRH and Prolia, 01/02/18 GnRH and Prolia, 07/19/18 GnRH 3m, prolia, finasteride, 10/12 GnRH 6m, finasteride, 12/13 3m GnRH + finasteride Recent labs included a PSA (prostate-specific antigen) at diagnosis 11.9. From a high of 52 to May 2015 0.06, 11/08 < 0.5, a testosterone 11/08 , < 20 ng/dL Jan 2016 a PSA (prostate-specific antigen) , < 0.26 May 2016 , a PSA (prostate-specific antigen) 0.17 - slow increase - T 200 10/10 - 0.9, 01/09 - 2.1, 04/11 - 4.2 rpt 6.0 07/13 - 10, 10/11 - 2.0 T5 01/10 PSA 2.3, T < 8, 04/12 , a PSA (prostate-specific antigen) 0.9, T < 7 07/14 PSA 1.0 T 15, 10/12 PSA 0.48 T 10, 01/11 PSA .32 T 8, 04/13 PSA 0.4 T 8 07/15 PSA 0.45 T 57, 11/12 PSA 3 T 349, 03/15 PSA 0.3, T 10, 06/14 PSA 1.0 T 19 - 09/13 PSA 8.1, T 474, 12/14 PSA 15, T 355, 04/15 PSA 2.3, T 5, 10/15 PSA 1.7 T 7, 01/15 PSA 1.1 T 71, 04/17 6 T 300 Recent imaging included December 2014 - Bone scan nonspecific abnormalities likely arthritic or traumatic in etiology February 2015 left femoral head and femoral neck increased uptake. Probably degenerative change however bony lesion should be considered. a CT (computed tomography) scan December 2014 sclerotic lesion on L1 vertebrae. Matches area on bone scan. 11/08 DEXA scan - Osteopenia 12/10 , a bone scan - ? small lesion on iliac 03/13 Bone Scan stable lytic lesion pelvis 04/[address] (computed tomography) scan, new sclerotic area on right pelvis 10/12 Bone Scan - mild increase activity spine and pelvis 10/12 , a DEXA scan, showing osteopenia/osteoporosis 04/13 Bone Scan - decreased rib activity 12/13 Persistent small iliac abnormality, 09/13 persistent iliac activity no new increase 03/16 DEXA confirming osteoporosis 09/14 bone scan - stable metastatic disease 12/16 Stable nonspecific abnormalities in the pelvis are consistent with metastatic disease. There is no evidence of progression. Therapeutic plan: 3m f/u labs, imaging PFS Medical History Urinary incontinence Arthritis AAA (abdominal aortic aneurysm) without rupture Headache Blind left eye Hx of radiation therapy CLL (chronic lymphocytic leukemia) Bone cancer History of skin cancer Chronic lymphocytic leukemia Hypogonadism in male Prostate cancer History of cataract 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 Hypertension GERD (gastroesophageal reflux disease) Colon adenomas Surgical History Hx of eye surgery Hx of umbilical hernia repair Hx of inguinal hernia repair Hx of melanoma excision (~2016) History of prostatectomy (~2009) History of hernia repair History of knee surgery History of surgery on wrist History of colonoscopy History of brain surgery Family History Father Heart disease Mother Emphysema lung Social History Household Members: None Housing: Apartment Are you a primary lawn caretaker to a significant other at home: No Do you presently have visiting nurse or other home services: No Alcohol intake: never Comment: left DP/PT, audible-monophasic with doppler, Right is biphasic DP/PT Patient Tobacco Use Status: Former Tobacco user Tobacco use type: Cigarette Years Smoked: 50 Second Hand Smoke Exposure: No service: No Review of Systems Const Denies chills and Denies fever(s) Card Reports no additional complaints and Denies syncope Resp Denies cough GI Denies abdominal pain and Denies heartburn Reports as per HPI and Denies change in libido Neuro Denies syncope Psych Denies change in libido Endo Denies change in libido Physical Exam Const General: cooperative, healthy appearing, comfortable and no acute distress Orientation/consciousness: patient oriented x3 HEENT Face and sinus: Yes normal facial exam Mouth: moist mucous membranes Neck Neck: Yes normal visual inspection, Yes full ROM and Yes trachea midline Chest Chest palpation & inspection: normal inspection of the chest Resp Effort & Inspection: normal respiratory effort, able to speak in complete sentences and no respiratory distress GI Inspection: Yes normal to inspection Back/Spine/Pelvis Cervical Spine: normal cervical lordosis Thoracic/Lumbar Spine: thoracic and lumbar spine normal to inspection Skin General skin exam: no rashes or lesions noted Neuro General: patient oriented x3, gait normal, tone normal and moves all extremities Extrem General: Yes normal to inspection and Yes capillary refill normal Assessment & Plan Assessment & Plan (1) Prostate cancer metastatic to bone: Code(s): C61 - Malignant neoplasm of prostate; C79.51 - Secondary malignant neoplasm of bone Category: Medical (2) Osteopenia: Code(s): M85.80 - Other specified disorders of bone density and structure, unspecified site Category: Medical Qualifiers: Osteopenia location: spine Qualified Code(s): M85.88 - Other specified disorders of bone density and structure, other site Plan Three-month follow-up lab work and [facility] Prolia Orders: Orders Prostate Specific Antigen 3 Months C61 - Malignant neoplasm of prostate, C79.51 - Secondary malignant neoplasm of bone Testosterone, Total 3 Months C61 - Malignant neoplasm of prostate, C79.51 - Secondary malignant neoplasm of bone Patient Instructions: This note is constructed using voice recognition software. While every effort has been made to ensure accuracy vice president risk management errors may have been included. Imaging studies, laboratory and physical exam results were discussed and reviewed in detail. No major barriers to patient understanding were identified. An opportunity to ask questions regarding the treatment plan was provided. All questions were answered. The patient expressed understanding and agreement with the above treatment plan. The patient is aware they should contact our office by phone for worsening of their current condition or the appearance of new urologic symptoms. Compliance is encouraged with any medications and followup testing that is ordered. It is a privilege to participate in the urologic care of your patient. If you have any questions or concerns regarding treatment for the above conditions, or other urologic issues, please do not hesitate to contact me. The office telephone contact is [phone]. Sincerely, Dr Bashir Sepulveda MD, ДМИТРИЙ [facility] - Urology Compassionate Specialist Care for the Genitourinary System Coding Level of Care Code Est Pt Level 3 (38984) Complex EM visit Add On G2211 Diagnoses Prostate cancer metastatic to bone C61; C79.51 Osteopenia of spine M85.88 Osteopenia location: spine
--- OUTSIDE RECORDS SUMMARY | 2024-09-18 13:22 | XMS_ITS ---
Author Organization Frankie Keyes III, MD Address [address] [place] [address] Care Team Providers Care Dowel Setting Machine Operator Name Role Phone Christian Barkley MD Primary Care Provider Frankie Bender Unavailable [phone] Allergies Allergen (clinical drug ingredient) Drug/Non Drug [...] Date Provider Diagnosis Frankie Keyes III, MD [address] [place] [address] [place] [address] 04/22/2024 Frankie Keyes Pituitary tumor D49. 7 [...] The next study has been scheduled at [facility]. He recently went to [place] to see neurosurgery, Dr. Garcia, we'll told [...] Reason: ov review labs Provider Name:Frankie Keyes, 12/30/2024 03:00:00 PM, [address] [place] [address] [address], [place], [address], Progress Notes * Naveen FARIASDOB:1944 (79 yo M)Acc No.[id number]:04/22/2024 Progress Notes Patient:?Naveen FARIAS Provider:?Frankie Keyes MD :1945???Age:79 Y???Sex:Male Ankru e:04/22/2024 Address:[address] [place], [place] [id number] Pcp:Christian Barkley MD Subjective: * Chief Complaints: [...] removal on back 04/2018pituitary tumor removal in [place] 10/2019Brain Surgery tumor removal 11/2019Abdomen Aortic Aneurism [...] Tobacco Non-User?Ex-cigarette smoker ???He was born in [place] and is not working at present. He [...] 73 (Ref Range: >40 mg/dL) * Lab:[facility] * Collection Date 04/12/2024 [...] The next study has been scheduled at [facility]. He recently went to [place] to see neurosurgery, Dr. Garcia, we'll told [...] * Provider:?Frankie Keyes MD Date:?03/27 Generated for Ayedayron ray/Wan/eTransmitting on:?09/18/2024 01:22 PM EDT History and Physical Notes * HPI (History of Present Illness) Category Sub-Category Detail Notes COVID-19 Screening Questions Have you had any new onset fever, chills, cough, congestion, sore throat, shortness of breath, muscle aches?: Yes Cough stated longer than 48 hours Have you been exposed to the virus withi n the last 10 days?: No Have you travelled internationally in last 10 days?: No Have you been [...]
--- OUTSIDE RECORDS SUMMARY | 2024-09-18 13:22 | XMS_ITS ---
Author Organization Frankie Keyes III, MD Address [address] [place] [address] Care Team Providers Care Changer Fixer Name Role Phone Christian Barkley MD Primary Care Provider Frankie Bender Unavailable [phone] Allergies Allergen (clinical drug ingredient) Drug/Non Drug [...] Risk Notes Problem Malignant tumor of prostate (470620225) Prostate cancer (C61) Active confirmed A recent PSA is not available. It will be requested from the urologist. A repeat value has been ordered. There was no sign of progressive prostate cancer on his examination today. Vital Signs Temperature 97.3 degrees Fahrenheit 01/15/20 24 Blood pressure systolic 130 mm Hg 01/15/20 24 Blood pressure diastolic 80 mm Hg 024 Heart Rate 78 /min 01/15/2024 Height 71 in 01/15/2024 Weight 174 lbs 01/15/2024 BMI 24.27 kg/m2 01/15/2024 Encounters Encounter Location Date Provider Diagnosis Frankie Keyes III, MD [address] [place] [address] [address] [place], [place] [address] 01/15/2024 Frankie Ohrne Pituitary tumor D49. 7 ; Prostate cancer C61 ; CLL (chronic lymphocytic leukemia) C91.10 ; Former smoker Z87.891 ; Osteopenia M85.80 and History of melanoma Z85.820 Assessments Encounter Date Diagnosis (ICD Code) Assessment Notes Treatment Notes Treatment Clinical Notes 01/15/2024 Pituitary tumor (ICD-10 - D49.7) He will continue to be observed at the [facility] neurosurgery department. He will have periodic MRIs of the brain. The next study has been scheduled at [facility]. He recently went to [place] to see neurosurgery, Dr. Garcia, we'll told [...] 3 Months, Reason: OV Provider Name:Frankie Keyes, 12/30/2024 03:00:00 PM, [address] [place] [address] [address], [place], [address], Progress Notes * Naveen FARIASDOB:1944 (78 yo M)Acc No.[id number]:01/15/2024 Progress Notes Patient:?Naveen Farias Provider:?Frankie Keyes MD :1945???Age:78 Y???Sex:Male Ankur e:01/15/2024 Address:[address] [place] [address] , [id number] Pcp:Christian Barkley MD Subjective: * Chief Complaints: * ???Pituitary tumor in remiss ionProstate cancerChronic lymphocytic leukemiaHistory of melanomaOsteopenia * HPI: ???COVID-19 Screening:? He was seen November 01, 2023 by his vascular surgeon, Dr. Wills. A recent PET CT scan showed the aortic aneurysm had increased from 4-6 cm. An urgent endovascular repair was done at [facility] with success. He was discharged November [...] * Surgical History:?Hernia rep air 2011,2016Eye Surgery 1955Radical Prostatectomy Brain tumor removed 2001Right hand surgery 1975Right knee surgery 50yrs oldBasal cell cancer removed on right cheek 2013melanoma removal on back 04/2018pituitary tumor removal in [place] 10/2019Brain Surgery tumor removal 11/2019Abdomen Aortic Aneurism [...] Tobacco Non-User?Ex-cigarette smoker ???He was born in [place] and is not working at present. He [...] will continue to be observed at the [facility] neurosurgery department. He will have periodic MRIs of the brain. The next study has been scheduled at [facility]. He recently went to [place] to see neurosurgery, Dr. Garcia, we'll told [...] * Provider:?Frankie Keyes MD Date:?12/25 Generated for Printi ng/Faaayushg/eTransmitting on:?09/18/2024 01:22 PM EDT History and Physical Notes * HPI (History of Present Illness) Category Sub-Category Detail Notes COVID-19 Screening Questions Have you had any new onset fever, chills, cough, congestion, sore throat, shortness of breath, muscle aches?: No Have you been exposed to the virus withi n the last 10 days?: No Have you travelled internationally in [facility] last 10 days?: No Have you [...]
--- OUTSIDE RECORDS SUMMARY | 2024-09-18 13:22 | XMS_ITS | Patient Health Record ---
Author Organization [facility] Address [address] [place] [address] Care Team Providers Care Veneer Joiner Name Role Phone Christian Barkley MD Primary Care Provider Unavaila Facundo Peralta Jr Unavailable Reason For Referral No Information Medications Medication SIG (Take, Route, Frequency, Duration) [...] Active Finasteride 5 MG Orally Act sheri Immunizations Vaccine Route Administration Date Status Comme nts Influenza Unknown 03/18/2020 Administered Problems Problem Type SNOMED Code ICD Code Onset Dates Problem Status W/U Status Risk Notes Problem [id number] Colon cancer screening (Z12.11) Active confirmed Plan Of Treatment Future Test Test Name Order Date COLONOSCOPY 11/20/2013 COLONOSCOPY 04/13/2020 Insurance Providers Payer Name Payer Address Payer Phone Subscriber Number Group Number Insured Name Patient Relationship to Insured Coverage Start Date Coverage End Date MEDICARE OF [place] [address] [facility] [address] [id number] KAMERON SWANSON Self - patient is the insured [employer] ATTN CLAIMS [address] [place] [address] [id number] KAMERON SWANSON Self - patient is the insured Medical (General) History Medical History History ICD Code Colonoscopy, 03/09 negative f or polyps, five-year followup recommended, history of previous adenomas Gastroesophageal reflux disease Hypertension Pituitary Gland tumor Left eye blindness Denies AL,DM,CVA,Lung disease,renal dise ase prostate cancer brain tumor CLL Surgical History Surgery Date(Month/Year) brain surgery wrist surgery eye surgery cataract removal knee surgery hernia repair prostatectomy laminectomy
--- OUTSIDE RECORDS SUMMARY | 2024-09-18 13:23 | XMS_ITS ---
Author Organization Frankie Keyes III, MD Address [address] [place] [address] Care Team Providers Care Wet Washer Machine Name Role Phone Christian Barkley MD Primary Care Provider Frankie Bender Unavailable [phone] Allergies Allergen (clinical drug ingredient) Drug/Non Drug Allergy documented on EMR Reaction Allergy Type Onset Date Status No Known Drug Allergy Unknown Drug Allergy Active REASON FOR VISIT Followup, mri for [facility] nexts week for pit tumor Medications Medication [...] Problem Status W/U Status Risk Notes Problem 205311555 Overweight (E66.3) Active confirmed He is very [...] Date Provider Diagnosis Frankie Keyes III, MD [address] [place] [address] [place] [phone] 08/26/2024 Frankie Keyes Pituitary tumor D49. 7 ; Prostate cancer C61 ; Overweight E66.3 ; CLL (chronic lymphocytic leukemia) C91.10 and Former smoker Z87.891 Assessments Encounter Date Diagnosis (ICD Code) Assessment Notes Treatment Notes Treatment Clinical Notes 08/26/2024 Pituitary tumor (ICD-10 - D49.7) He will continue to be observed at the [facility] neurosurgery department. He will have periodic MRIs of the brain. The next study has been scheduled at [facility]. He recently went to [place] to see neurosurgery, Dr. Garcia, we'll told [...] Up: 4 Months, Reason: OV Provider Name:Frankie Keyes, 12/30/2024 03:00:00 PM, [address] [place] [address] , [facility] [address], [place], [phone], Progress Notes * Naveen FARIASDOB:1944 (79 yo M)Acc No.[id number]:08/26/2024 Progress Notes Patient:?Naveen FARIAS Provider:?Frankie Keyes MD :1945???Age:79 Y???Sex:Male Ankur e:08/26/2024 Address:[address] [place] [address] , [id number] Pcp:Christian Barkley MD Subjective: * Chief Complaints: * ???[facility] * HPI: ???COVID-19 Screening:?Questions?Have you had any new onset fever, chills, cough, congestion, sore throat, shortness of breath, muscle aches??No ???:?The patient, a 79-year-old male, reported feeling out [...] Level is 105. His physicians at the [facility] in [place] have scheduled an MRI of his brain at the [facility] next week to assess the status of his pituitary tumor.? This has been in remission for a prolonged period of time. * ROS:?General/Constitutional:?pain?only normal aches and pains.?Chills?denies.?Fatigue?admits.?Fever?denies.?ENT:?Decreased hearing?denies.?Respiratory:?Cough?denies.?Cardiovascular:?Chest pain with exertion?denies.?Dyspnea on exertion?denies.?Shortness of breath?denies.?Gastrointestinal:?Constipation?occasional.?Decreased appetite?denies.?Diarrhea?denies.?Heartburn?occasional.?Nausea?denies.?Rectal bleeding?denies.?Vomiting?denies.?Hematology:?bruising?denies.?petechiae?denies.?Swollen glands?none have been noted.?Genitourinary:?Frequent urination?once a night.?Musculoskeletal:?Muscle aches?denies.?Painful joints?denies.?Sciatica?denies.?Weakness?denies.?Skin:?Itching?denies.?Rash?denies.?Skin lesion(s)?denies.?Neurologic:?Difficulty speaking?denies.?Dizziness?denies.?Headache?denies.?Low back pain?denies.?Psychiatric:?Depressed mood?denies.? * Medical History:? * Surgical History:?Hernia rep air 2011,2016Eye Surgery 1955Radical Prostatectomy Brain tumor removed 2001Right hand surgery 1975Right knee surgery 52yrs oldBasal cell cancer removed on right cheek 2014melanoma removal on back 04/2018pituitary tumor removal in [place] 10/2019Brain Surgery tumor removal 11/2019Abdomen Aortic Aneurism 05/2024No history * Hospitalization/Major Diagno stic Procedure:?No history [...] Tobacco Non-User?Ex-cigarette smoker ???He was born in [place] and is not working at present. He [...] All ergyno[Allergies Verified] Objective: * Vitals:?Ht: 71, Wt:180, BMI: 25.1, BP:131/82, HR:86, Temp:98.4, Wt-k.65. * Examination: ???General Examination: ?GENERAL APPEARANCE:?pleasant, well nourished, well developed, in no acute distress, calm and relaxed, overweight, man.?HEAD:?atraumatic, normocephalic.?EYES:?eomi, perrla, anicteric, conjugate, Vision loss left eye.?EARS:?normal.?NOSE:?septum intact.?ORAL CAVITY:?normal, unremarkable.?NECK/THYROID:?no jugular venous [...] sensory exam intact.?PSYCH:?alert, oriented.? Assessment: * Assessment: 1.?Prostate cancer - C61 (Pr imary)???Notes :A recent PSA is not available.? It will be requested from the urologist.? A repeat value has been ordered.? There was no sign of progressive prostate cancer on his examination today.???2.?Pituitary tumor - D49.7???Notes :He will continue to be observed at the [facility] neurosurgery department. He will have periodic MRIs of the brain. The next study has been scheduled at [facility]. He recently went to [place] to see neurosurgery, Dr. Garcia, we'll told him that the tumor was not growing back.???3.?Overweight - E66.3???Notes :He is very slightly overweight.? I recommended she stabilize his weight at this level???4.?CLL (chronic lymphocytic leukemia) - C91.10???Notes :His CBC remains stable and there is no sign of disease progression.? Observation was continued.???5.?Former smoker - Z87.891???Notes :He has a plan to prevent relapse in times of stress or illness.??? Plan: * Treatment: 2.?Pituitary tumor? Continue amLODIPine Besylate Tablet, 5 MG, TAKE 1 TABLET BY MOUTH TWICE DAILY, Oral;?Continue Finasteride Tablet, 5 MG, 1 tablet, Orally, Once a day;?Continue Prolia Solution Prefilled Syringe, 60 MG/ML, as directed, Subcutaneous;?Continue Lupron Depot (6-Month) Kit, 45 MG, as directed, Intramuscular.?LAB: PROFILE, RANDOM (COMPREHENSIVE METABOLIC) ?LAB: PSA, TOTAL ?LAB: CBC w DIFF ?LAB: TESTOSTERONE, TOTAL 3.?Overweight?LAB: PROFILE, RANDOM (COMPREHENSIVE METABOLIC) ?LAB: PSA, TOTAL ?LAB: CBC w DIFF ?LAB: TESTOSTERONE, TOTAL * Procedure Codes:? * Preventive Medicine:? ??Counseling:?Care goal follow-up plan:?Counseling for abnormal BMI given?Yes ?Above Normal BMI Follow-up?Dietary management education, guidance, and counseling ?Smoking/Tobacco Use?Patient counseled on the dangers of tobacco use and urged to quit.?08/26/2024 * Follow Up:?4 Months (Reason: OV) * Images: * Sign off status: Completed true * Provider:?Frankie Keyes MD Date:?08/2024 Generated for Chivo ray/Wan/Mandyitting on:?09/18/2024 01:22 PM EDT History and Physical [...]
--- OUTSIDE RECORDS SUMMARY | 2024-09-18 13:23 | XMS_ITS | Clinical Summary ---
Author Organization [facility] Address [address] [place] [address] Care Team Providers Care Bundle Clerk Name Role Phone Christian Barkley MD Primary Care Provider [phone] Allergies No known active allergies Medications Medication [...] age to complete this topic Care Teams Bundle Clerk Relationship Specialty Start Date End Date Christian Barkley MD [address] [place] [address] [address] [place], [place] [id number] PCP - General Professor Of Architecture 08/10/16
== END 2024-09-18 11:39 | disposition home or self-care (01) ==
LOC: HO.HUSH 11:04
PROVIDERS: PCP Internal Medicine; Visit Provider Urology
DX: C61 Malignant neoplasm of prostate (principal); C79.51 Secondary malignant neoplasm of bone; M85.88 Other specified disorders of bone density and structure, other site
CPT/HCPCS: 99213; G2211

== ENCOUNTER → 2024-09-18 11:03 | Outpatient (BNVA) | payer MEDICARE, SELFPAY | PROVIDERS: PCP Internal Medicine; Visit Provider Urology | DX: C61 Malignant neoplasm of prostate (principal); C79.51 Secondary malignant neoplasm of bone; M85.88 Other specified disorders of bone density and structure, other site | CPT/HCPCS: 99212 ==

== ENCOUNTER 2024-10-14 12:59 | Outpatient (AMB) | payer MEDICARE, SELFPAY ==
--- OUTSIDE RECORDS SUMMARY | 2024-10-14 13:01 | XMS_ITS | Patient Health Record ---
Author Organization Frankie Keyes III, MD Address [address] [facility] [place] [address] Care Team Providers Care Editor Dictionary Name Role Phone Christian Barkley MD Primary Care Provider Unavaila Frankie Cohn Unavailable [phone] Allergies Allergen (clinical drug ingredient) Drug/Non Drug Allergy documented on EMR Reaction Allergy Type Onset Date Status No Known Drug Allergy Unknown Drug Allergy Active Results Component Value Reference Range Notes Complete Blood Count Auto Di ff Reviewed date:03/25/2024 08:43:31 AM Interpretation: Performing Lab:[facility], [address] [place] [address] Notes/Report: White Blood Count 5.9 4.8-10.8 X10*3/uL [...] 0.0-0.2 /100WBC Neutrophils Absolute Auto 4.2 2.0-8.3 x10*3/uL Imm Gran Abs Auto 0.01 0.00-0.03 X10*3/uL Lymphocytes Absolute Auto 1.0 1.2-4.9 X10*3/uL Monocytes Absolute Auto 0.6 0.1-1.2 X10*3/uL Eosinophils Absolute Auto 0.2 0.0-0.4 X10*3/uL Basophils Absolute Auto 0.0 0.0-0.2 X10*3/uL NRBC Abs Auto 0.000 0.0-0.012 X10*3/uL Comprehensive Met. Panel Reviewed date:03/25/2024 08:43:31 AM Interpretation: Performing Lab:[facility], [address] [place] [phone] Notes/Report: Sodium 145 135-145 mmol/L Potassium 4.5 3.3-5.1 mmol/L Chloride 105 96-108 mmol/L Carbon Dioxide 28 22-29 mmol/L Anion Gap 17 12-20 Blood Urea Nitrogen 16 9-16 mg/dL Creatinine 0.79 0.5-1.4 mg/dL Estimated Glomerular Filt Rate > 60 NOTE: For -Russian individuals, multiply the result by 1.210. Chronic [...] Phosphatase 88 39-117 U/L Prostate Specific Antigen Reviewed date:03/25/2024 08:43:31 AM Interpretation: Performing Lab:[facility], [address] [place] [phone] Notes/Report: Prostate Specific Antigen 1.03 <0.05-4.0 ng/mL PSA methodology: [employer] i Chemiluminescent Microparticle Immunoassay (CMIA) Thyroid Stimulating Hormone Reviewed date:03/25/2024 08:43:31 AM Interpretation: Performing Lab:[address] [address] Notes/Report: Thyroid Stimulating Hormone 1.45 0.32-4.0 uIU/mL TSH 3rd Generation ([employer]) Hemoglobin A1c Reviewed date:03/25/2024 08:43:31 AM Interpretation: Performing Lab:[address] [address] Notes/Report: Hemoglobin A1c % 5.5 <6.0 % [...] average glucose, using the formula of the Q6N-Znzxvnf Average Glucose study (ADAG), Diabetes Care, Vol.31,#8, Jan. 2007 Complete Blood Count Auto Di ff Reviewed date:04/14/2024 07:26:22 AM Interpretation: Performing Lab:[facility], [address] [place] [phone] Notes/Report: White Blood Count 5.7 4.8-10.8 X10*3/uL Red Blood Count 4.37 4.60-5.80 X10*6/uL Hemoglobin 13.0 14.0-18.0 g/dl Hematocrit 40.7 42.0-52.0 % Mean Corpuscular Volume 93.1 80.0-98.0 fL Mean Corpuscular Hemoglobin 29.7 27.0-33.0 pg Mean Corpuscular HGB Conc 31.9 31.0-36.0 g/dl Red Cell Distribution Width 13.9 11.0-16.0 % Platelet Count 169 160-400 X10*3/uL Mean Platelet Volume 9.5 9.4-12.4 fL Neutrophils Percent Auto 72.5 45-73 % Imm Gran Pct Auto 0.2 0.0-0.4 % Lymphocytes Percent Auto 16.9 20-40 % Monocytes Percent Auto 8.5 2-11 % Eosinophils Percent Auto 1.7 0-4 % Basophils Percent Auto 0.2 0-2 % NRBC Pct Auto 0.0 0.0-0.2 /100WBC Neutrophils Absolute Auto 4.2 2.0-8.3 x10*3/uL Imm Gran Abs Auto 0.01 0.00-0.03 X10*3/uL Lymphocytes Absolute Auto 1.0 1.2-4.9 X10*3/uL Monocytes Absolute Auto 0.5 0.1-1.2 X10*3/uL Eosinophils Absolute Auto 0.1 0.0-0.4 X10*3/uL Basophils Absolute Auto 0.0 0.0-0.2 X10*3/uL NRBC Abs Auto 0.000 0.0-0.012 X10*3/uL Comprehensive [place]. Panel Fa st Reviewed date:04/14/2024 07:26:22 AM Interpretation: Performing Lab:[facility], [address] [place] [phone] Notes/Report: Sodium 147 135-145 mmol/L Potassium 4.3 3.3-5.1 mmol/L Chloride 108 96-108 mmol/L Carbon Dioxide 28 22-29 mmol/L Anion Gap 15 12-20 Blood Urea Nitrogen 16 9-16 mg/dL Creatinine 0.78 0.5-1.4 mg/dL Estimated Glomerular Filt Rate > 60 NOTE: For -Russian individuals, multiply the result by 1.210. Chronic Kidney Disease: Estimated GFR < 60 mL/min/1.73m2 Severe Kidney Disease: Estimated GFR < 15 mL/min/1.73m2 Glucose Fasting 131 60-99 mg/dL A fasting glucose of 126 mg/dl or greater on more than one occasion is considered diagnostic of diabetes. Calcium 8.9 8.4-10.2 mg/dL Bilirubin Total 0.5 0.0-1.0 mg/dL Aspartate Amino Transferase 19 5-37 U/L Alanine Aminotransferase 15 0-40 U/L Total Protein 6.7 6.5-8.0 g/dL Albumin Level 4.1 3.5-5.0 g/dL Alkaline Phosphatase 79 39-117 U/L Lipid Panel Reviewed date:04/14/2024 07:26:22 AM Interpretation: Performing Lab:[facility], [address] [place] [phone] Notes/Report: Triglycerides 64 <150 mg/dL Desirable Triglyceride: less than 150 mg/dL Borderline High Triglyceride 150-199 mg/dL High Triglyceride: 200-499 mg/dL Very High Triglyceride: greater than or equal to 5OO mg/dL Cholesterol 194 <200 mg/dL Desirable Cholesterol: less than 200 mg/dL Borderline High Cholesterol: 200-239 mg/dL High Cholesterol: greater than 239 mg/dL LDL Cholesterol Calculated 117 <100 mg/dL Desirable LDL: less than 100 mg/dL Near Optimal/Above Optimal LDL: 110-129 mg/dL Borderline High LDL: 130-159 mg/dL High LDL: 160-189 mg/dL Very High LDL: greater than or equal to 190 mg/dL HDL Cholesterol 65 >40 mg/dL Desirable HDL: greater than 40 mg/dL Note: This HDL assay may give artificially low results in patients with liver disease. Prostate Specific Antigen Reviewed date:04/14/2024 07:26:22 AM Interpretation: Performing Lab:[facility], [address] [place] [phone] Notes/Report: Prostate Specific Antigen 0.82 <0.05-4.0 ng/mL PSA methodology: [employer] Al[employer] i Chemiluminescent Microparticle Immunoassay (CMIA) Hemoglobin A1c Reviewed date:04/14/2024 07:26:22 AM Interpretation: Performing Lab:[facility], [address] [place] [phone] Notes/Report: Hemoglobin A1c % 5.6 <6.0 % Hemoglobin A1C Reference Range Adults: 4.8 - 6.0 % Non diabetic: < 6.0 % Goal: < 7.0 % Additional Action Suggested: > 8.0 % Note: Hemoglobin A1c results are invalid for patients with abnormal amounts of HbF. Blood transfusions may impact the HbA1c concentration in the patient sample. Estimated Average Glucose 114 eAG = Estimated average glucose which is %A1C expressed as average glucose, using the formula of the S2D-Xosucta Average Glucose study (ADAG), Diabetes Care, Vol.31,#8, 2007 XR chest 2V (Not yet reviewe d by provider) Interpretation: Performing Lab: Notes/Report: [address] [address] XRay Report Signed Patient: Naveen Farias MR#: [id number] : 1945 Acct:[id number] Age/Sex: 79 / M ADM Date: 04/22/24 Loc: X[facility]I Attending Dr: Frankie Keyes MD Ordering Physician: Frankie Keyes MD Date of Service: 04/22/24 Procedure(s): XR chest 2V Accession Number(s): [id number] cc: Frankie Keyes MD; Christian Barkley MD EXAMINATION: XR CHEST CLINICAL INFORMATION: Malignant neoplasm of prostate. COMPARISON: 11/06/2023, CT angiogram abdomen and pelvis. TECHNIQUE: 3 views of the chest. FINDINGS: There is no gross pneumothorax. Dextroscoliosis of the thoracic spine with multilevel degenerative changes. No significant pleural effusion. Moderate hiatal hernia better characterized on CT angiogram of October 2023. No new focal consolidation to suggest pneumonia. XR/XR chest 2V IMPRESSION: 1. Moderate hiatal hernia better characterized on CT angiogram of October 2023. 2. No new focal consolidation to suggest pneumonia. Electronically signed by: Simran Roldan MD 04/23/2024 05:41 AM EDT Dictated By: Simran Roldan MD Signed By: <Electronically signed by Simran Roldan MD in OV> 04/23/24 0541 DD/ 1504 TD/TT: 04/22/24 1520 Epidemiology Intern: [address] [address] XRay Report Signed Patient: Naveen Farias MR#: [id number] : 1945 Acct:[id number] Age/Sex: 79 / M ADM Date: 04/22/24 Loc: XAVI Attending Dr: Frankie Keyes MD Ordering Physician: Frankie Keyes MD Date of Service: 04/22/24 Procedure(s): XR [address] 2V Accession Number(s): [id number] cc: Frankie Keyes MD; Chrisitan Barkley MD EXAMINATION: XR CHEST CLINICAL INFORMATION: Malignant neoplasm o f prostate. COMPARISON: 11/06/2023, CT angiogram abdomen and pelvis. TECHNIQUE: 3 views of the chest. FINDINGS: There is no gross pneumothorax. Dextroscoliosis of the thoracic spine with multilevel degenerative changes. No significant pleural effusion. Moderate hiatal roselyn ia better characterized on CT angiogram of October 2023. No new focal consolidation to suggest pneumonia. XR/XR chest 2V IMPRESSION: 1. Moderate hiatal hernia better characterized on CT angiogram of October 2023. 2. No new focal consolidation to suggest pneumonia. Electronically sam d by: Simran Roldan MD 04/23/2024 05:41 AM EDT RP Dictated By: Simran Roldan MD Signed By: <Electronically signed by Simran Roldan MD in OV> 04/23/24 0541 DD/ 1504 TD/TT: 04/22/24 1520 Epidemiology Intern: Reason For Referral No Information Medications Medication SIG (Take, Route, Frequency, Duration) Notes Start Date End Date Status Prolia 60 MG/ML as directed Subcutaneous Active Lupron Depot (6-Month) 45 MG as directed Intramuscular 04/22/2024 Ac tive amLODIPine Besylate 5 MG TAKE 1 TABLET B Y MOUTH TWICE DAILY Oral Active Finasteride 5 MG 1 tablet Orally Once a day 2023 Active Immunizations Vaccine Route Administration Date Status Comme nts Influenza Unknown 03/01/2014 Administered COVID- 19 Vaccine Unknown 10/25/2021 Administered COVID- 19 Vaccine Unknown 04/30/2021 Administered Social History Tobacco Use: Social History Observation [...] ast year? No Points 0 Interpretation Negative Problems Problem Type SNOMED Code ICD Code Onset Dates Problem Status W/U Status Risk Notes Problem 4521674 Former smoker (Z87.891) Active confirmed He has a plan to prevent relapse in times of stress or illness. Problem 736676390 Overweight (E66.3) Active confirmed He is very slightly overweight. I recommended she stabilize his weight at this level Problem 86434964 Hyperglycemia (R73.9) Active confirmed This value is being treated by primary care. No change in his status is noted. Problem Malignant tumor of prostate (960626553) Prostate cancer (C61) Active confirmed A recent PSA is not available. It will be requested from the urologist. A repeat value has been ordered. There was no sign of progressive prostate cancer on his examination today. Problem 523849889 Malignant neoplasm of prostate (C61) Active confirmed His PSA has fallen to 0.82. He is asymptomatic. He is doing well and his disease is controlled. Problem 358065158 Pituitary tumor (D49.7) Active confirmed He will continue to be observed at the [facility] neurosurgery department. He will have periodic MRIs of the brain. The next study has been scheduled at [facility]. He recently went to [place] to see neurosurgery, Dr. Garcia, we'll told him that the tumor was not growing back. Problem History of malignant melanoma of the skin (62107840642 8) History of melanoma (Z85.820) Active confirmed Problem 361430807 Osteopenia (M85.80) Active confirmed There was continued on current therapy today without change. Problem 29773577 CLL (chronic lymphocytic leukemia) (C91.10) Active confirmed His CBC remains stable and there is no sign of disease progression. Observation was continued. Problem 9101376 Obstructive uropathy (N13.9) Active confirmed He will rem ain under the care of urologist in this problem will be addressed. 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 He is able to conduct all of the activities of daily life. The left eye has normal vision. This is a result of treatment of the pituitary tumor in the past. Vital Signs Heart Rate 86 /min 08/26/2024 Temperature 98.4 degrees Fahrenheit 08/26/2024 Blood pressure diastolic 82 mm Hg 08/26/2024 Height 71 in 08/26/2024 Blood pressure systolic 131 mm Hg 08/26/2024 Weight 180 lbs 08/26/2024 BMI 25.1 kg/m2 08/26/2024 Encounters Encounter Location Date Provider Diagnosis Frankie Keyes III, MD [address] [place] [address] [place] [address] 01/15/2024 Frankie Keyes Pituitary tumor D49. 7 ; Prostate cancer C61 ; CLL (chronic lymphocytic leukemia) C91.10 ; Former smoker Z87.891 ; Osteopenia M85.80 and History of melanoma Z85.820 Frankie Keyes III, MD [address] [place] [address] [place] [address] 04/22/2024 Frankie Keyes Pituitary tumor D49. 7 ; Malignant neoplasm of prostate C61 ; CLL (chronic lymphocytic leukemia) C91.10 ; Former smoker Z87.891 ; Hyperglycemia R73.9 ; Chronic cough R05.3 ; Osteopenia M85.80 and Vision loss of left eye H54.62 Frankie Keyes III, MD [address] [place] [address] [place] [address] 08/26/2024 Frankie Keyes Pituitary tumor D49. 7 ; Prostate cancer C61 ; Overweight E66.3 ; CLL (chronic lymphocytic leukemia) C91.10 and Former smoker Z87.891 Assessments Encounter Date Diagnosis (ICD Code) Assessment Notes Treat ment Notes Treatment Clinical Notes 01/15/2024 Prostate cancer (ICD-10 - C61) His PSA is under 2 symptoms. No change in his therapy was needed. 01/15/2024 Pituitary tumor (ICD-10 - D49.7) He will continue to be observed at the [facility] neurosurgery department. He will have periodic MRIs of the brain. The next study has been scheduled at [facility]. He recently went to [place] to see neurosurgery, Dr. Garcia, we'll told him that the tumor was not growing back. 04/22/2024 Malignant neoplasm of prostate (ICD-10 - C61) His PSA has fallen to 0.82. He is asymptomatic. He is doing well and his disease is controlled. 04/22/2024 Pituitary tumor (ICD-10 - D49.7) He will continue to be observed at the [facility] neurosurgery department. He will have periodic MRIs of the brain. The next study has been scheduled at [facility]. He recently went to [place] to see neurosurgery, Dr. Garcia, we'll told him that the tumor was not growing back. 08/26/2024 Prostate cancer (ICD-10 - C61) A recent PSA is not available. It will be requested from the urologist. A repeat value has been ordered. There was no sign of progressive prostate cancer on his examination today. 08/26/2024 Pituitary tumor (ICD-10 - D49.7) He will continue to be observed at the [facility] neurosurgery department. He will have periodic MRIs of the brain. The next study has been scheduled at [facility]. He recently went to [place] to see neurosurgery, Dr. Garcia, we'll told him that the tumor was not growing back. 01/15/2024 CLL (chronic lymphocytic leukemia) (ICD-10 - C91.10) There was no adenopathy or splenomegaly. His white blood cell count and differential are unremarkable. 04/22/2024 CLL (chronic lymphocytic leukemia) (ICD-10 - C91.10) His lymmphocyte count is actually lower than normal. There is no sign of disease progression and observation will be continued. 08/26/2024 Overweight (ICD-10 - E66.3) He is very slightly overweight. I recommended she stabilize his weight at this level 01/15/2024 Former smoker (ICD-10 - Z87.891) He is highly motivated not to smoke. He has a plan to prevent relapse in times of stress and illness. 04/22/2024 Former smoker (ICD-10 - Z87.891) He has a plan to prevent relapse in times of stress or illness. 08/26/2024 CLL (chronic lymphocytic leukemia) (ICD-10 - C91.10) His CBC remains stable and there is no sign of disease progression. Observation was continued. 01/15/2024 Osteopenia (ICD-10 - M85.80) There was continued on current therapy today without change. 04/22/2024 Hyperglycemia (ICD-10 - R73.9) This value is being treated by primary care. No change in his status is noted. 08/26/2024 Former smoker (ICD-10 - Z87.891) He has a plan to prevent relapse in times of stress or illness. 01/15/2024 History of melanoma (ICD-10 - Z85.820) 04/22/2024 Chronic cough (ICD-10 - R05.3) The [...] tumor in the past. Plan Of Treatment Pending Test Test Name Order Date PROFILE, FASTING (COMPREHENSIVE METABOLI C) 04/22/2024 PROFILE, FASTING (COMPREHENSIVE METABOLI C) 01/15/2024 PROFILE, FASTING (COMPREHENSIVE METABOLI C) 04/16/2021 PROFILE, RANDOM (COMPREHENSIVE METABOLIC ) 07/03/2020 PROFILE, RANDOM (COMPREHENSIVE METABOLIC ) 08/26/2024 PROFILE, RANDOM (COMPREHENSIVE METABOLIC ) 07/10/2017 PROFILE, RANDOM (COMPREHENSIVE METABOLIC ) 01/15/2021 PROFILE, RANDOM (COMPREHENSIVE METABOLIC ) 11/06/2017 PROFILE, RANDOM (COMPREHENSIVE METABOLIC ) 09/18/2018 PROFILE, RANDOM (COMPREHENSIVE METABOLIC ) 10/16/2020 PROFILE, RANDOM (COMPREHENSIVE METABOLIC ) 08/04/2021 PROFILE, RANDOM (COMPREHENSIVE METABOLIC ) 08/30/2017 PROFILE, RANDOM (COMPREHENSIVE METABOLIC ) 05/30/2018 PROFILE, RANDOM (COMPREHENSIVE METABOLIC ) 12/29/2017 PROFILE, RANDOM (COMPREHENSIVE METABOLIC ) 04/01/2020 BUN 03/05/2018 CREATININE 03/05/2018 LIPID PANEL 04/16/2021 LDH 04/01/2020 PSA, TOTAL 05/30/2018 PSA, TOTAL 12/29/2017 PSA, TOTAL 08/26/2024 PSA, TOTAL 04/01/2020 PSA, TOTAL 04/22/2024 PSA, TOTAL 07/10/2017 PSA, TOTAL 01/15/2021 PSA, TOTAL 01/15/2024 PSA, TOTAL 11/06/2017 PSA, TOTAL 09/18/2018 PSA, TOTAL 10/16/2020 PSA, TOTAL 08/04/2021 PSA, TOTAL 08/30/2017 PSA, TOTAL+FREE 04/16/2021 PSA, TOTAL SCREEN 07/03/2020 CBC w DIFF 10/16/2020 CBC w DIFF 08/04/2021 CBC w DIFF 08/30/2017 CBC w DIFF 05/30/2018 CBC w DIFF 12/29/2017 CBC w DIFF 07/03/2020 CBC w DIFF 08/26/2024 CBC w DIFF 04/01/2020 CBC w DIFF 04/16/2021 CBC w DIFF 04/22/2024 CBC w DIFF 07/10/2017 CBC w DIFF 01/15/2021 CBC w DIFF 11/06/2017 CBC w DIFF 09/18/2018 SED RATE (ESR) 04/01/2020 TESTOSTERONE, TOTAL 08/26/2024 TESTOSTERONE, TOTAL 01/15/2021 TESTOSTERONE, TOTAL 04/01/2020 CBC WITH AUTO DIFF 01/15/2024 Lipid Panel 04/22/2024 Lipid Panel 01/15/2024 XR chest 2V 04/22/2024 Hemoglobin A1c 01/15/2024 Hemoglobin A1c 04/22/2024 Next Appt Details Provider Name:Frankie Keyes, 12/30/2024 03:00:00 PM, [address] [place] [address] [address]USIE Carrie, [place], [address], Insurance Providers Payer Name Payer Address Payer Phone Subscriber Number Group Number Insured Name Patient Relationship to Insured Coverage Start Date Coverage End Date MEDICARE NGS [address] [place] [address] [id number] Naveen Farias Self - patient is the insured [facility] [address] [place], [place] [id number] Naveen Farias Self - patient is the insured Medical (General) History Medical History History ICD Code degenerative arthitis knees childhod eye surgery pituitary tumor, [facility], surge ry, blind OS 2019 lymphoma prostate cancer cellulitis of toe Surgical History Surgery Date(Month/Year) Hernia repair 2011,2015 Eye Surgery 1954 Radical Prostatectomy Brain tumor removed 2000 Right hand surgery 1974 Right knee surgery 52yrs old Basal cell cancer removed on right cheek 2013 melanoma removal on back 04/2018 pituitary tumor removal in [place] 0 Brain Surgery tumor removal 11/2019 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
[2024-10-14 13:02] VITALS: BP 122/70; PULSE 89; TEMP 36.3; O2SAT 97; BMI 24.8
--- NOTE | 2024-10-14 13:02 | MHC.PC.OV ---
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 Required: No Accompanied by: Self / Same As Patient Allergies No Known Allergies [No Known Allergies*] Allergy (Verified 10/14/24 13:02) Tobacco use date assessed: 10/14/24 Fall risk assessment: No Falls in past year Last assessed Fall Risk: 10/14/24 Dental Screening Dental Screen Date: 10/14/24 Did you have a dental visit in the last 12 months?: Yes Did you have a dental problem in the last 6 months where you did not have access to dental care?: No PFSH Medical History (Updated 10/14/24 @ 13:30 by Anthony Brown MD) Urinary incontinence Arthritis AAA (abdominal aortic aneurysm) without rupture Headache Blind left eye Hx of radiation therapy CLL (chronic lymphocytic leukemia) Bone cancer History of skin cancer Chronic lymphocytic leukemia Hypogonadism in male Prostate cancer History of cataract 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 Hypertension GERD (gastroesophageal reflux disease) Colon adenomas Surgical History Hx of eye surgery Hx of umbilical hernia repair Hx of inguinal hernia repair Hx of melanoma excision (~2016) History of prostatectomy (~2009) History of hernia repair History of knee surgery History of surgery on wrist History of colonoscopy (~04/24/20) History of brain surgery Family History Father Heart disease Mother Emphysema lung Social History Household Members: None Housing: Apartment Are you a primary critical care unit nurse to a significant other at home: No Do you presently have visiting nurse or other home services: No Alcohol intake: never Comment: left DP/PT, audible-monophasic with doppler, Right is biphasic DP/PT Patient Tobacco Use Status: Former Tobacco user Tobacco use type: Cigarette Years Smoked: 50 e-Cigarette/Vaping Use: Former Use Second Hand Smoke Exposure: No service: No Current occupational status: retired Cognitive needs: No Hearing needs: No Vision needs: Yes (rx glasses) Questionnaire PHQ-9 Over the last 2 weeks, how often have you been bothered by any of the following problems? 1. Little interest or pleasure in doing things: not at all 2. Feeling down, depressed, or hopeless: not at all 3. Trouble falling or staying asleep, or sleeping too much: not at all 4. Feeling tired or having little energy: not at all 5. Poor appetite or overeating: not at all 6. Feeling bad about yourself - or that you are a failure or have let yourself or your family down: not at all 7. Trouble concentrating on things, such as reading the newspaper or watching television: not at all 8. Moving or speaking so slowly that other people could have noticed. Or the opposite - being so fidgety or restless that you have been moving around a lot more than usual: not at all 9. Thoughts that you would be better off or of hurting yourself in some way: not at all Total score: 0 Source: Developed by Drs. Frankie Downs, Simona Ley, Jose Juan Baldwin and colleagues, with an educational curtis from [employer]. Thrive Questionnaire Date Thrive assessed: 10/14/24 I am a: Patient Within the past 12 months, did the food you bought not last and you didn't have the money to get more?: Never true Within the past 12 months, did you worry whether your food would run out before you got money to buy more?: Never true Do you have trouble paying for medicines?: No Do you have trouble getting transportation to medical appointments?: No Do you have trouble paying your heating and electricity bill?: No Do you have trouble taking care of your child, family member or friend?: No Do you have trouble with day-to-day activities such as bathing, preparing meals, shopping, managing finances, etc.?: No Are you currently unemployed and looking for a job?: No Are you interested in more education?: No THRIVE Score: 0 AUDIT C Alcohol Use Questionnaire (AUDIT-C) 1. How often do you have a drink containing alcohol?: Never 3. How often do you have six or more drinks on one occasion?: Never Total Score: 0 WILLA-7 AMB Questionnaire WILLA-7 Date WILLA - 7 assessed: 10/14/24 Feeling nervous, anxious, or on edge: 0 = Not at all Not being able to stop or control worryin = Not at all Worrying too much about different things: 0 = Not at all Trouble relaxin = Not at all Being so restless that it is hard to sit still: 0 = Not at all Becoming easily annoyed or irritable: 0 = Not at all Feeling afraid as if something awful might happen: 0 = Not at all Total WILLA-7 score (0-4 normal; 5-9 mild; 10-14 moderate; 15-21 severe): 0 Source: Developed by Drs. Frankie Downs, Simona Ley, Jose Juan Baldwin and colleagues, with an educational curtis from [employer]. Physical exam (Primary Care) Vital Signs: Last Vital Signs Temp 97.4 F 10/14/24 13:02 Pulse 89 10/14/24 13:02 BP 122/70 10/14/24 13:02 Pulse Ox 97 10/14/24 13:02 BMI result Body Mass Index 24.8 Tobacco/Smoking Status: Tobacco use Status Tobacco use date assessed 10/14/24 10/14/24 13:04 Patient Tobacco Use Status Former Tobacco user 10/14/24 13:04 Tobacco use type Cigarette 10/14/24 13:04 e-Cigarette/Vaping Use Former Use 10/14/24 13:14 PHQ-9: PHQ-9 Score PHQ-9: Total score 0 10/14/24 13:04 Thrive Assessment: Date of Thrive Assessment Date Thrive assessed 10/14/24 10/14/24 13:04 Coding Level of Care Code New Pt Level 4 (28823) Complex EM visit Add On G2211 Diagnoses Infrarenal abdominal aortic aneurysm (AAA) without rupture I71.43 Abdominal aorta location: infrarenal aorta Prostate cancer C61 CLL (chronic lymphocytic leukemia) C91.10 Hypertension I10 Cellulitis of right leg L03.115 Assessment & Plan Assessment & Plan (1) AAA (abdominal aortic aneurysm) without rupture: Comment: 11/13/2023 - endovascular aortic aneurysm (Endologix AFX 2 device) Code(s): I71.40 - Abdominal aortic aneurysm, without rupture, unspecified Category: Medical Qualifiers: Abdominal aorta location: infrarenal aorta Qualified Code(s): I71.43 - Infrarenal abdominal aortic aneurysm, without rupture Plan: Condition is stable (2) Prostate cancer: Code(s): C61 - Malignant neoplasm of prostate Category: Medical Plan: Condition is stable. Taking Lupron (3) CLL (chronic lymphocytic leukemia): Code(s): C91.10 - Chronic lymphocytic leukemia of B-cell type not having achieved remission Category: Medical Plan: Sees Dr Keyes. (4) Hypertension: Code(s): I10 - Essential (primary) hypertension Category: Medical Plan: BP in range. Continue amlodipin (5) Cellulitis of right leg: Code(s): L03.115 - Cellulitis of right lower limb Plan: Keflex for 7 days. Plan History of Present Illness The patient is a 79-year-old male presenting with a laceration to the right leg accompanied by erythema. This injury occurred approximately two weeks prior to this visit. Since the initial laceration, the patient has observed redness extending below the wound. He experiences increased sensitivity when the area is impacted, though this is more of an awareness of presence than direct pain. The patient has employed self-care through bandaging and allowing air exposure to the wound, but recent bleeding episodes have been troubling. His medical history is notable for unspecified cancers, for which he receives hormonal treatments. He is successfully managing hypertension with Amlodipine and reports a substantial decrease in headache frequency since starting this medication. Easy bruising is another concern; however, the patient is not on aspirin or anticoagulant therapy, and previous assessments declared his antihypertensive medication non-thinning. 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 - Lives alone. - Capable of performing daily living activities independently. - Drives, but avoids night-time driving due to vision issues. Review of Systems - Skin: Reports increased bruising tendency; erythema and bleeding associated with a right leg wound. - Cardiovascular: Denies chest pain or palpitations. - Psychiatric: Denies current stress or mood issues. Physical Exam General: Cooperative and healthy appearing Nutritional Appearance: Well nourished Orientation/consciousness: Patient oriented x3 Limitations: No limitations Head: Normal to inspection General: Appearance normal, both eyes and all related structures Neck: Normal visual inspection Chest: Normal palpation of entire chest wall Respiratory: Breath sounds are good ormal respiratory effort Neurology: Patient oriented x3 Right leg: black eschar surrounded by erythema. Minimal edema and tenderness Results - Labs: Blood work from June, results within normal limits. Plan I will prescribe antibiotics for a duration of seven days, dosed twice daily, to address the right leg laceration with associated erythema and potential for infection. The patient should continue his Amlodipine regimen, as it successfully manages his blood pressure and prevents headaches. His bruising tendency, while currently clinically mild, should be monitored, and physical precautions advised to avoid trauma, considering his easy bruising and existing cancer treatments. Patient was informed and verbally consented to the use of an ambient scribe for clinic note documentation during this visit. Discussion Notes I explained to the patient the need for preventive antibiotic therapy to address redness and prevent infection associated with his leg laceration. We discussed the positive control of his hypertension and headache history with his current Amlodipine regimen. I emphasized monitoring his tendency toward bruising and advised avoidance of situations that might lead to trauma, considering his cancer treatments' contributions. The patient was informed of wound care and healing measures and agreed to proceed with antibiotic therapy as outlined. Patient Instructions - Take prescribed antibiotics for seven days as instructed. - Continue current Amlodipine regimen. - Monitor for worsening of leg redness or signs of infection, and consult if necessary. - Engage in safe activities to avoid trauma and bruising. - Practice wound care to promote healing of the leg. - Avoid driving at night due to vision issues.
--- OUTSIDE RECORDS SUMMARY | 2024-10-14 13:02 | XMS_ITS | Clinical Summary ---
Author Organization [facility] Address [address] [place] [address] Care Team Providers Care Die Grinder Name Role Phone Christian Barkley MD Primary Care Provider [phone] Allergies No known active allergies Medications Medication [...] age to complete this topic Care Teams Die Grinder Relationship Specialty Start Date End Date Christian Barkley MD [address] [place] [address] Dr [address] [place], [place] [phone] PCP - General Wood Last Maker 08/10/16
--- OUTSIDE RECORDS SUMMARY | 2024-10-14 13:02 | XMS_ITS ---
Author Organization Frankie Keyes III, MD Address [address] [place] [address] Care Team Providers Care Playroom Attendant Name Role Phone Christian Barkley MD Primary Care Provider Frankie Bender Unavailable [phone] Allergies Allergen (clinical drug ingredient) Drug/Non Drug Allergy documented on EMR Reaction Allergy Type Onset Date Status No Known Drug Allergy Unknown Drug Allergy Active REASON FOR VISIT Followup, mri for [facility] nexts week for pit tumor Medications Medication [...] Problem Status W/U Status Risk Notes Problem 529293179 Overweight (E66.3) Active confirmed He is very [...] Date Provider Diagnosis Frankie Keyes III, MD [address] [place] [address] [place] [address] 08/26/2024 Frankie Keyes Pituitary tumor D49. 7 ; Prostate cancer C61 ; Overweight E66.3 ; CLL (chronic lymphocytic leukemia) C91.10 and Former smoker Z87.891 Assessments Encounter Date Diagnosis (ICD Code) Assessment Notes Treatment Notes Treatment Clinical Notes 08/26/2024 Pituitary tumor (ICD-10 - D49.7) He will continue to be observed at the [facility] neurosurgery department. He will have periodic MRIs of the brain. The next study has been scheduled at [facility]. He recently went to [place] to see neurosurgery, Dr. Garcia, we'll told [...] OV Provider Name:Frankie Keyes, 12/30/2024 03:00:00 PM, [address] [place] [address] , [facility] [address], [place], [address], Progress Notes * Naveen FARIASDOB:1944 (79 yo M)Acc No.[id number]:08/26/2024 Progress Notes Patient:?Naveen FARIAS Provider:?Frankie Keyes MD :1945???Age:79 Y???Sex:Male Ankur e:08/26/2024 Address:[address] [place] [address] , [place] [phone] Pcp:Christian Barkley MD Subjective: * Chief Complaints: * ???[facility] * [...] Level is 105. His physicians at the [facility] in [place] have scheduled an MRI of his brain at the [facility] next week to assess the status [...] removal on back 04/2018pituitary tumor removal in [place] 10/2019Brain Surgery tumor removal 11/2019Abdomen Aortic Aneurism [...] Tobacco Non-User?Ex-cigarette smoker ???He was born in [place] and is not working at present. He [...] will continue to be observed at the [facility] neurosurgery department. He will have periodic MRIs of the brain. The next study has been scheduled at [facility]. He recently went to [place] to see neurosurgery, Dr. Garcia, we'll told [...] Keyes MD Date:?08/2024 Generated for Chivo ray/Wan/Mandyitting on:?10/14/2024 01:02 PM EDT History and Physical Notes * [...]
--- OUTSIDE RECORDS SUMMARY | 2024-10-14 13:02 | XMS_ITS ---
Author Organization Frankie Keyes III, MD Address [address] [place] [address] Care Team Providers Care Manager Skilled Name Role Phone Christian Barkley MD Primary Care Provider Frankie Bender Unavailable [phone] Allergies Allergen (clinical drug ingredient) Drug/Non Drug [...] Risk Notes Problem Malignant tumor of prostate ([id number]) Prostate cancer (C61) Active confirmed A recent [...] Date Provider Diagnosis Frankie Keyes III, MD [address] [place] [address] DR [place], [place] [id number] 01/15/2024 Frankie Ohrne Pituitary tumor D49. 7 ; Prostate cancer C61 ; CLL (chronic lymphocytic leukemia) C91.10 ; Former smoker Z87.891 ; Osteopenia M85.80 and History of melanoma Z85.820 Assessments Encounter Date Diagnosis (ICD Code) Assessment Notes Treatment Notes Treatment Clinical Notes 01/15/2024 Pituitary tumor (ICD-10 - D49.7) He will continue to be observed at the [facility] neurosurgery department. He will have periodic MRIs of the brain. The next study has been scheduled at [facility]. He recently went to [place] to see neurosurgery, Dr. Garcia, we'll told [...] OV Provider Name:Frankie Keyes, 12/30/2024 03:00:00 PM, [address] [place] [address] [address], [place], [address], Progress Notes * Naveen FARIASDOB:1944 (78 yo M)Acc No.[id number]:01/15/2024 Progress Notes Patient:?Naveen Farias Provider:?Frankie Keyes MD :1945???Age:78 Y???Sex:Male Ankur e:01/15/2024 Address:[address] [place] [address] , [id number] Pcp:Christian Barkley MD Subjective: * Chief Complaints: * ???Pituitary tumor in remiss ionProstate cancerChronic lymphocytic leukemiaHistory of melanomaOsteopenia * HPI: ???COVID-19 Screening:? He was seen November 01, 2023 by his vascular surgeon, Dr. Wills. A recent PET CT scan showed the aortic aneurysm had increased from 4-6 cm. An urgent endovascular repair was done at [facility] with success. He was discharged November [...] removal on back 04/2018pituitary tumor removal in [place] 10/2019Brain Surgery tumor removal 11/2019Abdomen Aortic Aneurism [...] Tobacco Non-User?Ex-cigarette smoker ???He was born in [place] and is not working at present. He [...] continue to be observed at the [facility] neurosurgery department. He will have periodic MRIs of the brain. The next study has been scheduled at [facility]. He recently went to [place] to see neurosurgery, Dr. Garcia, we'll told [...] Keyes MD Date:?12/25 Generated for Printi ng/Faaayushg/eTransmitting on:?10/14/2024 01:01 PM EDT History and Physical Notes * HPI (History of Present Illness) Category Sub-Category Detail Notes COVID-19 Screening Questions Have you had any new onset fever, chills, cough, congestion, sore throat, shortness of breath, muscle aches?: No Have you been exposed to the virus withi n the last 10 days?: No Have you travelled internationally in [facility] last 10 days?: No Have [...]
--- OUTSIDE RECORDS SUMMARY | 2024-10-14 13:02 | XMS_ITS ---
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 7 [...] will continue to be observed at the [facility] neurosurgery department. He will have periodic MRIs of the brain. The next study has been scheduled at [facility]. He recently went to [place] to see neurosurgery, Dr. Garcia, we'll told [...] labs Provider Name:Frankie Keyes, 12/30/2024 03:00:00 PM, [address] [place] [address] [address], [place], [address], Progress Notes * Naveen FARIASDOB:1944 (79 yo M)Acc No.[id number]:04/22/2024 Progress Notes Patient:?Naveen FARIAS Provider:?Frankie Keyes MD :1945???Age:79 Y???Sex:Male Ankur e:04/22/2024 Address:[address] [place], [place] [id number] Pcp:Christian Barkley MD Subjective: * Chief Complaints: [...] removal on back 04/2018pituitary tumor removal in [place] 10/2019Brain Surgery tumor removal 11/2019Abdomen Aortic Aneurism [...] Tobacco Non-User?Ex-cigarette smoker ???He was born in [place] and is not working at present. He [...] 73 (Ref Range: >40 mg/dL) * Lab:[facility]. Pane l Fast * Collection Date 04/12/2024 [...] will continue to be observed at the [facility] neurosurgery department. He will have periodic MRIs of the brain. The next study has been scheduled at [facility]. He recently went to [place] to see neurosurgery, Dr. Garcia, we'll told [...] * Provider:?Frankie Keyes MD Date:?03/27 Generated for Chivo ray/Wan/eTransmitting on:?10/14/2024 01:02 PM EDT History and Physical [...]
--- OUTSIDE RECORDS SUMMARY | 2024-10-14 13:02 | XMS_ITS | Patient Health Record ---
Author Organization [facility] Address [address] [place] [address] Care Team Providers Care Pipe Threader Name Role Phone Christian Barkley MD Primary [...] Problem Status W/U Status Risk Notes Problem [id number] Colon cancer screening (Z12.11) Active confirmed Plan Of Treatment Future Test Test Name Order Date COLONOSCOPY 11/20/2013 COLONOSCOPY 04/13/2020 Insurance Providers Payer Name Payer Address Payer Phone Subscriber Number Group Number Insured Name Patient Relationship to Insured Coverage Start Date Coverage End Date MEDICARE OF [place] [address] [place] [address] [phone] [id number] KAMERON SWANSON Self - patient is the insured [employer] ATT[employer] CLAIMS [address] [place] [address] [id number] KAMERON SWANSON Self - patient is the [...]
== END 2024-10-14 13:27 | disposition home or self-care (01) ==
LOC: HO.HMCHD 12:59
PROVIDERS: PCP Internal Medicine; Visit Provider Internal Medicine
DX: I71.43 Infrarenal abdominal aortic aneurysm, without rupture (principal); C61 Malignant neoplasm of prostate; C91.10 Chronic lymphocytic leukemia of B-cell type not having achieved remission; I10 Essential (primary) hypertension; L03.115 Cellulitis of right lower limb

== ENCOUNTER → 2024-10-14 12:59 | Outpatient (BNVA) | payer MEDICARE, SELFPAY | PROVIDERS: PCP Internal Medicine; Visit Provider Internal Medicine | DX: I71.43 Infrarenal abdominal aortic aneurysm, without rupture (principal); C61 Malignant neoplasm of prostate; C91.10 Chronic lymphocytic leukemia of B-cell type not having achieved remission; I10 Essential (primary) hypertension; L03.115 Cellulitis of right lower limb | CPT/HCPCS: 99202 ==

== ENCOUNTER 2024-11-22 14:23 | Outpatient (REF) | payer MEDICARE, SELFPAY ==
--- NOTE | ~2024-11-22 | CT_ITS ---
CLINICAL HISTORY: I71.43 - Infrarenal abdominal aortic aneurysm, without rupture CT angiography abdomen and pelvis with contrast. 3-D post processing. Comparison: CT/SR - CT ANGIO ABDOMEN PELVIS - 03/04/24 10:08 EDT Findings: Atherosclerosis calcification of the aorta. Stable in size of the infrarenal abdominal aortic aneurysm measures 6.3 x 6.6 cm, previously 6.4 x 6.7 cm. Status post stent graft repair with no evidence of endoleak. The celiac axis, SMA and renal arteries are patent. No consolidation or effusion. Moderate size of hiatal hernia. The gallbladder and solid organs are within normal limits. Right renal cysts and kidney stone. No bowel obstruction, pneumoperitoneum, or pneumatosis. Colonic diverticulosis. Prostatectomy. Normal appendix. Status post mesh repair of ventral hernia. The bones are intact. IMPRESSION: Stable in size of the infrarenal abdominal aortic aneurysm. No evidence of endoleak. Colonic diverticulosis. Additional findings as above. This document has been electronically signed by: Phil Tate MD on 11/25/2024 15:34:09
--- OUTSIDE RECORDS SUMMARY | 2024-11-22 14:25 | XMS_ITS | Patient Health Record ---
Author Organization Frankie Keyes III, MD Address [address] [place] [address] [place] [address] Care Team Providers Care Medical Office Technology Instructor Name Role Phone Christian Barkley MD Primary Care Provider Unavaila Frankie Cohn Unavailable [phone] Allergies Allergen (clinical drug ingredient) Drug/Non Drug Allergy documented on EMR Reaction Allergy Type Onset Date Status No Known Drug Allergy Unknown Drug Allergy Active Results Component Value Reference Range Notes Complete Blood Count Auto Di ff Reviewed date:03/25/2024 08:43:31 AM Interpretation: Performing Lab:[facility], [address] [place] [address] Notes/Report: White Blood Count 5.9 4.8-10.8 X10*3/uL [...] Panel Reviewed date:03/25/2024 08:43:31 AM Interpretation: Performing Lab:[facility], [address] [place] [phone] Notes/Report: Sodium 145 135-145 mmol/L Potassium 4.5 [...] Antigen Reviewed date:03/25/2024 08:43:31 AM Interpretation: Performing Lab:[facility], [address] [place] [phone] Notes/Report: Prostate Specific Antigen 1.03 <0.05-4.0 ng/mL PSA methodology: Turner Alinity i Chemiluminescent Microparticle Immunoassay (CMIA) Thyroid Stimulating Hormone Reviewed date:03/25/2024 08:43:31 AM Interpretation: Performing Lab:[address] [phone] Notes/Report: Thyroid Stimulating Hormone 1.45 0.32-4.0 uIU/mL TSH 3rd Generation ([employer]) Hemoglobin A1c Reviewed date:03/25/2024 08:43:31 AM Interpretation: Performing Lab:[address] [address] Notes/Report: Hemoglobin A1c % 5.5 <6.0 % [...] average glucose, using the formula of the T8D-Rzlejwg Average Glucose study (ADAG), Diabetes Care, Vol.31,#8, Jan. 2007 Complete Blood Count Auto Di ff Reviewed date:04/14/2024 07:26:22 AM Interpretation: Performing Lab:[facility], [address] [place] [phone] Notes/Report: White Blood Count 5.7 4.8-10.8 X10*3/uL [...] NRBC Abs Auto 0.000 0.0-0.012 X10*3/uL Comprehensive [place]. Panel Fa st Reviewed date:04/14/2024 07:26:22 AM Interpretation: Performing Lab:[facility], [address] [place] [phone] Notes/Report: Sodium 147 135-145 mmol/L Potassium 4.3 [...] Panel Reviewed date:04/14/2024 07:26:22 AM Interpretation: Performing Lab:[facility], [address] [place] [phone] Notes/Report: Triglycerides 64 <150 mg/dL Desirable Triglyceride: [...] Antigen Reviewed date:04/14/2024 07:26:22 AM Interpretation: Performing Lab:[facility], [address] [place] [phone] Notes/Report: Prostate Specific Antigen 0.82 <0.05-4.0 ng/mL PSA methodology: Turner Alinity i Chemiluminescent Microparticle Immunoassay (CMIA) Hemoglobin A1c Reviewed date:04/14/2024 07:26:22 AM Interpretation: Performing Lab:[facility], [address] [place] [phone] Notes/Report: Hemoglobin A1c % 5.6 <6.0 % [...] average glucose, using the formula of the B6E-Foyimsn Average Glucose study (ADAG), Diabetes Care, Vol.31,#8, 2007 XR chest 2V (Not yet reviewe d by provider) Interpretation: Performing Lab: Notes/Report: [address] [address] XRay Report Signed Patient: Naveen Farias MR#: [id number] : 1945 Acct:[id number] Age/Sex: 79 / M ADM Date: 04/22/24 Loc: [facility] Attending Dr: Frankie Keyes MD Ordering Physician: Frankie Keyes MD Date of Service: 04/22/24 Procedure(s): XR chest 2V Accession Number(s): [id number] cc: Frankie Keyes MD; Christian Barkley MD [...] 04/23/24 0541 DD/ 1504 TD/TT: 04/22/24 1520 Salon Customer Experience Specialist: [address] [address] XRay Report Signed Patient: Naveen Farias MR#: [id number] : 1945 Acct:[id number] Age/Sex: 79 / M ADM Date: 04/22/24 Loc: X[facility]I Attending Dr: Frankie Keyes MD Ordering Physician: Frankie Keyes MD Date of Service: 04/22/24 Procedure(s): XR [address] 2V Accession Number(s): [id number] cc: Frankie Keyes MD; Christian Barkley MD [...] 04/23/24 0541 DD/ 1504 TD/TT: 04/22/24 1520 Salon Customer Experience Specialist: Reason For Referral No Information Medications Medication [...] Problem Status W/U Status Risk Notes Problem 3347895 Former smoker (Z87.891) Active confirmed He has a plan to prevent relapse in times of stress or illness. Problem 687567842 Overweight (E66.3) Active confirmed He is very slightly overweight. I recommended she stabilize his weight at this level Problem 44279142 Hyperglycemia (R73.9) Active confirmed This value is being treated by primary care. No change in his status is noted. Problem Malignant tumor of prostate (890550639) Prostate cancer (C61) Active confirmed A recent PSA is not available. It will be requested from the urologist. A repeat value has been ordered. There was no sign of progressive prostate cancer on his examination today. Problem 564481280 Malignant neoplasm of prostate (C61) Active confirmed His PSA has fallen to 0.82. He is asymptomatic. He is doing well and his disease is controlled. Problem 092031288 Pituitary tumor (D49.7) Active confirmed He will continue to be observed at the [facility] neurosurgery department. He will have periodic MRIs of the brain. The next study has been scheduled at [facility]. He recently went to [place] to see neurosurgery, Dr. Garcia, we'll told him that the tumor was not growing back. Problem History of malignant melanoma of the skin (44098440393 8) History of melanoma (Z85.820) Active confirmed Problem 237733974 Osteopenia (M85.80) Active confirmed There was continued on current therapy today without change. Problem 64841436 CLL (chronic lymphocytic leukemia) (C91.10) Active confirmed His CBC remains stable and there is no sign of disease progression. Observation was continued. Problem 0440880 Obstructive uropathy (N13.9) Active confirmed He will rem ain under the care of urologist in this problem will be addressed. 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 7 ; Prostate cancer C61 ; CLL (chronic lymphocytic leukemia) C91.10 ; Former smoker Z87.891 ; Osteopenia M85.80 and History of melanoma Z85.820 Frankie Keyes III, MD [address] [place] [address] [place] [phone] 04/22/2024 Frankie Keyes Pituitary tumor D49. 7 ; Malignant neoplasm of prostate C61 ; CLL (chronic lymphocytic leukemia) C91.10 ; Former smoker Z87.891 ; Hyperglycemia R73.9 ; Chronic cough R05.3 ; Osteopenia M85.80 and Vision loss of left eye H54.62 Frankie Keyes III, MD [address] [place] [address] [place] [address] 08/26/2024 Frankie Keyes Pituitary tumor D49. 7 [...] will continue to be observed at the [facility] neurosurgery department. He will have periodic MRIs of the brain. The next study has been scheduled at [facility]. He recently went to [place] to see neurosurgery, Dr. Garcia, we'll told him that the tumor was not growing back. 04/22/2024 Malignant neoplasm of prostate (ICD-10 - C61) His PSA has fallen to 0.82. He is asymptomatic. He is doing well and his disease is controlled. 04/22/2024 Pituitary tumor (ICD-10 - D49.7) He will continue to be observed at the [facility] neurosurgery department. He will have periodic MRIs of the brain. The next study has been scheduled at [facility]. He recently went to [place] to see neurosurgery, Dr. Garcia, we'll told [...] will continue to be observed at the [facility] neurosurgery department. He will have periodic MRIs of the brain. The next study has been scheduled at [facility]. He recently went to [place] to see neurosurgery, Dr. Garcia, we'll told [...] ) 08/26/2024 PROFILE, RANDOM (COMPREHENSIVE METABOLIC ) 01/15/2021 PROFILE, RANDOM (COMPREHENSIVE METABOLIC ) 07/10/2017 PROFILE, RANDOM (COMPREHENSIVE METABOLIC ) 11/06/2017 PROFILE, [...] TOTAL 08/26/2024 PSA, TOTAL 04/01/2020 PSA, TOTAL 01/15/2021 PSA, TOTAL 04/22/2024 PSA, TOTAL 07/10/2017 PSA, TOTAL 01/15/2024 PSA, TOTAL 11/06/2017 PSA, TOTAL 09/18/2018 PSA, TOTAL 10/16/2020 PSA, TOTAL 08/04/2021 PSA, TOTAL 08/30/2017 PSA, TOTAL+FREE 04/16/2021 PSA, TOTAL SCREEN 07/03/2020 CBC w DIFF 10/16/2020 CBC w DIFF 08/04/2021 CBC w DIFF 08/30/2017 CBC w DIFF 05/30/2018 CBC w DIFF 12/29/2017 CBC w DIFF 07/03/2020 CBC w DIFF 04/16/2021 CBC w DIFF 08/26/2024 CBC w DIFF 04/01/2020 CBC w DIFF 01/15/2021 CBC w DIFF 04/22/2024 CBC w DIFF 07/10/2017 CBC w DIFF 11/06/2017 CBC w DIFF 09/18/2018 SED RATE (ESR) 04/01/2020 TESTOSTERONE, TOTAL 08/26/2024 TESTOSTERONE, TOTAL 01/15/2021 TESTOSTERONE, TOTAL 04/01/2020 CBC WITH AUTO DIFF 01/15/2024 Lipid Panel 04/22/2024 Lipid Panel 01/15/2024 XR chest 2V 04/22/2024 Hemoglobin A1c 01/15/2024 Hemoglobin A1c 04/22/2024 Next Appt Details Provider Name:Frankie Keyes, 12/30/2024 03:00:00 PM, [address] [place] [address] [address] SUSIE Carrie, [place], [address], Insurance Providers Payer Name Payer Address Payer Phone Subscriber Number Group Number Insured Name Patient Relationship to Insured Coverage Start Date Coverage End Date MEDICARE NGS [address] [facility] [place] [address] [id number] Naveen Farias Self - patient is the insured [facility] [address] [place], [place] [id number] [phone] [id number] Naveen Farias Self - patient is the insured Medical (General) History Medical History History ICD Code degenerative arthitis knees childhod eye surgery pituitary tumor, [facility], surge ry, blind OS 2019 lymphoma prostate cancer cellulitis of toe Surgical History Surgery Date(Month/Year) Hernia repair 2011,2015 Eye Surgery 1954 Radical Prostatectomy Brain tumor removed 2000 Right hand surgery 1974 Right knee surgery 52yrs old Basal cell cancer removed on right cheek 2013 melanoma removal on back 04/2018 pituitary tumor removal in [place] 0 Brain Surgery tumor removal 11/2019 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
[2024-11-22] MEDS: iohexoL 350 MG/ML 100 ML INFUS..BTL IV (15:11)
[2024-11-22 17:53] LABS: Creatinine POC 0.7 mg/dL (0.5-1.4); GFR POC > 60
== END 2024-11-22 14:24 | disposition home or self-care (01) ==
LOC: HO.CT 14:23
PROVIDERS: PCP Internal Medicine; Visit Provider Surgery Vascular Surgery
DX: I71.43 Infrarenal abdominal aortic aneurysm, without rupture (principal)
CPT/HCPCS: 74174; 82565; Q9967

== ENCOUNTER → 2024-11-22 14:25 | Outpatient (BNV) | payer MEDICARE, SELFPAY | PROVIDERS: PCP Internal Medicine; Visit Provider Nuclear Medicine | DX: I71.43 Infrarenal abdominal aortic aneurysm, without rupture (principal); K57.30 Diverticulosis of large intestine without perforation or abscess without bleeding | CPT/HCPCS: 74174 ==

== ENCOUNTER 2024-12-03 13:06 | Outpatient (AMB) | payer MEDICARE, SELFPAY ==
--- NOTE | 2024-12-03 13:30 | MHC.OFFVIS ---
Vital Signs 12/03/24 13:31 Height 5 ft 11.5 in Weight 180 lb BMI 24.8 Intake Visit Reasons: 6 month follow up s/p CTA 11/25/24 Intake Note: 6 mo follow up CTA Abd/pelvis 10/26/24 AAA repair 11/13/23 Office Technology Instructor Required: No Accompanied by: Self / Same As Patient Allergies No Known Allergies [No Known Allergies*] Allergy (Verified 12/03/24 13:35) HPI HPI 6 month follow up s/p CTA 11/25/24: Details: The patient is a 79-year-old male presenting for routine surveillance of his endovascular aortic aneurysm repair. The repair, involving the use of an Endologix AFX2 device, was performed in October 2023. He does not report any issues related to this procedure. A recent surveillance imaging study substantiates the integrity and appropriate positioning of the graft. The patient also raises concerns over thin skin and easy bruising, a condition he associates with prior bone cancer treatments. He underwent seven weeks of radiation therapy alongside chemotherapy, which has also led to reduced testosterone levels. These therapies are believed to contribute to the observed skin thinning. Despite these issues, he notes no significant change in his bone cancer status under the care of both his urologist and oncologist, predicting a stable disease course. [facility] Medical History Urinary incontinence Arthritis AAA (abdominal aortic aneurysm) without rupture Headache Blind left eye Hx of radiation therapy CLL (chronic lymphocytic leukemia) Bone cancer History of skin cancer Chronic lymphocytic leukemia Hypogonadism in male Prostate cancer History of cataract 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 Hypertension GERD (gastroesophageal reflux disease) Colon adenomas Surgical History Hx of eye surgery Hx of umbilical hernia repair Hx of inguinal hernia repair Hx of melanoma excision (~2016) History of prostatectomy (~2009) History of hernia repair History of knee surgery History of surgery on wrist History of colonoscopy (~04/24/20) History of brain surgery Family History Father Heart disease Mother Emphysema lung Social History Household Members: None Housing: Apartment Are you a primary urgent care technician to a significant other at home: No Do you presently have visiting nurse or other home services: No Alcohol intake: never Comment: left DP/PT, audible-monophasic with doppler, Right is biphasic DP/PT Patient Tobacco Use Status: Former Tobacco user Tobacco use type: Cigarette Years Smoked: 50 e-Cigarette/Vaping Use: Former Use Second Hand Smoke Exposure: No service: No Current occupational status: retired Cognitive needs: No Hearing needs: No Vision needs: Yes (rx glasses) Review of Systems Const All systems reviewed & are unremarkable except as noted in HPI and below Reports no additional complaints ENT Reports Normal hearing present Card Denies chest pain, Denies chest pain at rest, Denies chest pain with activity and Denies pedal edema Resp Denies cough GI Denies abdominal pain Musc Denies abnormal gait, Denies muscle cramps and Denies radiating pain into limb Skin/Breast Denies skin ulcer and Denies wounds Neuro Reports Normal hearing present and Denies abnormal gait Psych Reports no additional complaints Physical Exam Vital Signs: BMI result Body Mass Index 24.8 Const General: cooperative, healthy appearing and comfortable Orientation/consciousness: oriented to person, oriented to place and oriented to time HEENT Head: Yes normal to inspection Neck Neck: Yes normal visual inspection Carotids: no bruits Chest Chest palpation & inspection: normal inspection of the chest Resp Effort & Inspection: normal respiratory effort and able to speak in complete sentences Auscultation: clear to auscultation bilaterally, no crackles, no rales, no rhonchi and no wheezes Cardio Rate: regular rate Rhythm: regular rhythm Heart sounds: S1 normal heart sound present and S2 normal heart sound present Bruits: no carotid bruits Peripheral pulses: Peripheral pulses 2+ throughout GI Inspection: Yes normal to inspection Skin Wounds: no wounds Hair: normal Neuro General: oriented to person, oriented to place and oriented to time Cranial nerves: Yes CN's II-XII intact bilaterally and Yes Normal hearing present Cognition (Neuro): normal cognition Motor exam (neuro): 5/5 motor strength present throughout Extrem Other: venous exam: No significant superficial varicosities or spider telangiectasias, minimal edema General: No clubbing, No cyanosis and No edema Psych Appearance: grossly normal Mental Status: mental status grossly normal Speech and movement: Normal speech and movement present Results Reviewed Results Reviewed: CT angiogram dated 11/25/2024 demonstrates stable aortic endograft with no evidence of endoleak. Assessment & Plan Assessment & Plan (1) AAA (abdominal aortic aneurysm) without rupture: Comment: 11/13/2023 - endovascular aortic aneurysm (Endologix AFX 2 device) Code(s): I71.40 - Abdominal aortic aneurysm, without rupture, unspecified Category: Medical Qualifiers: Abdominal aorta location: infrarenal aorta Qualified Code(s): I71.43 - Infrarenal abdominal aortic aneurysm, without rupture Plan: During the visit, I reviewed the results of the recent surveillance CAT scan with the patient, assuring him of the success and proper placement of the endovascular graft. We discussed the impact of the radiation and chemotherapy treatments on his skin and testosterone levels, affirming that no immediate changes to his care plan are warranted. The patient was informed about the once-a-year imaging cycle for his post-repair surveillance. I emphasized the importance of maintaining regular communication with his primary care and oncology providers to adapt to any changes in his health status appropriately. The patient consented to the plan and appreciated the routine review and monitoring. Orders: Orders Blood Urea Nitrogen 1 Year I71.43 - Infrarenal abdominal aortic aneurysm, without rupture Creatinine 1 Year I71.43 - Infrarenal abdominal aortic aneurysm, without rupture CT angio abdomen pelvis 1 Year I71.43 - Infrarenal abdominal aortic aneurysm, without rupture Coding Level of Care Code Est Pt Level 4 (28745) Complex EM visit Add On G2211 Diagnoses Infrarenal abdominal aortic aneurysm (AAA) without rupture I71.43 Abdominal aorta location: infrarenal aorta
[2024-12-03 13:31] VITALS: BMI 24.8
--- OUTSIDE RECORDS SUMMARY | 2024-12-03 15:26 | XMS_ITS | Patient Health Record ---
Author Organization Frankie Keyes III, MD Address [address] [facility] [place] [address] Care Team Providers Care Arson And Bomb Investigator Name Role Phone Christian Barkley MD Primary Care Provider Unavaila Frankie Cohn Unavailable [phone] Allergies Allergen (clinical drug ingredient) Drug/Non Drug Allergy documented on EMR Reaction Allergy Type Onset Date Status No Known Drug Allergy Unknown Drug Allergy Active Results Component Value Reference Range Notes Complete Blood Count Auto Di ff Reviewed date:03/25/2024 08:43:31 AM Interpretation: Performing Lab:[facility], [address] [place] [address] Notes/Report: White Blood Count 5.9 4.8-10.8 X10*3/uL [...] Panel Reviewed date:03/25/2024 08:43:31 AM Interpretation: Performing Lab:[facility], [address] [place] [phone] Notes/Report: Sodium 145 135-145 mmol/L Potassium 4.5 3.3-5.1 mmol/L Chloride 105 96-108 mmol/L Carbon Dioxide 28 22-29 mmol/L Anion Gap 17 12-20 Blood Urea Nitrogen 16 9-16 mg/dL Creatinine 0.79 0.5-1.4 mg/dL Estimated Glomerular Filt Rate > 60 NOTE: For -Filipino individuals, multiply the result by 1.210. Chronic [...] Antigen Reviewed date:03/25/2024 08:43:31 AM Interpretation: Performing Lab:[facility], [address] [place] [phone] Notes/Report: Prostate Specific Antigen 1.03 <0.05-4.0 ng/mL PSA methodology: Turner Al[employer] i Chemiluminescent Microparticle Immunoassay (CMIA) Thyroid Stimulating Hormone Reviewed date:03/25/2024 08:43:31 AM Interpretation: Performing Lab:[address] [address] Notes/Report: Thyroid Stimulating Hormone 1.45 0.32-4.0 uIU/mL TSH 3rd Generation ([facility]) Hemoglobin A1c Reviewed date:03/25/2024 08:43:31 AM Interpretation: Performing Lab:[address] [address] Notes/Report: Hemoglobin A1c % 5.5 <6.0 % [...] average glucose, using the formula of the L8V-Kpwhkvz Average Glucose study (ADAG), Diabetes Care, Vol.31,#8, Jan. 2007 Complete Blood Count Auto Di ff Reviewed date:04/14/2024 07:26:22 AM Interpretation: Performing Lab:[facility], [address] [place] [phone] Notes/Report: White Blood Count 5.7 4.8-10.8 X10*3/uL [...] NRBC Abs Auto 0.000 0.0-0.012 X10*3/uL Comprehensive [place]. Panel Fa st Reviewed date:04/14/2024 07:26:22 AM Interpretation: Performing Lab:[facility], [address] [place] [phone] Notes/Report: Sodium 147 135-145 mmol/L Potassium 4.3 3.3-5.1 mmol/L Chloride 108 96-108 mmol/L Carbon Dioxide 28 22-29 mmol/L Anion Gap 15 12-20 Blood Urea Nitrogen 16 9-16 mg/dL Creatinine 0.78 0.5-1.4 mg/dL Estimated Glomerular Filt Rate > 60 NOTE: For -Filipino individuals, multiply the result by 1.210. Chronic [...] Panel Reviewed date:04/14/2024 07:26:22 AM Interpretation: Performing Lab:[facility], [address] [place] [phone] Notes/Report: Triglycerides 64 <150 mg/dL Desirable Triglyceride: [...] Antigen Reviewed date:04/14/2024 07:26:22 AM Interpretation: Performing Lab:[facility], [address] [place] [phone] Notes/Report: Prostate Specific Antigen 0.82 <0.05-4.0 ng/mL PSA methodology: [employer] Alinity i Chemiluminescent Microparticle Immunoassay (CMIA) Hemoglobin A1c Reviewed date:04/14/2024 07:26:22 AM Interpretation: Performing Lab:[facility], [address] [place] [phone] Notes/Report: Hemoglobin A1c % 5.6 <6.0 % [...] average glucose, using the formula of the N1F-Zqfivcf Average Glucose study (ADAG), Diabetes Care, Vol.31,#8, 2007 XR chest 2V (Not yet reviewe d by provider) Interpretation: Performing Lab: Notes/Report: [address] [address] XRay Report Signed Patient: Naveen Farias MR#: [id number] : 1945 Acct:[id number] Age/Sex: 79 / M ADM Date: 04/22/24 Loc: XAVI Attending Dr: Frankie Keyes MD Ordering Physician: Frankie Keyes MD Date of Service: 04/22/24 Procedure(s): XR chest 2V Accession Number(s): [id number] cc: Frankie Keyes MD; Christian Barkley MD [...] 04/23/24 0541 DD/ 1504 TD/TT: 04/22/24 1520 Cost Estimator: [address] [address] XRay Report Signed Patient: Naveen Farias MR#: [id number] : 1945 Acct:[id number] Age/Sex: 79 / M ADM Date: 04/22/24 Loc: XAVI Attending Dr: Frankie Keyes MD Ordering Physician: Frankie Keyes MD Date of Service: 04/22/24 Procedure(s): XR [address] 2V Accession Number(s): [id number] cc: Frankie Keyes MD; Christian Barkley MD [...] 04/23/24 0541 DD/ 1504 TD/TT: 04/22/24 1520 Cost Estimator: Reason For Referral No Information Medications Medication [...] Problem Status W/U Status Risk Notes Problem 0110561 Former smoker (Z87.891) Active confirmed He has a plan to prevent relapse in times of stress or illness. Problem 155540720 Overweight (E66.3) Active confirmed He is very slightly overweight. I recommended she stabilize his weight at this level Problem 04599723 Hyperglycemia (R73.9) Active confirmed This value is being treated by primary care. No change in his status is noted. Problem Malignant tumor of prostate (873755105) Prostate cancer (C61) Active confirmed A recent PSA is not available. It will be requested from the urologist. A repeat value has been ordered. There was no sign of progressive prostate cancer on his examination today. Problem 232545830 Malignant neoplasm of prostate (C61) Active confirmed His PSA has fallen to 0.82. He is asymptomatic. He is doing well and his disease is controlled. Problem 808133193 Pituitary tumor (D49.7) Active confirmed He will continue to be observed at the [facility] neurosurgery department. He will have periodic MRIs of the brain. The next study has been scheduled at [facility]. He recently went to [place] to see neurosurgery, Dr. Garcia, we'll told him that the tumor was not growing back. Problem History of malignant melanoma of the skin (84205550741 8) History of melanoma (Z85.820) Active confirmed Problem 869440576 Osteopenia (M85.80) Active confirmed There was continued on current therapy today without change. Problem 97284044 CLL (chronic lymphocytic leukemia) (C91.10) Active confirmed His CBC remains stable and there is no sign of disease progression. Observation was continued. Problem 0085431 Obstructive uropathy (N13.9) Active confirmed He will rem ain under the care of urologist in this problem will be addressed. 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 7 ; Prostate cancer C61 ; CLL (chronic lymphocytic leukemia) C91.10 ; Former smoker Z87.891 ; Osteopenia M85.80 and History of melanoma Z85.820 Frankie Keyes III, MD [address] [place] [address] [place] [address] 04/22/2024 Frankie Keyes Pituitary tumor D49. 7 ; Malignant neoplasm of prostate C61 ; CLL (chronic lymphocytic leukemia) C91.10 ; Former smoker Z87.891 ; Hyperglycemia R73.9 ; Chronic cough R05.3 ; Osteopenia M85.80 and Vision loss of left eye H54.62 Frankie Keyes III, MD [address] [place] [address] [place] [address] 08/26/2024 Frankie Keyes Pituitary tumor D49. 7 [...] will continue to be observed at the [facility] neurosurgery department. He will have periodic MRIs of the brain. The next study has been scheduled at [facility]. He recently went to [place] to see neurosurgery, Dr. Garcia, we'll told him that the tumor was not growing back. 04/22/2024 Malignant neoplasm of prostate (ICD-10 - C61) His PSA has fallen to 0.82. He is asymptomatic. He is doing well and his disease is controlled. 04/22/2024 Pituitary tumor (ICD-10 - D49.7) He will continue to be observed at the [facility] neurosurgery department. He will have periodic MRIs of the brain. The next study has been scheduled at [facility]. He recently went to [place] to see neurosurgery, Dr. Garcia, we'll told [...] will continue to be observed at the [facility] neurosurgery department. He will have periodic MRIs of the brain. The next study has been scheduled at [facility]. He recently went to [place] to see neurosurgery, Dr. Garcia, we'll told [...] C) 04/16/2021 PROFILE, FASTING (COMPREHENSIVE METABOLI C) 04/22/2024 PROFILE, [...] (ESR) 04/01/2020 TESTOSTERONE, TOTAL 04/01/2020 TESTOSTERONE, TOTAL 08/26/2024 TESTOSTERONE, TOTAL 01/15/2021 CBC WITH AUTO DIFF 01/15/2024 Lipid Panel 04/22/2024 Lipid Panel 01/15/2024 XR chest 2V 04/22/2024 Hemoglobin A1c 04/22/2024 Hemoglobin A1c 01/15/2024 Next Appt Details Provider Name:Frankie Keyes, 12/30/2024 03:00:00 PM, [address] [place] [address] [address], [place], [address], Insurance Providers Payer Name Payer Address Payer Phone Subscriber Number Group Number Insured Name Patient Relationship to Insured Coverage Start Date Coverage End Date MEDICARE NGS [address] [place] [address] [id number] Naveen Farias Self - patient is the insured [facility] [address] [place], [place] [id number] Naveen Farias Self - patient is the insured Medical (General) History Medical History History ICD Code degenerative arthitis knees childhod eye surgery pituitary tumor, [facility], surge ry, blind OS 2019 lymphoma prostate cancer cellulitis of toe Surgical History Surgery Date(Month/Year) Hernia repair 2011,2015 Eye Surgery 1954 Radical Prostatectomy Brain tumor removed 2000 Right hand surgery 1974 Right knee surgery 52yrs old Basal cell cancer removed on right cheek 2013 melanoma removal on back 04/2018 pituitary tumor removal in [place] 0 Brain Surgery tumor removal 11/2019 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
== END 2024-12-03 13:54 | disposition home or self-care (01) ==
LOC: HO.HVS 13:06
PROVIDERS: PCP Internal Medicine; Visit Provider Surgery Vascular Surgery
DX: I71.43 Infrarenal abdominal aortic aneurysm, without rupture (principal)
CPT/HCPCS: 99214; G2211

== ENCOUNTER → 2024-12-03 13:06 | Outpatient (BNVA) | payer MEDICARE, SELFPAY | PROVIDERS: PCP Internal Medicine; Visit Provider Surgery Vascular Surgery | DX: I71.43 Infrarenal abdominal aortic aneurysm, without rupture (principal) | CPT/HCPCS: 99212 ==

== ENCOUNTER 2024-12-17 06:34 | Outpatient (REF) | payer MEDICARE, SELFPAY ==
--- OUTSIDE RECORDS SUMMARY | 2024-12-17 06:37 | XMS_ITS | Patient Health Record ---
Author Organization Frankie Keyes III, MD Address [address] [facility] [place] [address] Care Team Providers Care Public Area Supervisor Name Role Phone Christian Barkley MD Primary Care Provider Unavaila Frankie Cohn Unavailable [phone] Allergies Allergen (clinical drug ingredient) Drug/Non Drug Allergy documented on EMR Reaction Allergy Type Onset Date Status No Known Drug Allergy Unknown Drug Allergy Active Results Component Value Reference Range Notes Complete Blood Count Auto Di ff Reviewed date:04/14/2024 07:26:22 AM Interpretation: Performing Lab:[facility], [address] [place] [address] Notes/Report: White Blood Count 5.7 4.8-10.8 X10*3/uL [...] NRBC Abs Auto 0.000 0.0-0.012 X10*3/uL Comprehensive [place]. Panel Fa st Reviewed date:04/14/2024 07:26:22 AM Interpretation: Performing Lab:[facility], [address] [place] [phone] Notes/Report: Sodium 147 135-145 mmol/L Potassium 4.3 3.3-5.1 mmol/L Chloride 108 96-108 mmol/L Carbon Dioxide 28 22-29 mmol/L Anion Gap 15 12-20 Blood Urea Nitrogen 16 9-16 mg/dL Creatinine 0.78 0.5-1.4 mg/dL Estimated Glomerular Filt Rate > 60 NOTE: For -Tanzanian individuals, multiply the result by 1.210. Chronic [...] Panel Reviewed date:04/14/2024 07:26:22 AM Interpretation: Performing Lab:[address] [address] Notes/Report: Triglycerides 64 <150 mg/dL Desirable Triglyceride: [...] Antigen Reviewed date:04/14/2024 07:26:22 AM Interpretation: Performing Lab:[address] [address] Notes/Report: Prostate Specific Antigen 0.82 <0.05-4.0 ng/mL PSA methodology: Turner Alinity i Chemiluminescent Microparticle Immunoassay (CMIA) Hemoglobin A1c Reviewed date:04/14/2024 07:26:22 AM Interpretation: Performing Lab:[address] [address] Notes/Report: Hemoglobin A1c % 5.6 <6.0 % [...] average glucose, using the formula of the E5N-Yigqpcz Average Glucose study (ADAG), Diabetes Care, Vol.31,#8, Jan. 2007 XR chest 2V (Not yet reviewe d by provider) Interpretation: Performing Lab: Notes/Report: [id number] [place] [address] XRay Report Signed Patient: Naveen Farias MR#: [id number] : 1945 Acct:[id number] Age/Sex: 79 / M ADM Date: 04/22/24 Loc: HO.XRAY Attending Dr: Frankie Keyes MD Ordering Physician: Frankie Keyes MD Date of Service: 04/22/24 Procedure(s): XR chest 2V Accession Number(s): [id number] cc: Frankie Keyes MD; Christian Barkley MD [...] 04/23/24 0541 DD/ 1504 TD/TT: 04/22/24 1520 Medical Office Professional Instructor: [address] [address] XRay Report Signed Patient: Naveen Farias MR#: [id number] : 1945 Acct:[id number] Age/Sex: 79 / M ADM Date: 04/22/24 Loc: HO.XRAY Attending Dr: Frankie Keyes MD Ordering Physician: Frankie Keyes MD Date of Service: 04/22/24 Procedure(s): XR [address] 2V Accession Number(s): [id number] cc: Frankie Keyes MD; Christian Barkley MD [...] 04/23/24 0541 DD/ 1504 TD/TT: 04/22/24 1520 Medical Office Professional Instructor: Reason For Referral No Information Medications Medication [...] Problem Status W/U Status Risk Notes Problem 7738769 Former smoker (Z87.891) Active confirmed He has a plan to prevent relapse in times of stress or illness. Problem 625176443 Overweight (E66.3) Active confirmed He is very slightly overweight. I recommended she stabilize his weight at this level Problem 42016011 Hyperglycemia (R73.9) Active confirmed This value is being treated by primary care. No change in his status is noted. Problem Malignant tumor of prostate (391354395) Prostate cancer (C61) Active confirmed A recent PSA is not available. It will be requested from the urologist. A repeat value has been ordered. There was no sign of progressive prostate cancer on his examination today. Problem 470209516 Malignant neoplasm of prostate (C61) Active confirmed His PSA has fallen to 0.82. He is asymptomatic. He is doing well and his disease is controlled. Problem 484823593 Pituitary tumor (D49.7) Active confirmed He will continue to be observed at the [facility] neurosurgery department. He will have periodic MRIs of the brain. The next study has been scheduled at [facility]. He recently went to [place] to see neurosurgery, Dr. Garcia, we'll told him that the tumor was not growing back. Problem History of malignant melanoma of the skin (81032914270 8) History of melanoma (Z85.820) Active confirmed Problem 192244415 Osteopenia (M85.80) Active confirmed There was continued on current therapy today without change. Problem 87919610 CLL (chronic lymphocytic leukemia) (C91.10) Active confirmed His CBC remains stable and there is no sign of disease progression. Observation was continued. Problem 7653684 Obstructive uropathy (N13.9) Active confirmed He will rem ain under the care of urologist in this problem will be addressed. 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 7 ; Prostate cancer C61 ; CLL (chronic lymphocytic leukemia) C91.10 ; Former smoker Z87.891 ; Osteopenia M85.80 and History of melanoma Z85.820 Frankie Keyes III, MD [address] [place] [address] [place] [address] 04/22/2024 Frankie Keyes Pituitary tumor D49. 7 ; Malignant neoplasm of prostate C61 ; CLL (chronic lymphocytic leukemia) C91.10 ; Former smoker Z87.891 ; Hyperglycemia R73.9 ; Chronic cough R05.3 ; Osteopenia M85.80 and Vision loss of left eye H54.62 Frankie Keyes III, MD [address] [place] [address] [place] [address] 08/26/2024 Frankie Keyes Pituitary tumor D49. 7 [...] will continue to be observed at the [facility] neurosurgery department. He will have periodic MRIs of the brain. The next study has been scheduled at [facility]. He recently went to [place] to see neurosurgeryDr. Garcia, we'll told him that the tumor was not growing back. 04/22/2024 Malignant neoplasm of prostate (ICD-10 - C61) His PSA has fallen to 0.82. He is asymptomatic. He is doing well and his disease is controlled. 04/22/2024 Pituitary tumor (ICD-10 - D49.7) He will continue to be observed at the [facility] neurosurgery department. He will have periodic MRIs of the brain. The next study has been scheduled at [facility]. He recently went to [place] to see neurosurgeryDr. Garcia, we'll told him [...] will continue to be observed at the [facility] neurosurgery department. He will have periodic MRIs of the brain. The next study has been scheduled at [facility]. He recently went to [place] to see neurosurgery, Dr. Garcia, we'll told [...] Details Provider Name:Frankie Keyes, 12/30/2024 03:00:00 PM, [address] [place] [address] [place], [address], Insurance Providers Payer Name Payer Address Payer Phone Subscriber Number Group Number Insured Name Patient Relationship to Insured Coverage Start Date Coverage End Date MEDICARE NGS [address] [place] [address] [id number] Naveen Farias Self - patient is the insured [facility] [address] [place], [place] [id number] [phone] [id number] Naveen Farias Self - patient is the insured Medical (General) History Medical History History ICD Code degenerative arthitis knees childhod eye surgery pituitary tumor, [facility], surge ry, blind OS 2019 lymphoma prostate cancer cellulitis of toe Surgical History Surgery Date(Month/Year) Hernia repair 2011,2015 Eye Surgery 1954 Radical Prostatectomy Brain tumor removed 2000 Right hand surgery 1974 Right knee surgery 52yrs old Basal cell cancer removed on right cheek 2013 melanoma removal on back 04/2018 pituitary tumor removal in [place] 0 Brain Surgery tumor removal 11/2019 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
[2024-12-17 06:47] LABS: MANUAL DIFF FLAG NO
[2024-12-17 07:20] LABS: Basophils Percent Auto 0.5 % (0-2); Eosinophils Absolute Auto 0.3 X10*3/uL (0.0-0.4); Hematocrit 38.9 % (42.0-52.0); Hemoglobin 12.9 g/dl (14.0-18.0); Imm Gran Abs Auto 0.02 X10*3/uL (0.00-0.03); Imm Gran Pct Auto 0.3 % (0.0-0.4); Lymphocytes Absolute Auto 1.3 X10*3/uL (1.2-4.9); Lymphocytes Percent Auto 20.4 % (20-40); Mean Corpuscular HGB Conc 33.2 g/dl (31.0-36.0); Mean Corpuscular Hemoglobin 30.3 pg (27.0-33.0); Mean Corpuscular Volume 91.3 fL (80.0-98.0); Mean Platelet Volume 10.2 fL (9.4-12.4); Monocytes Absolute Auto 0.5 X10*3/uL (0.1-1.2); Monocytes Percent Auto 8.1 % (2-11); Neutrophils Absolute Auto 4.3 x10*3/uL (2.0-8.3); Neutrophils Percent Auto 66.7 % (45-73); Platelet Count 206 X10*3/uL (160-400); Red Blood Count 4.26 X10*6/uL (4.60-5.80); Red Cell Distribution Width 13.2 % (11.0-16.0); White Blood Count 6.5 X10*3/uL (4.8-10.8)
[2024-12-17 07:52] LABS: Alanine Aminotransferase 13 U/L (0-40); Alkaline Phosphatase 81 U/L (39-117); Anion Gap 12 (12-20); Aspartate Amino Transferase 26 U/L (5-37); Bilirubin Total 0.5 mg/dL (0.0-1.0); Blood Urea Nitrogen 18 mg/dL (9-16); Calcium 9.9 mg/dL (8.4-10.2); Carbon Dioxide 28 mmol/L (22-29); Chloride 107 mmol/L (96-108); Estimated Glomerular Filt Rate > 60; Glucose Random 131 mg/dL (60-115); Potassium 4.4 mmol/L (3.3-5.1); Sodium 143 mmol/L (135-145); Total Protein 6.5 g/dL (6.5-8.0)
[2024-12-17 08:02] LABS: Prostate Specific Antigen 0.59 ng/mL (<0.05-4.0)
[2024-12-21 16:14] LABS: Testosterone, Total 7 ng/dL (250-1100)
== END 2024-12-17 06:35 | disposition home or self-care (01) ==
LOC: HO.LAB 06:34
PROVIDERS: Absent Provider Internal Medicine Medical Oncology; PCP Internal Medicine; Visit Provider Urology
DX: Z12.5 Encounter for screening for malignant neoplasm of prostate (principal); C61 Malignant neoplasm of prostate; C79.51 Secondary malignant neoplasm of bone; N40.1 Benign prostatic hyperplasia with lower urinary tract symptoms; N13.8 Other obstructive and reflux uropathy; D49.7 Neoplasm of unspecified behavior of endocrine glands and other parts of nervous system
CPT/HCPCS: 36415; 80053; 84153; 84403; 85025

== ENCOUNTER → 2025-01-02 08:50 | Outpatient (REF) | payer MEDICARE, SELFPAY ==
--- OUTSIDE RECORDS SUMMARY | 2024-12-30 11:00 | XMS_ITS ---
Author Organization Frankie Keyes III, MD Address [address] [place] [address] Care Team Providers Care It Application Support Analyst Name Role Phone Christian Barkley MD Primary Care Provider Frankie Bender Unavailable [phone] Allergies Allergen (clinical drug ingredient) Drug/Non Drug Allergy documented on EMR Reaction Allergy Type Onset Date Status No Known Drug Allergy Unknown Drug Allergy Active REASON FOR VISIT Follow up Medications Medication SIG (Take, Route, Frequency, Duration) Notes Start Date End Date Status Lupron Depot (6-Month) 45 MG as directed Intramuscular 04/22/2024 Ac tive Prolia 60 MG/ML as directed Subcutaneous 4 Active Finasteride 5 MG 1 tablet Orally Once a day 2023 Active amLODIPine Besylate 5 MG TAKE 1 [...] Non-User Ex-cigaret te smoker Vital Signs Temperature 99.0 degrees Fahrenheit 12/31/19 25 Blood pressure systolic 130 mm Hg 12/31/19 25 Blood pressure diastolic 75 mm Hg 025 Heart Rate 71 /min 12/30/2024 Height 71 in 12/30/2024 Weight 179 lbs 12/30/2024 BMI 24.96 kg/m2 12/30/2024 Encounters Encounter Location Date Provider Diagnosis Frankie Keyes III, MD [address] [place] [address] [place] [address] 12/30/2024 Frankie Keyes Pituitary tumor D49. 7 ; CLL (chronic lymphocytic leukemia) C91.10 ; Hyperglycemia R73.9 ; Overweight E66.3 ; Fatigue, unspecified type R53.83 and Cardiomyopathy, unspecified type I42.9 Assessments Encounter Date Diagnosis (ICD Code) Assessment Notes Treat ment Notes Treatment Clinical Notes 12/30/2024 Pituitary tumor (ICD-10 - D49.7) He will continue to be observed at the [facility] neurosurgery department. He will have periodic MRIs of the brain. The next study has been scheduled at [facility]. He recently went to [place] to see neurosurgery, Dr. Garcia, we'll told him that the tumor was not growing back. 12/30/2024 CLL (chronic lymphocytic leukemia) (ICD-10 - C91.10) 12/30/2024 Hyperglycemia (ICD-10 - R73.9) 12/30/2024 Overweight (ICD-10 - E66.3) 12/30/2024 Fatigue, unspecified type (ICD-10 - R53.83) 12/30/2024 Cardiomyopathy, unspecified type (ICD-10 - I42.9) Plan Of Treatment Medication Medication Name Sig Start Date Stop Date Notes Lupron Depot (6-Month) 45 MG as directed Intramuscular Prolia 60 MG/ML as directed Subcutaneous 04/22/2024 Finasteride 5 MG 1 tablet Orally Once a day 04/22/2024 amLODIPine Besylate 5 MG TAKE 1 TABLET B Y MOUTH TWICE DAILY Oral Pending Test Test Name Order Date PROFILE, FASTING (COMPREHENSIVE METABOLI C) 12/30/2024 CBC w DIFF 12/30/2024 Echocardiogram 12/30/2024 Lipid Panel 12/30/2024 Hemoglobin A1c 12/30/2024 Next Appt Details Follow Up: 3 Months, Reason: ov review labs Provider Name:Frankie Keyes, 03/31/2025 02:30:00 PM, [address] [place] [address] [place], [address], Progress Notes * Kameron FARIAS JDOB:1944 (79 yo M)Acc No.[id number]:12/30/2024 Progress Notes Patient: Kameron WHITLOCK Provider: Elver Keyes MD :1945 A ge:79 Y S ex:Male Date:12/30/2024 Address:[address] [place] [address], [facility] [address] , [id number] Pcp:Christian Barkley MD Subjective: * Chief Complaints: * 1 . Follow up. * HPI: C OVID-19 Screening: very tired, right ankle swells 2 mos ago, dr garcia gets mri at [facility] now for it tumor,. Questions H ave you had any new onset fever, chills, cough, congestion, sore throat, shortness of breath, muscle aches? N o * ROS: G eneral/Constitutional: pain o nly normal aches and pains. C hills d enies.?Fatigue a dmits. F ever d enies. E NT: Decreased hearing d enies. R espiratory: Cough d enies. C ardiovascular: Chest pain with exertion d enies. D yspnea on exertion?denies. S hortness of breath d enies. G astrointestinal: Constipation d enies. D ecreased appetite d enies.?Diarrhea d enies. H eartburn d enies. N ausea d enies. R ectal bleeding?denies. V omiting d enies. H ematology: bruising d enies. p etechiae d enies. S wollen glands n one have been noted. G enitourinary: Frequent urination d enies. M usculoskeletal: Muscle aches d enies. P ainful joints d enies. S ciatica d enies. W eakness d enies. S kin: Itching d enies. R rebeka d enies. S kin lesion(s)?denies. N eurologic: Difficulty speaking d enies. D izziness d enies.?Headache d enies. L ow back pain d enies. P sychiatric: Depressed mood d enies. * Medical History: D egenerative arthitis knees, Childhod eye surgery, pituitary tumor, [facility], surgery, blind OS 2000, 2019, Lymphoma, Prostate cancer, Cellulitis of toe. * Surgical History: H ernia repair 2011,2015, Eye Surgery 1954, Radical Prostatectomy , Brain tumor removed 2000, Right hand surgery 1974, Right knee surgery 52yrs old, Basal cell cancer removed on right cheek 2013, melanoma removal on back 04/2018, pituitary tumor removal in [place] 10/2019, Brain Surgery tumor removal 11/2019, Abdomen Aortic Aneurism 10/2023, No history . * Hospitalization/Major Diagno stic Procedure: N o history . * Family History: F ather: 64 yrs, [...] x-cigarette smoker Arnav cha was born in [place] and is not working at present. 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 He is and has one son. * Medications: T aking amLODIPine Besylate 5 MG Tablet TAKE 1 TABLET BY MOUTH TWICE DAILY Oral , Taking Finasteride 5 MG Tablet 1 tablet Orally Once a day , Taking Prolia 60 MG/ML Solution Prefilled Syringe as directed Subcutaneous , Taking Lupron Depot (6- Month) 45 MG Kit as directed Intramuscular , Medication List reviewed and reconciled with the patient * Allergies: N o Known Drug Allergy. Objective: * Vitals: H t: 71, Wt:179, BMI:24.96, BP:130/75, HR:71, Temp:99.0, Wt-k.19. * P ast Orders: Lab:Complete Blood Count Aut o Diff * Collection Date 12/17/2024 04/12/2024 12/04/2023 Collection Time 06:45 AM 08:28 AM 07:42 AM Order Date 12/17/2024 04/12/2024 12/04/2023 White Blood Count 6.5 (Ref Range: 4.8-10.8 X10*3/uL) 5.7 (Ref Range: 4.8-10.8 X10*3/uL) 5.9 (Ref Range: 4.8-10.8 X10*3/uL) Red Blood Count 4.26 L (Ref Range: 4.60-5.80 X10*6/uL) 4.37 L (Ref Range: 4.60-5.80 X10*6/uL) 4.00 L (Ref Range: 4.60-5.80 X10*6/uL) Hemoglobin 12.9 L (Ref Range: 14.0-18.0 g/dl) 13.0 L (Ref Range: 14.0-18.0 g/dl) 12.4 L (Ref Range: 14.0-18.0 g/dl) Hematocrit 38.9 L (Ref Range: 42.0-52.0 %) 40.7 L (Ref Range: 42.0-52.0 %) 37.2 L (Ref Range: 42.0-52.0 %) Mean Corpuscular Volume 91.3 (Ref Range: 80.0-98.0 fL) 93.1 (Ref Range: 80.0-98.0 fL) 93.0 (Ref Range: 80.0-98.0 fL) Mean Corpuscular Hemoglobin 30.3 (Ref Range: 27.0-33.0 pg) 29.7 (Ref Range: 27.0-33.0 pg) 31.0 (Ref Range: 27.0-33.0 pg) Mean Corpuscular HGB Conc 33.2 (Ref Range: 31.0-36.0 g/dl) 31.9 (Ref Range: 31.0-36.0 g/dl) 33.3 (Ref Range: 31.0-36.0 g/dl) Red Cell Distribution Width 13.2 (Ref Range: 11.0-16.0 %) 13.9 (Ref Range: 11.0-16.0 %) 13.2 (Ref Range: 11.0-16.0 %) Platelet Count 206 (Ref Range: 160-400 X10*3/uL) 169 (Ref Range: 160-400 X10*3/uL) 210 (Ref Range: 160-400 X10*3/uL) Mean Platelet Volume 10.2 (Ref Range: 9.4-12.4 fL) 9.5 (Ref Range: 9.4-12.4 fL) 9.7 (Ref Range: 9.4-12.4 fL) Neutrophils Percent Auto 66.7 (Ref Range: 45-73 %) 72.5 (Ref Range: 45-73 %) 70.3 (Ref Range: 45-73 %) Imm Gran Pct Auto 0.3 (Ref Range: 0.0-0.4 %) 0.2 (Ref Range: 0.0-0.4 %) 0.2 (Ref Range: 0.0-0.4 %) Lymphocytes Percent Auto 20.4 (Ref Range: 20-40 %) 16.9 L (Ref Range: 20-40 %) 16.8 L (Ref Range: 20-40 %) Monocytes Percent Auto 8.1 (Ref Range: 2-11 %) 8.5 (Ref Range: 2-11 %) 9.3 (Ref Range: 2-11 %) Eosinophils Percent Auto 4.0 (Ref Range: 0-4 %) 1.7 (Ref Range: 0-4 %) 3.2 (Ref Range: 0-4 %) Basophils Percent Auto 0.5 (Ref Range: 0-2 %) 0.2 (Ref Range: 0-2 %) 0.2 (Ref Range: 0-2 %) NRBC Pct Auto 0.0 (Ref Range: 0.0-0.2 /100WBC) 0.0 (Ref Range: 0.0-0.2 /100WBC) 0.0 (Ref Range: 0.0-0.2 /100WBC) Neutrophils Absolute Auto 4.3 (Ref Range: 2.0-8.3 x10*3/uL) 4.2 (Ref Range: 2.0-8.3 x10*3/uL) 4.2 (Ref Range: 2.0-8.3 x10*3/uL) Imm Gran Abs Auto 0.02 (Ref Range: 0.00-0.03 X10*3/uL) 0.01 (Ref Range: 0.00-0.03 X10*3/uL) 0.01 (Ref Range: 0.00-0.03 X10*3/uL) Lymphocytes Absolute Auto 1.3 (Ref Range: 1.2-4.9 X10*3/uL) 1.0 L (Ref Range: 1.2-4.9 X10*3/uL) 1.0 L (Ref Range: 1.2-4.9 X10*3/uL) Monocytes Absolute Auto 0.5 (Ref Range: 0.1-1.2 X10*3/uL) 0.5 (Ref Range: 0.1-1.2 X10*3/uL) 0.6 (Ref Range: 0.1-1.2 X10*3/uL) Eosinophils Absolute Auto 0.3 (Ref Range: 0.0-0.4 X10*3/uL) 0.1 (Ref Range: 0.0-0.4 X10*3/uL) 0.2 (Ref Range: 0.0-0.4 X10*3/uL) Basophils Absolute Auto 0.0 (Ref Range: 0.0-0.2 X10*3/uL) 0.0 (Ref Range: 0.0-0.2 X10*3/uL) 0.0 (Ref Range: 0.0-0.2 X10*3/uL) NRBC Abs Auto 0.000 (Ref Range: 0.0-0.012 X10*3/uL) 0.000 (Ref Range: 0.0-0.012 X10*3/uL) 0.000 (Ref Range: 0.0-0.012 X10*3/uL) * Lab:Comprehensive Met. Panel * Collection Date 12/17/2024 12/04/2023 04/10/2023 Collection Time 06:45 AM 07:42 AM 07:31 AM Order Date 12/17/2024 12/04/2023 04/10/2023 Sodium 143 (Ref Range: 135-145 mmol/L) 145 (Ref Range: 135-145 mmol/L) 145 (Ref Range: 135-145 mmol/L) Bilirubin Total 0.5 (Ref Range: 0.0-1.0 mg/dL) 0.4 (Ref Range: 0.0-1.0 mg/dL) 0.6 (Ref Range: 0.0-1.0 mg/dL) Aspartate Amino Transferase 26 (Ref Range: 5-37 U/L) 15 (Ref Range: 5-37 U/L) 21 (Ref Range: 5-37 U/L) Alanine Aminotransferase 13 (Ref Range: 0-40 U/L) 10 (Ref Range: 0-40 U/L) 15 (Ref Range: 0-40 U/L) Total Protein 6.5 (Ref Range: 6.5-8.0 g/dL) 6.4 L (Ref Range: 6.5-8.0 g/dL) 6.8 (Ref Range: 6.5-8.0 g/dL) Albumin Level 4.0 (Ref Range: 3.5-5.0 g/dL) 3.8 (Ref Range: 3.5-5.0 g/dL) 4.2 (Ref Range: 3.5-5.0 g/dL) Alkaline Phosphatase 81 (Ref Range: 39-117 U/L) 88 (Ref Range: 39-117 U/L) 71 (Ref Range: 39-117 U/L) Potassium 4.4 (Ref Range: 3.3-5.1 mmol/L) 4.5 (Ref Range: 3.3-5.1 mmol/L) 4.2 (Ref Range: 3.3-5.1 mmol/L) Chloride 107 (Ref Range: 96-108 mmol/L) 105 (Ref Range: 96-108 mmol/L) 107 (Ref Range: 96-108 mmol/L) Carbon Dioxide 28 (Ref Range: 22-29 mmol/L) 28 (Ref Range: 22-29 mmol/L) 26 (Ref Range: 22-29 mmol/L) Anion Gap 12 (Ref Range: 12-20) 17 (Ref Range: 12-20) 16 (Ref Range: 12-20) Blood Urea Nitrogen 18 H (Ref Range: 9-16 mg/dL) 16 (Ref Range: 9-16 mg/dL) 24 H (Ref Range: 9-16 mg/dL) Creatinine 0.82 (Ref Range: 0.5-1.4 mg/dL) 0.79 (Ref Range: 0.5-1.4 mg/dL) 0.85 (Ref Range: 0.5-1.4 mg/dL) Estimated Glomerular Filt Rate > 60 > 60 > 60 Glucose Random 131 H (Ref Range: 60-115 mg/dL) 135 H (Ref Range: 60-115 mg/dL) 115 (Ref Range: 60-115 mg/dL) Calcium 9.9 (Ref Range: 8.4-10.2 mg/dL) 10.3 H (Ref Range: 8.4-10.2 mg/dL) 9.6 (Ref Range: 8.4-10.2 mg/dL) * Lab:Prostate Specific Antige n * Collection Date 12/17/2024 04/12/2024 12/04/2023 Collection Time 06:45 AM 08:28 AM 07:42 AM Order Date 12/17/2024 04/12/2024 12/04/2023 Prostate Specific Antigen 0.59 (Ref Range: <0.05-4.0 ng/mL) 0.82 (Ref Range: <0.05-4.0 ng/mL) 1.03 (Ref Range: <0.05-4.0 ng/mL) * Lab:Testosterone, Total * Collection Date 12/17/2024 04/10/2023 04/02/2021 Collection Time 06:45 AM 07:31 AM 07:35 AM Order Date 12/17/2024 04/05/2023 04/02/2021 Testosterone, Total 7 A (Ref Range: 250-1100 ng/dL) 305 (Ref Range: 250-1100 ng/dL) 8 A (Ref Range: 250-1100 ng/dL) * Examination: G eneral Examination: GENERAL APPEARANCE: p leasant, well nourished, well developed, in no acute distress, calm and relaxed. HEAD: a traumatic, normocephalic. EYES: e alejandro, perrla, anicteric, conjugate. EARS: n ormal. NOSE: s eptum intact. [...] Assessment: 1. P ituitary tumor - D49.7 N otes :He will continue to be observed at the [facility] neurosurgery department. He will have periodic MRIs of the brain. The next study has been scheduled at [facility]. He recently went to [place] to see neurosurgery, Dr. Garcia, we'll told him that the tumor was not growing back. 2 . C LL (chronic lymphocytic leukemia) - C91.10 3 . H yperglycemia - R73.9 4 . O verweight - E66.3 5 . F atigue, unspecified type - R53.83 6 . C ardiomyopathy, unspecified type - I42.9 ? Plan: * Treatment: 2. C LL (chronic lymphocytic leukemia) L AB: PROFILE, FASTING (COMPREHENSIVE METABOLIC) L AB: CBC w DIFF L AB: Lipid Panel L AB: Hemoglobin A1c 3. H yperglycemia L AB: PROFILE, FASTING (COMPREHENSIVE METABOLIC) L AB: CBC w DIFF L AB: Lipid Panel L AB: Hemoglobin A1c 4. O verweight L AB: PROFILE, FASTING (COMPREHENSIVE METABOLIC) L AB: CBC w DIFF L AB: Lipid Panel L AB: Hemoglobin A1c 5. F atigue, unspecified type I maging: Echocardiogram 6. C ardiomyopathy, unspecified type I maging: Echocardiogram * Follow Up: 3 Months (Reason: ov review labs) * Images: * The named appointment provid er may or may not be the originator of this progress note, and it is not deemed complete until electronically signed by the appointment provider. Sign off status: Pending * Provider: Elver Keyes MD Date: 12/30/2024 Generated for Cihvo ray/Wan/Mandyitting on: 01/02/2025 09:09 AM EDT History and Physical Notes * HPI (History of Present Illness) Category Sub-Category Detail Notes COVID-19 Screening Questions Have you had any new onset fever, chills, cough, congestion, sore throat, shortness of breath, muscle aches?: No Examination Category Sub-Category Detail Notes General Examination GENERAL APPEARANCE: pleasant , well nourished, well developed, in no acute distress, calm and relaxed HEAD: atraumatic, normocep halic EYES: eomi, perrla, [...]
--- NOTE | 2025-01-02 08:53 | CA_ITS ---
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 There is normal left ventricular wall thickness. The left ventricular systolic function is low normal. The visually estimated ejection fraction is between 50-55%. - Normal right ventricular cavity size and systolic function. - There is mild calcification of the aortic valve. - There is moderate dilatation of the ascending aorta measuring 4.30 cm. Findings Left Ventricle Normal left ventricular cavity size. There is normal left ventricular wall thickness. The left ventricular systolic function is low normal. The visually estimated ejection fraction is between 50-55%. There is no evidence of regional wall motion abnormalities. Diastolic function is indeterminate on the basis of available data. Right Ventricle Normal right ventricular cavity size and systolic function. Atria The left atrium is normal in size. The right atrium is normal in size. Aortic Valve The aortic valve was not well visualized. There is mild calcification of the aortic valve. There is no aortic valve stenosis. There is no aortic valve regurgitation. Mitral Valve The mitral valve appears normal. There is no mitral valve regurgitation. There is no mitral valve stenosis. Pulmonic Valve The pulmonic valve is likely normal. Tricuspid Valve Normal tricuspid valve structure. There is trace tricuspid valve regurgitation. Normal right atrial pressure. There is no evidence of pulmonary hypertension. Great Vessels There is moderate dilatation of the ascending aorta measuring 4.30 cm. The visualized portions of the pulmonary artery and branches are normal. Venous The inferior vena cava is normal in size and collapses greater than 50% with inspiration. Pericardium/Pleural There is no evidence of pericardial effusion. Prior Study Comparison Changes noted compared to prior study dated: 11/02/2023. EF 50-55%, patient appears to be in atrial flutter. Ascending aorta 4.3 (last year 3.9 cm). Measurements 2D Linear Measurements IVSd: 1.08 0.6-0.9/0.6-1.0 cm LVIDd: 3.64 3.9-5.3/4.2-5.9 cm LVIDd Index: 1.80 2.4-3.2/2.2-3.1 cm/m2 LVIDs: 2.48 2.0-3.6 cm LVPWd: 0.87 0.7-1.1 cm LV Mass: 131.12 67-162/88-224 g LV Mass Index: 64.91 43-95/49-115 g/m2 LVOT Diam: 2.10 3.0+(-)1.3 cm 2D Systolic Function EF 4C: 53.20 >55% EF 2C: 56.80 >55% EF BiP: 53.20 >55% Mitral Valve MV Pk E: 0.64 MV PK A: 0.76 MV Decel Time: 354.00 E/A: 0.80 E'Lateral: 9.46 E'Medial: 7.29 E/E' Med: 8.70 E/E' Lat: 6.70 PHT: 104.00 MVA PHT: 2.12 Decel Stanislaus: 1.80 Aortic Valve AoV Pk Jorge: 1.88 AoV Mn Jorge: 1.30 AoV VTI: 0.36 AoV Pk Grad: 14.00 Aov Mn Grad: 8.00 KAVON Cont.VTI: 2.30 LVOT LVOT Pk Jorge: 1.13 LVOT Mn Jorge: 0.74 LVOT VTI: 0.24 LVOT Pk Grad: 5.00 LVOT Mn Grad: 3.00 LVOT Diam: 2.10 LVOT Area: 3.46 Diastolic Function MV Pk E: 0.64 MV Pk A: 0.76 E/A: 0.80 E'Medial: 7.29 E/E' Med: 8.70 E' Laterial: 9.46 E/E' Lat: 6.70 Right Ventricle TAPSE (mm): 21.30 TVS' Jorge: 14.70 Tricuspid Valve TR Pk Jorge: 2.14 TR Pk Grad: 18.00 RA Press: 3.00 RVSP: 21.00 Great Vessels Aorta Sinus of Valsalva: 3.84 2.0-3.[address] [place]: 2.79 1.7-3.4 cm Ao Asc: 4.30 2.1-3.4 cm Updated in Other Vendor System with Status of Final Harry Cabrera MD electronically signed on 01/05/2025 8:15:23 PM with status of Final
--- OUTSIDE RECORDS SUMMARY | 2025-01-02 09:09 | XMS_ITS | Patient Health Record ---
Author Organization [facility] Address [address] [place] [address] Care Team Providers Care Provider Network Manager Name Role Phone Christian Barkley MD [...] Problem Status W/U Status Risk Notes Problem [id number] Colon cancer screening (Z12.11) Active confirmed Plan Of Treatment Future Test Test Name Order Date COLONOSCOPY 11/20/2013 COLONOSCOPY 04/13/2020 Insurance Providers Payer Name Payer Address Payer Phone Subscriber Number Group Number Insured Name Patient Relationship to Insured Coverage Start Date Coverage End Date MEDICARE OF [place] [address] [place] [address] [id number] KAMERON SWANSON Self - patient is the insured MEDEX ATTN CLAIMS [address] [place] [address] [id number] KAMERON SWANSON Self - patient is the insured Medical (General) History Medical History History ICD Code Colonoscopy, 03/09 negative f or polyps, five-year followup recommended, history of previous adenomas Gastroesophageal reflux disease Hypertension Pituitary Gland tumor Left eye blindness Denies MA,DM,CVA,Lung disease,renal dise ase prostate cancer brain tumor CLL Surgical History Surgery Date(Month/Year) brain surgery wrist surgery eye surgery cataract removal knee surgery hernia repair prostatectomy laminectomy
--- OUTSIDE RECORDS SUMMARY | 2025-01-02 09:09 | XMS_ITS | Data Portability ---
Author Organization [facility], [facility] Address [address] [place] [address] Care Team Providers Care Nps Name Role Phone FRANCISCA DANIE Primary Care Provider Assessment No assessment recorded. Plan of Treatment Reminders Order Date Submit Date Provider Last Modified By Organization Details Last Modified Time Details Appointments INTRA HIP INJECTION 2024 02:30P M Dillan Horta PA-C Not available Not available Not available Lab None recorded. Referral None recorded. Procedures None recorded. Surgeries None recorded. Imaging XR, hip + pelvis, bilateral , 2 view - room 205 bilateral hip 2v cw 2023 024 [facility] Office, [address] [facility] [address] [facility] [facility] [address], [place], [address], 05/01/2024 09:08:43 Medication Orders None recorded. Patient [...] 04/09/20 24 04/09/2024 XR, hip + pelvi lizeth lucia, 2 view [email or web address] ?Encry pted=s hAaTro YD8dLq bEUv6g %2BXZw aYqtaq 0bqfl% 2Fg9IQ a4ajBk vP9nXo QUaueC m3YtLR FvZlgJ JJ8mAn HZtai3 9y8410 AC0Kqa 3uCUqK gKiQtr MwF INTERFACE [facility] [address], [place], [address], 04/09/2024 13:11:42 04/09/20 24 04/09/2024 XR, hip + pelvi s, bilat eral, 2 view [email or web address]:/ [email or web address] ?Encry pted=s hAaTro YD8dLq bEUv6g %2BXZw aYqtaq 0bqfl% 2Fg9IQ a4ajBk vP9nXo QUaueC m3YtLR FvZlgJ JJ8mAn HZtai3 6f0699 AC0Kqa 3uCUqK gKiQtr MwF INTERFACE [facility] [address] [facility] [address], [place], [address], 04/09/2024 13:11:44 Result Notes Documentation Provider Name and Address Organization Details Recorded Time Xr, Hip + Pelvis, Bilateral, 2 View : [email or web address] Encrypted=ftIsCygBD4iWolZ Uv6g%5KVVoaUvlww0qbst%2Fg 1LKj8ziOskO6hQhYOqoaSc6Gg CCByRzjLAU1bLaHVugg71i951 9KE5Ifx7kYXlBnCpBadQvL Not Available [facility] 04/09/2024 13:11: 43 Xr, Hip + Pelvis, Bilateral, 2 View : [email or web address] Encrypted=ziHsIloHO8bVjkB Uv6g%1MXHteVlbhv2rokq%2Fg 3NWe7kuDpqS7sTjRKotgBf5Ny XNSoHpgRYX6fLuXFtfb84c650 3ZH7Rln9eHYyApFqOgiElO Not Available [facility] 04/09/2024 13:11: 45 Problems Name Problem SNOMED Code Status Onset Date Resolution Date Notes Provider Name and Address Organization Details Recorded Time Pain of bilateral hip joints 4690990425032 9100 Active 2023 [facility] 4 12:59:53 Trochanter ic bursitis of right hip 7926387967049 00 Active 2024 Gracia Paz PA-C [address], [place], [address] , [facility] 5 10:52:24 Trochanter ic bursitis of left hip 7424727872771 03 Active 2024 Gracia Paz PA-C [address], [place], [address] , [facility] 5 10:52:24 Osteoarthr itis of bilateral hip joints 0354482402503 05 Active 2024 Gracia Paz PA-C [address], [place], [address] , [facility] 5 10:52:24 Pain of left hip joint 6669271455301 00 Active 2021 Status : 'A'; Not Available [facility] 4 10:58:27 Problem Notes None recorded. Procedures Surgical History Date Name Laterality Status Provider Name and Address Organization Details Recorded Time 5 Hip Kenalog Injection, L/R w/US active Dillan Horta PA-C [address], [place], [address], [facility] 01/01/2025 08:47:37 5 Hip Kenalog Injection, L/R w/US completed Dillan Horta PA-C [address], [place], [address], [facility] 09/26/2024 20:26:52 5 Hip Kenalog 1cc Injection, L/R completed Gracia Paz PA-C [address], [place], [address], [facility] 07/11/2024 12:25:36 4 Hip Kenalog 1cc Injection, L/R completed Gracia Paz PA-C [address], [place], [address], [facility] 04/09/2024 22:03:05 4 Hip Kenalog 1cc Injection, Bilateral completed Gracia aPz PA-C [address], [place], [address], [facility] 01/08/2024 12:50:43 4 Hip Kenalog 1cc Injection, Bilateral completed Gracia Paz PA-C [address], [place], [address], [facility] 10/03/2023 14:19:23 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 [...] completed Not Available Not Available Not Available cephalexin 500 mg capsule TAKE 1 CAPSULE BY MOUTH TWICE DAILY active Not Available Not Available No t Available mupirocin 2 % topical ointment APPLY [...] Updated DateTime 07/11/2024 180.34 cm 24.4 kg/m2 19973.66 [facility] 07/11/2024 12:11:16 Date Recorded Body height Body mass index (BMI) Body weight Provider Name and Address Organization Details Last Updated DateTime 09/27/2024 180.34 cm 24.4 kg/m2 38075.66 g Kimberly Wall [facility] 09/27/2024 09:01:13 Date Recorded Body height Body mass index (BMI) Body weight Provider Name and Address Organization Details Last Updated DateTime 10/03/2023 180.34 cm 25.1 kg/m2 37400.63 g kwan issa [facility] 10/03/2023 13:37:43 Date Recorded Body height Body mass index (BMI) Body weight Provider Name and Address Organization Details Last Updated DateTime 01/08/2024 180.34 cm 24.4 kg/m2 86851.66 g AIDEN TEIXEIRA [facility] 01/08/2024 13:03:52 Date Recorded Body height Body mass index (BMI) Body weight Provider Name and Address Organization Details Last Updated DateTime 04/09/2024 180.34 cm 24.4 kg/m2 91125.66 g [facility] 04/09/2024 12:58:54 Social History None recorded. Functional Status None recorded. Mental Status None recorded. Family History Nothing Reported. Medical History No medical history recorded. Past Encounters Encounter ID Performer Location Encounter Start Date Encounter Closed Date Diagnosis/Indication Diagnosis SNOMED-CT Code Diagnosis ICD10 Code Diagnosis Note [id number] NICK Cruz [address] [place] [address] 10/03/2023 13:24:00 10/28/2023 06:41:48 Trochanteric bursitis of left hip 2638637126 06185 M70.62 Trochanter ic bursitis of right hip 0254606887 00611 M70.61 [id number] NICK Cruz [address] [place] [address] 01/08/2024 12:46:05 01/26/2024 08:10:18 Trochanteric bursitis of left hip 0281787017 79233 M70.62 Trochanter ic bursitis of right hip 9305088850 88695 M70.61 [id number] NICK Cruz [address] [place] [address] 04/09/2024 12:53:57 05/01/2024 09:08:42 Pain of bilateral hip joints 6192616263 5595450 M25.551 Trochanter ic bursitis of left hip 7871899444 18196 M70.62 Trochanter ic bursitis of right hip 0641690110 65565 M70.61 Osteoarthr itis of bilateral hip joints 7500779423 90978 M16.0 [id number] NICK Cruz Cathi [address] [place] [address] 07/11/2024 12:05:37 07/23/2024 10:35:41 Trochanteric bursitis of right hip 0280493556 21794 M70.61 Trochanter ic bursitis of left hip 2736489696 55193 M70.62 Osteoarthr itis of bilateral hip joints 9184053118 91711 M16.0 [id number] NICK Mccoy [address] [place] [address] 09/27/2024 08:54:29 10/14/2024 19:11:45 Osteoarthritis of left hip joint 8894872184 35122 M16.12 Health Concerns Section Related Observation LastModified by Organization Detai ls LastModified Time None Recorded Concern Status LastModified by Organization Details LastModified Time None Recorded Advance Directives Directive None Recorded Payers Insurance Date Sequence Insurance Name Policy Number Policy Wilson Covered Member ID Wilson Member ID Guarantor Name 01/01/2025 1 [place] [employer] Naveen Farias [id number] Naveen Farias 01/01/2025 2 [place] [id number] Naveen Fairas [id number] Naveen Farias Notes Date Note Type [...] Alert and lucid. 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 No spasticity [...] or bone lesion. X-rays performed previously at [facility] include an AP pelvis and lateral view of the right hip. Images reveal mild osteoarthritis of bilateral hips. No evidence for an acute fracture or lesion. The MRI he had performed at [facility] on 02/10/2022 is revealing mild right hip [...] All of his questions have been answered. [employer]Exchange speech recognition woods laborer software was used to create portions of this document. An attempt at proofreading has been made to minimize errors. Please call for corrections. Gracia Paz PA-C [address] [place] [address] [address], [place], [address], [facility] 10/03/2023 14:19:49 01/08/2024 text/html *I am seeing [...] Alert and lucid. 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 No spasticity [...] in the lower extremities.X-rays performed previously at [facility] include an AP pelvis and lateral view of the right hip. Images reveal mild osteoarthritis of bilateral hips. No evidence for an acute fracture or lesion.The MRI he had performed at [facility] on 02/10/2022 is revealing mild right hip [...] questions have been answered. Gracia Paz PA-C [address] [place] [address] [address], [place], [address], [facility] 01/08/2024 14:08:59 04/09/2024 text/html [...] Alert and lucid. 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 No spasticity [...] in the lower extremities.X-rays performed today at [facility] include an AP pelvis and lateral view of the right hip. Images reveal mild osteoarthritis of the right hip. There is moderate to severe narrowing of the left superolateral joint with cystic changes noted in the acetabulum. No evidence for an acute fracture or lesion.The MRI he had performed at [facility] on 02/10/2022 is revealing mild right hip [...] questions have been answered. Gracia Paz PA-C [address] [place] [address] [address], [place], [address], [facility] 04/09/2024 22:08:32 07/11/2024 text/html *I am seeing [...] Alert and lucid. 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 No spasticity [...] in the lower extremities.X-rays performed previously at [facility] include an AP pelvis and lateral view of the right hip. Images reveal mild osteoarthritis of the right hip. There is moderate to severe narrowing of the left superolateral joint with cystic changes noted in the acetabulum. No evidence for an acute fracture or lesion.The MRI he had performed at [facility] on 02/10/2022 is revealing mild right hip [...] have been answered. Gracia Paz PA-C [address], [place], [address], [facility] 07/11/2024 15:03:20 09/27/2024 text/html I am seeing the patient today under the supervision of Dr. Huerta who was available but who did not see the patient. HPI: The patient returns for follow-up of left hip pain. The history is outlined by previous notes. The patient has recurrent pain about the left hip. Past family, medical, social history and review of systems has been reviewed, updated and is located in the patient s chart. Examination: The patient is well appearing and in no apparent distress. Alert and oriented x3. Gait is symmetric. No significant swelling warmth or erythema about the left hip. Range of motion of the left hip is decreased in all planes. . Peripheral, vascular, lymphatic examination, skin, neurological, coordination, reflexes, sensation are within normal limits. Impression: Osteoarthritis of the left hip Plan: Reviewed diagnosis with the patient today in the office. We discussed the patient's options. We discussed the risks, options, benefits In regards toa total hip arthroplasty. We discussed the surgery itself and rehabilitation process. We discussed conservative management. Activity modification discussed. P.r.n. NSAIDs can use. We discussed the risks associated with NSAID use. I injected 40 mg of Kenalog and 2 cc of 1% lidocaine into the left hip joint using the ultrasound-guided technique under sterile conditions. The patient tolerated the injection well. Dillan Horta PA-C [address], [place], [address], [facility] 09/27/2024 09:09:28
--- OUTSIDE RECORDS SUMMARY | 2025-01-02 09:09 | XMS_ITS | Clinical Summary ---
Author Organization [facility] Address [address] [place] [address] Care Team Providers Care Camera Mechanic Name Role Phone Christian Barkley MD Primary Care Provider [phone] Allergies No known active allergies Medications Medication [...] 85 01/09/2023 2:19 PM EDT Temperature 36.8 C (98.2 F) 01/09/2023 2:19 PM EDT Respiratory Rate - - Oxygen Saturation 98% [...] 1-dose 75+ series) 2022 Influenza Vaccine (#1) 2025 03/01/2014 Hepatitis B Vaccines Aged Out No long er eligible based on patient's age to complete this topic RSV Ped < 20 months Aged Out No longe r eligible based on patient's age to complete this topic Care Teams Camera Mechanic Relationship Specialty Start Date End Date Christian Barkley MD [address] [place] [address] Dr [address] [place] [id number] PCP - [employer] 08/10/16
== END ==
LOC: HO.CARD 08:50
PROVIDERS: PCP Internal Medicine; Visit Provider Internal Medicine Medical Oncology
DX: R53.83 Other fatigue (principal); I42.9 Cardiomyopathy, unspecified
CPT/HCPCS: 93306

== ENCOUNTER → 2025-01-02 08:53 | Outpatient (BNV) | payer MEDICARE, SELFPAY | PROVIDERS: PCP Internal Medicine; Visit Provider Internal Medicine Cardiovascular Disease | DX: I71.21 Aneurysm of the ascending aorta, without rupture (principal); I35.8 Other nonrheumatic aortic valve disorders | CPT/HCPCS: 93306 ==

== ENCOUNTER 2025-01-07 13:08 | Outpatient (AMB) | payer MEDICARE, SELFPAY ==
--- OUTSIDE RECORDS SUMMARY | 2024-12-30 11:00 | XMS_ITS ---
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 7 [...] [facility]. He recently went to [place] to see neurosurgery, Dr. Garcia, we'll told [...] Reason: ov review labs Provider Name:Frankie Keyes, 01/10/2025 03:45:00 PM, [address] [place] [address] [address], [place], [address], Provider Name:Frankie Keyes, 03/31/2025 02:30:00 PM, [address] [place] [address] S[address], [place], [address], Progress Notes * Kameron FARIASDOB:1944 (79 yo M)Acc No.[id number]:12/30/2024 Progress Notes Patient: Niecy Kameron LEPE Provider: Elver Keyes MD :1945 A ge:79 Y S ex:Male Date:12/30/2024 Address:[address] [place] [address] [place] , [place], [id number] Pcp:Christian Barkley MD Subjective: * Chief Complaints: * P ituitary tumorProstate cancerChronic lymphocytic leukemiaObstructive uropathyHistory of melanoma * HPI: C OVID-19 Screening: Arnav cha returns for surveillance of his various malignancies. He says he has been feeling very tired lately. He has had some edema of his right ankle beginning 2 months ago. He has been to [place] to see Dr. campos who has scheduled [...] enies. * Medical History: * Surgical History: Arnav [place]ith repair 2011,2015Eye Surgery 1954Radical Prostatectomy Brain tumor removed 2000Right hand surgery 1974Right knee surgery 50yrs oldBasal cell cancer removed on right cheek 2013melanoma removal on back 04/2018pituitary tumor removal in [place] 10/2019Brain Surgery tumor removal 11/2019Abdomen Aortic Aneurism [...] Findings: Tobacco Non-User E x-cigarette smoker H starla was born in [place] and is not working at present. He [...] [facility]. He recently went to [place] to see neurosurgery, Dr. Garcia, we'll told [...] MD Date: 0 12/30/2024 Generated for Chivo ray/Wan/Mandyitting on: 0 01/07/2025 02:28 PM EDT History and Physical Notes * [...]
--- NOTE | 2025-01-07 13:07 | A.OFFVIS_ITS ---
Intake Visit Reasons: GnRH/Prolia/3m/labs Intake Note: Patient is present for GnRH, Prolia, Labs 12/17/24: PSA : 0.59, Total testosterone :7 Urology Medication:FINASTERIDE,VITAMIN B Antibiotic Allergy:NONE Blood Thinner:NONE Deal Architect Required: No Accompanied by: Self / Same As Patient Allergies No Known Allergies (No Known Allergies*) Allergy (Verified 01/07/25 13:09) HPI Comments Details: Naveen is a pleasant male. He is a patient of Dr. Barkley. He is seen for the following urologic conditions - prostate cancer metastatic hormone sensitive - current therapy intermittent hormone blockade Last GnRH Follow-up with lab work 12/18 P 0.6 T 7 GnRH and prolia 09/17 P 0.6 T 12 PET/CT with slight decrease in activity of known lesions 06/18 PSA 0.6, testosterone 7 Injections today - GnRH and Prolia 03/19 PSA 0.6 T 4 12/17 PSA 1.0 T 6 GnRH and prolia PET/CT multiple 9 mm to 2.7 cm sclerotic lesions through T9, T12 and left iliac bone 09/16 PSA 0.7, testosterone 11 DEXA scan osteopenia Bone Scan sclerotic lesion pelvis stable - focal asymmetric increased tracer avidity within the left posterior iliac bone adjacent to the site joint, appear slightly more pronounced on the current study since the prior study dated 12/16/2022. 04/17 PSA 6 Significant jump in 3 months - PSA 6.0 Restart GnRH injection - Prolia since known osteopenia Prostate cancer: high risk Initial diagnosis 2009. Radical prostatectomy External beam radiation 2010 Initiation intermittent hormone therapy starting 2013 - 18 months hormones 01/13 - 04/16 Prostate cancer was diagnosed 02/2010. Diagnosis was reached by needle biopsy, for elevated PSA, PSA at diagnosis 11.9. The Madyson grade is 4+5. TNM Classification of Malignant Tumours (TNM) T2. The D'Abiodun (NCCN) risk category is High Risk (PSA > 20, Gl 8+, T3) Initial therapy included Primary treatment, March 2010 radical prosta tectomy, Additional treatment, November 2010 external beam radiation, observation Additional treatment, March 2014 GnRH therapy and antiandrogen. Has used Trelstar, Lupron and bicalutamide. October 2015 , Hormonal Blockade - Intermittent Prolia (denosamab) osteopenia - December 201507/13 GnRH and Prolia, 01/02/18 GnRH and Prolia, 07/19/18 GnRH 3m, prolia, finasteride, 10/12 GnRH 6m, finasteride, 12/13 3m GnRH + finasteride Recent labs included a PSA (prostate-specific antigen) at diagnosis 11.9. From a high of 52 to May 2015 0.06, 11/08 < 0.5, a testosterone 11/08 , < 20 ng/dL Jan 2016 a PSA (prostate-specific antigen) , < 0.26 May 2016 , a PSA (prostate-specific antigen) 0.17 - slow increase - T 200 10/10 - 0.9, 01/09 - 2.1, 04/11 - 4.2 rpt 6.0 07/13 - 10, 10/11 - 2.0 T5 01/10 PSA 2.3, T < 8, 04/12 , a PSA (prostate-specific antigen) 0.9, T < 7 07/14 PSA 1.0 T 15, 10/12 PSA 0.48 T 10, 01/11 PSA .32 T 8, 04/13 PSA 0.4 T 8 07/15 PSA 0.45 T 57, 11/12 PSA 3 T 349, 03/15 PSA 0.3, T 10, 06/14 PSA 1.0 T 19 - 09/13 PSA 8.1, T 474, 12/14 PSA 15, T 355, 04/15 PSA 2.3, T 5, 10/15 PSA 1.7 T 7, 01/15 PSA 1.1 T 71, 04/17 6 T 300 Recent imaging included December 2014 - Bone scan nonspecific abnormalities likely arthritic or traumatic in etiology February 2015 left femoral head and femoral neck increased uptake. Probably degenerative change however bony lesion should be considered. a CT (computed tomography) scan December 2014 sclerotic lesion on L1 vertebrae. Matches area on bone scan. 11/08 DEXA scan - Osteopenia 12/10 , a bone scan - ? small lesion on iliac 03/13 Bone Scan stable lytic lesion pelvis 04/[address] (computed tomography) scan, new sclerotic area on right pelvis 10/12 Bone Scan - mild increase activity spine and pelvis 10/12 , a DEXA scan, showing osteopenia/osteoporosis 04/13 Bone Scan - decreased rib activity 12/13 Persistent small iliac abnormality, 09/13 persistent iliac activity no new increase 03/16 DEXA confirming osteoporosis 09/14 bone scan - stable metastatic disease 12/16 Stable nonspecific abnormalities in the pelvis are consistent with metastatic disease. There is no evidence of progression. 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 Hypertension GERD (gastroesophageal reflux disease) Colon adenomas Surgical History Hx of eye surgery Hx of umbilical hernia repair Hx of inguinal hernia repair Hx of melanoma excision (~2016) History of prostatectomy (~2009) History of hernia repair History of knee surgery History of surgery on wrist History of colonoscopy (~04/24/20) History of brain surgery Family History Father Heart disease Mother Emphysema lung Social History Household Members: None Housing: Apartment Are you a primary progressive care nurse to a significant other at home: No Do you presently have visiting nurse or other home services: No Alcohol intake: never Comment: left DP/PT, audible-monophasic with doppler, Right is biphasic DP/PT Patient Tobacco Use Status: Former Tobacco user Tobacco use type: Cigarette Years Smoked: 50 e-Cigarette/Vaping Use: Former Use Second Hand Smoke Exposure: No service: No Current occupational status: retired Cognitive needs: No Hearing needs: No Vision needs: Yes (rx glasses) Review of Systems Const Denies chills and Denies fever(s) Card Reports no additional complaints and Denies syncope Resp Denies cough GI Denies abdominal pain and Denies heartburn Reports as per HPI and Denies change in libido Neuro Denies syncope Psych Denies change in libido Endo Denies change in libido Physical Exam Const General: cooperative, healthy appearing, comfortable and no acute distress Orientation/consciousness: patient oriented x3 HEENT Face and sinus: Yes normal facial exam Mouth: moist mucous membranes Neck Neck: Yes normal visual inspection, Yes full ROM and Yes trachea midline Chest Chest palpation & inspection: normal inspection of the chest Resp Effort & Inspection: normal respiratory effort, able to speak in complete sentences and no respiratory distress GI Inspection: Yes normal to inspection Back/Spine/Pelvis Cervical Spine: normal cervical lordosis Thoracic/Lumbar Spine: thoracic and lumbar spine normal to inspection Skin General skin exam: no rashes or lesions noted Neuro General: patient oriented x3, gait normal, tone normal and moves all extremities Extrem General: Yes normal to inspection and Yes capillary refill normal Office Meds Prolia 60 mg/mL subcutaneous syringe Performing Provider: Bashir Sepulveda MD [facility] Administered by: Naomi Ramos RN on 01/07/25 13:45 Dose Route Admin Location Dispensed Lot Number Expiration Date [facility] Casing In Line Feeder 60 mg subcut Left upper arm 1 mL [id number] 01/23/27 79299-024-82 [employer] Total Dispensed Waste 1 mL 0 % Eligard (6 month) 45 mg (6 month) subcutaneous syringe Performing Provider: Bashir Sepulveda MD Performing Location: [facility] Administered by: Naomi Ramos RN on 01/07/25 13:45 Dose Route Admin Location Dispensed Lot Number Expiration Date [place] Casing In Line Feeder 45 mg subcut Right upper arm 45 mg [id number] 02/24/26 78432-236-82 [employer] Total Dispensed Waste 45 mg 0 % Assessment & Plan Assessment & Plan (1) Prostate cancer metastatic to bone: Code(s): C61 - Malignant neoplasm of prostate; C79.51 - Secondary malignant neoplasm of bone Category: Medical Plan Three-month follow-up lab work Orders: Orders AMB Leuprolide Injection - Practice Supplied Today C61 - Malignant neoplasm of prostate, C79.51 - Secondary malignant neoplasm of bone Testosterone, Total 3 Months C61 - Malignant neoplasm of prostate, C79.51 - Secondary malignant neoplasm of bone AMB Denosumab Injection Practice Supplied Today C61 - Malignant neoplasm of prostate, C79.51 - Secondary malignant neoplasm of bone Prostate Specific Antigen 3 Months C61 - Malignant neoplasm of prostate, C79.51 - Secondary malignant neoplasm of bone Patient Instructions: This note is constructed using voice recognition software. While every effort has been made to ensure accuracy special shopper errors may have been included. Imaging studies, laboratory and physical exam results were discussed and reviewed in detail. No major barriers to patient understanding were identified. An opportunity to ask questions regarding the treatment plan was provided. All questions were answered. The patient expressed understanding and agreement with the above treatment plan. The patient is aware they should contact our office by phone for worsening of their current condition or the appearance of new urologic symptoms. Compliance is encouraged with any medications and followup testing that is ordered. It is a privilege to participate in the urologic care of your patient. If you have any questions or concerns regarding treatment for the above conditions, or other urologic issues, please do not hesitate to contact me. The office telephone contact is [phone]. Sincerely, Dr Bashir Sepulveda MD, ДМИТРИЙ [facility] - Urology Compassionate Specialist Care for the Genitourinary System Coding Level of Care Code Est Pt Level 3 (54957) Complex EM visit Add On G2211 Diagnoses Prostate cancer metastatic to bone C61; C79.51
--- OUTSIDE RECORDS SUMMARY | 2025-01-07 14:29 | XMS_ITS | Clinical Summary ---
Author Organization [facility] Address [address] [place] [address] Care Team Providers Care Security And Compliance Project Manager Name Role Phone Christian Barkley MD Primary Care Provider [phone] Allergies No known active allergies Medications Medication [...] age to complete this topic Care Teams Security And Compliance Project Manager Relationship Specialty Start Date End Date Christian Barkley MD [address] [place] [address] Dr [address] [place] [id number] PCP - General Rn Behavioral Health 08/10/16
--- OUTSIDE RECORDS SUMMARY | 2025-01-07 14:29 | XMS_ITS | Data Portability ---
Author Organization [facility], [facility] Address [address] [place] [address] Care Team Providers Care Dietary Server Name Role Phone FRANCISCA DANIE Primary Care [...] 205 bilateral hip 2v cw 2023 024 [facility] Office, [address] [facility] [address], [place], [address], 05/01/2024 09:08:43 Medication Orders None recorded. Patient [...] a4ajBk vP9nXo QUaueC m3YtLR FvZlgJ JJ8mAn HZtai3 7w8147 AC0Kqa 3uCUqK gKiQtr MwF INTERFACE [facility] Office [address], [place], [address], 04/09/2024 13:11:42 04/09/20 24 04/09/2024 XR, hip + pelvi s, bilat eral, 2 view http:/ [email or web address] ?Encry pted=s hAaTro YD8dLq bEUv6g %2BXZw aYqtaq 0bqfl% 2Fg9IQ a4ajBk vP9nXo QUaueC m3YtLR FvZlgJ JJ8mAn HZtai3 7q9488 AC0Kqa 3uCUqK gKiQtr MwF INTERFACE [facility] [address], [place], [address], 04/09/2024 13:11:44 Result Notes Documentation Provider Name and Address Organization Details Recorded Time Xr, Hip + Pelvis, Bilateral, 2 View : [email or web address]? Encrypted=xgKeTtjXM0kHioH Uv6g%0WMXhzQmpea5cuzm%2Fg 5AJi1rzXueW6dCrSDlzgZh3Kz VVTwTjtOQT7oYlSKrat18i407 4VV5Gqg9zUFaOeTeKzrKnG Not Available [employer] 04/09/2024 13:11: 43 Xr, Hip + Pelvis, Bilateral, 2 View : [email or web address] Encrypted=mpBoAzkGR8dXquX Uv6g%7TYKxqAtjbh9atcy%2Fg 1ZIu4sgIruC1hEbUIjhxTb4Js ENLrDjpOME0zKbWOaom82f941 7CX5Agc6kZElIeFmQseIoT Not Available [facility] 04/09/2024 13:11: 45 Problems Name Problem SNOMED Code Status Onset Date Resolution Date Notes Provider Name and Address Organization Details Recorded Time Pain of bilateral hip joints 2288129808478 9100 Active 2023 [facility] 4 12:59:53 Trochanter ic bursitis of right hip 0978559918423 00 Active 2024 Gracia Paz PA-C [address], [place], [address] , [facility] 5 10:52:24 Trochanter ic bursitis of left hip 1915743572924 03 Active 2024 Gracia Paz PA-C [address], [place], [address] , [facility] 5 10:52:24 Osteoarthr itis of bilateral hip joints 9306213161815 05 Active 2024 Gracia Paz PA-C [address], [place], [address] , [facility] 5 10:52:24 Pain of left hip joint 0587726720171 00 Active 2021 Status : 'A'; Not Available [facility] 4 10:58:27 Problem Notes None recorded. Procedures Surgical History Date Name Laterality Status Provider Name and Address Organization Details Recorded Time 5 Hip Kenalog Injection, L/R w/US active Dillan Horta PA-C [address], [place], [address], [facility] 01/01/2025 08:47:37 5 Hip Kenalog Injection, L/R w/US completed Dillan Horta PA-C [address], [place], [address], [facility] 09/26/2024 20:26:52 5 Hip Kenalog 1cc Injection, L/R completed Gracia Paz PA-C [address], [place], [address], [facility] 07/11/2024 12:25:36 4 Hip Kenalog 1cc Injection, L/R completed Gracia Paz PA-C [address], [place], [address], [facility] 04/09/2024 22:03:05 4 Hip Kenalog 1cc Injection, Bilateral completed Gracia Paz PA-C [address], [place], [address], [facility] 01/08/2024 12:50:43 4 Hip Kenalog 1cc Injection, Bilateral completed Gracia Paz PA-C [address], [place], [address], [facility] 10/03/2023 14:19:23 repair of aneurysm of abdominal aorta with graft completed AIDEN TEIXEIRA [facility] 01/08/2024 13:04:21 Imaging Results None recorded. Procedure [...] Updated DateTime 07/11/2024 180.34 cm 24.4 kg/m2 20837.66 g [facility] 07/11/2024 12:11:16 Date Recorded Body height Body mass index (BMI) Body weight Provider Name and Address Organization Details Last Updated DateTime 09/27/2024 180.34 cm 24.4 kg/m2 44965.66 g Kimberly Wall [facility] 09/27/2024 09:01:13 Date Recorded Body height Body mass index (BMI) Body weight Provider Name and Address Organization Details Last Updated DateTime 10/03/2023 180.34 cm 25.1 kg/m2 75520.63 g kwan issa [facility] 10/03/2023 13:37:43 Date Recorded Body height Body mass index (BMI) Body weight Provider Name and Address Organization Details Last Updated DateTime 01/08/2024 180.34 cm 24.4 kg/m2 98038.66 g AIDEN TEIXEIRA [facility] 01/08/2024 13:03:52 Date Recorded Body height Body mass index (BMI) Body weight Provider Name and Address Organization Details Last Updated DateTime 04/09/2024 180.34 cm 24.4 kg/m2 12659.66 g [facility] 04/09/2024 12:58:54 Social History None recorded. Functional Status None recorded. Mental Status None recorded. Family History Nothing Reported. Medical History No medical history recorded. Past Encounters Encounter ID Performer Location Encounter Start Date Encounter Closed Date Diagnosis/Indication Diagnosis SNOMED-CT Code Diagnosis ICD10 Code Diagnosis Note [id number] NICK Cruz [address] [place] [address] 10/03/2023 13:24:00 10/28/2023 06:41:48 Trochanteric bursitis of left hip 8293683979 27850 M70.62 Trochanter ic bursitis of right hip 4543402842 66051 M70.61 [id number] NICK Cruz [address] [place] [address] 01/08/2024 12:46:05 01/26/2024 08:10:18 Trochanteric bursitis of left hip 5682914042 18604 M70.62 Trochanter ic bursitis of right hip 1287373520 12568 M70.61 [id number] NICK Cruz [address] [place] [address] 04/09/2024 12:53:57 05/01/2024 09:08:42 Pain of bilateral hip joints 8981573948 9931881 M25.551 Trochanter ic bursitis of left hip 3276821206 90201 M70.62 Trochanter ic bursitis of right hip 9128554450 93709 M70.61 Osteoarthr itis of bilateral hip joints 2027960980 75594 M16.0 [id number] NICK Cruz [address] [place] [address] 07/11/2024 12:05:37 07/23/2024 10:35:41 Trochanteric bursitis of right hip 9741871378 17188 M70.61 Trochanter ic bursitis of left hip 5359341045 94134 M70.62 Osteoarthr itis of bilateral hip joints 4811290725 40922 M16.0 [id number] NICK Mccoy [address] [place] [address] 09/27/2024 08:54:29 10/14/2024 19:11:45 Osteoarthritis of left hip joint 3074944689 78497 M16.12 Health Concerns Section Related Observation LastModified by Organization Detai ls LastModified Time None Recorded Concern Status LastModified by Organization Details LastModified Time None Recorded Advance Directives Directive None Recorded Payers Insurance Date Sequence Insurance Name Policy Number Policy Wilson Covered Member ID Wilson Member ID Guarantor Name 01/03/2025 1 [place] Naveen Farias [id number] Naveen Farias 01/01/2025 2 [place] [id number] Naveen Farias [id number] Naveen Farias Notes Date Note Type [...] Alert and lucid. 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 No spasticity [...] or bone lesion. X-rays performed previously at [facility] include an AP pelvis and lateral view of the right hip. Images reveal mild osteoarthritis of bilateral hips. No evidence for an acute fracture or lesion. The MRI he had performed at [place] on 02/10/2022 is revealing mild right hip [...] All of his questions have been answered. [employer] speech recognition insulation board head saw operator software was used to create portions of this document. An attempt at proofreading has been made to minimize errors. Please call for corrections. Gracia Paz PA-C [address] [place] [address] [address], [place], [address], [facility] 10/03/2023 14:19:49 01/08/2024 text/html *I am seeing [...] Alert and lucid. 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 No spasticity [...] in the lower extremities.X-rays performed previously at [facility] include an AP pelvis and lateral view of the right hip. Images reveal mild osteoarthritis of bilateral hips. No evidence for an acute fracture or lesion.The MRI he had performed at [place] on 02/10/2022 is revealing mild right hip [...] questions have been answered. Gracia Paz PA-C [address] [place] [address] [address], [place], [address], [facility] 01/08/2024 14:08:59 04/09/2024 [...] Alert and lucid. 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 No spasticity [...] in the lower extremities.X-rays performed today at [facility] include an AP pelvis and lateral view of the right hip. Images reveal mild osteoarthritis of the right hip. There is moderate to severe narrowing of the left superolateral joint with cystic changes noted in the acetabulum. No evidence for an acute fracture or lesion.The MRI he had performed at [place] on 02/10/2022 is revealing mild right hip [...] questions have been answered. Gracia Paz PA-C [address] [place] [address] [address], [place], [address], [facility] 04/09/2024 22:08:32 07/11/2024 text/html *I am seeing [...] Alert and lucid. 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 No spasticity [...] in the lower extremities.X-rays performed previously at [facility] include an AP pelvis and lateral view of the right hip. Images reveal mild osteoarthritis of the right hip. There is moderate to severe narrowing of the left superolateral joint with cystic changes noted in the acetabulum. No evidence for an acute fracture or lesion.The MRI he had performed at [place] on 02/10/2022 is revealing mild right hip [...] Paz PA-C [address], [place], [address], [facility] 07/11/2024 15:03:20 09/27/2024 text/html I am seeing [...] Horta PA-C [address], [place], [address], [facility] 09/27/2024 09:09:28
== END 2025-01-07 13:52 | disposition home or self-care (01) ==
LOC: HO.HUSH 13:09
PROVIDERS: PCP Internal Medicine; Visit Provider Urology
DX: C61 Malignant neoplasm of prostate (principal); C79.51 Secondary malignant neoplasm of bone
CPT/HCPCS: 99213; G2211

== ENCOUNTER → 2025-01-07 13:08 | Outpatient (BNVA) | payer MEDICARE, SELFPAY | PROVIDERS: PCP Internal Medicine; Visit Provider Urology | DX: C61 Malignant neoplasm of prostate (principal); C79.51 Secondary malignant neoplasm of bone; Z79.899 Other long term (current) drug therapy | CPT/HCPCS: 96372; 96402; 99212; J0897; J9217 ==

== ENCOUNTER → 2025-03-25 07:06 | Outpatient (REF) | payer MEDICARE, SELFPAY ==
--- OUTSIDE RECORDS SUMMARY | 2024-01-15 10:30 | XMS_ITS ---
Author Organization Frankie Keyes III, MD Address [address] [place] [address] Care Team Providers Care Heater Operator Name Role Phone Christian Barkley MD Primary Care Provider Dr. Frankie Bender III Unavailable Allergies Allergen (clinical drug ingredient) Drug/Non Drug Allergy documented on EMR Reaction Allergy Type Onset Date Status No Known Drug Allergy Unknown Drug Allergy Active REASON FOR VISIT Pituitary tumor in remission, Prostate cancer, Chronic lymphocytic leukemia, History of melanoma, Osteopenia Medications Medication SIG (Take, Route, Frequency, Duration) Notes Start Date End Date Status amLODIPine Besylate 5 MG TAKE 1 TABLET B Y MOUTH TWICE DAILY Oral Active Social History Tobacco Use: Social History Observation Description Date Details (start date - stop date) Former Smoker NA - NA Tobacco Use/Smoking Question Answer Notes Patient is a former smoker How long has it been since you last smoked? > 10 years Additional Findings: Tobacco Non-User Ex-cigaret te smoker Vital Signs Temperature 97.3 degrees Fahrenheit 01/15/20 24 Blood pressure systolic 130 mm Hg 01/15/20 24 Blood pressure diastolic 80 mm Hg 024 Heart Rate 78 /min 01/15/2024 Height 71 in 01/15/2024 Weight 174 lbs 01/15/2024 BMI 24.27 kg/m2 01/15/2024 Encounters Encounter Location Date Provider Diagnosis Frankie Keyes III, MD [address] [place] [address] [place] [address] 01/15/2024 Frankie Keyes Pituitary tumor D49. 7 ; Prostate cancer C61 ; CLL (chronic lymphocytic leukemia) C91.10 ; Former smoker Z87.891 ; Osteopenia M85.80 and History of melanoma Z85.820 Assessments Encounter Date Diagnosis (ICD Code) Assessment Notes Treatment Notes Treatment Clinical Notes 01/15/2024 Pituitary tumor (ICD-10 - D49.7) He will continue to be observed at the [facility] neurosurgery department. He will have periodic MRIs of the brain. The next study has been scheduled at [facility]. He recently went to [place] to see neurosurgery, Dr. Garcia, we'll told him that the tumor was not growing back. 01/15/2024 Prostate cancer (ICD-10 - C61) His PSA is under 2 symptoms. No change in his therapy was needed. 01/15/2024 CLL (chronic lymphocytic leukemia) (ICD-10 - C91.10) There was no adenopathy or splenomegaly. His white blood cell count and differential are unremarkable. 01/15/2024 Former smoker (ICD-10 - Z87.891) He is highly motivated not to smoke. He has a plan to prevent relapse in times of stress and illness. 01/15/2024 Osteopenia (ICD-10 - M85.80) There was continued on current therapy today without change. 01/15/2024 History of melanoma (ICD-10 - Z85.820) Plan Of Treatment Medication Medication Name Sig Start Date Stop Date Notes amLODIPine Besylate 5 MG TAKE 1 TABLET B Y MOUTH TWICE DAILY Oral Pending Test Test Name Order Date PROFILE, FASTING (COMPREHENSIVE METABOLI C) 01/15/2024 PSA, TOTAL 01/15/2024 CBC WITH AUTO DIFF 01/15/2024 Lipid Panel 01/15/2024 Hemoglobin A1c 01/15/2024 Next Appt Details Follow Up: 3 Months, Reason: OV Provider Name:Frankie Keyes , 03/31/2025 02:30:00 PM, [address] [place] [address] SUSIE TRONCOSO, [place], [id number], Progress Notes * Kameron FARIASDOB:1944 (78 yo M)Acc No.[id number]:01/15/2024 Progress Notes Patient: Kameron Mauro Provider: Elver Keyes MD :1945 A ge:78 Y S ex:Male Date:01/15/2024 Address:[address] [place], [place] [id number] Pcp:Christian Barkley MD Subjective: * Chief Complaints: * P ituitary tumor in remissionProstate cancerChronic lymphocytic leukemiaHistory of melanomaOsteopenia * HPI: C OVID-19 Screening: He was seen November 01, 2023 by his vascular surgeon, Dr. Wills. A recent PET CT scan showed the aortic aneurysm had increased from 4-6 cm. An urgent endovascular repair was done at [facility] with success. He was discharged November 14, 2023. He comes in today for follow-up of his various malignancies. His PSA remains low. His physical examination today showed no sign of progressive disease. No change in his regimen was needed. Questions H ave you experienced fever, chills, cough, sore throat, shortness of breath, difficulty breathing, muscle aches, loss of taste or smell? N o H ave you been exposed to the virus within the last 10 days? N o H ave you travelled internationally in the last 10 days? N o H ave you been exposed to COVID-19 in the past? Y es * ROS: G eneral/Constitutional: pain o nly normal aches and pains. C hills d enies.?Fatigue a dmits. F ever d enies. E NT: Decreased hearing m ild. R espiratory: Cough d enies. C ardiovascular: Chest pain with exertion d enies. D yspnea on exertion?denies. S hortness of breath d enies. G astrointestinal: Constipation o ccasional. D ecreased appetite d enies. D iarrhea d enies. H eartburn d enies. N ausea d enies. R ectal bleeding d enies. V omiting d enies. H ematology: bruising d enies. p etechiae d enies. S wollen glands n one have been noted. G enitourinary: Frequent urination t wice a night. M usculoskeletal: Muscle aches d enies. P ainful joints d enies. S ciatica d enies. W eakness d enies. S kin: Itching d enies. R rebeka d enies. S kin lesion(s)?denies. N eurologic: Difficulty speaking d enies. D izziness d enies.?Headache d enies. L ow back pain d enies. P sychiatric: Depressed mood d enies. * Medical History: * Surgical History: H ernia repair 2011,2015Eye Surgery 1954Radical Prostatectomy Brain tumor removed 2000Right hand surgery 1974Right knee surgery 50yrs oldBasal cell cancer removed on right cheek 2013melanoma removal on back 04/2018pituitary tumor removal in [place] 10/2019Brain Surgery tumor removal 11/2019Abdomen Aortic Aneurism 10/2023 * Hospitalization/Major Diagno stic Procedure: D enies Past Hospitalization * Family History: F ather: 64 yrs, stroke, paratenitis. M other: 77 yrs, emphysema. 1 brother(s) , 2 sister(s) . 1 son(s) - healthy. . A brother has prostate cancer at 65. His siblings have hypertension. One sister has fibromyalgia. * Social History: T obacco Use: T obacco Use/Smoking P atient is a f ormer smoker H ow long has it been since you last smoked??> 10 years A dditional Findings: Tobacco Non-User E x-cigarette smoker Arnav cha was born in [place] and is not working at present. 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 He is and has one son. * Medications: T akingamLODIPine Besylate 5 MG Tablet TAKE 1 TABLET BY MOUTH TWICE DAILY Oral Medication List reviewed and reconciled with the patientTaking amLODIPine Besylate 5 MG Tablet TAKE 1 TABLET BY MOUTH TWICE DAILY Oral Medication List reviewed and reconciled with the patient * Allergies: N o Known Drug Allergyno[Allergies Verified] Objective: * Vitals: H t: 71, Wt:174, BMI:24.27, BP:130/80, HR:78, Temp:97.3, Wt-k.93. * Examination: G eneral Examination: GENERAL APPEARANCE: p darion, well nourished, well developed, in no acute distress, calm and relaxed , elderly man. HEAD: a traumatic, normocephalic. EYES: e alejandro, perrla, anicteric, conjugate, Vision loss Left eye. EARS: n ormal. NOSE: s eptum intact. ORAL CAVITY: n ormal, unremarkable. NECK/THYROID: n o jugular venous distention, no carotid bruit, thyroid normal. LYMPH NODES: n o enlarged lymph nodes,spleen normal. SKIN: n o suspicious lesions, anicteric. HEART: n o clicks, gallops, murmurs, or rubs, regular rhythm, S1, S2 normal, no s3, or vascular bruits. LUNGS: c lear to auscultation . BREASTS: no masses palpable bilaterally. ABDOMEN: b owel sounds normal, no ascites, no organomegaly, no mass, No palpable mass. RECTAL EXAM: n ot examined. MUSCULOSKELETAL: e xtremities unremarkable, no clubbing, cyanosis or edema. PERIPHERAL PULSES: n ormal. NEUROLOGIC: a lert and oriented, cranial nerves 2-12 grossly intact, deep tendon reflexes 2+ symmetrical, motor strength normal upper and lower extremities, sensory exam intact. PSYCH: a lert, oriented. Assessment: * Assessment: 1. P ituitary tumor - D49.7 (Primary), He will continue to be observed at the [facility] neurosurgery department. He will have periodic MRIs of the brain. The next study has been scheduled at [facility]. He recently went to [place] to see neurosurgery, Dr. Garcia, we'll told him that the tumor was not growing back. 2 . P rostate cancer - C61, His PSA is under 2 symptoms. No change in his therapy was needed. 3 . C LL (chronic lymphocytic leukemia) - C91.10, There was no adenopathy or splenomegaly. His white blood cell count and differential are unremarkable. 4 . F ormer smoker - Z87.891, He is highly motivated not to smoke. He has a plan to prevent relapse in times of stress and illness. 5 . O steopenia - M85.80, There was continued on current therapy today without change. 6 . H istory of melanoma - Z85.820 Plan: * Treatment: 2. P rostate cancer L AB: PROFILE, FASTING (COMPREHENSIVE METABOLIC) L AB: PSA, TOTAL L AB: CBC WITH AUTO DIFF L AB: Lipid Panel L AB: Hemoglobin A1c * Procedure Codes: * Preventive Medicine: Counseling: S moking/Tobacco Use Patient counseled on the dangers of tobacco use and urged to quit. 0 01/15/2024 * Follow Up: 3 Months (Reason: OV) * Images: * Sign off status: Completed true * Provider: Elver Keyes MD Date: 0 01/15/2024 Generated for Printi ng/Faaayushg/eTransmitting on: 0 03/25/2025 07:10 AM EDT History and Physical Notes * HPI (History of Present Illness) Category Sub-Category Detail Notes COVID-19 Screening Questions Have you had any new onset fever, chills, cough, congestion, sore throat, shortness of breath, muscle aches?: No Have you been exposed to the virus withi n the last 10 days?: No Have you travelled internationally in [facility] last 10 days?: No Have you been exposed to COVID-19 in the past?: Yes Examination Category Sub-Category Detail Notes General Examination GENERAL APPEARANCE: pleasant , well nourished, well developed, in no acute distress, calm and relaxed , elderly man HEAD: atraumatic, normocep halic EYES: eomi, perrla, anicte pedro, conjugate, Vision loss Left eye EARS: normal NOSE: septum intact NECK/THYROID: no jugular venous di stention, no carotid bruit, thyroid normal HEART: no clicks, gallops, murmurs, or rubs, regular rhythm, S1, S2 normal, no s3, or vascular bruits LUNGS: clear to auscultatio n ABDOMEN: bowel sounds normal, no ascites, no organomegaly, no mass, No palpable mass NEUROLOGIC: alert and oriented, cranial nerves 2-12 grossly intact, deep tendon reflexes 2+ symmetrical, motor strength normal upper and lower extremities, sensory exam intact SKIN: no suspicious lesion s, anicteric PERIPHERAL PULSES: normal BREASTS: no masses palpable b ilaterally MUSCULOSKELETAL: extremities unremark able, no clubbing, cyanosis or edema LYMPH NODES: no enlarged lymph no harleen,spleen normal RECTAL EXAM: not examined PSYCH: alert, oriented ORAL CAVITY: normal, unremarkable
--- OUTSIDE RECORDS SUMMARY | 2024-04-22 10:00 | XMS_ITS ---
Author Organization Frankie Keyes III, MD Address [address] [place] [address] Care Team Providers Care Commercial Real Estate Agent Name Role Phone Christian Barkley MD Primary [...] Date Provider Diagnosis Frankie Keyes III, MD [address] [place] [address] [place] [address] 04/22/2024 Frankie Keyes Pituitary tumor D49. 7 [...] will continue to be observed at the [facility] neurosurgery department. He will have periodic MRIs of the brain. The next study has been scheduled at [facility]. He recently went to [place] to see neurosurgery, Dr. Garcia, we'll told [...] ov review labs Provider Name:Frankie Keyes , 03/31/2025 02:30:00 PM, [address] [place] [address], [address], [address], Progress Notes * Kameron FARIASDOB:1944 (79 yo M)Acc No.[id number]:04/22/2024 Progress Notes Patient: Niecy LEPE Kameron [place] Provider: Elver Keyes MD :1945 A ge:79 Y S ex:Male Date:04/22/2024 Address:[address] [place], [place] [id number] Pcp:Christian Barkley MD Subjective: * Chief Complaints: [...] removal on back 04/2018pituitary tumor removal in [place] 10/2019Brain Surgery tumor removal 11/2019Abdomen Aortic Aneurism [...] x-cigarette smoker H e was born in [place] and is not working at present. He [...] 73 (Ref Range: >40 mg/dL) * Lab:Comprehensive [place]. Pane l Fast * Collection Date 04/12/2024 [...] will continue to be observed at the [facility] neurosurgery department. He will have periodic MRIs of the brain. The next study has been scheduled at [facility]. He recently went to [place] to see neurosurgery, Dr. Garcia, we'll told [...] true * Provider: Elver Keyes MD Date: 1 Generated for Chivo ray/Wan/eTransmitting on: 0 03/25/2025 07:10 AM EDT History [...] days?: No Have you travelled internationally in [facility] last 10 days?: No Have you been [...]
--- OUTSIDE RECORDS SUMMARY | 2024-08-26 10:00 | XMS_ITS ---
Author Organization Frankie Keyes III, MD Address [address] [place] [address] Care Team Providers Care Scrap Picker Name Role Phone Christian Barkley MD Primary Care Provider Dr. Frankie Bender III Unavailable [phone] Allergies Allergen (clinical drug ingredient) Drug/Non Drug Allergy documented on EMR Reaction Allergy Type Onset Date Status No Known Drug Allergy Unknown Drug Allergy Active REASON FOR VISIT Followup, mri for [facility] nexts week for pit tumor Medications Medication SIG (Take, Route, Frequency, Duration) Notes Start Date End Date Status Prolia 60 MG/ML as directed Subcutaneous Active Lupron Depot (6-Month) 45 MG as directed Intramuscular 04/22/2024 Ac tive amLODIPine Besylate 5 MG TAKE 1 TABLET B Y MOUTH TWICE DAILY Oral Active Finasteride 5 MG 1 tablet Orally Once a day 2023 Active Social History Tobacco Use: Social History [...] Problem Status W/U Status Risk Notes Problem 014237104 Overweight (E66.3) Active confirmed He is very slightly overweight. I recommended she stabilize his weight at this level Vital Signs Temperature 98.4 degrees Fahrenheit 08/27/19 25 Blood pressure systolic 131 mm Hg 08/27/19 25 Blood pressure diastolic 82 mm Hg 025 Heart Rate 86 /min 08/26/2024 Height 71 in 08/26/2024 Weight 180 lbs 08/26/2024 BMI 25.1 kg/m2 08/26/2024 Encounters Encounter Location Date Provider Diagnosis Frankie Keyes III, MD [address] [place] [address] [place] [address] 08/26/2024 Frankie Keyes Pituitary tumor D49. 7 ; Prostate cancer C61 ; Overweight E66.3 ; CLL (chronic lymphocytic leukemia) C91.10 and Former smoker Z87.891 Assessments Encounter Date Diagnosis (ICD Code) Assessment Notes Treatment Notes Treatment Clinical Notes 08/26/2024 Pituitary tumor (ICD-10 - D49.7) He will continue to be observed at the [facility] neurosurgery department. He will have periodic MRIs of the brain. The next study has been scheduled at [facility]. He recently went to [place] to see neurosurgery, Dr. Garcia, we'll told him that the tumor was not growing back. 08/26/2024 Prostate cancer (ICD-10 - C61) A recent PSA is not available. It will be requested from the urologist. A repeat value has been ordered. There was no sign of progressive prostate cancer on his examination today. 08/26/2024 Overweight (ICD-10 - E66.3) He is very slightly overweight. I recommended she stabilize his weight at this level 08/26/2024 CLL (chronic lymphocytic leukemia) (ICD-10 - C91.10) His CBC remains stable and there is no sign of disease progression. Observation was continued. 08/26/2024 Former smoker (ICD-10 - Z87.891) He has a plan to prevent relapse in times of stress or illness. Plan Of Treatment Medication Medication Name Sig Start Date Stop Date Notes Prolia 60 MG/ML as directed Subcutaneous 04/22/2024 Lupron Depot (6-Month) 45 MG as directed Intramuscular amLODIPine Besylate 5 MG TAKE 1 TABLET B Y MOUTH TWICE DAILY Oral Finasteride 5 MG 1 tablet Orally Once a day 04/22/2024 Pending Test Test Name Order Date PROFILE, RANDOM (COMPREHENSIVE METABOLIC ) 08/26/2024 PSA, TOTAL 08/26/2024 CBC w DIFF 08/26/2024 TESTOSTERONE, TOTAL 08/26/2024 Next Appt Details Follow Up: 4 Months, Reason: OV Provider Name:Frankie Ohrne , 03/31/2025 02:30:00 PM, [address] [place] [address], [facility] [address], [place], [address], Progress Notes * KIKI Kameron BirminghamDOB:1944 (79 yo M)Acc No.[id number]:08/26/2024 Progress Notes Patient: Kameron WHITLOCK Provider: Elver Keyes MD :1945 A ge:79 Y S ex:Male Date:08/26/2024 Address:[address] [place], [place] [id number] Pcp:Christian Barkley MD Subjective: * Chief Complaints: * [facility] * HPI: C OVID-19 Screening: Questions H ave you had any new onset fever, chills, cough, congestion, sore throat, shortness of breath, muscle aches? N o * : The patient, a 79-year-old male, reported feeling out of it on a Monday, with symptoms including cloudy vision and lack of strength. He mentioned that he felt better after eating and taking a nap. The patient also reported a one-time episode of feeling weak, which quickly resolved. He has a history of prostate cancer, which is currently under control with medication. He also has a pituitary tumor and has been receiving Prolia injections. The patient mentioned that he had a PET scan done recently. Blood Sugar Level is 105. His physicians at the [facility] in [place] have scheduled an MRI of his brain at the [facility] next week to assess the status of his pituitary tumor. This has been in remission for a prolonged period of time. * ROS: G eneral/Constitutional: pain o nly normal aches and pains. C hills d enies.?Fatigue a dmits. F ever d enies. E NT: Decreased hearing d enies. R espiratory: Cough d enies. C ardiovascular: Chest pain with exertion d enies. D yspnea on exertion?denies. S hortness of breath d enies. G astrointestinal: Constipation o ccasional. D ecreased appetite d enies. D iarrhea d enies. H eartburn o ccasional. N ausea d enies. R ectal bleeding [...] removal on back 04/2018pituitary tumor removal in [place] 10/2019Brain Surgery tumor removal 11/2019Abdomen Aortic Aneurism [...] x-cigarette smoker H e was born in [place] and is not working at present. 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 He is and has one son. * Medications: T akingamLODIPine Besylate 5 MG Tablet TAKE 1 TABLET BY MOUTH TWICE DAILY Oral Finasteride 5 MG Tablet 1 tablet Orally Once a day Prolia 60 MG/ML Solution Prefilled Syringe as directed Subcutaneous Lupron Depot (6-Month) 45 MG Kit as directed Intramuscular Medication List reviewed and reconciled with the patientTaking amLODIPine Besylate 5 MG Tablet TAKE 1 TABLET BY MOUTH TWICE DAILY Oral Taking Finasteride 5 MG Tablet 1 tablet Orally Once a day Taking Prolia 60 MG/ML Solution Prefilled Syringe as directed Subcutaneous Taking Lupron Depot (6-Month) 45 MG Kit as directed Intramuscular Medication List reviewed and reconciled with the patient * Allergies: N o Known Drug Allergyno[Allergies Verified] Objective: * Vitals: H t: 71, Wt:180, BMI:25.1, BP:131/82, HR:86, Temp:98.4, Wt-k.65. * Examination: G eneral Examination: GENERAL APPEARANCE: p leasant, well nourished, well developed, in no acute distress, calm and relaxed, overweight, man. HEAD: a traumatic, normocephalic. EYES: e alejandro, perrla, anicteric, conjugate, Vision loss left eye. EARS: n ormal. NOSE: s [...] lert, oriented. Assessment: * Assessment: 1. P rostate cancer - C61 (Primary) N otes :A recent PSA is not available. It will be requested from the urologist. A repeat value has been ordered. There was no sign of progressive prostate cancer on his examination today. 2 . P ituitary tumor - D49.7 N otes :He will continue to be observed at the [facility] neurosurgery department. He will have periodic MRIs of the brain. The next study has been scheduled at [facility]. He recently went to [place] to see neurosurgery, Dr. Garcia, we'll told him that the tumor was not growing back. 3 . O verweight - E66.3 N otes :He is very slightly overweight. I recommended she stabilize his weight at this level 4 . C LL (chronic lymphocytic leukemia) - C91.10 N otes :His CBC remains stable and there is no sign of disease progression. Observation was continued. 5 . F ormer smoker - Z87.891 N otes :He has a plan to prevent relapse in times of stress or illness. Plan: * Treatment: 2. P ituitary tumor Continue amLODIPine Besylate Tablet, 5 MG, TAKE 1 TABLET BY MOUTH TWICE DAILY, Oral; C ontinue Finasteride Tablet, 5 MG, 1 tablet, Orally, Once a day; C ontinue Prolia Solution Prefilled Syringe, 60 MG/ML, as directed, Subcutaneous; C ontinue Lupron Depot (6-Month) Kit, 45 MG, as directed, Intramuscular. L AB: PROFILE, RANDOM (COMPREHENSIVE METABOLIC) L AB: PSA, TOTAL L AB: CBC w DIFF L AB: TESTOSTERONE, TOTAL 3. O verweight L AB: PROFILE, RANDOM (COMPREHENSIVE METABOLIC) L AB: PSA, TOTAL L AB: CBC w DIFF L AB: TESTOSTERONE, TOTAL * Procedure Codes: * Preventive Medicine: Counseling: C are goal follow-up plan: Counseling for abnormal BMI given Y es Above Normal BMI Follow-up D ietary management education, guidance, and counseling S moking/Tobacco Use Patient counseled on the dangers of tobacco use and urged to quit. 0 08/26/2024 * Follow Up: 4 Months (Reason: OV) * Images: * Sign off status: Completed true * Provider: Elver Keyes MD Date: 08/26/2024 Generated for Chivo ray/Wan/Mandyitting on: 03/25/2025 07:10 AM EDT History and Physical Notes * HPI (History of Present Illness) Category Sub-Category Detail Notes COVID-19 Screening Questions Have you had any new onset fever, chills, cough, congestion, sore throat, shortness of breath, muscle aches?: No Examination Category Sub-Category Detail Notes General Examination GENERAL APPEARANCE: pleasant , well nourished, well developed, in no acute distress, calm and relaxed, overweight, man HEAD: atraumatic, normocep halic EYES: eomi, perrla, anicte pedro, conjugate, Vision loss left eye EARS: normal NOSE: septum intact [...]
--- OUTSIDE RECORDS SUMMARY | 2024-12-30 11:00 | XMS_ITS ---
Author Organization Frankie Keyes III, MD Address [address] [place] [address] Care Team Providers Care Hemotherapist Name Role Phone Christian Barkley MD Primary [...] Date Provider Diagnosis Frankie Keyes III, MD [address] [place] [address] DR [place], [place] [address] 12/30/2024 Frankie Keyes Pituitary tumor D49. 7 [...] The next study has been scheduled at [facility]. He recently went to [place] to see neurosurgery, Dr. Garcia, we'll told [...] Provider Name:Frankie Keyes , 03/31/2025 02:30:00 PM, [address] [place] [address] , [place] [address], [place], [address], Progress Notes * Kameron FARIASDOB:1944 (79 yo M)Acc No.[id number]:12/30/2024 Progress Notes Patient: Niecy Kameron LEPE Provider: Elver Keyes MD :1945 A ge:79 Y S ex:Male Date:12/30/2024 Address:[address] [place] [address] [id number] Pcp:Christian Barkley MD Subjective: * Chief Complaints: * P ituitary tumorProstate cancerChronic lymphocytic leukemiaObstructive uropathyHistory of melanoma * HPI: C OVID-19 Screening: Arnav cha returns for surveillance of his various malignancies. He says he has been feeling very tired lately. He has had some edema of his right ankle beginning 2 months ago. He has been to [place] to see Dr. campos who has scheduled [...] removal on back 04/2018pituitary tumor removal in [place] 10/2019Brain Surgery tumor removal 11/2019Abdomen Aortic Aneurism [...] x-cigarette smoker Arnav cha was born in [place] and is not working at present. He [...] The next study has been scheduled at [facility]. He recently went to [place] to see neurosurgery, Dr. Garcia, we'll told [...] 0 12/30/2024 Generated for Chivo ray/Wan/eTransmitting on: 0 03/25/2025 [...]
--- OUTSIDE RECORDS SUMMARY | 2025-01-10 11:45 | XMS_ITS ---
Author Organization Frankie Keyes III, MD Address [address] [place] [address] Care Team Providers Care Corporate Travel Agent Name Role Phone Christian Barkley MD [...] Date Provider Diagnosis Frankie Keyes III, MD [address] [place] [address] [place] [address] 01/10/2025 Frankie Ohrne Pituitary tumor D49. 7 [...] next study has been scheduled at [facility]. He recently went to [place] to see neurosurgery, Dr. Garcia, we'll told [...] Angela son: OV Provider Name:Frankie Keyes , 03/31/2025 02:30:00 PM, [address] [place] [address] SUSIE TRONCOSO, LATRE[place] HAR[place], [address], Progress Notes * Naveen FARIASB:1944 (79 yo M)Acc No.[id number]:01/10/2025 Patient: Naveen WHITLOCK Provider: Elver Keyes MD :1945 A ge:79 Y S ex:Male Date:01/10/2025 Address:[address] [place] [address], [place] [address] , [place], [id number] Pcp:Christian Barkley MD Subjective: * Chief Complaints: [...] of provider rendering services: { ...} [address] [facility] [address] L ocation of patient: saranya ddress listed [...] removal on back 04/2018pituitary tumor removal in [place] 10/2019Brain Surgery tumor removal 11/2019Abdomen Aortic Aneurism [...] x-cigarette smoker Arnav cha was born in [place] and is not working at present. He [...] next study has been scheduled at [facility]. He recently went to [place] to see neurosurgery, Dr. Garcia, we'll told [...] true * Provider: Elver Keyes MD Date: 01/10/2025 Generated for Chivo ray/Wan/eTransmitting on: 0 03/25/2025 07:11 AM EDT History and Physical Notes * HPI (History of Present Illness) Category Sub-Category Detail Notes Telehealth Location of [facility] rendering services:: {...} [address] [place] [address] Location of patient:: address listed in demographics [...]
--- OUTSIDE RECORDS SUMMARY | 2025-03-25 07:10 | XMS_ITS | Encounter Summary ---
Author Organization [facility] Address [address] [place] [address] Phone Care Team Providers Care Fourth Officer Name Role Phone Christian Barkley MD Primary Care Provider Encounter Details Date Type Department Care Team (Late st Contact Info) Description 06/06/2024 Procedure Pass [facility], [address] [address] Social History Tobacco Use Types Packs/Day Years Used Date Smoking Tobacco: Former Cigarettes 1.5 51 1 959 - 06/26/2009 Smokeless Tobacco: Never Alcohol Use Standard Drinks/Week Comments Never 0 (1 standard drink = 0.6 oz pur e alcohol) Sober 20 years. Education Answer Date Recorded Are you interested in more education? Not on lauro e 10/20/2022 Are you concerned about learning? Not on file 10/20/2022 No 10/20/2022 No 10/20/2022 Digital Access Answer Date Recorded No 11/21/2022 No 11/21/2022 Reliable internet access at home? Not on file 11/21/2022 Device with a working camera? Not on file Sex and Gender Information Value Date Recorded Sex Assigned at Not on file Legal Sex Male 7:28 PM EST Gender Identity Not on file Sexual Orientation Not on file documented as of this encounter Plan of Treatment Not on file documented as of this encounter Visit Diagnoses Not on filedocumented in this encounter Care Teams Fourth Officer Relationship Specialty Start Date End Date Christian Barkley MD [address] [place] [address] Dr LEROY LATRE[place] Bowman [address] PCP - General Internal Medicine 10/31/18 documented as of this encounter Additional Source Comments The information contained in this document represents components of the legal health record. It is not the complete legal health record.[facility]
--- OUTSIDE RECORDS SUMMARY | 2025-03-25 07:10 | XMS_ITS | Encounter Summary ---
Author Organization [facility] Address [address] [place] [address] Phone Care Team Providers Care Work And Family Life Consultant Name Role Phone Christian Barkley MD Primary Care Provider Encounter Details Date Type Department Care Team ([facility] st Contact Info) Description 12/03/2019 Procedure Pass [facility] [address] [place] [address] Social History Tobacco Use Types Packs/Day Years Used Date Smoking Tobacco: Former Cigarettes 1.5 51 1 959 - 06/26/2009 Smokeless Tobacco: Never Alcohol Use Standard Drinks/Week Comments Never 0 (1 standard drink = 0.6 oz pur e alcohol) Sober 20 years. Sex and Gender Information Value Date Recorded Sex Assigned at Not on file Legal Sex Male 7:28 PM EST Gender Identity Not on file Sexual Orientation Not on file documented as of this encounter Plan of Treatment Not on file documented as of this encounter Visit Diagnoses Not on filedocumented in this encounter Care Teams Work And Family Life Consultant Relationship Specialty Start Date End Date Christian Barkley MD [address] [place] [address] Dr LEROY LATRELL Bowman [address] PCP - General Internal Medicine 10/31/18 documented as of this encounter Additional Source Comments The information contained in this document represents components of the legal health record. It is not the complete legal health record.[facility]
--- OUTSIDE RECORDS SUMMARY | 2025-03-25 07:11 | XMS_ITS | Patient Health Record ---
Author Organization Frankie Keyes III, MD Address [address] [place] [address] Care Team Providers Care Bank Teller Machine Mechanic Name Role Phone Christian Barkley MD Primary Care Provider Unavaila Dr. Frankie Cohn III Unavailable [phone] Allergies Allergen (clinical drug ingredient) Drug/Non Drug Allergy documented on EMR Reaction Allergy Type Onset Date Status No Known Drug Allergy Unknown Drug Allergy Active Results Component Value Reference Range Notes Complete Blood Count Auto Di ff Reviewed date:04/14/2024 07:26:22 AM Interpretation: Performing Lab:[facility], [address] [place] [address] Notes/Report: White Blood Count 5.7 4.8-10.8 X10*3/uL [...] NRBC Abs Auto 0.000 0.0-0.012 X10*3/uL Comprehensive [place]. Panel Fa st Reviewed date:04/14/2024 07:26:22 AM Interpretation: Performing Lab:[facility], [address] [place] [address] Notes/Report: Sodium 147 135-145 mmol/L Potassium 4.3 3.3-5.1 mmol/L Chloride 108 96-108 mmol/L Carbon Dioxide 28 22-29 mmol/L Anion Gap 15 12-20 Blood Urea Nitrogen 16 9-16 mg/dL Creatinine 0.78 0.5-1.4 mg/dL Estimated Glomerular Filt Rate > 60 NOTE: For -Italian individuals, multiply the result by 1.210. Chronic [...] Panel Reviewed date:04/14/2024 07:26:22 AM Interpretation: Performing Lab:[address] [address] Notes/Report: Triglycerides 64 <150 mg/dL Desirable Triglyceride: [...] Antigen Reviewed date:04/14/2024 07:26:22 AM Interpretation: Performing Lab:[address] [address] Notes/Report: Prostate Specific Antigen 0.82 <0.05-4.0 ng/mL PSA methodology: Turner Alinity i Chemiluminescent Microparticle Immunoassay (CMIA) Hemoglobin A1c Reviewed date:04/14/2024 07:26:22 AM Interpretation: Performing Lab:[facility], [address] [place] [address] Notes/Report: Hemoglobin A1c % 5.6 <6.0 % [...] average glucose, using the formula of the C7L-Vjjfeiw Average Glucose study (ADAG), Diabetes Care, Vol.31,#8, Jan. 2007 XR chest 2V Reviewed date:12/25/2024 03:54:38 PM Interpretation: Performing Lab: Notes/Report: [facility] [address] [place] [address] XRay Report Signed Patient: Naveen Farias MR#: [id number] : 1945 Acct:[id number] Age/Sex: 79 / M ADM Date: 04/22/24 Loc: HO.XRAY Attending Dr: Frankie Keyes MD Ordering Physician: Frankie Keyes MD Date of Service: 04/22/24 Procedure(s): XR chest 2V Accession Number(s): [id number] cc: Frankie Keyes MD; Christian Barkley MD [...] 04/23/24 0541 DD/ 1504 TD/TT: 04/22/24 1520 Cotton Ball Machine Tender: [facility] [address] [place] [address] XRay Report Signed Patient: Naveen Farias MR#: [id number] : 1945 Acct:[id number] Age/Sex: 79 / M ADM Date: 04/22/24 Loc: HO.XRAY Attending Dr: Frankie Keyes MD Ordering Physician: Frankie Keyes MD Date of Service: 04/22/24 Procedure(s): XR [address] 2V Accession Number(s): [id number] cc: Frankie Keyes MD; Christian Barkley MD [...] 04/23/24 0541 DD/ 1504 TD/TT: 04/22/24 1520 Cotton Ball Machine Tender: Complete Blood Count Auto Di ff Reviewed date:12/25/2024 03:54:38 PM Interpretation: Performing Lab:[facility], [address] [place] [address] Notes/Report: White Blood Count 6.5 4.8-10.8 X10*3/uL Red Blood Count 4.26 4.60-5.80 X10*6/uL Hemoglobin 12.9 14.0-18.0 g/dl Hematocrit 38.9 42.0-52.0 % Mean Corpuscular Volume 91.3 80.0-98.0 fL Mean Corpuscular Hemoglobin 30.3 27.0-33.0 pg Mean Corpuscular HGB Conc 33.2 31.0-36.0 g/dl Red Cell Distribution Width 13.2 11.0-16.0 % Platelet Count 206 160-400 X10*3/uL Mean Platelet Volume 10.2 9.4-12.4 fL Neutrophils Percent Auto 66.7 45-73 % Imm Gran Pct Auto 0.3 0.0-0.4 % Lymphocytes Percent Auto 20.4 20-40 % Monocytes Percent Auto 8.1 2-11 % Eosinophils Percent Auto 4.0 0-4 % Basophils Percent Auto 0.5 0-2 % NRBC Pct Auto 0.0 0.0-0.2 /100WBC Neutrophils Absolute Auto 4.3 2.0-8.3 x10*3/uL Imm Gran Abs Auto 0.02 0.00-0.03 X10*3/uL Lymphocytes Absolute Auto 1.3 1.2-4.9 X10*3/uL Monocytes Absolute Auto 0.5 0.1-1.2 X10*3/uL Eosinophils Absolute Auto 0.3 0.0-0.4 X10*3/uL Basophils Absolute Auto 0.0 0.0-0.2 X10*3/uL NRBC Abs Auto 0.000 0.0-0.012 X10*3/uL Comprehensive Met. Panel Reviewed date:12/25/2024 03:54:38 PM Interpretation: Performing Lab:[address] [address] Notes/Report: Sodium 143 135-145 mmol/L Potassium 4.4 3.3-5.1 mmol/L Chloride 107 96-108 mmol/L Carbon Dioxide 28 22-29 mmol/L Anion Gap 12 12-20 Blood Urea Nitrogen 18 9-16 mg/dL Creatinine 0.82 0.5-1.4 mg/dL Estimated Glomerular Filt Rate > 60 Chronic Kidney Disease: Estimated GFR < 60 mL/min/1.73m2 Severe Kidney Disease: Estimated GFR < 15 mL/min/1.73m2 Glucose Random 131 60-115 mg/dL Calcium 9.9 8.4-10.2 mg/dL Bilirubin Total 0.5 0.0-1.0 mg/dL Aspartate Amino Transferase 26 5-37 U/L Alanine Aminotransferase 13 0-40 U/L Total Protein 6.5 6.5-8.0 g/dL Albumin Level 4.0 3.5-5.0 g/dL Alkaline Phosphatase 81 39-117 U/L Prostate Specific Antigen Reviewed date:12/25/2024 03:54:38 PM Interpretation: Performing Lab:[address] [address] Notes/Report: Prostate Specific Antigen 0.59 <0.05-4.0 ng/mL PSA methodology: Turner Alinity i Chemiluminescent Microparticle Immunoassay (CMIA) Testosterone, Total Reviewed date:12/25/2024 03:54:38 PM Interpretation: Performing Lab:[facility], [address] [place] [address] Notes/Report: Testosterone, Total 7 250-1100 ng/dL Men with clinically significant hypogonadal symptoms and testosterone values repeatedly in the range of the 200-300 ng/dL or less, may benefit from testosterone treatment after adequate risk and benefits counseling. For additional information, please refer to http://education.[employer]/faq/ TotalTestosteroneLCMS ABAOB856 (This link is being provided for informational/ educational purposes only.) This test was developed and its analytical performance characteristics have been determined by [employer] [place]. It has not been cleared or approved by the U.S. Food and Drug Administration. This assay has been validated pursuant to the CLIA regulations and is used for clinical purposes. THIS TEST WAS PERFORMED AT: [email or web address] [address] OSCAR LAZAR MD,PHD Reason For Referral No Information Medications Medication [...] Problem Status W/U Status Risk Notes Problem 9184206 Former smoker (Z87.891) Active confirmed He has a plan to prevent relapse in times of stress or illness. Problem 096478104 Overweight (E66.3) Active confirmed He is very slightly overweight. I recommended she stabilize his weight at this level Problem 809536639 Malignant neoplasm of prostate (C61) Active confirmed His PSA remai ns low. His testosterone level is 7. He is asymptomatic. He is doing well and his disease is controlled. Problem 285571342 Pituitary tumor (D49.7) Active confirmed He will continue to be observed at the [facility] neurosurgery department. He will have periodic MRIs of the brain. The next study has been scheduled at [facility]. He recently went to [place] to see neurosurgery, Dr. Garcia, we'll told him that the tumor was not growing back. Problem History of malignant melanoma of the skin (45077162953 8) History of melanoma (Z85.820) Active confirmed There was no sign on examination today of recurrent melanoma or a new primary. Problem 711912192 Osteopenia (M85.80) Active confirmed There was continued on current therapy today without change. Problem 69624973 CLL (chronic lymphocytic leukemia) (C91.10) Active confirmed His CBC remains normal with no manifestation of CLL or small Lymphocytic lymphoma. Problem 1308110 Obstructive uropathy (N13.9) Active confirmed He will remain under the care of urologist in this problem will be addressed. 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 He is able to conduct all of the activities of daily life. The left eye has normal vision. This is a result of treatment of the pituitary tumor in the past. Problem 36013823 Cardiomyopathy , unspecified type (I42.9) Active confirmed There is been no change in his cardiac status since his last visit. Vital Signs Heart Rate 71 /min 12/30/2024 Temperature 99.0 degrees Fahrenheit 12/30/2024 Blood pressure diastolic 75 mm Hg 12/30/2024 Height 71 in 01/10/2025 Blood pressure systolic 130 mm Hg 12/30/2024 Weight 179 lbs 01/10/2025 BMI 24.96 kg/m2 01/10/2025 Encounters Encounter Location Date Provider Diagnosis Farnkie Keyes III, MD [address] [place] [address] [place] [address] 04/22/2024 Frankie Keyes Pituitary tumor D49. 7 ; Malignant neoplasm of prostate C61 ; CLL (chronic lymphocytic leukemia) C91.10 ; Former smoker Z87.891 ; Hyperglycemia R73.9 ; Chronic cough R05.3 ; Osteopenia M85.80 and Vision loss of left eye H54.62 Frankie Keyes III, MD [address] [place] [address] [place] [address] 08/26/2024 Frankie Keyes Pituitary tumor D49. 7 ; Prostate cancer C61 ; Overweight E66.3 ; CLL (chronic lymphocytic leukemia) C91.10 and Former smoker Z87.891 Frankie Keyes III, MD [address] [place] [address] [place] [address] 12/30/2024 Frankie Keyes Pituitary tumor D49. 7 ; CLL (chronic lymphocytic leukemia) C91.10 ; Hyperglycemia R73.9 ; Fatigue, unspecified type R53.83 ; Cardiomyopathy, unspecified type I42.9 ; Osteopenia M85.80 ; Former smoker Z87.891 ; Malignant neoplasm of prostate C61 ; History of melanoma Z85.820 ; Vision loss of left eye H54.62 and Obstructive uropathy N13.9 Frankie Keyes III, MD [address] [place] [address] [place] [address] 01/10/2025 Frankie Keyes Pituitary tumor D49. 7 ; Malignant neoplasm of prostate C61 ; CLL (chronic lymphocytic leukemia) C91.10 ; Former smoker Z87.891 and Overweight E66.3 Assessments Encounter Date Diagnosis (ICD Code) Assessment Notes Treat ment Notes Treatment Clinical Notes 04/22/2024 Malignant neoplasm of prostate (ICD-10 - C61) His PSA has fallen to 0.82. He is asymptomatic. He is doing well and his disease is controlled. 04/22/2024 Pituitary tumor (ICD-10 - D49.7) He will continue to be observed at the [facility] neurosurgery department. He will have periodic MRIs of the brain. The next study has been scheduled at [facility]. He recently went to [place] to see neurosurgery, Dr. Garcia, we'll told [...] continue to be observed at the [facility] neurosurgery department. He will have periodic MRIs of the brain. The next study has been scheduled at [facility]. He recently went to [place] to see neurosurgery, Dr. Garcia, we'll told him that the tumor was not growing back. 12/30/2024 Pituitary tumor (ICD-10 - D49.7) He will continue to be observed at the [facility] neurosurgery department. He will have periodic MRIs of the brain. The next study has been scheduled at [facility]. He recently went to [place] to see neurosurgery, Dr. Garcia, we'll told him that the tumor was not growing back. 12/30/2024 CLL (chronic lymphocytic leukemia) (ICD-10 - C91.10) His CBC remains normal with no manifestation of CLL or small Lymphocytic lymphoma. 01/10/2025 Malignant neoplasm of prostate (ICD-10 - C61) His PSA remains low. His testosterone level is 7. He is asymptomatic. He is doing well and his disease is controlled. 01/10/2025 Pituitary tumor (ICD-10 - D49.7) He will continue to be observed at the [facility] neurosurgery department. He will have periodic MRIs of the brain. The next study has been scheduled at [facility]. He recently went to [place] to see neurosurgery, Dr. Garcia, we'll told him that the tumor was not growing back. 04/22/2024 CLL (chronic lymphocytic leukemia) (ICD-10 - C91.10) His lymmphocyte count is actually lower than normal. There is no sign of disease progression and observation will be continued. 08/26/2024 Overweight (ICD-10 - E66.3) He is very slightly overweight. I recommended she stabilize his weight at this level 12/30/2024 Hyperglycemia (ICD-10 - R73.9) He continues to have glucose levels a nondiabetic range. 01/10/2025 CLL (chronic lymphocytic leukemia) (ICD-10 - C91.10) His CBC remains normal with no manifestation of CLL or small Lymphocytic lymphoma. 04/22/2024 Former smoker (ICD-10 - Z87.891) He has a plan to prevent relapse in times of stress or illness. 08/26/2024 CLL (chronic lymphocytic leukemia) (ICD-10 - C91.10) His CBC remains stable and there is no sign of disease progression. Observation was continued. 12/30/2024 Fatigue, unspecified type (ICD-10 - R53.83) His testosterone level was 7 which explains his fatigue. We discussed intermittent ADT or prostate cancer in length. 01/10/2025 Former smoker (ICD-10 - Z87.891) He has a plan to prevent relapse in times of stress or illness. 04/22/2024 Hyperglycemia (ICD-10 - R73.9) This value is being treated by primary care. No change in his status is noted. 08/26/2024 Former smoker (ICD-10 - Z87.891) He has a plan to prevent relapse in times of stress or illness. 12/30/2024 Cardiomyopathy, unspecified type (ICD-10 - I42.9) There is been no change in his cardiac status since his last visit. 01/10/2025 Overweight (ICD-10 - E66.3) He is very slightly overweight. I recommended she stabilize his weight at this level 04/22/2024 Chronic cough (ICD-10 - R05.3) The symptom has resolved. 12/30/2024 Osteopenia (ICD-10 - M85.80) There was continued on current therapy today without change. 04/22/2024 Osteopenia (ICD-10 - M85.80) There was continued on current therapy today without change. 12/30/2024 Former smoker (ICD-10 - Z87.891) He has a plan to prevent relapse in times of stress or illness. 04/22/2024 Vision loss of left eye (ICD-10 - H54.62) Vision loss is unchanged. He is able to conduct all of the activities of daily life. The left eye has normal vision. This is a result of treatment of the pituitary tumor in the past. 12/30/2024 Malignant neoplasm of prostate (ICD-10 - [...] problem will be addressed. Plan Of Treatment Pending Test Test Name Order Date PROFILE, FASTING (COMPREHENSIVE METABOLI C) 04/16/2021 PROFILE, FASTING (COMPREHENSIVE METABOLI C) 04/22/2024 PROFILE, FASTING (COMPREHENSIVE METABOLI C) 01/15/2024 PROFILE, FASTING (COMPREHENSIVE METABOLI C) 12/30/2024 PROFILE, RANDOM (COMPREHENSIVE METABOLIC ) 04/01/2020 PROFILE, [...] 05/30/2018 PROFILE, RANDOM (COMPREHENSIVE METABOLIC ) 12/29/2017 BUN 03/05/2018 CREATININE 03/05/2018 LIPID PANEL 04/16/2021 LDH 04/01/2020 PSA, TOTAL 08/30/2017 PSA, TOTAL 05/30/2018 PSA, TOTAL 12/29/2017 PSA, TOTAL 04/01/2020 PSA, TOTAL 08/26/2024 PSA, TOTAL 01/15/2021 PSA, TOTAL 04/22/2024 PSA, TOTAL 07/10/2017 PSA, TOTAL 01/15/2024 PSA, TOTAL 11/06/2017 PSA, TOTAL 09/18/2018 PSA, TOTAL 10/16/2020 PSA, TOTAL 08/04/2021 PSA, TOTAL+FREE 04/16/2021 PSA, TOTAL SCREEN 07/03/2020 CBC w DIFF 10/16/2020 CBC w DIFF 08/04/2021 CBC w DIFF 12/30/2024 CBC w DIFF 08/30/2017 CBC w DIFF 05/30/2018 CBC w DIFF 12/29/2017 CBC w DIFF 07/03/2020 CBC w DIFF 04/01/2020 CBC w DIFF 04/16/2021 CBC w DIFF 08/26/2024 CBC w DIFF 01/15/2021 CBC w DIFF 04/22/2024 CBC w DIFF 07/10/2017 CBC w DIFF 11/06/2017 CBC w DIFF 09/18/2018 SED RATE (ESR) 04/01/2020 TESTOSTERONE, TOTAL 08/26/2024 TESTOSTERONE, TOTAL 01/15/2021 TESTOSTERONE, TOTAL 04/01/2020 Echocardiogram 12/30/2024 CBC WITH AUTO DIFF 01/15/2024 Lipid Panel 12/30/2024 Lipid Panel 04/22/2024 Lipid Panel 01/15/2024 Hemoglobin A1c 04/22/2024 Hemoglobin A1c 01/15/2024 Hemoglobin A1c 12/30/2024 Next Appt Details Provider Name:Frankie Dee Stephy , 03/31/2025 02:30:00 PM, [address] [place] [address] [address] [place] [address], [place], [address], Insurance Providers Payer Name Payer Address Payer Phone Subscriber Number Group Number Insured Name Patient Relationship to Insured Coverage Start Date Coverage End Date MEDICARE NGS [address] [place] [phone] [id number] Naveen Farias Self - patient is the insured [facility] [address] [place], [place] [id number] Naveen Farias Self - patient is the insured Medical (General) History Medical History History ICD Code degenerative arthitis knees childhod eye surgery pituitary tumor, [facility], surge ry, blind OS 2000, 2019 lymphoma prostate cancer cellulitis of toe Surgical History Surgery Date(Month/Year) No history Abdomen Aortic Aneurism 10/2023 Brain Surgery tumor removal 11/2019 pituitary tumor removal in [place] melanoma removal on back 04/2018 Basal cell cancer removed on right cheek 2013 Right knee surgery 52yrs old Right hand surgery 1975 Brain tumor removed 2000 Radical Prostatectomy Eye Surgery 1954 Hernia repair 2011,2015 Hospitalization History Reason Date(Month/Year) No history
--- OUTSIDE RECORDS SUMMARY | 2025-03-25 07:11 | XMS_ITS | Patient Health Record ---
Author Organization [facility] Address [address] [place] [address] Care Team Providers Care Accreditation Manager Name Role Phone Filippo (RETIRED) Christian CARROLL Primary Care Provide r Facundo Dale Jr Unavailable Reason For Referral No Information [...] Problem Status W/U Status Risk Notes Problem [id number] Colon cancer screening (Z12.11) Active confirmed Plan Of Treatment Future Test Test Name Order Date COLONOSCOPY 11/20/2013 COLONOSCOPY 04/13/2020 Insurance Providers Payer Name Payer Address Payer Phone Subscriber Number Group Number Insured Name Patient Relationship to Insured Coverage Start Date Coverage End Date MEDICARE OF [place] [address] [place] [address] [id number] KAMERON SWANSON Self - patient is the insured [employer] CLAIMS [address] [place] [address] [id number] KAMERON SWANSON Self - patient is the insured Medical (General) History Medical History History ICD Code Colonoscopy, 03/09 negative f or polyps, five-year followup recommended, history of previous adenomas Gastroesophageal reflux disease Hypertension Pituitary Gland tumor Left eye blindness Denies [place],DM,CVA,Lung disease,renal dise ase prostate cancer brain tumor CLL Surgical History Surgery Date(Month/Year) brain surgery wrist surgery eye surgery cataract removal knee surgery hernia repair prostatectomy laminectomy
--- OUTSIDE RECORDS SUMMARY | 2025-03-25 07:11 | XMS_ITS | Encounter Summary ---
Author Organization [facility] Address [address] [place] [address] Phone Care Team Providers Care Ruby On Rails Engineer Name Role Phone Christian Barkley MD Primary Care Provider Encounter Details Date Type Department Care Team (Late st Contact Info) Description 03/20/2023 Procedure Pass [facility], [address] [address] Social History Tobacco Use Types Packs/Day Years [...] on filedocumented in this encounter Care Teams Ruby On Rails Engineer Relationship Specialty Start Date End Date Christian Barkley MD [address] [place] [address] Dr LEROY [place]RE[place] [address] PCP - General Internal Medicine 10/31/18 documented as of this encounter Additional Source Comments The information contained in this document represents components of the legal health record. It is not the complete legal health record.[facility]
--- OUTSIDE RECORDS SUMMARY | 2025-03-25 07:11 | XMS_ITS | Encounter Summary ---
Author Organization [facility] Address [address] [place] [address] Phone Care Team Providers Care Instructional Manager Name Role Phone Christian Barkley MD Primary Care Provider Encounter Details Date Type Department Care Team ([facility] st Contact Info) Description 09/10/2019 Procedure Pass [facility] [address]iop [address] [place] [address] Social History Tobacco Use Types Packs/Day Years [...] on filedocumented in this encounter Care Teams Instructional Manager Relationship Specialty Start Date End Date Christian Barkley MD [address] [place] [address] Dr LEROY [place]RE[place] [id number] PCP - General Internal Medicine 10/31/18 documented as of this encounter Additional Source Comments The information contained in this document represents components of the legal health record. It is not the complete legal health record.[facility]
--- OUTSIDE RECORDS SUMMARY | 2025-03-25 07:11 | XMS_ITS | Encounter Summary ---
Author Organization [facility] Address [address] [facility] [place] [address] Phone Care Team Providers Care Quality Assurance Advisor Name Role Phone Christian Barkley MD Primary Care Provider Encounter Details Date Type Department Care Team (Late st Contact Info) Description 12/19/2019 Telephone [facility] Department of Neurosurgery [address] [place] [address] [email or web address] Social History Tobacco Use Types Packs/Day Years [...] on filedocumented in this encounter Care Teams Quality Assurance Advisor Relationship Specialty Start Date End Date Christian Barkley MD [address] [place] [address] Dr LEROY LATRELL [place] [address] PCP - General Internal Medicine 10/31/18 documented as of this encounter Additional Source Comments The information contained in this document represents components of the legal health record. It is not the complete legal health record.[facility]
--- OUTSIDE RECORDS SUMMARY | 2025-03-25 07:11 | XMS_ITS | Clinical Summary ---
Author Organization [facility] Address [address] [place] [address] Phone Care Team Providers Care Community Resource Officer Name Role Phone Christian Barkley MD Primary Care Provider Allergies No known active allergies Medications finasteride (PROSCAR) 5 mg tablet Take 5 mg by mouth daily. Active multivitamins capsule Take 1 capsule by mouth daily. Active b complex vitamins capsule Take 1 capsule by mouth daily. Active calcium citrate-vitamin D3 (CITRACAL+D) 315-200 mg-unit per tablet Take 1 tablet by mouth 2 (two) times a day. Active butalbital-acet aminophen-caffe ine (FIORICET, ESGIC) 50-325-40 mg per tablet Take 1 tablet by mouth every 4 (four) hours as needed for headache. 30 tablet 0 Active Additional Information Patient not taking.Reported on 03/20/2023 pseudoephedrine (SUDAFED) 30 MG tablet Take 1 tablet (30 mg total) by mouth every 4 (four) hours as needed for congestion. 30 tablet 0 Active Additional Information Patient not taking.Reported on 03/20/2023 amLODIPine (NORVASC) 5 MG tablet Take 5 mg by mouth 2 (two) times a day. 3 Active ascorbic acid, vitamin C, 1,000 mg Cap Take 1,000 mg by mouth daily. 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 Now maintained on finasteride and lupron. Oncologist Dr. Bashir Sepulveda in [place], [place] CLL (chronic lymphocytic leukemia) 06/26/2002 Overview (09/02/2019): incidental finding during. No past or current treatment, Followed by Dr. Frankie Keyes ([facility] in [place], [place] Family History Medical History Relation Comments Hypertension Brother Prostate cancer Brother Heart attack Father Heart disease Father Stroke Father Lung cancer Mother Relation Status Comments Brother Alive Father Mother Sister 1 Alive Sister 2 Alive Social History Tobacco Use Types Packs/Day Years Used Date Smoking Tobacco: Former Cigarettes 1.5 51 1 959 - 06/26/2009 Smokeless Tobacco: Never Tobacco Cessation:Counseling Given: Not Answered Alcohol Use Standard Drinks/Week Comments Never 0 [...] on file Sexual Orientation Not on file Last Filed Vital Signs Vital Sign Reading Time Taken Comments Blood Pressure 143/81 03/20/2023 8:31 AM EDT Pulse 83 03/20/2023 8:31 AM EDT Temperature 36.3 C (97.3 F) 03/20/2023 8:31 AM EDT Respiratory Rate 16 03/20/2023 8:31 AM EDT Oxygen Saturation 99% 03/20/2023 8:31 AM EDT Inhaled Oxygen Concentration - - Weight 79.4 kg (175 lb) 08/27/2024 2:11 PM EST Height 180.3 cm (5' 11 ) 08/27/2024 2:11 PM EST Body Mass Index 24.41 08/27/2024 2:11 PM EST Plan of Treatment Health Maintenance Due Date Last Done Comments Adult Td,Tdap Booster 1945 LIPID PANEL 1945 DEPRESSION SCREENING 1959 SMOKING Hx and SMOKELESS TOBACCO SCREENING 1960 HEPATITIS C SCREENING 1965 PNEUMOCOCCAL VACCINES (50+ years) (1 of 2 - PCV) 1966 ZOSTER VACCINES (1 of 2) 1966 RSV VACCINE (1 - 1-dose 75+ series) 2022 INFLUENZA VACCINE (#1) 2025 , 04/20/2022, 03/11/2021, Additional history exists COVID-19 VACCINE ( season) 2025 04/03/2023, 04/20/2022, 10/25/2021, Additional history exists HEPATITIS A VACCINES Aged Out No long er eligible based on patient's age to complete this topic HIB VACCINES Aged Out No longer eligi ble based on patient's age to complete this topic MENINGOCOCCAL VACCINES (ACWY) Aged Out No longer eligible based on patient's age to complete this topic MENINGOCOCCAL VACCINES (B) Aged Out N o longer eligible based on patient's age to complete this topic Medical Devices Not on file Insurance MEDICARE PART A & B Member Subscriber Plan / Payer (Ef fective 2012-Present) Name:Naveen Farias Member ID:[id number] Relation to Subscriber:Self Name:Naveen Farias Subscriber ID:[id number] Payer ID:[id number] Group ID:Not on file Type:Medicare Address: [employer] [facility] [address] [place] [address] [employer] CROSS MEDEX SUPPLEMENT MEDICARE PART A & B [employer] MEDEX SUPPLEMENT MEDICARE PART A & B [employer] MEDEX SUPPLEMENT MEDICARE PART A & B [employer] CROSS MEDEX SUPPLEMENT MEDICARE PART A & B Member Subscriber Plan / Payer ( fective 2012-Present) Name:Naveen Farias Member ID:[id number] Relation to Subscriber:Self Name:Naveen Farias Subscriber ID:[id number] Payer ID:[id number] Group ID:Not on file Type:Medicare Address: [employer] [address] [place] [phone] [employer] CROSS MEDEX SUPPLEMENT MEDICARE PART A & B [employer] MEDEX SUPPLEMENT MEDICARE PART A & B [employer] CROSS MEDEX SUPPLEMENT MEDICARE PART A & B [employer] CROSS MEDEX SUPPLEMENT [address] [place] [id number] MEDICARE PART A & B [employer] CROSS MEDEX SUPPLEMENT Advance Directives For more information, please contact: [phone] (9AM - 5PM [facility], Monday-Monday) Documents on File Type Date Recorded Patient Hook Tender Expl anation Healthcare Proxy 12/09/2019 Living Will 12/09/2019 * Full Code (Confirmed) (Latest Code Status on File) Date Activated Date Inactivated Comments 12/03/2019 5:20 PM Question Answer Comments Code Status Confirmed With: Patient Care Teams Community Resource Officer Relationship Specialty Start Date End Date Christian Barkley MD [address] [place] [address] [place] [address] PCP - General Internal Medicine 10/31/18 Additional Source Comments The information contained in this document represents components of the legal health record. It is not the complete legal health record.[facility]
--- OUTSIDE RECORDS SUMMARY | 2025-03-25 07:11 | XMS_ITS | Clinical Summary ---
Author Organization [facility] Address [address] [place] [address] Care Team Providers Care Android Ios Developer Name Role Phone Christian Barkley MD Primary Care Provider [phone] Allergies No known active allergies Medications Medication [...] age to complete this topic Care Teams Android Ios Developer Relationship Specialty Start Date End Date Christian Barkley MD [address] [place] [address] Dr [address] [place] [id number] PCP - General Inspector Golf Ball 08/10/16
[2025-03-25 08:32] LABS: Prostate Specific Antigen 0.58 ng/mL (<0.05-4.0)
--- NOTE | 2025-03-25 13:21 | HM_ITS ---
Conclusion: 1. Patient was monitored for total period of 2 days 2. Baseline was normal sinus rhythm with average heart of 75 beats per minute 3. Frequent PVCs noted with total burden of 2.76% with no significant tachyarrhythmias 4. Occasional PVCs noted with 2 3 beat salvos of nonsustained VT at 137 beats per minute 5. No patient reported events 6. No significant pauses MTDD
== END ==
LOC: HO.CARD 07:06
PROVIDERS: Absent Provider Urology; PCP Physician Assistant Medical; Visit Provider Physician Assistant Medical
DX: C61 Malignant neoplasm of prostate (principal); C79.51 Secondary malignant neoplasm of bone; I49.9 Cardiac arrhythmia, unspecified; Z12.5 Encounter for screening for malignant neoplasm of prostate
CPT/HCPCS: 36415; 84153; 84403; 93225

== ENCOUNTER → 2025-03-25 13:21 | Outpatient (BNV) | payer MEDICARE, SELFPAY | PROVIDERS: Absent Provider Urology; PCP Physician Assistant Medical; Visit Provider Internal Medicine Cardiovascular Disease | DX: I49.3 Ventricular premature depolarization (principal) | CPT/HCPCS: 93227 ==

== ENCOUNTER 2025-04-01 07:11 | Outpatient (REF) | payer MEDICARE, SELFPAY ==
--- OUTSIDE RECORDS SUMMARY | 2024-04-22 10:00 | XMS_ITS ---
Author Organization Frankie Keyes III, MD Address [address] [place] [address] [place] [address] Care Team Providers Care Custodial Aide Name Role Phone Christian Barkley MD Primary Care Provider Dr. Frankie Bender III Unavailable Allergies Allergen (clinical drug ingredient) Drug/Non Drug Allergy documented on EMR Reaction Allergy Type Onset Date Status No Known Drug Allergy Unknown Drug Allergy Active REASON FOR VISIT Prostate cancer, Pituitary tumor, Chronic lymphocytic leukemia, History of melanoma Medications Medication SIG (Take, Route, Frequency, Duration) Notes Start Date End Date Status Finasteride 5 MG 1 tablet Orally Once a day 2023 Active Prolia 60 MG/ML as directed Subcutaneous 4 Active amLODIPine Besylate 5 MG TAKE 1 TABLET B Y MOUTH TWICE DAILY Oral Active Lupron Depot (6-Month) 45 MG as directed Intramuscular 04/22/2024 Ac tive Social History Tobacco Use: Social History Observation Description Date Details (start date - stop date) Former Smoker NA - NA Tobacco Use/Smoking Question Answer Notes Patient is a former smoker How long has it been since you last smoked? > 10 years Additional Findings: Tobacco Non-User Ex-cigaret te smoker Vital Signs Temperature 97.3 degrees Fahrenheit 04/22/20 24 Blood pressure systolic 131 mm Hg 04/22/20 24 Blood pressure diastolic 78 mm Hg 024 Heart Rate 63 /min 04/22/2024 Height 71 in 04/22/2024 Weight 177 lbs 04/22/2024 BMI 24.68 kg/m2 04/22/2024 Encounters Encounter Location Date Provider Diagnosis Frankie Keyes III, MD [address] [place] [address] [place] [address] 04/22/2024 Frankie Keyes Pituitary tumor D49. 7 ; Malignant neoplasm of prostate C61 ; CLL (chronic lymphocytic leukemia) C91.10 ; Former smoker Z87.891 ; Hyperglycemia R73.9 ; Chronic cough R05.3 ; Osteopenia M85.80 and Vision loss of left eye H54.62 Assessments Encounter Date Diagnosis (ICD Code) Assessment Notes Treat ment Notes Treatment Clinical Notes 04/22/2024 Pituitary tumor (ICD-10 - D49.7) He will continue to be observed at the [facility] neurosurgery department. He will have periodic MRIs of the brain. The next study has been scheduled at [facility]. He recently went to [place] to see neurosurgery, Dr. Garcia, we'll told him that the tumor was not growing back. 04/22/2024 Malignant neoplasm of prostate (ICD-10 - C61) His PSA has fallen to 0.82. He is asymptomatic. He is doing well and his disease is controlled. 04/22/2024 CLL (chronic lymphocytic leukemia) (ICD-10 - C91.10) His lymmphocyte count is actually lower than normal. There is no sign of disease progression and observation will be continued. 04/22/2024 Former smoker (ICD-10 - Z87.891) He has a plan to prevent relapse in times of stress or illness. 04/22/2024 Hyperglycemia (ICD-10 - R73.9) This value is being treated by primary care. No change in his status is noted. 04/22/2024 Chronic cough (ICD-10 - R05.3) The symptom has resolved. 04/22/2024 Osteopenia (ICD-10 - M85.80) There was continued on current therapy today without change. 04/22/2024 Vision loss of left eye (ICD-10 - H54.62) Vision loss is unchanged. He is able to conduct all of the activities of daily life. The left eye has normal vision. This is a result of treatment of the pituitary tumor in the past. Plan Of Treatment Medication Medication Name Sig Start Date Stop Date Notes Finasteride 5 MG 1 tablet Orally Once a day 04/22/2024 Prolia 60 MG/ML as directed Subcutaneous 04/22/2024 amLODIPine Besylate 5 MG TAKE 1 TABLET B Y MOUTH TWICE DAILY Oral Lupron Depot (6-Month) 45 MG as directed Intramuscular Pending Test Test Name Order Date PROFILE, FASTING (COMPREHENSIVE METABOLI C) 04/22/2024 PSA, TOTAL 04/22/2024 CBC w DIFF 04/22/2024 Lipid Panel 04/22/2024 Hemoglobin A1c 04/22/2024 Next Appt Details Follow Up: 4 Months, Reason: ov review labs Provider Name:Frankie Keyes , 04/25/2025 02:45:00 PM, [address] [place] [address], [address], [address], Progress Notes * Kameron FARIASDOB:1944 (79 yo M)Acc No.[id number]:04/22/2024 Progress Notes Patient: Niecy LEPE Kameron [place] Provider: Elver Keyes MD :1945 A ge:79 Y S ex:Male Date:04/22/2024 Address:[address] [place], [place] [id number] Pcp:Christian Barkley MD Subjective: * Chief Complaints: * P rostate cancerPituitary tumorChronic lymphocytic leukemiaHistory of melanoma * HPI: C OVID-19 Screening: Questions H ave you experienced fever, chills, cough, sore throat, shortness of breath, difficulty breathing, muscle aches, loss of taste or smell? Y es Cough stated longer than 48 hours H ave you been exposed to the virus within the last 10 days? N o H ave you travelled internationally in the last 10 days? N o H ave you been exposed to COVID-19 in the past? Y es * : The patient, a 79-year-old male, has been experiencing symptoms related to low testosterone levels. He has been on Lupron and Parolia, administered by Bashir Sepulveda, for an unspecified period. The patient reports feeling significantly better when off the medication, but acknowledges that it takes a while for the medication to leave his system. He also reports experiencing fatigue and bruising. The patient has a history of brain tumors, which have affected his balance. He also reports pain in his hips due to arthritis and bursitis, for which he receives cortisol shots. Recently, he has developed a cough and a slight wheeze. Blood Sugar Level is 131. * ROS: G eneral/Constitutional: Admits p ain, o nly normal aches and pains. C hills?denies. A dmits F atigue, a dmits. F ever d enies. E [...] enies. V omiting d enies. H ematology: Admits b ruising, d enies. p etechiae d enies.?Swollen glands n one have been noted. G enitourinary: Frequent urination o nce a night. M usculoskeletal: Muscle aches d [...] removal on back 04/2018pituitary tumor removal in [place] 10/2019Brain Surgery tumor removal 11/2019Abdomen Aortic Aneurism 10/2023No history * Hospitalization/Major Diagno stic Procedure: N o history * Family History: F ather: 64 yrs, [...] dditional Findings: Tobacco Non-User E x-cigarette smoker H e was born in [place] and is not working at present. 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 He is and has one son. * Medications: T akingFinasteride 5 MG Tablet 1 tablet Orally Once a day Prolia 60 MG/ML Solution Prefilled Syringe as directed Subcutaneous Lupron Depot (6-Month) 45 MG Kit as directed Intramuscular amLODIPine Besylate 5 MG Tablet TAKE 1 TABLET BY MOUTH TWICE DAILY Oral Medication List reviewed and reconciled with the patientTaking Finasteride 5 MG Tablet 1 tablet Orally Once a day Taking Prolia 60 MG/ML Solution Prefilled Syringe as directed Subcutaneous Taking Lupron Depot (6-Month) 45 MG Kit as directed Intramuscular Taking amLODIPine Besylate 5 MG Tablet TAKE 1 TABLET BY MOUTH TWICE DAILY Oral Medication List reviewed and reconciled with the patient * Allergies: N o Known Drug Allergyno[Allergies Verified] Objective: * Vitals: H t: 71, Wt:177, BMI:24.68, BP:131/78, HR:63, Temp:97.3, Wt-k.29. * P ast Orders: Lab:Complete Blood Count Aut o Diff * Collection Date 04/12/2024 12/04/2023 08/28/2023 Collection Time 08:28 AM 07:42 AM 07:35 AM Order Date 04/12/2024 12/04/2023 08/28/2023 White Blood Count 5.7 (Ref Range: 4.8-10.8 X10*3/uL) 5.9 (Ref Range: 4.8-10.8 X10*3/uL) 5.9 (Ref Range: 4.8-10.8 X10*3/uL) Red Blood Count 4.37 L (Ref Range: 4.60-5.80 X10*6/uL) 4.00 L (Ref Range: 4.60-5.80 X10*6/uL) 4.57 L (Ref Range: 4.60-5.80 X10*6/uL) Hemoglobin 13.0 L (Ref Range: 14.0-18.0 g/dl) 12.4 L (Ref Range: 14.0-18.0 g/dl) 14.3 (Ref Range: 14.0-18.0 g/dl) Hematocrit 40.7 L (Ref Range: 42.0-52.0 %) 37.2 L (Ref Range: 42.0-52.0 %) 42.7 (Ref Range: 42.0-52.0 %) Mean Corpuscular Volume 93.1 (Ref Range: 80.0-98.0 fL) 93.0 (Ref Range: 80.0-98.0 fL) 93.4 (Ref Range: 80.0-98.0 fL) Mean Corpuscular Hemoglobin 29.7 (Ref Range: 27.0-33.0 pg) 31.0 (Ref Range: 27.0-33.0 pg) 31.3 (Ref Range: 27.0-33.0 pg) Mean Corpuscular HGB Conc 31.9 (Ref Range: 31.0-36.0 g/dl) 33.3 (Ref Range: 31.0-36.0 g/dl) 33.5 (Ref Range: 31.0-36.0 g/dl) Red Cell Distribution Width 13.9 (Ref Range: 11.0-16.0 %) 13.2 (Ref Range: 11.0-16.0 %) 13.4 (Ref Range: 11.0-16.0 %) Platelet Count 169 (Ref Range: 160-400 X10*3/uL) 210 (Ref Range: 160-400 X10*3/uL) 197 (Ref Range: 160-400 X10*3/uL) Mean Platelet Volume 9.5 (Ref Range: 9.4-12.4 fL) 9.7 (Ref Range: 9.4-12.4 fL) 10.0 (Ref Range: 9.4-12.4 fL) Neutrophils Percent Auto 72.5 (Ref Range: 45-73 %) 70.3 (Ref Range: 45-73 %) 66.6 (Ref Range: 45-73 %) Imm Gran Pct Auto 0.2 (Ref Range: 0.0-0.4 %) 0.2 (Ref Range: 0.0-0.4 %) 0.3 (Ref Range: 0.0-0.4 %) Lymphocytes Percent Auto 16.9 L (Ref Range: 20-40 %) 16.8 L (Ref Range: 20-40 %) 22.0 (Ref Range: 20-40 %) Monocytes Percent Auto 8.5 (Ref Range: 2-11 %) 9.3 (Ref Range: 2-11 %) 8.7 (Ref Range: 2-11 %) Eosinophils Percent Auto 1.7 (Ref Range: 0-4 %) 3.2 (Ref Range: 0-4 %) 2.2 (Ref Range: 0-4 %) Basophils Percent Auto 0.2 (Ref Range: 0-2 %) 0.2 (Ref Range: 0-2 %) 0.2 (Ref Range: 0-2 %) NRBC Pct Auto 0.0 (Ref Range: 0.0-0.2 /100WBC) 0.0 (Ref Range: 0.0-0.2 /100WBC) 0.0 (Ref Range: 0.0-0.2 /100WBC) Neutrophils Absolute Auto 4.2 (Ref Range: 2.0-8.3 x10*3/uL) 4.2 (Ref Range: 2.0-8.3 x10*3/uL) 3.9 (Ref Range: 2.0-8.3 x10*3/uL) Imm Gran Abs Auto 0.01 (Ref Range: 0.00-0.03 X10*3/uL) 0.01 (Ref Range: 0.00-0.03 X10*3/uL) 0.02 (Ref Range: 0.00-0.03 X10*3/uL) Lymphocytes Absolute Auto 1.0 L (Ref Range: 1.2-4.9 X10*3/uL) 1.0 L (Ref Range: 1.2-4.9 X10*3/uL) 1.3 (Ref Range: 1.2-4.9 X10*3/uL) Monocytes Absolute Auto 0.5 (Ref Range: 0.1-1.2 X10*3/uL) 0.6 (Ref Range: 0.1-1.2 X10*3/uL) 0.5 (Ref Range: 0.1-1.2 X10*3/uL) Eosinophils Absolute Auto 0.1 (Ref Range: 0.0-0.4 X10*3/uL) 0.2 (Ref Range: 0.0-0.4 X10*3/uL) 0.1 (Ref Range: 0.0-0.4 X10*3/uL) Basophils Absolute Auto 0.0 (Ref Range: 0.0-0.2 X10*3/uL) 0.0 (Ref Range: 0.0-0.2 X10*3/uL) 0.0 (Ref Range: 0.0-0.2 X10*3/uL) NRBC Abs Auto 0.000 (Ref Range: 0.0-0.012 X10*3/uL) 0.000 (Ref Range: 0.0-0.012 X10*3/uL) 0.000 (Ref Range: 0.0-0.012 X10*3/uL) * Lab:Hemoglobin A1c * Collection Date 04/12/2024 12/04/2023 Collection Time 08:28 AM 07:42 AM Order Date 04/12/2024 12/04/2023 Hemoglobin A1c % 5.6 (Ref Range: <6.0 %) 5.5 (Ref Range: <6.0 %) Estimated Average Glucose 114 (Ref Range: mg/dL) 111 (Ref Range: mg/dL) * Lab:Prostate Specific Antige n * Collection Date 04/12/2024 12/04/2023 04/10/2023 Collection Time 08:28 AM 07:42 AM 07:31 AM Order Date 04/12/2024 12/04/2023 04/10/2023 Prostate Specific Antigen 0.82 (Ref Range: <0.05-4.0 ng/mL) 1.03 (Ref Range: <0.05-4.0 ng/mL) 6.06 H (Ref Range: <0.05-4.0 ng/mL) * Lab:Lipid Panel * Collection Date 04/12/2024 08/28/2023 04/10/2023 Collection Time 08:28 AM 07:35 AM 07:31 AM Order Date 04/12/2024 08/28/2023 04/05/2023 Triglycerides 64 (Ref Range: <150 mg/dL) 62 (Ref Range: <150 mg/dL) 40 (Ref Range: <150 mg/dL) Cholesterol 194 (Ref Range: <200 mg/dL) 216 H (Ref Range: <200 mg/dL) 201 H (Ref Range: <200 mg/dL) LDL Cholesterol Calculated 117 H (Ref Range: <100 mg/dL) 135 H (Ref Range: <100 mg/dL) 120 H (Ref Range: <100 mg/dL) HDL Cholesterol 65 (Ref Range: >40 mg/dL) 69 (Ref Range: >40 mg/dL) 73 (Ref Range: >40 mg/dL) * Lab:Comprehensive [place]. Pane l Fast * Collection Date 04/12/2024 08/28/2023 06/09/2020 Collection Time 08:28 AM 07:35 AM 07:00 AM Order Date 04/12/2024 08/28/2023 06/09/2020 Sodium 147 H (Ref Range: 135-145 mmol/L) 142 (Ref Range: 135-145 mmol/L) NR Bilirubin Total 0.5 (Ref Range: 0.0-1.0 mg/dL) 0.5 (Ref Range: 0.0-1.0 mg/dL) NR Aspartate Amino Transferase 19 (Ref Range: 5-37 U/L) 18 (Ref Range: 5-37 U/L) NR Alanine Aminotransferase 15 (Ref Range: 0-40 U/L) 14 (Ref Range: 0-40 U/L) NR Total Protein 6.7 (Ref Range: 6.5-8.0 g/dL) 6.5 (Ref Range: 6.5-8.0 g/dL) NR Albumin Level 4.1 (Ref Range: 3.5-5.0 g/dL) 3.9 (Ref Range: 3.5-5.0 g/dL) NR Alkaline Phosphatase 79 (Ref Range: 39-117 U/L) 58 (Ref Range: 39-117 U/L) NR Sodium NR NR 141 (Ref Range: 135-145 mmol/L) Potassium NR NR 4.4 (Ref Range: 3.3-5.1 mmol/l) Chloride NR NR 106 (Ref Range: 96-108 mmol/L) Carbon Dioxide NR NR 29 (Ref Range: 22-29 mmol/L) Anion Gap NR NR 10 L (Ref Range: 12-20) Blood Urea Nitrogen NR NR 21 H (Ref Range: 9-16 mg/dL) Creatinine NR NR 0.81 (Ref Range: 0.5-1.4 mg/dL) Estimated Glomerular Filt Rate NR NR > 60 Glucose Fasting NR NR 116 H (Ref Range: 60-99 mg/dL) Calcium NR NR 8.6 (Ref Range: 8.4-10.2 mg/dL) Bilirubin Total NR NR 0.6 (Ref Range: 0.0-1.0 mg/dL) Aspartate Amino Transferase NR NR 19 (Ref Range: 5-37 U/L) Alanine Aminotransferase NR NR 10 (Ref Range: 0-40 U/L) Total Protein NR NR 6.4 L (Ref Range: 6.5-8.0 g/dL) Albumin Level NR NR 4.0 (Ref Range: 3.5-5.0 g/dL) Alkaline Phosphatase NR NR 58 (Ref Range: 39-117 U/L) Potassium 4.3 (Ref Range: 3.3-5.1 mmol/L) 4.8 (Ref Range: 3.3-5.1 mmol/L) NR Chloride 108 (Ref Range: 96-108 mmol/L) 107 (Ref Range: 96-108 mmol/L) NR Carbon Dioxide 28 (Ref Range: 22-29 mmol/L) 29 (Ref Range: 22-29 mmol/L) NR Anion Gap 15 (Ref Range: 12-20) 11 L (Ref Range: 12-20) NR Blood Urea Nitrogen 16 (Ref Range: 9-16 mg/dL) 14 (Ref Range: 9-16 mg/dL) NR Creatinine 0.78 (Ref Range: 0.5-1.4 mg/dL) 0.79 (Ref Range: 0.5-1.4 mg/dL) NR Estimated Glomerular Filt Rate > 60 > 60 NR Glucose Fasting 131 H (Ref Range: 60-99 mg/dL) 125 H (Ref Range: 60-99 mg/dL) NR Calcium 8.9 (Ref Range: 8.4-10.2 mg/dL) 9.9 (Ref Range: 8.4-10.2 mg/dL) NR * Examination: G eneral Examination: GENERAL APPEARANCE: p darion, well nourished, well developed, in no acute distress, calm and relaxed, elderly man. HEAD: a traumatic, normocephalic. EYES: e alejandro, perrla, anicteric, conjugate, Diminished vision left eye. EARS: n ormal. NOSE: s eptum [...] sounds normal, no ascites, no organomegaly, no mass. RECTAL EXAM: n ot examined. MUSCULOSKELETAL: e xtremities unremarkable, no clubbing, cyanosis or edema. PERIPHERAL PULSES: n ormal. NEUROLOGIC: a lert and oriented, cranial nerves 2-12 grossly intact, deep tendon reflexes 2+ symmetrical, motor strength normal upper and lower extremities, sensory exam intact. PSYCH: a lert, oriented. Assessment: * Assessment: 1. M alignant neoplasm of prostate - C61 (Primary) N otes :His PSA has fallen to 0.82. He is asymptomatic. He is doing well and his disease is controlled. 2 . P ituitary tumor - D49.7 N otes :He will continue to be observed at the [facility] neurosurgery department. He will have periodic MRIs of the brain. The next study has been scheduled at [facility]. He recently went to [place] to see neurosurgery, Dr. Garcia, we'll told him that the tumor was not growing back. 3 . C LL (chronic lymphocytic leukemia) - C91.10 N otes :His lymmphocyte count is actually lower than normal. There is no sign of disease progression and observation will be continued. 4 . F ormer smoker - Z87.891 N otes :He has a plan to prevent relapse in times of stress or illness. 5 . H yperglycemia - R73.9 N otes :This value is being treated by primary care. No change in his status is noted. 6 . C hronic cough - R05.3 N otes :The symptom has resolved. 7 . O steopenia - M85.80 N otes :There was continued on current therapy today without change. 8 . V ision loss of left eye - H54.62 N otes :Vision loss is unchanged. He is able to conduct all of the activities of daily life. The left eye has normal vision. This is a result of treatment of the pituitary tumor in the past. Plan: * Treatment: 2. P ituitary tumor Continue amLODIPine Besylate Tablet, 5 MG, TAKE 1 TABLET BY MOUTH TWICE DAILY, Oral; C ontinue Finasteride Tablet, 5 MG, 1 tablet, Orally, Once a day; C ontinue Prolia Solution Prefilled Syringe, 60 MG/ML, as directed, Subcutaneous; C ontinue Lupron Depot (6-Month) Kit, 45 MG, as directed, Intramuscular. L AB: PROFILE, FASTING (COMPREHENSIVE METABOLIC) L AB: PSA, TOTAL L AB: CBC w DIFF L AB: Lipid Panel L AB: Hemoglobin A1c 3. C LL (chronic lymphocytic leukemia) L AB: PROFILE, FASTING (COMPREHENSIVE METABOLIC) L AB: PSA, TOTAL L AB: CBC w DIFF L AB: Lipid Panel L AB: Hemoglobin A1c 4. F ormer smoker L AB: PROFILE, FASTING (COMPREHENSIVE METABOLIC) L AB: PSA, TOTAL L AB: CBC w DIFF L AB: Lipid Panel L AB: Hemoglobin A1c 5. H yperglycemia L AB: PROFILE, FASTING (COMPREHENSIVE METABOLIC) L AB: PSA, TOTAL L AB: CBC w DIFF L AB: Lipid Panel L AB: Hemoglobin A1c * Procedure Codes: * Preventive Medicine: Counseling: S moking/Tobacco Use Patient counseled on the dangers of tobacco use and urged to quit. 1 * Follow Up: 4 Months (Reason: ov review labs) * Images: * Sign off status: Completed true * Provider: Elver Keyes MD Date: Generated for Chivo ray/Wan/eTransmitting on: 07:16 AM EDT History and Physical Notes * HPI (History of Present Illness) Category Sub-Category Detail Notes COVID-19 Screening Questions Have you had any new onset fever, chills, cough, congestion, sore throat, shortness of breath, muscle aches?: Yes Cough stated longer than 48 hours Have you been exposed to the virus withi n the last 10 days?: No Have you travelled internationally in [facility] last 10 days?: No Have you been exposed to COVID-19 in the past?: Yes Examination Category Sub-Category Detail Notes General Examination GENERAL APPEARANCE: pleasant , well nourished, well developed, in no acute distress, calm and relaxed, elderly man HEAD: atraumatic, normocep halic EYES: eomi, perrla, anicte pedro, conjugate, Diminished vision left eye EARS: normal NOSE: septum intact NECK/THYROID: [...]
--- OUTSIDE RECORDS SUMMARY | 2024-08-26 10:00 | XMS_ITS ---
Author Organization Frankie Keyes III, MD Address [address] [place] [address] Care Team Providers Care Nurse Outreach Case Manager Name Role Phone Christian Barkley MD Primary Care Provider Dr. Frankie Bender III Unavailable [phone] Allergies Allergen (clinical drug ingredient) Drug/Non Drug Allergy documented on EMR Reaction Allergy Type Onset Date Status No Known Drug Allergy Unknown Drug Allergy Active REASON FOR VISIT Followup, mri for [facility] nexts week for pit tumor [...] Problem Status W/U Status Risk Notes Problem [id number] Overweight (E66.3) Active confirmed He is very [...] Provider Diagnosis Frankie Keyes III, MD [address] [place] [address] [place] [address] 08/26/2024 Frankie Keyes Pituitary tumor D49. 7 ; Prostate cancer C61 ; Overweight E66.3 ; CLL (chronic lymphocytic leukemia) C91.10 and Former smoker Z87.891 Assessments Encounter Date Diagnosis (ICD Code) Assessment Notes Treatment Notes Treatment Clinical Notes 08/26/2024 Pituitary tumor (ICD-10 - D49.7) He will continue to be observed at the [facility] neurosurgery department. He will have periodic MRIs of the brain. The next study has been scheduled at [facility]. He recently went to [place] to see neurosurgery, Dr. Garcia, we'll told [...] Up: 4 Months, Reason: OV Provider Name:Frankie Arteagane , 04/25/2025 02:45:00 PM, [address] [place] [address], [facility] [address], [place], [address], Progress Notes * KIKI Kameron BirminghamDOB:1944 (79 yo M)Acc No.[id number]:08/26/2024 Progress Notes Patient: Kameron WHITLOCK Provider: Elver Keyes MD :1945 A ge:79 Y S ex:Male Date:08/26/2024 Address:[address] [place], [place] [phone] Pcp:Christian Barkley MD Subjective: * Chief Complaints: * [facility] * HPI: [...] Level is 105. His physicians at the [facility] in [place] have scheduled an MRI of his brain at the [facility] next week to assess the status of [...] removal on back 04/2018pituitary tumor removal in [place] 10/2019Brain Surgery tumor removal 11/2019Abdomen Aortic Aneurism [...] x-cigarette smoker H e was born in [place] and is not working at present. He [...] will continue to be observed at the [facility] neurosurgery department. He will have periodic MRIs of the brain. The next study has been scheduled at [facility]. He recently went to [place] to see neurosurgery, Dr. Garcia, we'll told [...] * Provider: Elver Keyes MD Date: 0 08/26/2024 Generated for Chivo ray/Wan/Martin on: 07:16 AM EDT History and Physical [...]
--- OUTSIDE RECORDS SUMMARY | 2024-12-30 11:00 | XMS_ITS ---
Author Organization Frankie Keyes III, MD Address [address] [place] [address] Care Team Providers Care Research Study Assistant Name Role Phone Christian Barkley MD [...] Provider Diagnosis Frankie Keyes III, MD [address] [place] [address] DR MANCIARONNACLARIBEL, [place] [address] 12/30/2024 Frankie Keyes Pituitary tumor D49. 7 [...] will continue to be observed at the [facility] neurosurgery department. He will have periodic MRIs of the brain. The next study has been scheduled at [facility]. He recently went to [place] to see neurosurgery, Dr. Garcia, we'll told [...] Provider Name:Frankie Keyes , 04/25/2025 02:45:00 PM, [address] [place] [address] , [place] [address], [place], [address], Progress Notes * Kameron FARIASDOB:1944 (79 yo M)Acc No.[id number]:12/30/2024 Progress Notes Patient: Niecy Kameron LEPE Provider: Elver Keyes MD :1945 A ge:79 Y S ex:Male Date:12/30/2024 Address:[address] [place] [address] [id number] Pcp:Christian Barkley MD Subjective: * Chief Complaints: * P ituitary tumorProstate cancerChronic lymphocytic leukemiaObstructive uropathyHistory of melanoma * HPI: C OVID-19 Screening: Arnav cha returns for surveillance of his various malignancies. He says he has been feeling very tired lately. He has had some edema of his right ankle beginning 2 months ago. He has been to [place] to see Dr. campos who has scheduled [...] removal on back 04/2018pituitary tumor removal in [place] 10/2019Brain Surgery tumor removal 11/2019Abdomen Aortic Aneurism [...] x-cigarette smoker Arnav cha was born in [place] and is not working at present. He [...] will continue to be observed at the [facility] neurosurgery department. He will have periodic MRIs of the brain. The next study has been scheduled at [facility]. He recently went to [place] to see neurosurgery, Dr. Garcia, we'll told [...] MD Date: 0 12/30/2024 Generated for Chivo ray/Wan/eTandreasmitting on: 1 07:16 AM EDT History and Physical Notes [...]
--- OUTSIDE RECORDS SUMMARY | 2025-01-10 11:45 | XMS_ITS ---
Author Organization Frankie Keyes III, MD Address [address] [place] [address] Care Team Providers Care Company Laundry Worker Name Role Phone Christian Barkley MD Primary Care Provider Dr. Frankie Bender III Unavailable Allergies Allergen (clinical drug ingredient) Drug/Non Drug Allergy documented on EMR Reaction Allergy Type Onset Date Status No Known Drug Allergy Unknown Drug Allergy Active REASON FOR VISIT Pituitary tumor, Prostate cancer, Chronic lymphocytic leukemia, Obstructive uropathy, Vision loss left eye, History of melanoma Medications Medication SIG (Take, Route, Frequency, Duration) Notes Start Date End Date Status Lupron Depot (6-Month) 45 MG as directed Intramuscular 04/22/2024 Ac tive amLODIPine Besylate 5 MG TAKE 1 TABLET B Y MOUTH TWICE DAILY Oral Active Prolia 60 MG/ML as directed Subcutaneous Active Finasteride 5 MG 1 tablet Orally Once a day 2023 Active Social History Tobacco Use: Social History Observation Description Date Details (start date - stop date) Former Smoker NA - NA Tobacco Use/Smoking Question Answer Notes Patient is a former smoker How long has it been since you last smoked? > 10 years Additional Findings: Tobacco Non-User Ex-cigaret te smoker Vital Signs Height 71 in 01/10/2025 Weight 179 lbs 01/10/2025 BMI 24.96 kg/m2 01/10/2025 Encounters Encounter Location Date Provider Diagnosis Frankie Keyes III, MD [address] [place] [address] [place] [address] 01/10/2025 Fraknie Ohrne Pituitary tumor D49. 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 He will have periodic MRIs of the brain. The next study has been scheduled at [facility]. He recently went to [place] to see neurosurgery, Dr. Garcia, we'll told him that the tumor was not growing back. 01/10/2025 Malignant neoplasm of prostate (ICD-10 - C61) His PSA remains low. His testosterone level is 7. He is asymptomatic. He is doing well and his disease is controlled. 01/10/2025 CLL (chronic lymphocytic leukemia) (ICD-10 - C91.10) His CBC remains normal with no manifestation of CLL or small Lymphocytic lymphoma. 01/10/2025 Former smoker (ICD-10 - Z87.891) He has a plan to prevent relapse in times of stress or illness. 01/10/2025 Overweight (ICD-10 - E66.3) He is very slightly overweight. I recommended she stabilize his weight at this level Plan Of Treatment Medication Medication Name Sig Start Date Stop Date Notes Lupron Depot (6-Month) 45 MG as directed Intramuscular amLODIPine Besylate 5 MG TAKE 1 TABLET B Y MOUTH TWICE DAILY Oral Prolia 60 MG/ML as directed Subcutaneous 04/22/2024 Finasteride 5 MG 1 tablet Orally Once a day 04/22/2024 Next Appt Details Follow Up: As Scheduled, Angela son: OV Provider Name:Frankie Keyes , 04/25/2025 02:45:00 PM, [address] [place] [address] SUSIE TRONCOSO, LATRELL HARPER, [address], Progress Notes * Naveen FARIASB:1944 (79 yo M)Acc No.[id number]:01/10/2025 Patient: Naveen WHITLOCK Provider: Elver Keyes MD :1945 A ge:79 Y S ex:Male Date:01/10/2025 Address:[address] [place] [address], [place] [address] , [place], [id number] Pcp:Christian Barkley MD Subjective: * Chief Complaints: * P ituitary tumorProstate cancerChronic lymphocytic leukemiaObstructive uropathyVision loss left eyeHistory of melanoma * HPI: * : This telehealth visit tenecteplase over 15 minutes with the patient at home and me in my office. Gave consent for billing. Since his last visit he has been feeling healthy and well. His blood work is now available and will be reviewed with him in detail. He denies any chest pain or shortness of breath. He has had no bone pain. He has no infections or adenopathy. The vision in his right eye remains normal. Telehealth L ocation of provider rendering services: { ...} [address] [facility] [address] L ocation of patient: saranya ddress listed in demographics for today's visit P atient identification confirmed using: HERNANDEZ Camacho ame T elehealth method: T elephone only. Patient not visible to care provider. C onsent: P atient verbally consented to treatment, Patient verbally consented to billing insurance company, Patient informed of any privacy concerns related to method of visit T otal time spent with patient (mins) 1 5 * ROS: G eneral/Constitutional: pain o nly [...] removal on back 04/2018pituitary tumor removal in [place] 10/2019Brain Surgery tumor removal 11/2019Abdomen Aortic Aneurism [...] x-cigarette smoker Arnav cha was born in [place] and is not working at present. He [...] * Vitals: H t: 71, Wt:179, BMI:24.96, Ht-cm: 180.34, Wt-k.19. * P ast Orders: Lab:Testosterone, Total * Collection Date 12/17/2024 04/10/2023 04/02/2021 Collection Time 06:45 AM 07:31 AM 07:35 AM Order Date 12/17/2024 04/05/2023 04/02/2021 Testosterone, Total 7 A (Ref Range: 250-1100 ng/dL) 305 (Ref Range: 250-1100 ng/dL) 8 A (Ref Range: 250-1100 ng/dL) * Lab:Prostate Specific Antige n * Collection Date 12/17/2024 04/12/2024 12/04/2023 Collection Time 06:45 AM 08:28 AM 07:42 AM Order Date 12/17/2024 04/12/2024 12/04/2023 Prostate Specific Antigen 0.59 (Ref Range: <0.05-4.0 ng/mL) 0.82 (Ref Range: <0.05-4.0 ng/mL) 1.03 (Ref Range: <0.05-4.0 ng/mL) * Lab:Comprehensive Met. Panel * Collection Date [...] mg/dL) 9.6 (Ref Range: 8.4-10.2 mg/dL) * Lab:Complete Blood Count Aut o Diff * [...] 0.0-0.012 X10*3/uL) 0.000 (Ref Range: 0.0-0.012 X10*3/uL) Assessment: * Assessment: 1. M alignant neoplasm of prostate - C61 (Primary) N otes :His PSA remains low. His testosterone level is 7. He is asymptomatic. He is doing well and his disease is controlled. 2 . P ituitary tumor - D49.7 N otes :He will continue to be observed at the [facility] neurosurgery department. He will have periodic MRIs of the brain. The next study has been scheduled at [facility]. He recently went to [place] to see neurosurgery, Dr. Garcia, we'll told him that the tumor was not growing back. 3 . C LL (chronic lymphocytic leukemia) - C91.10 N otes :His CBC remains normal with no manifestation of CLL or small Lymphocytic lymphoma. 4 . F ormer smoker - Z87.891 N otes :He has a plan to prevent relapse in times of stress or illness. 5 . O verweight - E66.3 N otes :He is very slightly overweight. I recommended she stabilize his weight at this level Plan: * Treatment: * Procedure Codes: 9 8012 SYNCH AUDIO-ONLY EST SF 10 * Preventive Medicine: Counseling: C are goal follow-up plan: Counseling for abnormal BMI given Y es Above Normal BMI Follow-up D ietary management education, guidance, and counseling, Dietary needs education S moking/Tobacco Use Patient counseled on the dangers of tobacco use and urged to quit. 0 01/10/2025 * Follow Up: A s Scheduled (Reason: OV) * Images: * Sign off status: Completed true * Provider: Elver Keyes MD Date: 0 01/10/2025 Generated for Chivo ray/Wan/eTandreasmitting on: 1 07:17 AM EDT History and Physical Notes * HPI (History of Present Illness) Category Sub-Category Detail Notes Telehealth Location of [facility] rendering services:: {...} [address] [place] [address] Location of patient:: address listed in demographics for today's visit Patient identification confirmed using:: Name, Telehealth method:: Telephone only. Carolyn ent not visible to care provider. Consent:: Patient verbally c onsented to treatment, Patient verbally consented to billing insurance company, Patient informed of any privacy concerns related to method of visit Total time spent with patient (mins): 15
--- OUTSIDE RECORDS SUMMARY | 2025-03-31 13:00 | XMS_ITS ---
Author Organization Frankie Keyes III, MD Address [address] [place] [address] [address] [place] [address] Care Team Providers Care Sanitation Tank Washer Name Role Phone Christian Barkley MD Primary [...] Additional Findings: Tobacco Non-User Ex-cigaret te smoker Encounters Encounter Location Date Provider Diagnosis Frankie Keyes III, MD [address] [place] [address] [address] [place] [address] 03/31/2025 Frankie Keyes Pituitary tumor D49.7 Assessments Encounter Date Diagnosis (ICD Code) Assessment Notes Treatment Notes Treatment Clinical Notes 03/31/2025 Pituitary tumor (ICD-10 - D49.7) He will continue to be observed at the [facility] neurosurgery department. He will have periodic MRIs of the brain. The next study has been scheduled at [facility]. He recently went to [place] to see neurosurgery, Dr. Garcia, we'll told him that the tumor was not growing back. Plan Of Treatment Medication Medication Name Sig Start Date Stop Date Notes Lupron Depot (6-Month) 45 MG as directed Intramuscular Prolia 60 MG/ML as directed Subcutaneous 04/22/2024 Finasteride 5 MG 1 tablet Orally Once a day 04/22/2024 amLODIPine Besylate 5 MG TAKE 1 TABLET B Y MOUTH TWICE DAILY Oral Next Appt Details Provider Name:Frankie Keyes , 04/25/2025 02:45:00 PM, [address] [place] [address] [address] [address], [place], [address], Progress Notes * Kameron FARIASDOB:1944 (80 yo M)Acc No.[id number]:03/31/2025 Progress Notes Patient: Niecy LEPE Kameron [place] Provider: Elver Keyes MD :1945 A ge:80 Y S ex:Male Date:03/31/2025 Address:[address] [place], [place] [phone] Pcp:Christian Barkley MD Subjective: * Chief Complaints: * 1 . Follow up. * HPI: C OVID-19 Screening: Questions H [...] arthitis knees, Childhod eye surgery, pituitary tumor, [facility], surgery, blind OS 2000, 2019, Lymphoma, Prostate cancer, Cellulitis of toe. * Surgical History: H ernia repair 2011,2015, Eye Surgery 1954, Radical Prostatectomy , Brain tumor removed 2000, Right hand surgery 1974, Right knee surgery 52yrs old, Basal cell cancer removed on right cheek 2013, melanoma removal on back 04/2018, pituitary tumor removal in [place] 10/2019, Brain Surgery tumor removal 11/2019, Abdomen [...] x-cigarette smoker Arnav cha was born in [place] and is not working at present. 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 He is and has one son. * Medications: T elijahg amLODIPine Besylate 5 MG Tablet TAKE 1 [...] o Known Drug Allergy. Objective: * Vitals: * Examination: G eneral Examination: GENERAL APPEARANCE: [...] to be observed at the [facility] neurosurgery department. He will have periodic MRIs of the brain. The next study has been scheduled at [facility]. He recently went to [place] to see neurosurgery, Dr. Garcia, we'll told him that the tumor was not growing back. Plan: * Treatment: * Images: * The named appointment provid er may or may not be the originator of this progress note, and it is not deemed complete until electronically signed by the appointment provider. Sign off status: Pending * Provider: Elver Keyes MD Date: Generated for Ayei flor/Wan/eTransmitting on: 07:17 AM EDT History and Physical Notes [...]
--- OUTSIDE RECORDS SUMMARY | 2025-04-01 07:16 | XMS_ITS | Encounter Summary ---
Author Organization [facility] Address [address] [place] [address] Phone Care Team Providers Care Hot Walker Name Role Phone Christian Barkley MD Primary Care Provider Encounter Details Date Type Department Care Team (Late st Contact Info) Description 06/06/2024 Procedure Pass [facility], [address] [address] Social History Tobacco Use Types Packs/Day Years [...] on filedocumented in this encounter Care Teams Hot Walker Relationship Specialty Start Date End Date Christian Barkley MD [address] [place] [address] [address] [place] [address] PCP - General Internal Medicine 10/31/18 documented as of this encounter Additional Source Comments The information contained in this document represents components of the legal health record. It is not the complete legal health record.[facility]
--- OUTSIDE RECORDS SUMMARY | 2025-04-01 07:17 | XMS_ITS | Clinical Summary ---
Author Organization [facility] Address [address] [place] [address] Phone Care Team Providers Care Business Records Manager Name Role Phone Christian Barkley MD [...] and lupron. Oncologist Dr. Bashir Sepulveda in [place], [place] CLL (chronic lymphocytic leukemia) 06/26/2002 Overview (09/02/2019): incidental finding during. No past or current treatment, Followed by Dr. Frankie Keyes ([facility] in [place], [place] Family History Medical History Relation Comments [...] file Insurance MEDICARE PART A & B [employer] CROSS MEDEX SUPPLEMENT MEDICARE PART A & B [employer] MEDEX SUPPLEMENT MEDICARE PART A & B [employer] MEDEX SUPPLEMENT MEDICARE PART A & B [employer]OSS MEDEX SUPPLEMENT MEDICARE PART A & B Member Subscriber Plan / Payer ( fective 2012-Present) Name:Naveen Farias Member ID:[id number] Relation to Subscriber:Self Name:Naveen Farias Subscriber ID:[id number] Payer ID:[id number] Group ID:Not on file Type:Medicare Address: [employer] [address] [place] [phone] [employer] CROSS MEDEX SUPPLEMENT MEDICARE PART A & B [employer] MEDEX SUPPLEMENT MEDICARE PART A & B [employer] CROSS MEDEX SUPPLEMENT MEDICARE PART A & B [employer] CROSS MEDEX SUPPLEMENT [address] [place] [id number] MEDICARE PART A & B [employer] CROSS MEDEX SUPPLEMENT Advance Directives For more information, please contact: [phone] (9AM - 5PM [facility], Monday-Monday) Documents on File Type Date Recorded Patient Timber Trimmer Expl anation Healthcare Proxy 12/09/2019 Living Will 12/09/2019 * Full Code (Confirmed) (Latest Code Status on File) Date Activated Date Inactivated Comments 12/03/2019 5:20 PM Question Answer Comments Code Status Confirmed With: Patient Care Teams Business Records Manager Relationship Specialty Start Date End Date Christian Barkley MD [address] [place] [address] [place] [address] PCP - General Internal Medicine 10/31/18 Additional Source Comments The information contained in this document represents components of the legal health record. It is not the complete legal health record.[facility]
--- OUTSIDE RECORDS SUMMARY | 2025-04-01 07:17 | XMS_ITS | Encounter Summary ---
Author Organization [facility] Address [address] [place] [address] Phone Care Team Providers Care Factory Superintendent Name Role Phone Christian Barkley MD Primary Care Provider Encounter Details Date Type Department Care Team (Late st Contact Info) Description 03/20/2023 Procedure Pass [facility], [address] [address] Social History Tobacco Use Types Packs/Day Years [...] on filedocumented in this encounter Care Teams Factory Superintendent Relationship Specialty Start Date End Date Christian Barkley MD [address] [place] [address] [address] [address] PCP - General Internal Medicine 10/31/18 documented as of this encounter Additional Source Comments The information contained in this document represents components of the legal health record. It is not the complete legal health record.[facility]
--- OUTSIDE RECORDS SUMMARY | 2025-04-01 07:17 | XMS_ITS | Encounter Summary ---
Author Organization [facility] Address [address] [facility] [address] [place] [address] Phone Care Team Providers Care Cornice Maker Name Role Phone Christian Barkley MD Primary Care Provider Encounter Details Date Type Department Care Team ([facility] st Contact Info) Description 12/03/2019 Procedure Pass [facility] [address] [place] [address] Social History Tobacco Use Types Packs/Day Years [...] on filedocumented in this encounter Care Teams Cornice Maker Relationship Specialty Start Date End Date Christian Barkley MD [address] [place] [address] Dr [address] [address] PCP - General Internal Medicine 10/31/18 documented as of this encounter Additional Source Comments The information contained in this document represents components of the legal health record. It is not the complete legal health record.[facility]
--- OUTSIDE RECORDS SUMMARY | 2025-04-01 07:17 | XMS_ITS | Patient Health Record ---
Author Organization Frankie Keyes III, MD Address [address] [place] [address] Care Team Providers Care Roll Former Name Role Phone Christian Barkley MD Primary Care Provider Unavaila Dr. Frankie Cohn III Unavailable [phone] Allergies Allergen (clinical drug ingredient) Drug/Non Drug Allergy documented on EMR Reaction Allergy Type Onset Date Status No Known Drug Allergy Unknown Drug Allergy Active Results Component Value Reference Range Notes Complete Blood Count Auto Di ff Reviewed date:04/14/2024 07:26:22 AM Interpretation: Performing Lab:[facility], [address] [place] [address] Notes/Report: White Blood Count 5.7 4.8-10.8 X10*3/uL [...] NRBC Abs Auto 0.000 0.0-0.012 X10*3/uL Comprehensive Wheelwright. Panel Fa st Reviewed date:04/14/2024 07:26:22 AM Interpretation: Performing Lab:[facility], [address] [place] [phone] Notes/Report: Sodium 147 135-145 mmol/L Potassium 4.3 3.3-5.1 mmol/L Chloride 108 96-108 mmol/L Carbon Dioxide 28 22-29 mmol/L Anion Gap 15 12-20 Blood Urea Nitrogen 16 9-16 mg/dL Creatinine 0.78 0.5-1.4 mg/dL Estimated Glomerular Filt Rate > 60 NOTE: For -Bermudian individuals, multiply the result by 1.210. Chronic [...] Panel Reviewed date:04/14/2024 07:26:22 AM Interpretation: Performing Lab:[address] [address] Notes/Report: Triglycerides 64 <150 mg/dL Desirable Triglyceride: [...] Antigen Reviewed date:04/14/2024 07:26:22 AM Interpretation: Performing Lab:[address] [address] Notes/Report: Prostate Specific Antigen 0.82 <0.05-4.0 ng/mL PSA methodology: Turner Alinity i Chemiluminescent Microparticle Immunoassay (CMIA) Hemoglobin A1c Reviewed date:04/14/2024 07:26:22 AM Interpretation: Performing Lab:[facility], [address] [place] [phone] Notes/Report: Hemoglobin A1c % 5.6 <6.0 % [...] average glucose, using the formula of the F0S-Qithkjc Average Glucose study (ADAG), Diabetes Care, Vol.31,#8, Jan. 2007 XR chest 2V Reviewed date:12/25/2024 03:54:38 PM Interpretation: Performing Lab: Notes/Report: [facility] [address] [place] [address] XRay Report Signed Patient: Naveen Farias MR#: [id number] : 1945 Acct:[id number] Age/Sex: 79 / M ADM Date: 04/22/24 Loc: HO.XRAY Attending Dr: Frankie Keyes MD Ordering Physician: Frankie Keyes MD Date of Service: 04/22/24 Procedure(s): XR chest 2V Accession Number(s): [id number] cc: Frankie Keyes MD; Christian Barkley MD [...] 04/23/24 0541 DD/ 1504 TD/TT: 04/22/24 1520 Market Development Director: [facility] [address] [place] [address] XRay Report Signed Patient: Naveen Farias MR#: [id number] : 1945 Acct:[id number] Age/Sex: 79 / M ADM Date: 04/22/24 Loc: HO.XRAY Attending Dr: Frankie Keyes MD Ordering Physician: Frankie Keyes MD Date of Service: 04/22/24 Procedure(s): XR [address] 2V Accession Number(s): [id number] cc: Frankie Keyes MD; Christian Barkley MD [...] 04/23/24 0541 DD/ 1504 TD/TT: 04/22/24 1520 Market Development Director: Complete Blood Count Auto Di ff Reviewed date:12/25/2024 03:54:38 PM Interpretation: Performing Lab:[facility], [address] [place] [phone] Notes/Report: White Blood Count 6.5 4.8-10.8 X10*3/uL [...] Panel Reviewed date:12/25/2024 03:54:38 PM Interpretation: Performing Lab:[address] [address] Notes/Report: Sodium 143 135-145 mmol/L Potassium 4.4 [...] Antigen Reviewed date:12/25/2024 03:54:38 PM Interpretation: Performing Lab:[address] [address] Notes/Report: Prostate Specific Antigen 0.59 <0.05-4.0 ng/mL PSA methodology: Turner Alinity i Chemiluminescent Microparticle Immunoassay (CMIA) Testosterone, Total Reviewed date:12/25/2024 03:54:38 PM Interpretation: Performing Lab:[facility], [address] [place] [phone] Notes/Report: Testosterone, Total 7 250-1100 ng/dL Men with clinically significant hypogonadal symptoms and testosterone values repeatedly in the range of the 200-300 ng/dL or less, may benefit from testosterone treatment after adequate risk and benefits counseling. For additional information, please refer to http://education.[employer]/faq/ TotalTestosteroneLCMS [email or web address] (This link is being provided for informational/ educational purposes only.) This test was developed and its analytical performance characteristics have been determined by [facility] [place], [place]. It has not been cleared or approved by the U.S. Food and Drug Administration. This assay has been validated pursuant to the CLIA regulations and is used for clinical purposes. THIS TEST WAS PERFORMED AT: [facility]/[address] [address] OSCAR LAZAR MD,PHD Reason For Referral No Information Medications Medication SIG (Take, Route, Frequency, Duration) Notes Start Date End Date Status Lupron Depot (6-Month) 45 MG as directed Intramuscular 04/22/2024 Ac tive Prolia 60 MG/ML as directed Subcutaneous Active Finasteride 5 MG 1 tablet Orally Once a day 2023 Active amLODIPine Besylate 5 MG TAKE 1 TABLET B Y MOUTH TWICE DAILY Oral Active Immunizations Vaccine Route Administration Date Status [...] Problem Status W/U Status Risk Notes Problem 0430862 Former smoker (Z87.891) Active confirmed He has a plan to prevent relapse in times of stress or illness. Problem 160170595 Overweight (E66.3) Active confirmed He is very slightly overweight. I recommended she stabilize his weight at this level Problem 433694044 Malignant neoplasm of prostate (C61) Active confirmed His PSA remai ns low. His testosterone level is 7. He is asymptomatic. He is doing well and his disease is controlled. Problem 444208801 Pituitary tumor (D49.7) Active confirmed He will continue to be observed at the [facility] neurosurgery department. He will have periodic MRIs of the brain. The next study has been scheduled at [facility]. He recently went to [place] to see neurosurgery, Dr. Garcia, we'll told him that the tumor was not growing back. Problem History of malignant melanoma of the skin (42329165810 8) History of melanoma (Z85.820) Active confirmed There was no sign on examination today of recurrent melanoma or a new primary. Problem 928950484 Osteopenia (M85.80) Active confirmed There was continued on current therapy today without change. Problem 36994283 CLL (chronic lymphocytic leukemia) (C91.10) Active confirmed His CBC remains normal with no manifestation of CLL or small Lymphocytic lymphoma. Problem 9097986 Obstructive uropathy (N13.9) Active confirmed He will remain under the care of urologist in this problem will be addressed. 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 He is able to conduct all of the activities of daily life. The left eye has normal vision. This is a result of treatment of the pituitary tumor in the past. Problem 66473235 Cardiomyopathy , unspecified type (I42.9) Active confirmed [...] Provider Diagnosis Frankie Keyes III, MD [address] [place] [address] [place] [address] 04/22/2024 Frankie Keyes Pituitary tumor D49. 7 ; Malignant neoplasm of prostate C61 ; CLL (chronic lymphocytic leukemia) C91.10 ; Former smoker Z87.891 ; Hyperglycemia R73.9 ; Chronic cough R05.3 ; Osteopenia M85.80 and Vision loss of left eye H54.62 Frankie Keyes III, MD [address] [place] [address] [place] [address] 08/26/2024 Frankie Keyes Pituitary tumor D49. 7 ; Prostate cancer C61 ; Overweight E66.3 ; CLL (chronic lymphocytic leukemia) C91.10 and Former smoker Z87.891 Frankie Keyes III, MD [address] [place] [address] [place] [address] 12/30/2024 Frankie Keyes Pituitary tumor D49. 7 ; CLL (chronic lymphocytic leukemia) C91.10 ; Hyperglycemia R73.9 ; Fatigue, unspecified type R53.83 ; Cardiomyopathy, unspecified type I42.9 ; Osteopenia M85.80 ; Former smoker Z87.891 ; Malignant neoplasm of prostate C61 ; History of melanoma Z85.820 ; Vision loss of left eye H54.62 and Obstructive uropathy N13.9 Frankie Keyes III, MD [address] [place] [address] [place] [address] 01/10/2025 Frankie Keyes Pituitary tumor D49. 7 [...] will continue to be observed at the [facility] neurosurgery department. He will have periodic MRIs of the brain. The next study has been scheduled at [facility]. He recently went to [place] to see neurosurgery, Dr. Garcia, we'll told [...] will continue to be observed at the [facility] neurosurgery department. He will have periodic MRIs of the brain. The next study has been scheduled at [facility]. He recently went to [place] to see neurosurgery, Dr. Garcia, we'll told him that the tumor was not growing back. 12/30/2024 Pituitary tumor (ICD-10 - D49.7) He will continue to be observed at the [facility] neurosurgery department. He will have periodic MRIs of the brain. The next study has been scheduled at [facility]. He recently went to [place] to see neurosurgery, Dr. Garcia, we'll told [...] will continue to be observed at the [facility] neurosurgery department. He will have periodic MRIs of the brain. The next study has been scheduled at [facility]. He recently went to [place] to see neurosurgery, Dr. Garcia, we'll told [...] PROFILE, FASTING (COMPREHENSIVE METABOLI C) 12/30/2024 PROFILE, FASTING (COMPREHENSIVE METABOLI C) 04/16/2021 PROFILE, [...] Panel 04/22/2024 Lipid Panel 01/15/2024 Hemoglobin A1c 01/15/2024 Hemoglobin A1c 12/30/2024 Hemoglobin A1c 04/22/2024 Next Appt Details Provider Name:Frankie Dee Stephy , 04/25/2025 02:45:00 PM, [address] [place] [address] [address] [address], [place], [address], Insurance Providers Payer Name Payer Address Payer Phone Subscriber Number Group Number Insured Name Patient Relationship to Insured Coverage Start Date Coverage End Date MEDICARE NGS [address] [place] [phone] [id number] Naveen Farias Self - patient is the insured [facility] [address] [place], [place] [phone] [id number] Naveen Farias Self - patient is the insured Medical (General) History Medical History History ICD Code degenerative arthitis knees childhod eye surgery pituitary tumor, [facility], surge ry, blind OS 2000, 2019 lymphoma prostate cancer cellulitis of toe Surgical History Surgery Date(Month/Year) No history Abdomen Aortic Aneurism 10/2023 Brain Surgery tumor removal 11/2019 pituitary tumor removal in [place] melanoma removal on back 04/2018 Basal cell cancer removed on right cheek 2013 Right knee surgery 52yrs old Right hand surgery 1975 Brain tumor removed 2000 Radical Prostatectomy Eye Surgery 1954 Hernia repair 2011,2015 Hospitalization History Reason Date(Month/Year) No history
--- OUTSIDE RECORDS SUMMARY | 2025-04-01 07:17 | XMS_ITS | Encounter Summary ---
Author Organization [facility] Address [address] [place] [address] Phone Care Team Providers Care Airport Screener Name Role Phone Christian Barkley MD Primary Care Provider Encounter Details Date Type Department Care Team ([facility] st Contact Info) Description 09/10/2019 Procedure Pass [facility] Periop [address] [place] [address] Social History Tobacco Use Types Packs/Day Years [...] on filedocumented in this encounter Care Teams Airport Screener Relationship Specialty Start Date End Date Christian Barkley MD [address] [place] [address] Dr LEROY LATRELL [place] [address] PCP - General Internal Medicine 10/31/18 documented as of this encounter Additional Source Comments The information contained in this document represents components of the legal health record. It is not the complete legal health record.[facility]
--- OUTSIDE RECORDS SUMMARY | 2025-04-01 07:17 | XMS_ITS | Clinical Summary ---
Author Organization [facility] Address [address] [place] [address] Care Team Providers Care Plant Technical Specialist Name Role Phone Christian Barkley MD Primary Care Provider [phone] Allergies No known active allergies Medications Medication [...] age to complete this topic Care Teams Plant Technical Specialist Relationship Specialty Start Date End Date Christian Barkley MD [address] [place] [address] Dr [address] [place] [phone] PCP - General Meat Boner 08/10/16
--- OUTSIDE RECORDS SUMMARY | 2025-04-01 07:17 | XMS_ITS | Patient Health Record ---
Author Organization [facility] Address [address] [place] [address] Care Team Providers Care Senior Marketing Manager Name Role Phone Filippo (RETIRED) Christian [...] Problem Status W/U Status Risk Notes Problem 983392440 Colon cancer screening (Z12.11) Active confirmed Plan Of Treatment Future Test Test Name Order Date COLONOSCOPY 11/20/2013 COLONOSCOPY 04/13/2020 Insurance Providers Payer Name Payer Address Payer Phone Subscriber Number Group Number Insured Name Patient Relationship to Insured Coverage Start Date Coverage End Date MEDICARE OF [place] [address] [facility] [place] [address] [id number] KAMERON SWANSON Self - patient is the insured [employer] CLAIMS [address] [place] [phone] [id number] KAMERON SWANSON Self - patient is the insured Medical (General) History Medical History History ICD Code Colonoscopy, 03/09 negative f or polyps, five-year followup recommended, history of previous adenomas Gastroesophageal reflux disease Hypertension Pituitary Gland tumor Left eye blindness Denies CA,DM,CVA,Lung disease,renal dise ase prostate cancer brain tumor CLL Surgical History Surgery Date(Month/Year) brain surgery wrist surgery eye surgery cataract removal knee surgery hernia repair prostatectomy laminectomy
--- OUTSIDE RECORDS SUMMARY | 2025-04-01 07:17 | XMS_ITS | Encounter Summary ---
Author Organization [facility] Address [address] [place] [address] Phone Care Team Providers Care Label Coder Name Role Phone Christian Barkley MD Primary Care Provider Encounter Details Date Type Department Care Team (Late st Contact Info) Description 12/19/2019 Telephone [facility] Department of Neurosurgery [address] [place] [address] [email or web address] Social History Tobacco Use Types Packs/Day Years [...] on filedocumented in this encounter Care Teams Label Coder Relationship Specialty Start Date End Date Christian Barkley MD [address] [place] [address] Dr LEROY LATRELL [place]man [id number] PCP - General Internal Medicine 10/31/18 documented as of this encounter Additional Source Comments The information contained in this document represents components of the legal health record. It is not the complete legal health record.[facility]
[2025-04-01 07:26] LABS: MANUAL DIFF FLAG NO
[2025-04-01 08:28] LABS: Hematocrit 37.2 % (42.0-52.0); Hemoglobin 12.3 g/dl (14.0-18.0); Imm Gran Abs Auto 0.01 X10*3/uL (0.00-0.03); Imm Gran Pct Auto 0.2 % (0.0-0.4); Lymphocytes Absolute Auto 1.1 X10*3/uL (1.2-4.9); Mean Corpuscular HGB Conc 33.1 g/dl (31.0-36.0); Mean Corpuscular Hemoglobin 29.9 pg (27.0-33.0); Mean Corpuscular Volume 90.5 fL (80.0-98.0); NRBC Abs Auto 0.000 X10*3/uL (0.0-0.012); NRBC Pct Auto 0.0 /100WBC (0.0-0.2); Platelet Count 195 X10*3/uL (160-400); Red Blood Count 4.11 X10*6/uL (4.60-5.80); White Blood Count 6.3 X10*3/uL (4.8-10.8)
[2025-04-01 09:11] LABS: Alanine Aminotransferase 11 U/L (0-40); Albumin Level 3.9 g/dL (3.5-5.0); Alkaline Phosphatase 72 U/L (39-117); Anion Gap 13 (12-20); Aspartate Amino Transferase 21 U/L (5-37); Blood Urea Nitrogen 15 mg/dL (9-16); Calcium 8.9 mg/dL (8.4-10.2); Carbon Dioxide 26 mmol/L (22-29); Chloride 110 mmol/L (96-108); Cholesterol 189 mg/dL (<200); Estimated Glomerular Filt Rate > 60; HDL Cholesterol 56 mg/dL (>40); Potassium 4.9 mmol/L (3.3-5.1); Sodium 144 mmol/L (135-145); Total Protein 6.4 g/dL (6.5-8.0); Triglycerides 88 mg/dL (<150)
== END 2025-04-01 07:12 | disposition home or self-care (01) ==
LOC: HO.LAB 07:11
PROVIDERS: PCP Internal Medicine Medical Oncology; Visit Provider Internal Medicine Medical Oncology
DX: C91.10 Chronic lymphocytic leukemia of B-cell type not having achieved remission (principal); D49.7 Neoplasm of unspecified behavior of endocrine glands and other parts of nervous system; R73.9 Hyperglycemia, unspecified; E66.3 Overweight
CPT/HCPCS: 36415; 80053; 80061; 83036; 85025

== ENCOUNTER 2025-04-09 12:56 | Outpatient (AMB) | payer MEDICARE, SELFPAY ==
--- OUTSIDE RECORDS SUMMARY | 2024-04-22 10:00 | XMS_ITS ---
Author Organization Frankie Keyes III, MD Address [address] [place] [address] [place] [address] Care Team Providers Care Abattoir Manager Name Role Phone Christian Barkley MD Primary [...] Provider Diagnosis Frankie Keyes III, MD [address] [place] [address] [place] [address] 04/22/2024 Frankie Keyes Pituitary tumor D49. 7 [...] continue to be observed at the [facility] neurosurgery department. He will have periodic MRIs of the brain. The next study has been scheduled at [facility]. He recently went to [place] to see neurosurgery, Dr. Garcia, we'll told [...] Provider Name:Frankie Keyes , 04/25/2025 02:45:00 PM, [address] [place] [address], [address], [address], Progress Notes * Kameron FARIASDOB:1944 (79 yo M)Acc No.[id number]:04/22/2024 Progress Notes Patient: Niecy LEPE Kameron [place] Provider: Elver Keyes MD :1945 A ge:79 Y S ex:Male Date:04/22/2024 Address:[address] [place], [place] [id number] Pcp:Christian Barkley MD Subjective: * Chief Complaints: [...] removal on back 04/2018pituitary tumor removal in [place] 10/2019Brain Surgery tumor removal 11/2019Abdomen Aortic Aneurism [...] x-cigarette smoker H e was born in [place] and is not working at present. He [...] 73 (Ref Range: >40 mg/dL) * Lab:Comprehensive [place]. Pane l Fast * Collection Date 04/12/2024 [...] continue to be observed at the [facility] neurosurgery department. He will have periodic MRIs of the brain. The next study has been scheduled at [facility]. He recently went to [place] to see neurosurgery, Dr. Garcia, we'll told [...] MD Date: Generated for Chivo ray/Wan/eTransmitting on: 04:27 PM EDT History and Physical Notes * HPI (History of Present Illness) Category Sub-Category Detail Notes COVID-19 Screening Questions Have you had any new onset fever, chills, cough, congestion, sore throat, shortness of breath, muscle aches?: Yes Cough stated longer than 48 hours Have you been exposed to the virus withi n the last 10 days?: No Have you travelled internationally in [facility] last 10 days?: No Have you [...]
--- OUTSIDE RECORDS SUMMARY | 2024-08-26 10:00 | XMS_ITS ---
Author Organization Frankie Keyes III, MD Address [address] [place] [address] Care Team Providers Care Laminator Hand Name Role Phone Christian Barkley MD Primary Care Provider Dr. Frankie Bender III Unavailable [phone] Allergies Allergen (clinical drug ingredient) Drug/Non Drug Allergy documented on EMR Reaction Allergy Type Onset Date Status No Known Drug Allergy Unknown Drug Allergy Active REASON FOR VISIT Followup, mri for [facility] nexts week for pit tumor Medications Medication [...] Problem Status W/U Status Risk Notes Problem [id number] Overweight (E66.3) Active confirmed He is very [...] Date Provider Diagnosis Frankie Keyes III, MD [address] [place] [address] [place] [address] 08/26/2024 Frankie Keyes Pituitary tumor D49. 7 ; Prostate cancer C61 ; Overweight E66.3 ; CLL (chronic lymphocytic leukemia) C91.10 and Former smoker Z87.891 Assessments Encounter Date Diagnosis (ICD Code) Assessment Notes Treatment Notes Treatment Clinical Notes 08/26/2024 Pituitary tumor (ICD-10 - D49.7) He will continue to be observed at the [facility] neurosurgery department. He will have periodic MRIs of the brain. The next study has been scheduled at [facility]. He recently went to [place] to see neurosurgery, Dr. Garcia, we'll told [...] Provider Name:Frankie Arteagane , 04/25/2025 02:45:00 PM, [address] [place] [address], [facility] [address], [place], [address], Progress Notes * KIKI Kameron BirminghamDOB:1944 (79 yo M)Acc No.[id number]:08/26/2024 Progress Notes Patient: Kameron WHITLOCK Provider: Elver Keyes MD :1945 A ge:79 Y S ex:Male Date:08/26/2024 Address:[address] [place], [place] [phone] Pcp:Christian Barkley MD Subjective: * Chief Complaints: * F [facility] for pit tumor * HPI: [...] Level is 105. His physicians at the [facility] in [place] have scheduled an MRI of his brain at the [facility] next week to assess the status [...] removal on back 04/2018pituitary tumor removal in [place] 10/2019Brain Surgery tumor removal 11/2019Abdomen Aortic Aneurism [...] x-cigarette smoker H e was born in [place] and is not working at present. He [...] will continue to be observed at the [facility] neurosurgery department. He will have periodic MRIs of the brain. The next study has been scheduled at [facility]. He recently went to [place] to see neurosurgery, Dr. Garcia, we'll told [...] 0 08/26/2024 Generated for Chivo ray/Wan/Martin on: 04:28 PM EDT History and Physical Notes * [...]
--- OUTSIDE RECORDS SUMMARY | 2024-12-30 11:00 | XMS_ITS ---
Author Organization Frankie Keyes III, MD Address [address] [place] [address] Care Team Providers Care Construction Coordinator Name Role Phone Christian Barkley MD Primary Care Provider Dr. Frankie Bender III Unavailable [phone] Allergies Allergen (clinical drug ingredient) Drug/Non Drug Allergy documented on EMR Reaction Allergy Type Onset Date Status No Known Drug Allergy Unknown Drug Allergy Active REASON FOR VISIT Pituitary tumor, Prostate cancer, Chronic lymphocytic leukemia, Obstructive uropathy, History of melanoma Medications Medication SIG (Take, [...] Date Provider Diagnosis Frankie Keyes III, MD [address] [place] [address] DR [address], [place] [address] 12/30/2024 Frankie Keyes Pituitary tumor D49. 7 ; CLL (chronic lymphocytic leukemia) C91.10 ; Hyperglycemia R73.9 ; Fatigue, unspecified type R53.83 ; Cardiomyopathy, unspecified type I42.9 ; Osteopenia M85.80 ; Former smoker Z87.891 ; Malignant neoplasm of prostate C61 ; History of melanoma Z85.820 ; Vision loss of left eye H54.62 and Obstructive uropathy N13.9 Assessments Encounter Date Diagnosis (ICD Code) Assessment Notes Treat ment Notes Treatment Clinical Notes 12/30/2024 Pituitary tumor (ICD-10 - D49.7) He will continue to be observed at the [facility] neurosurgery department. He will have periodic MRIs of the brain. The next study has been scheduled at [facility]. He recently went to [place] to see neurosurgery, Dr. Garcia, we'll told him that the tumor was not growing back. 12/30/2024 CLL (chronic lymphocytic leukemia) (ICD-10 - C91.10) His CBC remains normal with no manifestation of CLL or small Lymphocytic lymphoma. 12/30/2024 Hyperglycemia (ICD-10 - R73.9) He continues to have glucose levels a nondiabetic range. 12/30/2024 Fatigue, unspecified type (ICD-10 - R53.83) His testosterone level was 7 which explains his fatigue. We discussed intermittent ADT or prostate cancer in length. 12/30/2024 Cardiomyopathy, unspecified type (ICD-10 - I42.9) There is been no change in his cardiac status since his last visit. 12/30/2024 Osteopenia (ICD-10 - M85.80) There was continued on current therapy today without change. 12/30/2024 Former smoker (ICD-10 - Z87.891) He has a plan to prevent relapse in times of stress or illness. 12/30/2024 Malignant neoplasm of prostate (ICD-10 - C61) His PSA remains low. His testosterone level is 7. He is asymptomatic. He is doing well and his disease is controlled. 12/30/2024 History of melanoma (ICD-10 - Z85.820) There was no sign on examination today of recurrent melanoma or a new primary. 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 He is able to conduct all of the activities of daily life. The left eye has normal vision. This is a result of treatment of the pituitary tumor in the past. 12/30/2024 Obstructive uropathy (ICD-10 - N13.9) He will remain under the care of urologist in this problem will be addressed. Plan Of Treatment Medication Medication Name Sig [...] Provider Name:Frankie Keyes , 04/25/2025 02:45:00 PM, [address] [place] [address] , [place] [address], [place], [address], Progress Notes * Kameron FARIASDOB:1944 (79 yo M)Acc No.[id number]:12/30/2024 Progress Notes Patient: Niecy Kameron LEPE Provider: Elver Keyes MD :1945 A ge:79 Y S ex:Male Date:12/30/2024 Address:[address] [place] [address] [id number] Pcp:Christian Barkley MD Subjective: * Chief Complaints: * P ituitary tumorProstate cancerChronic lymphocytic leukemiaObstructive uropathyHistory of melanoma * HPI: C OVID-19 Screening: Arnav cha returns for surveillance of his various malignancies. He says he has been feeling very tired lately. He has had some edema of his right ankle beginning 2 months ago. He has been to [place] to see Dr. campos who has scheduled him for an MRI of his pituitary gland in January of this year. He denies any headaches. He feels well other than fatigue. Review his blood work shows his testosterone is quite low due to treatment of the prostate cancer. We discussed this phenomenon at length.It appears she is being treated with intermittent androgen deprivation. There is no sign of a new skin cancer. His blood work was reviewed with him and his CBC was stable. Questions H ave you had any new [...] enies. S ciatica d enies. W eakness t hat is generalized. S kin: Itching d enies. R rebeka [...] removal on back 04/2018pituitary tumor removal in [place] 10/2019Brain Surgery tumor removal 11/2019Abdomen Aortic Aneurism [...] x-cigarette smoker Arnav cha was born in [place] and is not working at present. He [...] Verified] Objective: * Vitals: H t: 71, Wt:179, [...] nodes,spleen normal. SKIN: n o suspicious lesions, anicteric, Healed surgical scars. HEART: n o clicks, gallops, murmurs, or [...] Assessment: 1. P ituitary tumor - D49.7 (Primary) N otes :He will continue to be observed at the [facility] neurosurgery department. He will have periodic MRIs of the brain. The next study has been scheduled at [facility]. He recently went to [place] to see neurosurgery, Dr. Garcia, we'll told him that the tumor was not growing back. 2 . C LL (chronic lymphocytic leukemia) - C91.10 N otes :His CBC remains normal with no manifestation of CLL or small Lymphocytic lymphoma. 3 . H yperglycemia - R73.9 N otes :He continues to have glucose levels a nondiabetic range. 4 . F atigue, unspecified type - R53.83 N otes :His testosterone level was 7 which explains his fatigue. We discussed intermittent ADT or prostate cancer in length. 5 . C ardiomyopathy, unspecified type - I42.9 N otes :There is been no change in his cardiac status since his last visit. 6 . O steopenia - M85.80 N otes :There was continued on current therapy today without change. 7 . F ormer smoker - Z87.891 N otes :He has a plan to prevent relapse in times of stress or illness. 8 . M alignant neoplasm of prostate - C61 N otes :His PSA remains low. His testosterone level is 7. He is asymptomatic. He is doing well and his disease is controlled. 9 . H istory of melanoma - Z85.820 N otes :There was no sign on examination today of recurrent melanoma or a new primary. 1 0. V ision loss of left eye - H54.62 N otes :Vision loss is unchanged. He is able to conduct all of the activities of daily life. The left eye has normal vision. This is a result of treatment of the pituitary tumor in the past. 1 1. O bstructive uropathy - N13.9 N otes :He will remain under the care of urologist in this problem will be addressed. Plan: * Treatment: 2. C LL (chronic lymphocytic leukemia) L AB: PROFILE, FASTING (COMPREHENSIVE METABOLIC) L AB: CBC w DIFF L AB: Lipid Panel L AB: Hemoglobin A1c 3. H yperglycemia L AB: PROFILE, FASTING (COMPREHENSIVE METABOLIC) L AB: CBC w DIFF L AB: Lipid Panel L AB: Hemoglobin A1c 4. F atigue, unspecified type I maging: Echocardiogram 5. C ardiomyopathy, unspecified type I maging: Echocardiogram * Procedure Codes: * Preventive Medicine: Counseling: S moking/Tobacco Use Patient counseled on the dangers of tobacco use and urged to quit. 0 12/30/2024 DM Care Plan: P atient Lifestyle Goals P atient wants to be able to manage diabetes without too much effort. T reatment Goals H bA1C < 7.0, Blood Sugars less than < 115. B arriers n o barriers. S elf-Managment Goals I ncrease exercise to 3 times a week for 30 mins. * Follow Up: 3 Months (Reason: ov review labs) * Images: * Sign off status: Completed true * Provider: Elver Keyes MD Date: 0 12/30/2024 Generated for Chivo ray/Wan/eTransmitting on: 1 04:26 PM EDT History and Physical Notes * [...] exam intact SKIN: no suspicious lesion s, anicteric, Healed surgical scars PERIPHERAL PULSES: normal BREASTS: no masses palpable b ilaterally MUSCULOSKELETAL: extremities unremark able, no clubbing, cyanosis or edema LYMPH NODES: no enlarged lymph no harleen,spleen normal RECTAL EXAM: not examined PSYCH: alert, oriented ORAL CAVITY: normal, unremarkable
--- OUTSIDE RECORDS SUMMARY | 2025-01-10 11:45 | XMS_ITS ---
Author Organization Frankie Keyes III, MD Address [address] [place] [address] Care Team Providers Care Hospitalist Name Role Phone Christian Barkley MD Primary [...] Provider Diagnosis Frankie Keyes III, MD [address] [place] [address] [place] [address] 01/10/2025 Frankie Ohrne Pituitary tumor D49. 7 ; Malignant [...] The next study has been scheduled at [facility]. He recently went to [place] to see neurosurgery, Dr. Garcia, we'll told [...] Provider Name:Frankie Keyes , 04/25/2025 02:45:00 PM, [address] [place] [address] SUSIE TRONCOSO, [place], [address], Progress Notes * Naveen FARIASB:1944 (79 yo M)Acc No.[id number]:01/10/2025 Patient: Naveen WHITLOCK Provider: Elver Keyes MD :1945 A ge:79 Y S ex:Male Date:01/10/2025 Address:[address] [place] [address], [place] [address] , [place], [id number] Pcp:Christian Barkley MD Subjective: * Chief Complaints: [...] of provider rendering services: { ...} [address] [facility] [address] L ocation of patient: saranya ddress listed [...] removal on back 04/2018pituitary tumor removal in [place] 10/2019Brain Surgery tumor removal 11/2019Abdomen Aortic Aneurism [...] x-cigarette smoker Arnav cha was born in [place] and is not working at present. He [...] The next study has been scheduled at [facility]. He recently went to [place] to see neurosurgery, Dr. Garcia, we'll told [...] MD Date: 0 01/10/2025 Generated for Chivo ray/Wan/eTransmitting on: 1 04:28 PM EDT History and Physical Notes * HPI (History of Present Illness) Category Sub-Category Detail Notes Telehealth Location of [facility] rendering services:: {...} [address] [place] [address] Location of patient:: address listed in demographics [...]
--- OUTSIDE RECORDS SUMMARY | 2025-03-31 13:00 | XMS_ITS ---
Author Organization Frankie Keyes III, MD Address [address] [place] [address] [address] [place] [address] Care Team Providers Care Structural Mill Supervisor Name Role Phone Christian Barkley MD [...] Date Provider Diagnosis Frankie Keyes III, MD [address] [place] [address] [address] [place] [address] 03/31/2025 Frankie Keyes Pituitary tumor D49.7 Assessments Encounter Date Diagnosis (ICD Code) Assessment Notes Treatment Notes Treatment Clinical Notes 03/31/2025 Pituitary tumor (ICD-10 - D49.7) He will continue to be observed at the [facility] neurosurgery department. He will have periodic MRIs of the brain. The next study has been scheduled at [facility]. He recently went to [place] to see neurosurgery, Dr. Garcia, we'll told [...] Provider Name:Frankie Keyes , 04/25/2025 02:45:00 PM, [address] [place] [address] [address] [address], [place], [address], Progress Notes * Kameron FARIASDOB:1944 (80 yo M)Acc No.[id number]:03/31/2025 Progress Notes Patient: Niecy LEPE Kameron [place] Provider: Elver Keyes MD :1945 A ge:80 Y S ex:Male Date:03/31/2025 Address:[address] [place], [place] [phone] Pcp:Christian Barkley MD Subjective: * Chief Complaints: [...] arthitis knees, Childhod eye surgery, pituitary tumor, [facility], surgery, blind OS 2000, 2019, Lymphoma, Prostate cancer, Cellulitis of toe. * Surgical History: H ernia repair 2011,2015, Eye Surgery 1954, Radical Prostatectomy , Brain tumor removed 2000, Right hand surgery 1974, Right knee surgery 52yrs old, Basal cell cancer removed on right cheek 2013, melanoma removal on back 04/2018, pituitary tumor removal in [place] 10/2019, Brain Surgery tumor removal 11/2019, Abdomen [...] x-cigarette smoker Arnav cha was born in [place] and is not working at present. He [...] will continue to be observed at the [facility] neurosurgery department. He will have periodic MRIs of the brain. The next study has been scheduled at [facility]. He recently went to [place] to see neurosurgery, Dr. Garcia, we'll told [...] MD Date: Generated for Ayei flor/Wan/eTransmitting on: 04:27 PM EDT History and Physical [...]
--- NOTE | 2025-04-09 12:56 | A.OFFVIS_ITS ---
Intake Visit Reasons: 3m/PSA/Testo Intake Note: Patient is present for3 mo follow up Labs 03/25/25: PSA : 0.58, Total testosterone :9 Urology Medication:FINASTERIDE,VITAMIN B Antibiotic Allergy:NONE Blood Thinner:NONE Power Generation Equipment Repairer Required: No Accompanied by: Self / Same As Patient Allergies No Known Allergies (No Known Allergies*) Allergy (Verified 05/05/25 14:26) HPI Comments Details: Naveen is a pleasant male. He is a patient of Dr. Barkley. He is seen for the following urologic conditions - prostate cancer metastatic hormone sensitive - current therapy intermittent hormone blockade Continue surveillance lab work every four-month Left hip pain Plan x-ray 03/20 0.6 T 9 12/18 P 0.6 T 7 - GnRH and prolia 09/17 P 0.6 T 12 - PET/CT with slight decrease in activity of known lesions 06/18 PSA 0.6, testosterone 7 - Injections today - GnRH and Prolia 03/19 PSA 0.6 T 4 12/17 PSA 1.0 T 6 - GnRH and prolia - PET/CT multiple 9 mm to 2.7 cm sclerotic lesions through T9, T12 and left iliac bone 09/16 PSA 0.7, testosterone 11 - DEXA scan osteopenia Bone Scan sclerotic lesion pelvis stable - focal asymmetric increased tracer avidity within the left posterior iliac bone adjacent to the site joint, appear slightly more pronounced on the current study since the prior study dated 12/16/2022. 04/17 PSA 6 Restart GnRH injection - Prolia since known osteopenia Prostate cancer: high risk Initial diagnosis 2009. Radical prostatectomy External beam radiation 2010 Initiation intermittent hormone therapy starting 2013 - months hormones 01/13 - 04/16 Prostate cancer was diagnosed 02/2010. Diagnosis was reached by needle biopsy, for elevated PSA, PSA at diagnosis 11.9. The Mansfield grade is 4+5. TNM Classification of Malignant Tumours (TNM) T2. The D'Abiodun (NCCN) risk category is High Risk (PSA > 20, Gl 8+, T3) Initial therapy included Primary treatment, March 2010 radical prostatectomy, Additional treatment, November 2010 external beam radiation, observation Additional treatment, March 2014 GnRH therapy and antiandrogen. Has used Trelstar, Lupron and bicalutamide. October 2015 , Hormonal Blockade - Intermittent Prolia (denosamab) osteopenia - December 201507/13 GnRH and Prolia, 01/02/18 GnRH and Prolia, 07/19/18 GnRH 3m, prolia, finasteride, 10/12 GnRH 6m, finasteride, 12/13 3m GnRH + finasteride Recent labs included a PSA (prostate-specific antigen) at diagnosis 11.9. From a high of 52 to May 2015 0.06, 11/08 < 0.5, a testosterone 11/08 , < 20 ng/dL Jan 2016 a PSA (prostate-specific antigen) , < 0.26 May 2016 , a PSA (prostate-specific antigen) 0.17 - slow increase - T 200 10/10 - 0.9, 01/09 - 2.1, 04/11 - 4.2 rpt 6.0 07/13 - 10, 10/11 - 2.0 T5 01/10 PSA 2.3, T < 8, 04/12 , a PSA (prostate-specific antigen) 0.9, T < 7 07/14 PSA 1.0 T 15, 10/12 PSA 0.48 T 10, 01/11 PSA .32 T 8, 04/13 PSA 0.4 T 8 07/15 PSA 0.45 T 57, 11/12 PSA 3 T 349, 03/15 PSA 0.3, T 10, 06/14 PSA 1.0 T 19 - 09/13 PSA 8.1, T 474, 12/14 PSA 15, T 355, 04/15 PSA 2.3, T 5, 10/15 PSA 1.7 T 7, 01/15 PSA 1.1 T 71, 04/17 6 T 300 Recent imaging included December 2014 - Bone scan nonspecific abnormalities likely arthritic or traumatic in etiology February 2015 left femoral head and femoral neck increased uptake. Probably degenerative change however bony lesion should be considered. a CT (computed tomography) scan December 2014 sclerotic lesion on L1 vertebrae. Matches area on bone scan. 11/08 DEXA scan - Osteopenia 12/10 , a bone scan - ? small lesion on iliac 03/13 Bone Scan stable lytic lesion pelvis 04/[address] (computed tomography) scan, new sclerotic area on right pelvis 10/12 Bone Scan - mild increase activity spine and pelvis 10/12 , a DEXA scan, showing osteopenia/osteoporosis 04/13 Bone Scan - decreased rib activity 12/13 Persistent small iliac abnormality, 09/13 persistent iliac activity no new increase 03/16 DEXA confirming osteoporosis 09/14 bone scan - stable metastatic disease 12/16 Stable nonspecific abnormalities in the pelvis are consistent with metastatic disease. There is no evidence of progression. Therapeutic plan: 3m f/u labs, imaging [facility] Medical History (Updated 05/19/25 @ 00:01 by LARRY Rocha) Acute bronchitis Peripheral edema Arrhythmia Dizziness Urinary incontinence Arthritis AAA (abdominal aortic aneurysm) without rupture Headache Blind left eye Hx of radiation therapy CLL (chronic lymphocytic leukemia) Bone cancer History of skin cancer Chronic lymphocytic leukemia Hypogonadism in male Prostate cancer History of cataract 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 Hypertension GERD (gastroesophageal reflux disease) Colon adenomas Surgical History Hx of eye surgery Hx of umbilical hernia repair Hx of inguinal hernia repair Hx of melanoma excision (~2016) History of prostatectomy (~2009) History of hernia repair History of knee surgery History of surgery on wrist History of colonoscopy (~04/24/20) History of brain surgery Family History (Updated 05/05/25 @ 14:36 by Lola Zurita MA) Father Heart disease Mother Emphysema lung Social History Household Members: None Housing: Apartment Are you a primary director of health care marketing to a significant other at home: No Do you presently have visiting nurse or other home services: No Alcohol intake: never Comment: left DP/PT, audible-monophasic with doppler, Right is biphasic DP/PT Patient Tobacco Use Status: Former Tobacco user Tobacco use type: Cigarette Years Smoked: 50 e-Cigarette/Vaping Use: Former Use Second Hand Smoke Exposure: No service: No Current occupational status: retired Cognitive needs: No Hearing needs: No Vision needs: Yes (rx glasses) Review of Systems Const Denies chills and Denies fever(s) Card Reports no additional complaints and Denies syncope Resp Denies cough GI Denies abdominal pain and Denies heartburn Reports as per HPI and Denies change in libido Neuro Denies syncope Psych Denies change in libido Endo Denies change in libido Physical Exam Const General: cooperative, healthy appearing, comfortable and no acute distress Orientation/consciousness: patient oriented x3 HEENT Face and sinus: Yes normal facial exam Mouth: moist mucous membranes Neck Neck: Yes normal visual inspection, Yes full ROM and Yes trachea midline Chest Chest palpation & inspection: normal inspection of the chest Resp Effort & Inspection: normal respiratory effort, able to speak in complete sentences and no respiratory distress GI Inspection: Yes normal to inspection Back/Spine/Pelvis Cervical Spine: normal cervical lordosis Thoracic/Lumbar Spine: thoracic and lumbar spine normal to inspection Skin General skin exam: no rashes or lesions noted Neuro General: patient oriented x3, gait normal, tone normal and moves all extremities Extrem General: Yes normal to inspection and Yes capillary refill normal Assessment & Plan Assessment & Plan (1) Hip pain: Code(s): M25.559 - Pain in unspecified hip Category: Medical Plan X-ray hip Three-month follow-up lab work Orders: Orders Testosterone, Total 3 Months C61 - Malignant neoplasm of prostate, C79.51 - Secondary malignant neoplasm of bone Prostate Specific Antigen 3 Months C61 - Malignant neoplasm of prostate, C79.51 - Secondary malignant neoplasm of bone XR hip LT w PEL1V 04/09/25 M25.559 - Pain in unspecified hip Patient Instructions: This note is constructed using voice recognition software. While every effort has been made to ensure accuracy oncology rep specialist errors may have been included. Imaging studies, laboratory and physical exam results were discussed and reviewed in detail. No major barriers to patient understanding were identified. An opportunity to ask questions regarding the treatment plan was provided. All questions were answered. The patient expressed understanding and agreement with the above treatment plan. The patient is aware they should contact our office by phone for worsening of their current condition or the appearance of new urologic symptoms. Compliance is encouraged with any medications and followup testing that is ordered. It is a privilege to participate in the urologic care of your patient. If you have any questions or concerns regarding treatment for the above conditions, or other urologic issues, please do not hesitate to contact me. The office telephone contact is [phone]. Sincerely, Dr Bashir Sepulveda MD, ДМИТРИЙ [facility] - Urology Compassionate Specialist Care for the Genitourinary System Coding Level of Care Code Est Pt Level 3 (45942) Add On Problem Visit Only Diagnoses Hip pain M25.559
--- OUTSIDE RECORDS SUMMARY | 2025-04-09 16:27 | XMS_ITS | Patient Health Record ---
Author Organization Frankie Keyes III, MD Address [address] [place] [address] Care Team Providers Care Buckle Wire Inserter Name Role Phone Christian Barkley MD Primary Care Provider Unavaila Dr. Frankie Cohn III Unavailable [phone] Allergies Allergen (clinical drug ingredient) Drug/Non Drug Allergy documented on EMR Reaction Allergy Type Onset Date Status No Known Drug Allergy Unknown Drug Allergy Active Results Component Value Reference Range Notes Complete Blood Count Auto Di ff Reviewed date:04/14/2024 07:26:22 AM Interpretation: Performing Lab:[facility], [address] [place] [address] Notes/Report: White Blood Count 5.7 4.8-10.8 X10*3/uL [...] NRBC Abs Auto 0.000 0.0-0.012 X10*3/uL Comprehensive Gilbert. Panel Fa st Reviewed date:04/14/2024 07:26:22 AM Interpretation: Performing Lab:[facility], [address] [place] [phone] Notes/Report: Sodium 147 135-145 mmol/L Potassium 4.3 3.3-5.1 mmol/L Chloride 108 96-108 mmol/L Carbon Dioxide 28 22-29 mmol/L Anion Gap 15 12-20 Blood Urea Nitrogen 16 9-16 mg/dL Creatinine 0.78 0.5-1.4 mg/dL Estimated Glomerular Filt Rate > 60 NOTE: For -Armenian individuals, multiply the result by 1.210. Chronic [...] Panel Reviewed date:04/14/2024 07:26:22 AM Interpretation: Performing Lab:[address] [address] Notes/Report: Triglycerides 64 <150 mg/dL Desirable Triglyceride: [...] Antigen Reviewed date:04/14/2024 07:26:22 AM Interpretation: Performing Lab:[address] [address] Notes/Report: Prostate Specific Antigen 0.82 <0.05-4.0 ng/mL PSA methodology: Turner Alinity i Chemiluminescent Microparticle Immunoassay (CMIA) Hemoglobin A1c Reviewed date:04/14/2024 07:26:22 AM Interpretation: Performing Lab:[facility], [address] [place] [phone] Notes/Report: Hemoglobin A1c % 5.6 <6.0 % [...] average glucose, using the formula of the R0F-Ztuuoft Average Glucose study (ADAG), Diabetes Care, Vol.31,#8, Jan. 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: [facility] [address] [place] [address] XRay Report Signed Patient: Naveen Farias MR#: [id number] : 1945 Acct:[id number] Age/Sex: 79 / M ADM Date: 04/22/24 Loc: HO.XRAY Attending Dr: Frankie Keyes MD Ordering Physician: Frankie Keyes MD Date of Service: 04/22/24 Procedure(s): XR [address] 2V Accession Number(s): [id number] cc: Frankie Keyes MD; Christian Barkley MD [...] Roldan MD Signed By: <Electronically signed by iSmran Roldan MD in OV> 04/23/24 0541 DD/ 1504 TD/TT: 04/22/24 1520 Stripping And Booking Machine Operator: Complete Blood Count Auto Di ff Reviewed date:12/25/2024 03:54:38 PM Interpretation: Performing Lab:[facility], [address] [place] [phone] Notes/Report: White Blood Count 6.5 4.8-10.8 X10*3/uL [...] Panel Reviewed date:12/25/2024 03:54:38 PM Interpretation: Performing Lab:[address] [address] Notes/Report: Sodium 143 135-145 mmol/L Potassium 4.4 [...] Antigen Reviewed date:12/25/2024 03:54:38 PM Interpretation: Performing Lab:[address] [address] Notes/Report: Prostate Specific Antigen 0.59 <0.05-4.0 ng/mL PSA methodology: Turner Alinity i Chemiluminescent Microparticle Immunoassay (CMIA) Testosterone, Total Reviewed date:12/25/2024 03:54:38 PM Interpretation: Performing Lab:[facility], [address] [place] [phone] Notes/Report: Testosterone, Total 7 250-1100 ng/dL Men with clinically significant hypogonadal symptoms and testosterone values repeatedly in the range of the 200-300 ng/dL or less, may benefit from testosterone treatment after adequate risk and benefits counseling. For additional information, please refer to http://education.Venturocket/faq/ TotalTestosteroneLCMS [email or web address] (This link is being provided for informational/ educational purposes only.) This test was developed and its analytical performance characteristics have been determined by [facility] [place] [place]. It has not been cleared or approved by the U.S. Food and Drug Administration. This assay has been validated pursuant to the CLIA regulations and is used for clinical purposes. THIS TEST WAS PERFORMED AT: [employer]/[address] [address] OSCAR LAZAR MD,PHD Complete Blood Count Auto Di ff Reviewed date:04/07/2025 08:57:38 AM Interpretation: Performing Lab:[facility], [address] [place] [phone] Notes/Report: White Blood Count 6.3 4.8-10.8 X10*3/uL Red Blood Count 4.11 4.60-5.80 X10*6/uL Hemoglobin 12.3 14.0-18.0 g/dl Hematocrit 37.2 42.0-52.0 % Mean Corpuscular Volume 90.5 80.0-98.0 fL Mean Corpuscular Hemoglobin 29.9 27.0-33.0 pg Mean Corpuscular HGB Conc 33.1 31.0-36.0 g/dl Red Cell Distribution Width 13.7 11.0-16.0 % Platelet Count 195 160-400 X10*3/uL Mean Platelet Volume 10.1 9.4-12.4 fL Neutrophils Percent Auto 69.4 45-73 % Imm Gran Pct Auto 0.2 0.0-0.4 % Lymphocytes Percent Auto 18.1 20-40 % Monocytes Percent Auto 8.6 2-11 % Eosinophils Percent Auto 3.2 0-4 % Basophils Percent Auto 0.5 0-2 % NRBC Pct Auto 0.0 0.0-0.2 /100WBC Neutrophils Absolute Auto 4.3 2.0-8.3 x10*3/uL Imm Gran Abs Auto 0.01 0.00-0.03 X10*3/uL Lymphocytes Absolute Auto 1.1 1.2-4.9 X10*3/uL Monocytes Absolute Auto 0.5 0.1-1.2 X10*3/uL Eosinophils Absolute Auto 0.2 0.0-0.4 X10*3/uL Basophils Absolute Auto 0.0 0.0-0.2 X10*3/uL NRBC Abs Auto 0.000 0.0-0.012 X10*3/uL Comprehensive Gilbert. Panel Fa st Reviewed date:04/07/2025 08:57:39 AM Interpretation: Performing Lab:[facility], [address] [place] [phone] Notes/Report: Sodium 144 135-145 mmol/L Potassium 4.9 3.3-5.1 mmol/L Chloride 110 96-108 mmol/L Carbon Dioxide 26 22-29 mmol/L Anion Gap 13 12-20 Blood Urea Nitrogen 15 9-16 mg/dL Creatinine 0.76 0.5-1.4 mg/dL Estimated Glomerular Filt Rate > 60 Chronic Kidney Disease: Estimated GFR < 60 mL/min/1.73m2 Severe Kidney Disease: Estimated GFR < 15 mL/min/1.73m2 Glucose Fasting 129 60-99 mg/dL A fasting glucose of 126 mg/dl or greater on more than one occasion is considered diagnostic of diabetes. Calcium 8.9 8.4-10.2 mg/dL Bilirubin Total 0.4 0.0-1.0 mg/dL Aspartate Amino Transferase 21 5-37 U/L Alanine Aminotransferase 11 0-40 U/L Total Protein 6.4 6.5-8.0 g/dL Albumin Level 3.9 3.5-5.0 g/dL Alkaline Phosphatase 72 39-117 U/L Lipid Panel Reviewed date:04/07/2025 08:57:39 AM Interpretation: Performing Lab:[facility], [address] [place] [phone] Notes/Report: Triglycerides 88 <150 mg/dL Desirable Triglyceride: less than 150 mg/dL Borderline High Triglyceride 150-199 mg/dL High Triglyceride: 200-499 mg/dL Very High Triglyceride: greater than or equal to 5OO mg/dL Cholesterol 189 <200 mg/dL Desirable Cholesterol: less than 200 mg/dL Borderline High Cholesterol: 200-239 mg/dL High Cholesterol: greater than 239 mg/dL LDL Cholesterol Calculated 116 <100 mg/dL Desirable LDL: less than 100 mg/dL Near Optimal/Above Optimal LDL: 110-129 mg/dL Borderline High LDL: 130-159 mg/dL High LDL: 160-189 mg/dL Very High LDL: greater than or equal to 190 mg/dL HDL Cholesterol 56 >40 mg/dL Desirable HDL: greater than 40 mg/dL Note: This HDL assay may give artificially low results in patients with liver disease. Hemoglobin A1c Reviewed date:04/07/2025 08:57:38 AM Interpretation: Performing Lab:[facility], [address] [place] [phone] Notes/Report: Hemoglobin A1c % 5.6 <6.0 % [...] average glucose, using the formula of the W4B-Qogulxs Average Glucose study (ADAG), Diabetes Care, Vol.31,#8, Jan. 2007 Reason For Referral No Information Medications Medication [...] Problem Status W/U Status Risk Notes Problem 9787139 Former smoker (Z87.891) Active confirmed He has a plan to prevent relapse in times of stress or illness. Problem 563449328 Overweight (E66.3) Active confirmed He is very slightly overweight. I recommended she stabilize his weight at this level Problem 275012737 Malignant neoplasm of prostate (C61) Active confirmed His PSA remai ns low. His testosterone level is 7. He is asymptomatic. He is doing well and his disease is controlled. Problem 656298810 Pituitary tumor (D49.7) Active confirmed He will continue to be observed at the [facility] neurosurgery department. He will have periodic MRIs of the brain. The next study has been scheduled at [facility]. He recently went to [place] to see neurosurgery, Dr. Garcia, we'll told him that the tumor was not growing back. Problem History of malignant melanoma of the skin (06601283527 8) History of melanoma (Z85.820) Active confirmed There was no sign on examination today of recurrent melanoma or a new primary. Problem 972359241 Osteopenia (M85.80) Active confirmed There was continued on current therapy today without change. Problem 01785798 CLL (chronic lymphocytic leukemia) (C91.10) Active confirmed His CBC remains normal with no manifestation of CLL or small Lymphocytic lymphoma. Problem 8388818 Obstructive uropathy (N13.9) Active confirmed He will remain under the care of urologist in this problem will be addressed. 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 He is able to conduct all of the activities of daily life. The left eye has normal vision. This is a result of treatment of the pituitary tumor in the past. Problem 64063092 Cardiomyopathy , unspecified type (I42.9) Active confirmed [...] Date Provider Diagnosis Frankie Keyes III, MD [address] [place] [address] [place] [address] 04/22/2024 Frankie Keeys Pituitary tumor D49. 7 ; Malignant neoplasm of prostate C61 ; CLL (chronic lymphocytic leukemia) C91.10 ; Former smoker Z87.891 ; Hyperglycemia R73.9 ; Chronic cough R05.3 ; Osteopenia M85.80 and Vision loss of left eye H54.62 Frankie Keyes III, MD [address] [place] [address] [place] [address] 08/26/2024 Frankie Keyes Pituitary tumor D49. 7 ; Prostate cancer C61 ; Overweight E66.3 ; CLL (chronic lymphocytic leukemia) C91.10 and Former smoker Z87.891 Frankie Keyes III, MD [address] [place] [address] [place] [address] 12/30/2024 Frankie Ohrne Pituitary tumor D49. 7 ; CLL (chronic lymphocytic leukemia) C91.10 ; Hyperglycemia R73.9 ; Fatigue, unspecified type R53.83 ; Cardiomyopathy, unspecified type I42.9 ; Osteopenia M85.80 ; Former smoker Z87.891 ; Malignant neoplasm of prostate C61 ; History of melanoma Z85.820 ; Vision loss of left eye H54.62 and Obstructive uropathy N13.9 Frankie Keyes III, MD [address] [place] [address] [place] [address] 01/10/2025 Frankie Ohrne Pituitary tumor D49. 7 [...] will continue to be observed at the [facility] neurosurgery department. He will have periodic MRIs of the brain. The next study has been scheduled at [facility]. He recently went to [place] to see neurosurgeryDr. Garcia, we'll told him [...] will continue to be observed at the [facility] neurosurgery department. He will have periodic MRIs of the brain. The next study has been scheduled at [facility]. He recently went to [place] to see neurosurgery, Dr. Garcia, we'll told him that the tumor was not growing back. 12/30/2024 Pituitary tumor (ICD-10 - D49.7) He will continue to be observed at the [facility] neurosurgery department. He will have periodic MRIs of the brain. The next study has been scheduled at [facility]. He recently went to [place] to see neurosurgery, Dr. Garcia, we'll told [...] will continue to be observed at the [facility] neurosurgery department. He will have periodic MRIs of the brain. The next study has been scheduled at [facility]. He recently went to [place] to see neurosurgeryDr. Garcia, we'll told him [...] A1c 04/22/2024 Next Appt Details Provider Name:Frankie Keyes , 04/25/2025 02:45:00 PM, [address] [place] [address] , [address], [place], [address], Insurance Providers Payer Name Payer Address Payer Phone Subscriber Number Group Number Insured Name Patient Relationship to Insured Coverage Start Date Coverage End Date MEDICARE N[place] [address] [place] [phone] [id number] Naveen Farias Self - patient is the insured BLUE [employer] BLUE [facility] [address] [place], [place] [id number] Jarrett Naveen Self - patient is the insured Medical (General) History Medical History History ICD Code degenerative arthitis knees childhod eye surgery pituitary tumor, [facility], surge ry, blind OS 2000, 2019 lymphoma prostate cancer cellulitis of toe Surgical History Surgery Date(Month/Year) No history Abdomen Aortic Aneurism 10/2023 Brain Surgery tumor removal 11/2019 pituitary tumor removal in [place] 0 melanoma removal on back 04/2018 Basal cell cancer removed on right cheek 2013 Right knee surgery 52yrs old Right hand surgery 1975 Brain tumor removed 2000 Radical Prostatectomy Eye Surgery 1954 Hernia repair 2011,2015 Hospitalization History Reason Date(Month/Year) No history
--- OUTSIDE RECORDS SUMMARY | 2025-04-09 16:27 | XMS_ITS | Patient Health Record ---
Author Organization [facility] Address [address] [place] [address] Care Team Providers Care Lay Out Former Name Role Phone Filippo (RETIRED) Christian CARROLL [...] at 5:00 p.m. the day before the procedure; Duration: 1 day 04/13/2020 Active Finasteride 5 MG Orally Act sheri Immunizations Vaccine Route Administration Date Status Comme nts Influenza Unknown 03/18/2020 Administered Problems Problem Type SNOMED Code ICD Code Onset Dates Problem Status W/U Status Risk Notes Problem Colon cancer screening (950092455) Colon cancer screening (Z12.11) Active confirmed Plan Of Treatment Future Test Test Name Order Date COLONOSCOPY 11/20/2013 COLONOSCOPY 04/13/2020 Insurance Providers Payer Name Payer Address Payer Phone Subscriber Number Group Number Insured Name Patient Relationship to Insured Coverage Start Date Coverage End Date MEDICARE OF [place] [address] [place] [address] [id number] KAMERON SWANSON Self - patient is the insured [employer] CLAIMS [address] [place] [address] [id number] KAMERON SWANSON Self - patient is the insured Medical (General) History Medical History History ICD Code Colonoscopy, 03/09 negative f or polyps, five-year followup recommended, history of previous adenomas Gastroesophageal reflux disease Hypertension Pituitary Gland tumor Left eye blindness Denies KS,DM,CVA,Lung disease,renal dise ase prostate cancer brain tumor CLL Surgical History Surgery Date(Month/Year) brain surgery wrist surgery eye surgery cataract removal knee surgery hernia repair prostatectomy laminectomy
--- OUTSIDE RECORDS SUMMARY | 2025-04-09 16:29 | XMS_ITS | Clinical Summary ---
Author Organization [employer] [facility] Address [address] [place] [address] Care Team Providers Care Cloth Booker Name Role Phone Christian Barkley MD Primary Care Provider [phone] Allergies No known active allergies Medications Medication [...] age to complete this topic Care Teams Cloth Booker Relationship Specialty Start Date End Date Christian Barkley MD [address] [place] [address] Dr [address] [place] [id number] PCP - General Patient Centered Care Specialist 08/10/16
== END 2025-04-09 13:52 | disposition home or self-care (01) ==
LOC: HO.HUSH 12:56
PROVIDERS: PCP Internal Medicine; Visit Provider Urology
DX: M25.559 Pain in unspecified hip (principal)
CPT/HCPCS: 99213; G2211

== ENCOUNTER → 2025-04-09 12:56 | Outpatient (BNVA) | payer MEDICARE, SELFPAY | PROVIDERS: PCP Internal Medicine; Visit Provider Urology | DX: C61 Malignant neoplasm of prostate (principal); C79.51 Secondary malignant neoplasm of bone; M25.552 Pain in left hip | CPT/HCPCS: 99212 ==